=== PATIENT | male | born 1960 | race Caucasian/White ===

== ENCOUNTER 2017-08-29 10:31 | Emergency (ER) | payer SELFPAY ==
[2017-08-29] MEDS ORDERED: HYDROCODONE/APAP 10/325 TAB ONE (11:00)
--- NOTE | 2017-08-29 12:03 | RAD REPORT ---
EXAM DESCRIPTION: RAD - Ankle Right 3 View - 08/29/2017 11:17 am CLINICAL HISTORY: Twisting injury, soft tissue swelling COMPARISON: None. FINDINGS: All several punctate bony densities are present at the tip of the fibula and may represent small avulsion fractures from the current injury or even possibly remote ankle injuries. No other ev idence for fracture. No dislocation or periosteal reaction. Scattered degenerative changes are presen t around the ankle joint. No Achilles or plantar spur. No joint effusion seen. No joint space narrowi ng. Significant lateral soft tissue swelling is present. IMPRESSION: Several punctate bony densities at the tip of the fibula could be avulsion fractures fro m the current injury or from prior ankle injury. No other fracture change seen. There is significant lateral soft tissue swelling.
--- NOTE | 2017-08-29 13:19 | ER ---
Nurse's Notes [facility] Name: Jesus Noriega Age: 56 yrs Sex: Male : 1960 Arrival Date: 08/29/2017 Time: 10:35 Bed 13 Private MD: Kelvin Mayorga Diagnosis: Sprain of unspecified ligament of right ankle;Other physeal fracture of lower end of unspecified fibula Presentation: 08/29 10:40 Presenting complaint: Patient states: Rolled right ankle today just TRUCKER HAND. Transition of care: patient was not received from another setting of care. Onset of symptoms was August 29, 2017. Risk Assessment: Do you want to hurt yourself or someone else? Patient reports no desire to harm self or others. Initial Sepsis Screen: Does the patient meet any 2 criteria? No. Patient's initial sepsis screen is negative. Does the patient have a suspected source of infection? No. Patient's initial sepsis screen is negative. Care prior to arrival: None. 10:40 Method Of Arrival: Wheelchair aj 10:40 Acuity: [place] 4 aj Triage Assessment: 10:41 General: Appears in no apparent distress. comfortable, Behavior is calm, cooperative, aj appropriate for age. Pain: Complains of pain in anterior aspect of right ankle. Neuro: Level of Consciousness is awake, alert, obeys commands, Oriented to person, place, time, situation, Appropriate for age. Respiratory: Airway is patent Respiratory effort is even, unlabored, Respiratory pattern is regular, symmetrical. Derm: Skin is intact, is healthy with good turgor, Skin is pink, warm \T\ dry. normal. Musculoskeletal: Reports pain in right ankle and anterior aspect of right ankle. Historical: - Allergies: 10:41 No Known Allergies; aj - Home Meds: 10:41 None [Active]; aj - PMHx: 10:41 COPD; aj - PSHx: 10:41 None; aj - Immunization history:: Adult Immunizations up to date. - Social history:: Smoking status: Patient/guardian denies using tobacco, Patient uses alcohol, occasionally. - Ebola Screening: : Patient negative for fever greater than or equal to 101.5 degrees Fahrenheit, and additional compatible Ebola Virus Disease symptoms Patient denies exposure to infectious person Patient denies travel to an Ebola-affected area in the 21 days before illness onset No symptoms or risks identified at this time. - Family history:: not pertinent. - Hospitalizations: : No recent hospitalization is reported. - History obtained from: friend. Screenin:48 Abuse screen: Denies threats or abuse. Denies injuries from another. Nutritional hj screening: No deficits noted. Tuberculosis screening: No symptoms or risk factors identified. Fall Risk None identified. Assessment: 10:41 General: Appears in no apparent distress. uncomfortable, Behavior is calm, cooperative, hj appropriate for age. Pain: Complains of pain in right ankle and anterior aspect of right ankle. Neuro: Level of Consciousness is awake, alert, obeys commands, Oriented to person, place, time, situation, Appropriate for age. Cardiovascular: Capillary refill < 3 seconds Patient's skin is warm and dry. Respiratory: Airway is patent Respiratory effort is even, unlabored, Respiratory pattern is regular, symmetrical. GI: No signs and/or symptoms were reported involving the gastrointestinal system. : No signs and/or symptoms were reported regarding the genitourinary system. EENT: No signs and/or symptoms were reported regarding the EENT system. Derm: No signs and/or symptoms reported regarding the dermatologic system. Musculoskeletal: No signs and/or symptoms reported regarding the musculoskeletal system. 11:45 Reassessment: Patient and/or family updated on plan of care and expected duration. Pain iw level reassessed. Patient is alert, oriented x 3, equal unlabored respirations, skin warm/dry/pink. Patient states feeling better. 12:45 Reassessment: Patient and/or family updated on plan of care and expected duration. Pain iw level reassessed. Patient is alert, oriented x 3, equal unlabored respirations, skin warm/dry/pink. Patient states symptoms have improved. 13:27 Reassessment: for D/C;. iw Vital Signs: 10:41 BP 121 / 93; Pulse 65; Resp 20; Temp 98.0(O); Pulse Ox 96% on R/A; Weight 106.59 kg; aj Height 5 ft. 9 in. (175.26 cm); 13:27 BP 120 / 95; Pulse 67; Resp 18; Pulse Ox 100% on R/A; iw 10:41 Body Mass Index 34.70 (106.59 kg, 175.26 cm) ED Course: 10:35 Patient arrived in ED. mr 10:35 Kelvin Mayorga MD is Private Physician. mr 10:35 Indy Carpenter FNP is [facility]. kav 10:35 Osbaldo Cedeño MD is Attending Physician. kav 10:40 Triage completed. aj 10:41 Arm band placed on left wrist. Patient placed in an exam room. aj 10:47 Anjum Lowery, RN is Primary Nurse. hj 10:48 Patient has correct armband on for positive identification. Placed in gown. Bed in low hj position. Call light in reach. Side rails up X 1. 11:17 Ankle Right 3 View XRAY In Process Unspecified. EDMS 11:17 X-ray completed. Portable x-ray completed in exam room. Patient tolerated procedure jb2 well. 13:17 Orthoglass splint:. mh5 13:18 Crutch training done. Orthoglass splint: Posterior short lleg splint applied on right mh5 leg. 13:19 Kelvin Mayorga MD is Referral Physician. kav 13:19 Rakan Mireles MD is Referral Physician. kav 13:28 No provider procedures requiring assistance completed. Patient did not have IV access iw during this emergency room visit. Administered Medications: 10:56 Drug: [place] 10 mg-325 mg 1 tabs Route: PO; hj 12:51 Follow up: Response: Pain is decreased Outcome: 13:19 Discharge ordered by . kav 13:28 Discharged to home ambulatory, with crutches, with family. iw 13:28 Condition: stable 13:28 Discharge instructions given to patient, family, Instructed on discharge instructions, follow up and referral plans. medication usage, crutch walking, Demonstrated understanding of instructions, follow-up care, medications, crutch walking, Prescriptions given X 2. 13:38 Patient left the ED. hj Signatures: Dispatcher [employer] EDMS Yuki Mtz RN RN aj Vern, Katherine, FNP FNP kav Rivera, Maria Vic Andrade jb2 Kenzie Alford RN RN iw Joaquin, Henry, RN RN hj Martinez, Maria [facility]
--- NOTE | 2017-08-29 13:19 | EDPHYS ---
Physician Documentation [facility] Name: Jesus Noriega Age: 56 yrs Sex: Male : 1960 Arrival Date: 08/29/2017 Time: 10:35 Bed 13 Private MD: Kelvin Mayorga ED Physician Osbaldo Cedeño HPI: 08/29 10:56 This 56 yrs old Male presents to ER via Wheelchair with complaints of Feet kav Swelling. 10:56 The patient presents with a deformity, pain, that is acute, swelling. The complaints kav affect the right ankle. Onset: The symptoms/episode began/occurred acutely, just prior to arrival. Context: The problem was sustained at home, resulted from the patient falling, "...fell through the floor", The mechanism of injury involved eversion of the affected ankle. The patient can partially bear weight on the affected extremity. the patient is able to ambulate, with mild difficulty. Associated signs and symptoms: Pertinent positives: swelling, of the right ankle. Modifying factors: The symptoms are alleviated by nothing, the symptoms are aggravated by movement. Severity of symptoms: At their worst the symptoms were moderate, just prior to arrival, a " 9" out of "10". The patient has not experienced similar symptoms in the past. The patient has not recently seen a physician. This is a 56 y/o male patient who presents to the ED with right swollen ankle that is tender to touch and painful 9/10. He reports that his injury occurred just prior to arrival to ED.. Historical: - Allergies: 10:41 No Known Allergies; aj - Home Meds: 10:41 None [Active]; aj - PMHx: 10:41 COPD; aj - PSHx: 10:41 None; aj - Immunization history:: Adult Immunizations up to date. - Social history:: Smoking status: Patient/guardian denies using tobacco, Patient uses alcohol, occasionally. - Ebola Screening: : Patient negative for fever greater than or equal to 101.5 degrees Fahrenheit, and additional compatible Ebola Virus Disease symptoms Patient denies exposure to infectious person Patient denies travel to an Ebola-affected area in the 21 days before illness onset No symptoms or risks identified at this time. - Family history:: not pertinent. - Hospitalizations: : No recent hospitalization is reported. - History obtained from: friend. ROS: 10:59 Constitutional: Negative for fever, chills, and weight loss, Eyes: Negative for injury, kav pain, redness, and discharge, ENT: Negative for injury, pain, and discharge, Neck: Negative for injury, pain, and swelling, Cardiovascular: Negative for chest pain, palpitations, and edema, Respiratory: Negative for shortness of breath, cough, wheezing, and pleuritic chest pain, Abdomen/GI: Negative for abdominal pain, nausea, vomiting, diarrhea, and constipation, Back: Negative for injury and pain, : Negative for injury, bleeding, discharge, and swelling, Skin: Negative for injury, rash, and discoloration, Neuro: Negative for headache, weakness, numbness, tingling, and seizure, Psych: Negative for depression, anxiety, suicide ideation, homicidal ideation, and hallucinations, Allergy/Immunology: Negative for hives, rash, and allergies, Endocrine: Negative for neck swelling, polydipsia, polyuria, polyphagia, and marked weight changes, Hematologic/Lymphatic: Negative for swollen nodes, abnormal bleeding, and unusual bruising. 10:59 MS/extremity: Positive for injury or acute deformity, pain, swelling, Negative for abrasion, contusion, ecchymosis, laceration. Exam: 10:59 Constitutional: This is a well developed, well nourished patient who is awake, alert, kav and in no acute distress. Head/Face: Normocephalic, atraumatic. Eyes: Pupils equal round and reactive to light, extra-ocular motions intact. Lids and lashes normal. Conjunctiva and sclera are non-icteric and not injected. Cornea within normal limits. Periorbital areas with no swelling, redness, or edema. ENT: Nares patent. No nasal discharge, no septal abnormalities noted. Tympanic membranes are normal and external auditory canals are clear. Oropharynx with no redness, swelling, or masses, exudates, or evidence of obstruction, uvula midline. Mucous membranes moist. Neck: Trachea midline, no thyromegaly or masses palpated, and no cervical lymphadenopathy. Supple, full range of motion without nuchal rigidity, or vertebral point tenderness. No Meningismus. Chest/axilla: Normal chest wall appearance and motion. Nontender with no deformity. No lesions are appreciated. Cardiovascular: Regular rate and rhythm with a normal S1 and S2. No gallops, murmurs, or rubs. Normal PMI, no JVD. No pulse deficits. Respiratory: Lungs have equal breath sounds bilaterally, clear to auscultation and percussion. No rales, rhonchi or wheezes noted. No increased work of breathing, no retractions or nasal flaring. Abdomen/GI: Soft, non-tender, with normal bowel sounds. No distension or tympany. No guarding or rebound. No evidence of tenderness throughout. Back: No spinal tenderness. No costovertebral tenderness. Full range of motion. Skin: Warm, dry with normal turgor. Normal color with no rashes, no lesions, and no evidence of cellulitis. Neuro: Awake and alert, GCS 15, oriented to person, place, time, and situation. Cranial nerves II-XII grossly intact. Motor strength 5/5 in all extremities. Sensory grossly intact. Cerebellar exam normal. Normal gait. Psych: Awake, alert, with orientation to person, place and time. Behavior, mood, and affect are within normal limits. 10:59 Musculoskeletal/extremity: Extremities: noted in the right ankle: ROM: limited active range of motion, in the right ankle, Circulation is intact in all extremities. Pulses: noted to be 2+ in the left popliteal artery, Sensation intact. Compartment Syndrome exam of affected extremity: is normal. no numbness, no tingling, no sensation deficit, no palor, no weak pulses, severe pain, with active ROM, Joints: the right ankle displays Weight bearing: can bear weight with assistance only, Tendon exam: Vital Signs: 10:41 BP 121 / 93; Pulse 65; Resp 20; Temp 98.0(O); Pulse Ox 96% on R/A; Weight 106.59 kg; aj Height 5 ft. 9 in. (175.26 cm); 13:27 BP 120 / 95; Pulse 67; Resp 18; Pulse Ox 100% on R/A; iw 10:41 Body Mass Index 34.70 (106.59 kg, 175.26 cm) aj MDM: 10:40 Medical screening is not applicable. [facility] 11:48 Data reviewed: vital signs, nurses notes. ED course: awaiting radiology results. [facility] 08/29 10:56 Order name: Ankle Right 3 View XRAY; Complete Time: 12:12 [facility] 08/29 12:12 Interpretation: No acute disease except: Possible avulsion fracture fibular. [facility] 08/29 10:56 Order name: Ice pack: right ankle; Complete Time: 10:57 [facility] 08/29 12:22 Order name: Posterior Leg Splint; Complete Time: 13:16 ka 08/29 12:22 Order name: Crutches; Complete Time: 13:16 ka Administered Medications: 10:56 Drug: [place] 10 mg-325 mg 1 tabs Route: PO; 12:51 Follow up: Response: Pain is decreased Disposition: 08/30 06:38 Co-signature as Attending Physician, Osbaldo Cedeño MD I agree with the assessment and jaylin plan of care. Disposition: 08/29/17 13:19 Discharged to Home. Impression: Sprain of unspecified ligament of right ankle, Other physeal fracture of lower end of unspecified fibula. - Condition is Stable. - Discharge Instructions: Ankle Sprain, [id number], Ankle Pain, Ankle Fracture, [id number]. - Prescriptions for Ibuprofen 800 mg Oral Tablet - take 1 tablet by ORAL route every 8 hours As needed take with food; 30 tablet. Tylenol- Codeine #3 300-30 mg Oral Tablet - take 2 tablet by ORAL route every 6 hours As needed; 30 tablet. - Medication Reconciliation Form, Thank You Letter, Antibiotic Education, Prescription Opioid Use, Work release form form. - Follow up: Kelvin Mayorga; When: 5 - 6 days; Reason: Recheck today's complaints, Continuance of care, Re-evaluation by your physician. Follow up: Rakan Mireles MD; When: 2 - 3 days; Reason: Recheck today's complaints, Continuance of care, Re-evaluation by your physician. - Problem is new. - Symptoms have improved. - Notes: ice to affected ankle 3 x day x 20 minutes each session x 3 days rest, ice, compression, elevation of affected extremity while seated or prone position non-weight bearing right foot Signatures: Dispatcher [employer] Yuki Salazar RN RN aj Anderson, Corey, MD MD cha Vern, Katherine, FNP FNP kav Joaquin, Henry, RN RN hj Corrections: (The following items were deleted from the chart) 08/29 13:20 13:19 08/29/2017 13:19 Discharged to Home. Impression: Sprain of unspecified ligament kav of right ankle; Other physeal fracture of lower end of unspecified fibula. Condition is Stable. Discharge Instructions: Ankle Sprain, [id number], Ankle Pain, Ankle Fracture, [id number]. Prescriptions for Ibuprofen 800 mg Oral Tablet - take 1 tablet by ORAL route every 8 hours As needed take with food; 30 tablet, Tylenol-Codeine #3 300-30 mg Oral Tablet - take 2 tablet by ORAL route every 6 hours As needed; 30 tablet. and Forms are Medication Reconciliation Form, Thank You Letter, Antibiotic Education, Prescription Opioid Use. Follow up: Kelvin Mayorga; When: 5 - 6 days; Reason: Recheck today's complaints, Continuance of care, Re-evaluation by your physician. Problem is new. Symptoms have improved. kav 13:38 13:20 08/29/2017 13:19 Discharged to Home. Impression: Sprain of unspecified ligament hj of right ankle; Other physeal fracture of lower end of unspecified fibula. Condition is Stable. Discharge Instructions: Ankle Sprain, [id number], Ankle Pain, Ankle Fracture, [id number]. Prescriptions for Ibuprofen 800 mg Oral Tablet - take 1 tablet by ORAL route every 8 hours As needed take with food; 30 tablet, Tylenol-Codeine #3 300-30 mg Oral Tablet - take 2 tablet by ORAL route every 6 hours As needed; 30 tablet. and Forms are Medication Reconciliation Form, Thank You Letter, Antibiotic Education, Prescription Opioid Use. Follow up: Kelvin Mayorga; When: 5 - 6 days; Reason: Recheck today's complaints, Continuance of care, Re-evaluation by your physician. Follow up: Rakan Mireles; When: 2 - 3 days; Reason: Recheck today's complaints, Continuance of care, Re-evaluation by your physician. Problem is new. Symptoms have improved. kav
[2017-08-29 13:42] VITALS: TEMP 98
[2017-08-29 13:44] VITALS: BP 120/95; O2SAT 100
== END 2017-08-29 13:38 | disposition home or self-care (01) ==
LOC: ER 10:31
PROC: 2W3QX1Z Immobilization of Right Lower Leg using Splint (ICD-10-PCS; principal; 2017-08-29)
DX: S93.401A Sprain of unspecified ligament of right ankle, initial encounter (principal); S89.101A Unspecified physeal fracture of lower end of right tibia, initial encounter for closed fracture; M21.072 Valgus deformity, not elsewhere classified, left ankle; J44.9 Chronic obstructive pulmonary disease, unspecified; W17.2XXA Fall into hole, initial encounter; Y93.9 Activity, unspecified; Y92.019 Unspecified place in single-family (private) house as the place of occurrence of the external cause
CPT/HCPCS: 99284

== ENCOUNTER 2018-03-06 17:19 | Emergency (ER) | payer OTHER ==
[2018-03-06 18:50] LABS: Absolute Lymphocytes (CBC) 1.1 K/uL (0.7-4.9); Absolute Monocytes 0.7 K/uL (0.1-1.3); Absolute Neutrophil 6.5 K/uL (1.8-8.0); Basophils % 2.7 % (0-1.3); Eosinophils % 3.3 % (0-4.4); Hematocrit 53.9 % (39.6-49.0); Lymphocytes % 12.6 % (15.3-44.8); MPV 9.7 fL (7.6-11.3); Monocytes % 7.7 % (3.3-12.3); RBC Red Blood Cell Count 5.89 M/uL (4.33-5.43)
[2018-03-06 18:57] LABS: Protime INR 0.97
[2018-03-06 19:03] LABS: ALT/SGPT 92 U/L (12-78); AST/SGOT 45 U/L (15-37); Albumin 3.9 g/dL (3.4-5.0); Alkaline Phosphatase 86 U/L (45-117); BUN Blood Urea Nitrogen 17 mg/dL (7-18); Bicarbonate 29 mmol/L (21-32); Bilirubin Direct 0.1 mg/dL (0-0.2); Bilirubin Total 0.4 mg/dL (0.2-1.0); Glucose Level 107 mg/dL (74-106); Lipase 100 U/L (73-393); Magnesium 2.4 mg/dL (1.8-2.4); NT PRO-BNP 12 pg/mL (<125); Potassium 4.2 mmol/L (3.5-5.1); Protein, Total 7.5 g/dL (6.4-8.2); Sodium Level 136 mmol/L (136-145); Troponin (Emerg Dept Use Only) < 0.02 ng/mL (0.0-0.045)
--- NOTE | 2018-03-06 19:09 | RAD REPORT ---
EXAM DESCRIPTION: CT - Head Brain Wo Cont - 03/06/2018 7:02 pm CLINICAL HISTORY: DIZZINESS Headache, drowsiness COMPARISON: No comparisons TECHNIQUE: All CT scans are performed using dose optimization technique as appropriate and may inclu de automated exposure control or mA/KV adjustment according to patient size. FINDINGS: No intracranial hemorrhage, hydrocephalus or extra-axial fluid collection.No areas of brai n edema or evidence of midline shift. The paranasal sinuses and mastoids are clear. The calvarium is intact. IMPRESSION: No acute intracranial abnormality.
--- NOTE | 2018-03-06 19:12 | RAD REPORT ---
EXAM DESCRIPTION: MRI - Brain Wo Cont - 03/06/2018 6:57 pm CLINICAL HISTORY: DIZZINESS Headache, drowsiness COMPARISON: Head Brain Wo Cont dated 03/06/2018 TECHNIQUE: Multi-sequence, multiplanar MR imaging of the brain was performed without contrast. FINDINGS: No intracranial hemorrhage, hydrocephalus or extra-axial fluid collections.A few nonspecif ic T2/FLAIR hyperintensities in the medial frontal lobes are likely related to minimal chronic microv ascular ischemia. No edema or shift of midline structures. No findings to suspect brain mass. DWI is negative for acute CVA. Midline structures are normally formed. Mastoid air cells and paranasal sinuses are clear. IMPRESSION: No acute or concerning intracranial abnormalities.
--- NOTE | 2018-03-06 19:31 | EDPHYS ---
Physician Documentation [facility] Name: Jesus Noriega Age: 57 yrs Sex: Male : 1960 Arrival Date: 03/06/2018 Time: 17:20 Bed 25 Private MD: Kelvin Mayorga ED Physician Osbaldo Cedeño HPI: 03/06 18:24 This 57 yrs old Male presents to ER via Wheelchair with complaints of jaylin Dizziness. 18:24 The patient presents with dizziness, feeling faint, generalized weakness, sense of jaylin spinning. Onset: The symptoms/episode began/occurred 1 day(s) ago. Context: occurred while the patient was. Modifying factors: The symptoms are alleviated by holding head still, the symptoms are aggravated by movement of head, standing up, changing position. Associated signs and symptoms: The patient has no apparent associated signs or symptoms. Severity of symptoms: At their worst the symptoms were mild in the emergency department the symptoms are unchanged. Patient's baseline: Neuro: alert and fully oriented. The patient has experienced similar episodes in the past, a few times. Historical: - Allergies: 17:29 No Known Allergies; aj - Home Meds: 17:29 Albuterol Inhl [Active]; ProAir HFA inhalation inhalation [Active]; aj - PMHx: 17:29 COPD; aj - PSHx: 17:29 None; aj - Immunization history:: Adult Immunizations up to date. - Social history:: Smoking status: Patient/guardian denies using tobacco. - Ebola Screening: : Patient negative for fever greater than or equal to 101.5 degrees Fahrenheit, and additional compatible Ebola Virus Disease symptoms Patient denies exposure to infectious person Patient denies travel to an Ebola-affected area in the 21 days before illness onset No symptoms or risks identified at this time. - Family history:: not pertinent. ROS: 18:24 Constitutional: Negative for fever, chills, and weight loss, Eyes: Negative for injury, jaylin pain, redness, and discharge, ENT: Negative for injury, pain, and discharge, Neck: Negative for injury, pain, and swelling, Cardiovascular: Negative for chest pain, palpitations, and edema, Respiratory: Negative for shortness of breath, cough, wheezing, and pleuritic chest pain, Abdomen/GI: Negative for abdominal pain, nausea, vomiting, diarrhea, and constipation, Back: Negative for injury and pain, : Negative for injury, bleeding, discharge, and swelling, MS/Extremity: Negative for injury and deformity, Skin: Negative for injury, rash, and discoloration, Psych: Negative for depression, anxiety, suicide ideation, homicidal ideation, and hallucinations, Allergy/Immunology: Negative for hives, rash, and allergies, Endocrine: Negative for neck swelling, polydipsia, polyuria, polyphagia, and marked weight changes, Hematologic/Lymphatic: Negative for swollen nodes, abnormal bleeding, and unusual bruising. 18:24 Neuro: Positive for dizziness, weakness. Exam: 18:24 Constitutional: This is a well developed, well nourished patient who is awake, alert, jaylin and in no acute distress. Head/Face: Normocephalic, atraumatic. Eyes: Pupils equal round and reactive to light, extra-ocular motions intact. Lids and lashes normal. Conjunctiva and sclera are non-icteric and not injected. Cornea within normal limits. Periorbital areas with no swelling, redness, or edema. ENT: Nares patent. No nasal discharge, no septal abnormalities noted. Tympanic membranes are normal and external auditory canals are clear. Oropharynx with no redness, swelling, or masses, exudates, or evidence of obstruction, uvula midline. Mucous membranes moist. Neck: Trachea midline, no thyromegaly or masses palpated, and no cervical lymphadenopathy. Supple, full range of motion without nuchal rigidity, or vertebral point tenderness. No Meningismus. Chest/axilla: Normal chest wall appearance and motion. Nontender with no deformity. No lesions are appreciated. Cardiovascular: Regular rate and rhythm with a normal S1 and S2. No gallops, murmurs, or rubs. Normal PMI, no JVD. No pulse deficits. Respiratory: Lungs have equal breath sounds bilaterally, clear to auscultation and percussion. No rales, rhonchi or wheezes noted. No increased work of breathing, no retractions or nasal flaring. Abdomen/GI: Soft, non-tender, with normal bowel sounds. No distension or tympany. No guarding or rebound. No evidence of tenderness throughout. Back: No spinal tenderness. No costovertebral tenderness. Full range of motion. Male : Normal genitalia with no discharge or lesions. Skin: Warm, dry with normal turgor. Normal color with no rashes, no lesions, and no evidence of cellulitis. MS/ Extremity: Pulses equal, no cyanosis. Neurovascular intact. Full, normal range of motion. Neuro: Awake and alert, GCS 15, oriented to person, place, time, and situation. Cranial nerves II-XII grossly intact. Motor strength 5/5 in all extremities. Sensory grossly intact. Cerebellar exam normal. Normal gait. Psych: Awake, alert, with orientation to person, place and time. Behavior, mood, and affect are within normal limits. Vital Signs: 17:29 BP 142 / 90; Pulse 65; Resp 20; Temp 98.5; Pulse Ox 94% on R/A; Weight 104.33 kg; aj Height 5 ft. 9 in. (175.26 cm); 19:30 BP 134 / 90; Pulse 66; Resp 18; Pulse Ox 99% on R/A; kr2 20:36 BP 136 / 88; Pulse 70; Resp 17; Pulse Ox 99% on R/A; kr2 17:29 Body Mass Index 33.96 (104.33 kg, 175.26 cm) aj MDM: 17:33 Patient medically screened. [facility] 18:26 Data reviewed: vital signs, nurses notes, lab test result(s), EKG, radiologic studies, [facility] CT scan, doppler, plain films. 03/06 18:22 Order name: Basic Metabolic Panel; Complete Time: 19:28 [facility] 03/06 18:22 Order name: CBC with Diff; Complete Time: 19:28 [facility] 03/06 18:22 Order name: LFT's; Complete Time: 19:28 [facility] 03/06 18:22 Order name: Magnesium; Complete Time: 19:28 [facility] 03/06 18:22 Order name: NT PRO-BNP; Complete Time: 19:28 [facility] 03/06 18:22 Order name: PT-INR; Complete Time: 19:28 [facility] 03/06 18:22 Order name: Troponin (emerg Dept Use Only); Complete Time: 19:28 [facility] 03/06 18:22 Order name: XRAY Chest (1 view); Complete Time: 20:14 [facility] 03/06 18:22 Order name: Lipase; Complete Time: 19:28 [facility] 03/06 18:22 Order name: CT Head Brain wo Cont; Complete Time: 19:28 [facility] 03/06 18:22 Order name: Urine Culture [facility] 03/06 18:22 Order name: US Carotid Artery Bilateral; Complete Time: 20:14 [facility] 03/06 20:03 Order name: Urine Dipstick--Ancillary (enter results) ag4 03/06 18:22 Order name: EKG; Complete Time: 18:23 [facility] 03/06 18:22 Order name: Cardiac monitoring; Complete Time: 18:43 [facility] 03/06 18:22 Order name: EKG - Nurse/Tech; Complete Time: 18:43 [facility] 03/06 18:22 Order name: IV Saline Lock; Complete Time: 18:43 [facility] 03/06 18:22 Order name: Labs collected and sent; Complete Time: 18:43 [facility] 03/06 18:22 Order name: O2 Per Protocol; Complete Time: 18:43 [facility] 03/06 18:22 Order name: O2 Sat Monitoring; Complete Time: 18:44 [facility] 03/06 18:22 Order name: Urine Dipstick-Ancillary (obtain specimen); Complete Time: 20:44 [facility] 03/06 18:27 Order name: Brain Wo Cont; Complete Time: 19:28 EDMS Administered Medications: 19:36 Drug: NS 0.9% 1000 ml Route: IV; Rate: 1 bolus; Site: left wrist; kr2 20:43 Follow up: Response: No adverse reaction; IV Status: Completed infusion kr2 19:36 Drug: Meclizine 50 mg Route: PO; kr2 20:43 Follow up: Response: No adverse reaction; Marked relief of symptoms kr2 19:36 Drug: Zofran 4 mg Route: IVP; Site: left wrist; kr2 20:00 Follow up: Response: No adverse reaction; Nausea is decreased kr2 19:37 Drug: NS 0.9% 1000 ml Route: IV; Rate: 1 bolus; Site: left wrist; kr2 20:43 Follow up: Response: No adverse reaction; IV Status: Completed infusion kr2 19:37 Drug: foLIC Acid 1 mg Route: IVPB; Site: left wrist; kr2 20:43 Follow up: Response: No adverse reaction; IV Status: Completed infusion kr2 Disposition: 03/06/18 19:30 Discharged to Home. Impression: Dizziness and giddiness, Vertiginous syndromes in diseases classified elsewhere, unspecified ear, Nausea and vomiting, Chronic obstructive pulmonary disease, unspecified. - Condition is Stable. - Discharge Instructions: Benign Positional Vertigo, Chronic Obstructive Pulmonary Disease, Dizziness, Vertigo, Aspirin and Your Heart, Dizziness, [id number]. - Prescriptions for Meclizine 25 mg Oral Tablet - take 1 tablet by ORAL route every 8 hours As needed; 30 tablet. Zofran 4 mg Oral Tablet - take 1 tablet by ORAL route every 12 hours As needed; 14 tablet. promethazine 25 mg Oral Tablet - take 1 tablet by ORAL route every 6 hours As needed; 12 tablet. - Medication Reconciliation Form, Thank You Letter, Antibiotic Education, Prescription Opioid Use form. - Follow up: Kelvin Mayorga; When: 2 - 3 days; Reason: Recheck today's complaints, Continuance of care, Re-evaluation by your physician. Follow up: Duran Morrow; When: 2 - 3 days; Reason: Recheck today's complaints, Continuance of care, Re-evaluation by your physician. - Problem is new. - Symptoms have improved. Signatures: Dispatcher [employer] Yuki Neely RN RN aj Anderson, Corey, MD MD cha Reaves, Karey, RN RN kr2 Corrections: (The following items were deleted from the chart) 18:27 18:24 MR STROKE PROTOCOL+MRI.RAD.BRZ ordered. [facility] 20:15 19:30 03/06/2018 19:30 Discharged to Home. Impression: Dizziness and giddiness; jaylin Vertiginous syndromes in diseases classified elsewhere, unspecified ear; Nausea and vomiting. Condition is Stable. Discharge Instructions: Benign Positional Vertigo, Dizziness, Vertigo, Aspirin and Your Heart, Dizziness, [id number]. Prescriptions for Meclizine 25 mg Oral Tablet - take 1 tablet by ORAL route every 8 hours As needed; 30 tablet, Zofran 4 mg Oral Tablet - take 1 tablet by ORAL route every 12 hours As needed; 14 tablet. and Forms are Medication Reconciliation Form, Thank You Letter, Antibiotic Education, Prescription Opioid Use. Follow up: Kelvin Mayorga; When: 2 - 3 days; Reason: Recheck today's complaints, Continuance of care, Re-evaluation by your physician. Follow up: Duran Morrow; When: 2 - 3 days; Reason: Recheck today's complaints, Continuance of care, Re-evaluation by your physician. Problem is new. Symptoms have improved. jaylin 20:44 20:15 03/06/2018 19:30 Discharged to Home. Impression: Dizziness and giddiness; kr2 Vertiginous syndromes in diseases classified elsewhere, unspecified ear; Nausea and vomiting; Chronic obstructive pulmonary disease, unspecified. Condition is Stable. Discharge Instructions: Benign Positional Vertigo, Dizziness, Vertigo, Aspirin and Your Heart, Dizziness, [id number]. Prescriptions for Meclizine 25 mg Oral Tablet - take 1 tablet by ORAL route every 8 hours As needed; 30 tablet, Zofran 4 mg Oral Tablet - take 1 tablet by ORAL route every 12 hours As needed; 14 tablet. and Forms are Medication Reconciliation Form, Thank You Letter, Antibiotic Education, Prescription Opioid Use. Follow up: Kelvin Mayorga; When: 2 - 3 days; Reason: Recheck today's complaints, Continuance of care, Re-evaluation by your physician. Follow up: Duran Morrow; When: 2 - 3 days; Reason: Recheck today's complaints, Continuance of care, Re-evaluation by your physician. Problem is new. Symptoms have improved. jaylin
--- NOTE | 2018-03-06 19:31 | ER ---
Nurse's Notes [facility] Name: Jesus Noriega Age: 57 yrs Sex: Male : 1960 Arrival Date: 03/06/2018 Time: 17:20 Bed 25 Private MD: Kelvin Mayorga Diagnosis: Dizziness and giddiness;Vertiginous syndromes in diseases classified elsewhere, unspecified ear;Nausea and vomiting;Chronic obstructive pulmonary disease, unspecified Presentation: 03/06 17:27 Presenting complaint: Patient states: Dizziness with nausea and vomiting that started aj suddenly 1.5 hours [employer]. Patient reports dizziness when moving head. Transition of care: patient was not received from another setting of care. Onset of symptoms was March 06, 2018. Risk Assessment: Do you want to hurt yourself or someone else? Patient reports no desire to harm self or others. Initial Sepsis Screen: Does the patient meet any 2 criteria? No. Patient's initial sepsis screen is negative. Does the patient have a suspected source of infection? No. Patient's initial sepsis screen is negative. Care prior to arrival: None. 17:27 Method Of Arrival: Wheelchair 17:27 Acuity: ISR[place] 3 aj Triage Assessment: 17:29 General: Appears in no apparent distress. comfortable, Behavior is calm, cooperative, aj appropriate for age. Pain: Denies pain. Neuro: Level of Consciousness is awake, alert, obeys commands, Oriented to person, place, time, situation, Appropriate for age Reports dizziness. Respiratory: Airway is patent Respiratory effort is even, unlabored, Respiratory pattern is regular, symmetrical. GI: Reports nausea, vomiting. Derm: Skin is intact, is healthy with good turgor, Skin is pink, warm \T\ dry. normal. Historical: - Allergies: 17:29 No Known Allergies; aj - Home Meds: 17:29 Albuterol Inhl [Active]; ProAir HFA inhalation inhalation [Active]; aj - PMHx: 17:29 COPD; aj - PSHx: 17:29 None; aj - Immunization history:: Adult Immunizations up to date. - Social history:: Smoking status: Patient/guardian denies using tobacco. - Ebola Screening: : Patient negative for fever greater than or equal to 101.5 degrees Fahrenheit, and additional compatible Ebola Virus Disease symptoms Patient denies exposure to infectious person Patient denies travel to an Ebola-affected area in the 21 days before illness onset No symptoms or risks identified at this time. - Family history:: not pertinent. Screenin:00 Abuse screen: Denies threats or abuse. Denies injuries from another. Nutritional kr2 screening: No deficits noted. Tuberculosis screening: No symptoms or risk factors identified. Fall Risk None identified. Assessment: 17:40 General: Appears in no apparent distress. comfortable, well groomed, well developed, kr2 well nourished, Behavior is calm, cooperative, appropriate for age. Pain: Denies pain. Neuro: Level of Consciousness is awake, alert, obeys commands, Oriented to person, place, time, situation, Appropriate for age Consolidation Accountant are equal bilaterally Moves all extremities. Gait is steady, Reports dizziness. Cardiovascular: Capillary refill < 3 seconds in bilateral fingers Patient's skin is warm and dry. Rhythm is regular. Respiratory: Airway is patent Respiratory effort is even, unlabored, Respiratory pattern is regular, symmetrical, Breath sounds are clear bilaterally. GI: Abdomen is round non-distended, Reports nausea, vomiting. EENT: Oral mucosa is moist. Poor dentition noted. Derm: Skin is intact, is healthy with good turgor, Skin is pink, warm \T\ dry. Musculoskeletal: Circulation, motion, and sensation intact. 18:52 Reassessment: Patient appears in no apparent distress at this time. kr2 19:30 Reassessment: Patient appears in no apparent distress at this time. Patient and/or kr2 family updated on plan of care and expected duration. Pain level reassessed. Patient is alert, oriented x 3, equal unlabored respirations, skin warm/dry/pink. Patient denies pain at this time. Patient states feeling better. Patient states symptoms have improved. 20:35 Reassessment: Patient appears in no apparent distress at this time. Patient and/or kr2 family updated on plan of care and expected duration. Pain level reassessed. Patient is alert, oriented x 3, equal unlabored respirations, skin warm/dry/pink. Patient denies pain at this time. Patient states feeling better. Patient states symptoms have improved. Vital Signs: 17:29 BP 142 / 90; Pulse 65; Resp 20; Temp 98.5; Pulse Ox 94% on R/A; Weight 104.33 kg; aj Height 5 ft. 9 in. (175.26 cm); 19:30 BP 134 / 90; Pulse 66; Resp 18; Pulse Ox 99% on R/A; kr2 20:36 BP 136 / 88; Pulse 70; Resp 17; Pulse Ox 99% on R/A; kr2 17:29 Body Mass Index 33.96 (104.33 kg, 175.26 cm) ED Course: 17:20 Patient arrived in ED. as 17:21 Kelvin Mayorga MD is Private Physician. as 17:28 Triage completed. aj 17:29 Arm band placed on right wrist. Patient placed in an exam room. aj 17:33 Osbaldo Cedeño MD is Attending Physician. jaylin 17:40 Patient has correct armband on for positive identification. Bed in low position. Call kr2 light in reach. Side rails up X 1. Adult w/ patient. panel monitor on. Pulse ox on. NIBP on. Door closed. Warm blanket given. Head of bed elevated. 18:00 Inserted saline lock: 20 gauge in left wrist, using aseptic technique. Blood collected. kr2 18:35 Patient moved to MRI via wheelchair. ka 18:[address] via wheelchair. ka 18:57 Brain Wo Cont In Process Unspecified. EDMS 19:02 CT completed. Patient tolerated procedure well. Patient moved back from CT. nj 19:02 Patient taken to ultrasound. nj 19:02 Patient taken to ultrasound. lc3 19:03 CT Head Brain wo Cont In Process Unspecified. EDMS 19:28 US Carotid Artery Bilateral In Process Unspecified. EDMS 19:29 Ultrasound completed. Note: to er. Patient moved back from ultrasound. lc3 19:30 Kelvin Mayorga MD is Referral Physician. jaylin 19:30 Duran Morrow MD is Referral Physician. jaylin 19:41 XRAY Chest (1 view) In Process Unspecified. EDMS 20:37 IV discontinued, intact, bleeding controlled, No redness/swelling at site. Pressure kr2 dressing applied. 20:38 No provider procedures requiring assistance completed. kr2 Administered Medications: 19:36 Drug: NS 0.9% 1000 ml Route: IV; Rate: 1 bolus; Site: left wrist; kr2 20:43 Follow up: Response: No adverse reaction; IV Status: Completed infusion kr2 19:36 Drug: Meclizine 50 mg Route: PO; kr2 20:43 Follow up: Response: No adverse reaction; Marked relief of symptoms kr2 19:36 Drug: Zofran 4 mg Route: IVP; Site: left wrist; kr2 20:00 Follow up: Response: No adverse reaction; Nausea is decreased kr2 19:37 Drug: NS 0.9% 1000 ml Route: IV; Rate: 1 bolus; Site: left wrist; kr2 20:43 Follow up: Response: No adverse reaction; IV Status: Completed infusion kr2 19:37 Drug: foLIC Acid 1 mg Route: IVPB; Site: left wrist; kr2 20:43 Follow up: Response: No adverse reaction; IV Status: Completed infusion kr2 Outcome: 19:30 Discharge ordered by MD. mosqueda 20:38 Discharged to home ambulatory, with family. kr2 20:38 Condition: good 20:38 Discharge instructions given to patient, family, Instructed on discharge instructions, follow up and referral plans. medication usage, Demonstrated understanding of instructions, follow-up care, medications, Prescriptions given X 3. 20:44 Patient left the ED. kr2 Signatures: Dispatcher [employer] EDYuki Neely, RN RN Osbaldo Amaya MD MD cha Martinez, Amelia as Cunningham, Evy Daily Nathan nj Reaves, Karey, RN RN kr2 Corrections: (The following items were deleted from the chart) 20:40 18:55 Inserted saline lock: 20 gauge in left wrist, using aseptic technique. Blood kr2 collected. kr2
[2018-03-06] MEDS ORDERED: ONDANSETRON 4 MG/2 ML VIAL ONE (19:38)
[2018-03-06] MEDS ORDERED: MECLIZINE HCL 12.5 MG TAB ONE (19:38)
[2018-03-06] MEDS ORDERED: NA CHLORIDE 0.9% 1,000 ML ONE (19:40)
[2018-03-06] MEDS ORDERED: FOLIC ACID 5 MG/ML VIAL ONE (19:40)
--- NOTE | 2018-03-06 19:44 | RAD REPORT ---
EXAM DESCRIPTION: - CP - 03/06/2018 7:28 pm CLINICAL HISTORY: DIZZINESS Syncope COMPARISON: No comparisons TECHNIQUE: Real-time sonographic evaluation of both carotid systems was performed. Doppler interroga tion was performed with waveform tracing bilaterally. FINDINGS: Normal high resistance waveforms are noted in both external carotid arteries. The common c arotid arteries and internal carotid arteries show normal low resistance waveforms. No significant plaque formation is seen. Peak systolic and end diastolic velocity values and the ICA/ CCA ratios are in the non-hemodynamically significant range. Antegrade flow seen in both vertebral arteries. IMPRESSION: No significant atherosclerotic changes noted. No evidence of a hemodynamically significant stenosis.
--- NOTE | 2018-03-06 19:47 | RAD REPORT ---
EXAM DESCRIPTION: RAD - Chest Single View - 03/06/2018 7:40 pm CLINICAL HISTORY: COUGH Chest pain. COMPARISON: Chest Single View dated 02/01/2016; CHEST SINGLE VIEW dated 01/15/2013; CHEST SINGLE VIE W dated 06/18/2008 FINDINGS: Portable technique limits examination quality. The lungs are emphysematous but grossly clear. The heart is normal in size. No displaced fractures. IMPRESSION: Mild COPD.
[2018-03-06 20:49] VITALS: TEMP 98.5
[2018-03-06 20:51] VITALS: O2SAT 99
[2018-03-06 20:52] VITALS: BP 136/88
[2018-03-06 21:04] LABS: Urine Blood NEGATIVE (NEG); Urine Glucose NEGATIVE (NEG); Urine Protein NEGATIVE (NEG); Urine pH 6.5 (5.0-7.0)
--- NOTE | 2018-03-07 07:37 | EKG ---
Test Date: 2018-03-06 Test Time: 18:32:17 Volunteer Services Specialist: STERLING MEASUREMENT RESULTS: Intervals: Rate: 73 MT: 150 QRSD: 130 QT: 444 QTc: 489 [place]: P: 71 MT: 150 QRS: 74 T: 48 INTERPRETIVE STATEMENTS: Normal sinus rhythm Right bundle branch block Possible Inferior infarct, age undetermined Abnormal ECG Compared to ECG 02/01/2016 09:53:03 Right bundle-branch block now present Myocardial infarct finding now present Electronically Signed On 03-07-18 07:37:11 SALES DEPARTMENT SUPERVISOR by Robert Flores
== END 2018-03-06 20:44 | disposition home or self-care (01) ==
LOC: ER 17:19
DX: J44.9 Chronic obstructive pulmonary disease, unspecified (principal); H82.9 Vertiginous syndromes in diseases classified elsewhere, unspecified ear; R11.2 Nausea with vomiting, unspecified
CPT/HCPCS: 36415; 70450; 70551; 71045; 80048; 80076; 81003; 83690; 83735; 83880; 84484; 85025; 85610; 87086; 87088; 93005; 93880; J2405; J7030

== ENCOUNTER 2018-12-18 16:03 | Emergency (ER) | payer OTHER ==
[2018-12-18] MEDS ORDERED: dexAMETHasone 10 MG/ML VIAL ONE (16:21)
[2018-12-18] MEDS ORDERED: HYDROCODONE/CHLORPHEN 5 ML/OSYR ONE (16:22)
[2018-12-18 16:39] LABS: Arterial Blood Carboxyhemoglob 0.8 % (0-1.5); Blood Gas Oxyhemoglobin 94.5 % (94-97)
--- NOTE | 2018-12-18 17:19 | RAD REPORT ---
EXAM DESCRIPTION: RAD - Chest Single View - 12/18/2018 5:12 pm CLINICAL HISTORY: COUGH Chest pain. COMPARISON: Chest Single View dated 03/06/2018; Chest Single View dated 02/01/2016; CHEST SINGLE VIEW dated 01/15/2013; CHEST SINGLE VIEW dated 06/18/2008; Lung Cancer Screening CT W/O dated 03/18/2018 FINDINGS: Portable technique limits examination quality. Mild interstitial prominence is seen, nonspecific. No focal infiltrate is detected. The heart is norm al in size. No displaced fractures. IMPRESSION: No acute intrathoracic process suspected.
[2018-12-18 17:41] LABS: Absolute Lymphocytes (CBC) 2.2 K/uL (0.7-4.9); Basophils % 0.7 % (0-1.3); Hematocrit 48.2 % (39.6-49.0); Lymphocytes % 25.2 % (15.3-44.8); MPV 9.3 fL (7.6-11.3); RBC Red Blood Cell Count 5.58 M/uL (4.33-5.43)
[2018-12-18 17:42] LABS: Protime INR 0.96
[2018-12-18 17:55] LABS: ALT/SGPT 75 U/L (12-78); AST/SGOT 57 U/L (15-37); Albumin 3.6 g/dL (3.4-5.0); Alkaline Phosphatase 79 U/L (45-117); BUN Blood Urea Nitrogen 15 mg/dL (7-18); Bicarbonate 27 mmol/L (21-32); Bilirubin Direct 0.1 mg/dL (0-0.2); Bilirubin Total 0.4 mg/dL (0.2-1.0); Glucose Level 117 mg/dL (74-106); NT PRO-BNP 30 pg/mL (<125); Sodium Level 137 mmol/L (136-145); Troponin (Emerg Dept Use Only) < 0.02 ng/mL (0.0-0.045)
--- NOTE | 2018-12-18 18:09 | EDPHYS ---
Physician Documentation [facility] Name: Jesus Noriega Age: 57 yrs Sex: Male : 1960 Arrival Date: 12/18/2018 Time: 16:07 Bed 17 Private MD: ED Physician Antoni Adams HPI: 12/18 16:25 This 57 yrs old Male presents to ER via Ambulatory with complaints of snw Breathing Difficulty. 16:25 The patient has shortness of breath at rest. Onset: The symptoms/episode began/occurred snw gradually. Duration: The symptoms are continuous. The patient's shortness of breath has no apparent modifying factors. Associated signs and symptoms: Pertinent positives: productive cough. Severity of symptoms: At their worst the symptoms were moderate in the emergency department the symptoms are unchanged. The patient has experienced similar episodes in the past. pt sees Dr. Iniguez and is on maintenance medications. Pt is also finishing tx for h. pylori. Continues on Biaxin and Amoxil.. Historical: - Allergies: 16:10 No Known Allergies; la1 - Home Meds: 16:34 Albuterol Inhl [Active]; ProAir HFA inhalation [Active]; Prilosec Oral [Active]; jl7 - PMHx: 16:10 COPD; la1 - Immunization history:: Adult Immunizations up to date. - Social history:: Smoking status: Patient/guardian denies using tobacco, the patient reports quitting approximately 5 years ago. - Ebola Screening: : No symptoms or risks identified at this time. ROS: 16:18 Constitutional: Negative for fever, chills, and weight loss, Eyes: Negative for injury, snw pain, redness, and discharge, ENT: Negative for injury, pain, and discharge, Neck: Negative for injury, pain, and swelling, Cardiovascular: Negative for chest pain, palpitations, and edema, Abdomen/GI: Negative for abdominal pain, nausea, vomiting, diarrhea, and constipation, Back: Negative for injury and pain, : Negative for injury, bleeding, discharge, and swelling, MS/Extremity: Negative for injury and deformity, Skin: Negative for injury, rash, and discoloration, Neuro: Negative for headache, weakness, numbness, tingling, and seizure. 16:18 Respiratory: Positive for cough, with yellow sputum, shortness of breath, at rest. wheezing. Exam: 16:18 Head/Face: Normocephalic, atraumatic. Eyes: Pupils equal round and reactive to light, snw extra-ocular motions intact. Lids and lashes normal. Conjunctiva and sclera are non-icteric and not injected. Cornea within normal limits. Periorbital areas with no swelling, redness, or edema. ENT: Nares patent. No nasal discharge, no septal abnormalities noted. Tympanic membranes are normal and external auditory canals are clear. Oropharynx with no redness, swelling, or masses, exudates, or evidence of obstruction, uvula midline. Mucous membranes moist. Neck: Trachea midline, no thyromegaly or masses palpated, and no cervical lymphadenopathy. Supple, full range of motion without nuchal rigidity, or vertebral point tenderness. No Meningismus. Chest/axilla: Normal chest wall appearance and motion. Nontender with no deformity. No lesions are appreciated. Cardiovascular: Regular rate and rhythm with a normal S1 and S2. No gallops, murmurs, or rubs. Normal PMI, no JVD. No pulse deficits. 16:18 Abdomen/GI: Soft, non-tender, with normal bowel sounds. No distension or tympany. No guarding or rebound. No evidence of tenderness throughout. Back: No spinal tenderness. No costovertebral tenderness. Full range of motion. Skin: Warm, dry with normal turgor. Normal color with no rashes, no lesions, and no evidence of cellulitis. MS/ Extremity: Pulses equal, no cyanosis. Neurovascular intact. Full, normal range of motion. Neuro: Awake and alert, GCS 15, oriented to person, place, time, and situation. Cranial nerves II-XII grossly intact. Motor strength 5/5 in all extremities. Sensory grossly intact. Cerebellar exam normal. Normal gait. Psych: Awake, alert, with orientation to person, place and time. Behavior, mood, and affect are within normal limits. 16:18 Constitutional: The patient appears alert, awake, anxious, uncomfortable. 16:18 Respiratory: mild respiratory distress is noted, Respirations: accessory muscle usage, shallow respirations, tachypnea, Breath sounds: wheezing: expiratory is heard diffusely, harsh cough. Vital Signs: 16:10 BP 138 / 81; Pulse 90; Resp 24; Temp 98.2; Pulse Ox 98% on R/A; Weight 99.79 kg; Height la1 5 ft. 9 in. (175.26 cm); 16:32 BP 111 / 80; Pulse 79; Resp 17 S; Pulse Ox 96% on R/A; jl7 17:45 BP 125 / 85; Pulse 67; Resp 21 S; Pulse Ox 92% on R/A; jl7 18:29 BP 119 / 79; Pulse 69; Resp 19 S; Pulse Ox 91% on R/A; jl7 16:10 Body Mass Index 32.49 (99.79 kg, 175.26 cm) la1 MDM: 16:12 Patient medically screened. snw 17:35 Data reviewed: vital signs, nurses notes. Data interpreted: Pulse oximetry: on room air snw is 94 %. Interpretation: acceptable, Arterial blood gas: is normal except: pH: 7.46. Counseling: I had a detailed discussion with the patient and/or guardian regarding: the historical points, exam findings, and any diagnostic results supporting the discharge/admit diagnosis. Response to treatment: pt feeling better and then stated he is now having left sided chest pain. Noted to be in much less respiratory distress. 12/18 16:18 Order name: ABG; Complete Time: 17:04 snw 12/18 17:21 Order name: Basic Metabolic Panel; Complete Time: 18:07 snw 12/18 17:21 Order name: CBC with Diff; Complete Time: 17:52 snw 12/18 17:21 Order name: LFT's; Complete Time: 18:07 snw 12/18 17:21 Order name: Magnesium; Complete Time: 18:07 snw 12/18 17:21 Order name: NT PRO-BNP; Complete Time: 18:07 snw 12/18 16:18 Order name: Chest Single View XRAY; Complete Time: 17:31 snw 12/18 17:21 Order name: PT-INR; Complete Time: 17:52 snw 12/18 17:21 Order name: Troponin (emerg Dept Use Only); Complete Time: 18:07 snw 12/18 17:21 Order name: EKG; Complete Time: 17:21 snw 12/18 17:21 Order name: Cardiac monitoring; Complete Time: 17:35 snw 12/18 17:21 Order name: EKG - Nurse/Tech; Complete Time: 18:01 snw 12/18 17:21 Order name: IV Saline Lock; Complete Time: 17:35 snw 12/18 17:21 Order name: Labs collected and sent; Complete Time: 17:35 snw 12/18 17:21 Order name: O2 Per Protocol; Complete Time: 17:35 snw 12/18 17:21 Order name: O2 Sat Monitoring; Complete Time: 17:35 snw Administered Medications: 16:26 Drug: Tussionex Pennkinetic ER 5 ml Route: PO; jl7 17:35 Follow up: Response: No adverse reaction [facility] 16:26 Drug: Decadron - Dexamethasone 10 mg {Note: administered PO as ordered .} Route: IVP; jl7 Site: Other; 17:35 Follow up: Response: No adverse reaction 7 Disposition: 12/18/18 18:08 Discharged to Home. Impression: Chronic obstructive pulmonary disease with (acute) exacerbation. - Condition is Stable. - Discharge Instructions: Nonspecific Chest Pain, Chronic Obstructive Pulmonary Disease, Hypertension, Chronic Obstructive Pulmonary Disease Exacerbation. - Prescriptions for Tylenol- Codeine #3 300-30 mg Oral Tablet - take 2 tablets by ORAL route Every night As needed; 6 tablet. - Work release form, Medication Reconciliation Form, Thank You Letter, Antibiotic Education, Prescription Opioid Use form. - Follow up: Private Physician; When: 1 - 2 days; Reason: Recheck today's complaints, Continuance of care, Re-evaluation by your physician. Follow up: Emergency Department; When: As needed; Reason: Worsening of condition. Addendum: 12/20/2018 07:43 Co-signature as Attending Physician, Antoni Adams MD I agree with the assessment and k dr plan of care. Signatures: Dispatcher [employer] EDNC Antoni Adams MD MD kdr Therrien, Shelly, LEARNING COACH-C LEARNING COACH-Csnw Steve Dahl RN RN Israel Chung RN RN jl7 Corrections: (The following items were deleted from the chart) 12/18 18:31 18:08 12/18/2018 18:08 Discharged to Home. Impression: Chronic obstructive pulmonary jl7 disease with (acute) exacerbation. Condition is Stable. Forms are Medication Reconciliation Form, Thank You Letter, Antibiotic Education, Prescription Opioid Use. Follow up: Private Physician; When: 1 - 2 days; Reason: Recheck today's complaints, Continuance of care, Re-evaluation by your physician. Follow up: Emergency Department; When: As needed; Reason: Worsening of condition. yessy
--- NOTE | 2018-12-18 18:09 | ER ---
Nurse's Notes [facility] Name: Jesus Noriega Age: 57 yrs Sex: Male : 1960 Arrival Date: 12/18/2018 Time: 16:07 Bed 17 Private MD: Diagnosis: Chronic obstructive pulmonary disease with (acute) exacerbation Presentation: 12/18 16:09 Presenting complaint: Patient states: Increasing SOB and increased sputum production la1 for the last few days. Transition of care: patient was not received from another setting of care. Onset of symptoms was December 18, 2018. Risk Assessment: Do you want to hurt yourself or someone else? Patient reports no desire to harm self or others. Initial Sepsis Screen: Does the patient meet any 2 criteria? No. Patient's initial sepsis screen is negative. Does the patient have a suspected source of infection? No. Patient's initial sepsis screen is negative. Care prior to arrival: None. 16:09 Method Of Arrival: Ambulatory la1 16:09 Acuity: [place] 3 la1 Historical: - Allergies: 16:10 No Known Allergies; la1 - Home Meds: 16:34 Albuterol Inhl [Active]; ProAir HFA inhalation [Active]; Prilosec Oral [Active]; jl7 - PMHx: 16:10 COPD; la1 - Immunization history:: Adult Immunizations up to date. - Social history:: Smoking status: Patient/guardian denies using tobacco, the patient reports quitting approximately 5 years ago. - Ebola Screening: : No symptoms or risks identified at this time. Screenin:32 Abuse screen: Denies threats or abuse. Denies injuries from another. Nutritional jl7 screening: No deficits noted. Tuberculosis screening: No symptoms or risk factors identified. Fall Risk None identified. Assessment: 16:26 General: Appears in no apparent distress. uncomfortable. Pain: Denies pain. Neuro: jl7 Level of Consciousness is awake, alert, obeys commands, Oriented to person, place, time, situation. Cardiovascular: Heart tones S1 S2 present Patient's skin is warm and dry. Rhythm is regular. Respiratory: Airway is patent Respiratory effort is even, labored, Respiratory pattern is symmetrical, tachypnea Breath sounds with wheezes in right upper lobe the patient has mild shortness of breath. Derm: Skin is pink, warm \\T\\ dry. 17:33 Reassessment: Patient appears in no apparent distress at this time. Patient and/or ch family updated on plan of care and expected duration. Pain level reassessed. pt reports pain to L "lung." ramona notified. Vital Signs: 16:10 BP 138 / 81; Pulse 90; Resp 24; Temp 98.2; Pulse Ox 98% on R/A; Weight 99.79 kg; Height la1 5 ft. 9 in. (175.26 cm); 16:32 BP 111 / 80; Pulse 79; Resp 17 S; Pulse Ox 96% on R/A; jl7 17:45 BP 125 / 85; Pulse 67; Resp 21 S; Pulse Ox 92% on R/A; jl7 18:29 BP 119 / 79; Pulse 69; Resp 19 S; Pulse Ox 91% on R/A; jl7 16:10 Body Mass Index 32.49 (99.79 kg, 175.26 cm) la1 ED Course: 16:07 Patient arrived in ED. mr 16:09 Triage completed. la1 16:10 Arm band placed on left wrist. la1 16:11 Ramona Villarreal FNP-C [facility]. snw 16:11 Antoni Adams MD is Attending Physician. snw 16:16 Israel Mayorga RN is Primary Nurse. jl7 16:32 Patient has correct armband on for positive identification. Placed in gown. Bed in low jl7 position. Call light in reach. Side rails up X 1. cardiac monitor on. Pulse ox on. NIBP on. 17:13 Chest Single View XRAY In Process Unspecified. EDMS 17:36 Initial lab(s) drawn, by az, sent to lab. Inserted saline lock: 20 gauge in right hand, jl7 using aseptic technique. Blood collected. 17:55 EKG done, by associate technician. reviewed by Ramona BAUGH. sm3 18:30 No provider procedures requiring assistance completed. IV discontinued, intact, jl7 bleeding controlled, No redness/swelling at site. Pressure dressing applied. Administered Medications: 16:26 Drug: Tussionex Pennkinetic ER 5 ml Route: PO; jl7 17:35 Follow up: Response: No adverse reaction jl7 16:26 Drug: Decadron - Dexamethasone 10 mg {Note: administered PO as ordered .} Route: IVP; jl7 Site: Other; 17:35 Follow up: Response: No adverse reaction jl7 Outcome: 18:08 Discharge ordered by MD. krishnamurthy 18:30 Discharged to home ambulatory. jl7 18:30 Condition: stable 18:30 Discharge instructions given to patient, family, Instructed on discharge instructions, follow up and referral plans. medication usage, Demonstrated understanding of instructions, follow-up care, medications, Prescriptions given X 1. 18:31 Patient left the ED. jl7 Signatures: Dispatcher [employer] EDMS Akanksha Lemons, RN RN Ramona Washburn, CLERK CARRIER-C CLERK CARRIER-Csnw CoronadoLisa Lee RN RN Israel Chung RN RN jl7 Fidelina Alicea 3
[2018-12-18 18:42] VITALS: TEMP 98.2
[2018-12-18 18:45] VITALS: BP 119/79; O2SAT 91
--- NOTE | 2018-12-19 05:14 | EKG ---
Test Date: 2018-12-18 Test Time: 17:36:04 Laboratory Inspector: JESSI MEASUREMENT RESULTS: Intervals: Rate: 66 MA: 128 QRSD: 104 QT: 440 QTc: 461 [place]: P: 62 MA: 128 QRS: 14 T: 49 INTERPRETIVE STATEMENTS: Normal sinus rhythm Incomplete right bundle branch block Borderline ECG Compared to ECG 03/06/2018 18:32:17 Incomplete right bundle-branch block now present Right bundle-branch block no longer present Myocardial infarct finding no longer present Electronically Signed On 12-19-18 05:13:51 CDT by Robert Flores
== END 2018-12-18 18:31 | disposition home or self-care (01) ==
LOC: ER 16:03
DX: J44.1 Chronic obstructive pulmonary disease with (acute) exacerbation (principal)
CPT/HCPCS: 93005; 85025; 80048; 36415; 83735; 85610; 80076; 84484; 83880; 71045; 82805; 96374; 99285; J1100

== ENCOUNTER 2019-01-12 09:54 | Emergency (ER) | payer OTHER ==
[2019-01-12] MEDS ORDERED: ALBUTEROL 2.5 MG/3 ML NEB SOL ONE (10:43)
[2019-01-12] MEDS ORDERED: IPRATROPIUM BROM 0.5MG/2.5ML ONE (10:43)
[2019-01-12] MEDS ORDERED: HYDROCODONE/CHLORPHEN 5 ML/OSYR ONE (10:44)
[2019-01-12] MEDS ORDERED: predniSONE 20 MG TAB ONE (10:44)
[2019-01-12 11:18] LABS: Absolute Lymphocytes (CBC) 1.1 K/uL (0.7-4.9); Basophils % 0.5 % (0-1.3); Hematocrit 49.7 % (39.6-49.0); MPV 9.2 fL (7.6-11.3); RBC Red Blood Cell Count 5.74 M/uL (4.33-5.43)
--- NOTE | 2019-01-12 11:43 | RAD REPORT ---
EXAM DESCRIPTION: Ghassan Pa And Lat (2 Views)01/12/2019 11:00 am CLINICAL HISTORY: Cough COMPARISON: December 2018 FINDINGS: Small left basilar nodule without obvious change Lungs appear clear of acute infiltrate. Heart is normal size
[2019-01-12 11:48] LABS: ALT/SGPT 58 U/L (12-78); AST/SGOT 32 U/L (15-37); Albumin 3.7 g/dL (3.4-5.0); Alkaline Phosphatase 89 U/L (45-117); BUN Blood Urea Nitrogen 14 mg/dL (7-18); Bicarbonate 27 mmol/L (21-32); Bilirubin Direct < 0.1 mg/dL (0-0.2); Bilirubin Total 0.3 mg/dL (0.2-1.0); Glucose Level 104 mg/dL (74-106); Magnesium 2.1 mg/dL (1.8-2.4); Potassium 4.2 mmol/L (3.5-5.1); Protein, Total 7.2 g/dL (6.4-8.2); Sodium Level 139 mmol/L (136-145)
--- NOTE | 2019-01-12 14:04 | EDPHYS ---
Physician Documentation [facility] Name: Jesus Noriega Age: 58 yrs Sex: Male : 1960 Arrival Date: 01/12/2019 Time: 09:56 Bed 16 Private MD: Kelvin Mayorga ED Physician Emelina Kwok HPI: 01/12 10:45 This 58 yrs old Male presents to ER via Ambulatory with complaints of pm1 Breathing Difficulty, Congestion. 10:45 The patient has shortness of breath at rest. Onset: The symptoms/episode began/occurred pm1 3 day(s) ago. Duration: The symptoms are continuous, and are steadily getting worse. The patient's shortness of breath is aggravated by nothing, is alleviated by nothing. Associated signs and symptoms: Pertinent positives: productive cough, sputum color change from normally clear to greenish, Pertinent negatives: chest pain, fever, vomiting. Severity of symptoms: in the emergency department the symptoms are worse. The patient has experienced similar episodes in the past, a few times. The patient has not recently seen a physician. 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 - Social history:: Smoking status: Patient/guardian denies using tobacco, the patient reports quitting approximately 6 years ago. - Ebola Screening: : Patient denies exposure to infectious person Patient denies travel to an Ebola-affected area in the 21 days before illness onset. ROS: 10:45 Constitutional: Negative for fever, chills, and weight loss, Eyes: Negative for injury, pm1 pain, redness, and discharge, ENT: Negative for injury, pain, and discharge, Neck: Negative for injury, pain, and swelling, Cardiovascular: Negative for chest pain, palpitations, and edema. 10:45 Abdomen/GI: Negative for abdominal pain, nausea, vomiting, diarrhea, and constipation, Back: Negative for injury and pain, : Negative for injury, bleeding, discharge, and swelling, MS/Extremity: Negative for injury and deformity, Skin: Negative for injury, rash, and discoloration, Neuro: Negative for headache, weakness, numbness, tingling, and seizure. 10:45 Respiratory: Positive for cough, shortness of breath, Negative for wheezing. Exam: 10:45 Constitutional: This is a well developed, well nourished patient who is awake, alert, pm1 and in no acute distress. Head/Face: Normocephalic, atraumatic. Eyes: Pupils equal round and reactive to light, extra-ocular motions intact. Lids and lashes normal. Conjunctiva and sclera are non-icteric and not injected. Cornea within normal limits. Periorbital areas with no swelling, redness, or edema. ENT: Nares patent. No nasal discharge, no septal abnormalities noted. Tympanic membranes are normal and external auditory canals are clear. Oropharynx with no redness, swelling, or masses, exudates, or evidence of obstruction, uvula midline. Mucous membranes moist. Neck: Trachea midline, no thyromegaly or masses palpated, and no cervical lymphadenopathy. Supple, full range of motion without nuchal rigidity, or vertebral point tenderness. No Meningismus. Chest/axilla: Normal chest wall appearance and motion. Nontender with no deformity. No lesions are appreciated. Cardiovascular: Regular rate and rhythm with a normal S1 and S2. No gallops, murmurs, or rubs. Normal PMI, no JVD. No pulse deficits. Respiratory: Lungs have equal breath sounds bilaterally, clear to auscultation and percussion. No rales, rhonchi or wheezes noted. No increased work of breathing, no retractions or nasal flaring. Abdomen/GI: Soft, non-tender, with normal bowel sounds. No distension or tympany. No guarding or rebound. No evidence of tenderness throughout. Back: No spinal tenderness. No costovertebral tenderness. Full range of motion. Skin: Warm, dry with normal turgor. Normal color with no rashes, no lesions, and no evidence of cellulitis. MS/ Extremity: Pulses equal, no cyanosis. Neurovascular intact. Full, normal range of motion. 10:45 Neuro: Orientation: is normal, Motor: is normal, moves all fours. Vital Signs: 10:10 BP 132 / 89; Pulse 90; Resp 21; Temp 98.0(TE); Pulse Ox 95% ; Weight 99.79 kg; Height 5 ss ft. 9 in. (175.26 cm); Pain 0/10; 11:49 BP 138 / 85; Pulse 75; Resp 16; Pulse Ox 96% on Nebulizer Mask; ph 12:30 BP 118 / 81; Pulse 87; Resp 16; Pulse Ox 95% on R/A; ph 13:30 BP 121 / 89; Pulse 89; Resp 20; Pulse Ox 94% on R/A; ph 14:40 BP 117 / 84; Pulse 77; Resp 20; Temp 97.8; Pulse Ox 93% on R/A; ph 10:10 Body Mass Index 32.49 (99.79 kg, 175.26 cm) ss MDM: 10:31 Patient medically screened. pm1 14:02 Data reviewed: vital signs. Data interpreted: Pulse oximetry: on room air is 96 %. pm1 Interpretation: normal. Counseling: I had a detailed discussion with the patient and/or guardian regarding: the historical points, exam findings, and any diagnostic results supporting the discharge/admit diagnosis, lab results, radiology results, the need for outpatient follow up, to return to the emergency department if symptoms worsen or persist or if there are any questions or concerns that arise at home. 01/12 10:38 Order name: Flu; Complete Time: 11:34 pm1 01/12 10:40 Order name: CBC with Diff; Complete Time: 11:21 pm1 01/12 10:38 Order name: Chest Pa And Lat (2 Views) XRAY; Complete Time: 12:57 pm1 01/12 10:40 Order name: BMP; Complete Time: 11:48 pm1 01/12 10:40 Order name: LFT's; Complete Time: 11:48 pm1 01/12 10:40 Order name: Magnesium; Complete Time: 11:48 pm1 01/12 10:40 Order name: IV Saline Lock; Complete Time: 11:11 pm1 Administered Medications: 11:36 Drug: predniSONE 60 mg Route: PO; ph 12:35 Follow up: Response: No adverse reaction ph 11:36 Drug: Tussionex Pennkinetic ER 5 ml Route: PO; ph 12:34 Follow up: Response: No adverse reaction ph 11:37 Drug: Albuterol - atroVENT (3:1) (2.5 mg - 0.5 mg) 3 ml Route: Nebulizer; ph 12:36 Follow up: Response: No adverse reaction ph 14:24 Drug: Rocephin 1 grams Route: IV; Rate: calculated rate; Site: left hand; ph 14:26 Follow up: Response: No adverse reaction; IV Status: Completed infusion ph 14:25 Drug: TORadol - Ketorolac 15 mg Route: IVP; Site: left hand; ph 14:26 Follow up: Response: No adverse reaction; Medication administered at discharge. ph 14:26 Drug: Valium 2 mg Route: PO; ph 14:26 Follow up: Response: No adverse reaction; Medication administered at discharge. ph Disposition: 01/12/19 14:03 Discharged to Home. Impression: Chronic obstructive pulmonary disease with (acute) exacerbation. - Condition is Stable. - Discharge Instructions: Chronic Obstructive Pulmonary Disease, Chronic Obstructive Pulmonary Disease Exacerbation. - Prescriptions for Prednisone 20 mg Oral Tablet - take 3 tablet by ORAL route once daily for 5 days; 15 tablet. Zithromax Z- Michael 250 mg Oral Tablet - take 1 tablet by ORAL route as directed for 5 days Day 1 - take two (2) tablets one time. Day 2, 3, 4 , 5 take one (1) tablet once daily.; 6 tablet. Guaifenesin AC 10- 100 mg/5 mL Oral Liquid - take 10 milliliter by ORAL route every 4 hours As needed; 240 milliliter. - Medication Reconciliation Form, Thank You Letter, Antibiotic Education, Prescription Opioid Use form. - Follow up: Emergency Department; When: As needed; Reason: Worsening of condition. Follow up: Private Physician; When: 2 - 3 days; Reason: Recheck today's complaints, Continuance of care, Re-evaluation by your physician. - Problem is new. - Symptoms have improved. Addendum: 01/13/2019 16:43 Co-signature as Attending Physician, Emelina Kwok MD. m a2 Signatures: Dispatcher [employer] EDJada Grimes RN RN ss Shereen Oliveros RN RN ph Devang Tee, [employer] pm1 Emelina Kwok MD MD ma2 Corrections: (The following items were deleted from the chart) 01/12 14:44 14:03 01/12/2019 14:03 Discharged to Home. Impression: Chronic obstructive pulmonary ph disease with (acute) exacerbation. Condition is Stable. Forms are Medication Reconciliation Form, Thank You Letter, Antibiotic Education, Prescription Opioid Use. Follow up: Emergency Department; When: As needed; Reason: Worsening of condition. Follow up: Private Physician; When: 2 - 3 days; Reason: Recheck today's complaints, Continuance of care, Re-evaluation by your physician. Problem is new. Symptoms have improved. pm1
--- NOTE | 2019-01-12 14:04 | ER ---
Nurse's Notes [facility] Name: Jesus Noriega Age: 58 yrs Sex: Male : 1960 Arrival Date: 01/12/2019 Time: 09:56 Bed 16 Private MD: Kelvin Mayorga Diagnosis: Chronic obstructive pulmonary disease with (acute) exacerbation Presentation: 01/12 10:10 Presenting complaint: Patient states: shortness of breath, painful cough and nasal ss congestion/ runny nose that began 2 days ago. Transition of care: patient was not received from another setting of care. Onset of symptoms was December 10, 2018. Risk Assessment: Do you want to hurt yourself or someone else? Patient reports no desire to harm self or others. Initial Sepsis Screen: Does the patient meet any 2 criteria? RR > 20 per min. Does the patient have a suspected source of infection? Yes: Productive cough/pneumonia. Care prior to arrival: None. 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 - Social history:: Smoking status: Patient/guardian denies using tobacco, the patient reports quitting approximately 6 years ago. - Ebola Screening: : Patient denies exposure to infectious person Patient denies travel to an Ebola-affected area in the 21 days before illness onset. Screenin:36 Abuse screen: Denies threats or abuse. Denies injuries from another. Nutritional ph screening: No deficits noted. Tuberculosis screening: No symptoms or risk factors identified. Fall Risk None identified. Assessment: 10:30 General: Appears in no apparent distress. comfortable, well groomed, Behavior is calm, ph cooperative, appropriate for age, Denies fever. Pain: Complains of pain in right lower quadrant Aggravated by coughing. Neuro: Level of Consciousness is awake, alert, obeys commands, Oriented to person, place, time, situation. Cardiovascular: Capillary refill < 3 seconds in bilateral fingers Patient's skin is warm and dry. Respiratory: Reports shortness of breath cough that is productive, Airway is patent Respiratory effort is even, unlabored, Respiratory pattern is regular, symmetrical, Breath sounds are coarse in mediastinum. GI: No signs and/or symptoms were reported involving the gastrointestinal system. Derm: Skin is intact, is healthy with good turgor, Skin is pink, warm \\T\\ dry. Musculoskeletal: Circulation, motion, and sensation intact. Range of motion: intact in all extremities. 11:48 Reassessment: Patient appears in no apparent distress at this time. Patient and/or ph family updated on plan of care and expected duration. Pain level reassessed. Patient is alert, oriented x 3, equal unlabored respirations, skin warm/dry/pink. Pt resting comfortably, awaiting lab and radiology results. 13:00 Reassessment: Patient appears in no apparent distress at this time. Patient and/or ph family updated on plan of care and expected duration. Pain level reassessed. Patient is alert, oriented x 3, equal unlabored respirations, skin warm/dry/pink. 14:20 Reassessment: Patient appears in no apparent distress at this time. Patient and/or ph family updated on plan of care and expected duration. Pain level reassessed. Patient is alert, oriented x 3, equal unlabored respirations, skin warm/dry/pink. Preparing to d/c pt, pt states, " My back and chest and all are still really hurting from my cough. Can I get anything for pain before I go?" ERP notified, verbal order received for medications, see MAR. Vital Signs: 10:10 BP 132 / 89; Pulse 90; Resp 21; Temp 98.0(TE); Pulse Ox 95% ; Weight 99.79 kg; Height 5 ss ft. 9 in. (175.26 cm); Pain 0/10; 11:49 BP 138 / 85; Pulse 75; Resp 16; Pulse Ox 96% on Nebulizer Mask; ph 12:30 BP 118 / 81; Pulse 87; Resp 16; Pulse Ox 95% on R/A; ph 13:30 BP 121 / 89; Pulse 89; Resp 20; Pulse Ox 94% on R/A; ph 14:40 BP 117 / 84; Pulse 77; Resp 20; Temp 97.8; Pulse Ox 93% on R/A; ph 10:10 Body Mass Index 32.49 (99.79 kg, 175.26 cm) ss ED Course: 09:56 Patient arrived in ED. mr 09:56 Kelvin Mayorga MD is Private Physician. mr 10:10 Arm band placed on left wrist. ss 10:11 Triage completed. ss 10:13 Shereen Oliveros, JESS is Primary Nurse. ph 10:17 Devang Tee NP is PHCP. pm1 10:17 Emelina Kwok MD is Attending Physician. pm1 10:56 Chest Pa And Lat (2 Views) XRAY In Process Unspecified. EDMS 11:05 Initial lab(s) drawn, by me, sent to lab. Inserted saline lock: 22 gauge in left kj1 antecubital area, using aseptic technique. Blood collected. 11:11 Flu Sent. kj1 12:36 Patient has correct armband on for positive identification. Bed in low position. Call ph light in reach. Side rails up X 1. Pulse ox on. NIBP on. Door closed. Noise minimized. Warm blanket given. 14:44 No provider procedures requiring assistance completed. IV discontinued, intact, ph bleeding controlled, No redness/swelling at site. Pressure dressing applied. Administered Medications: 11:36 Drug: predniSONE 60 mg Route: PO; ph 12:35 Follow up: Response: No adverse reaction ph 11:36 Drug: Tussionex Pennkinetic ER 5 ml Route: PO; ph 12:34 Follow up: Response: No adverse reaction ph 11:37 Drug: Albuterol - atroVENT (3:1) (2.5 mg - 0.5 mg) 3 ml Route: Nebulizer; ph 12:36 Follow up: Response: No adverse reaction ph 14:24 Drug: Rocephin 1 grams Route: IV; Rate: calculated rate; Site: left hand; ph 14:26 Follow up: Response: No adverse reaction; IV Status: Completed infusion ph 14:25 Drug: TORadol - Ketorolac 15 mg Route: IVP; Site: left hand; ph 14:26 Follow up: Response: No adverse reaction; Medication administered at discharge. ph 14:26 Drug: Valium 2 mg Route: PO; ph 14:26 Follow up: Response: No adverse reaction; Medication administered at discharge. ph Outcome: 14:03 Discharge ordered by . pm1 14:44 Patient left the ED. ph 14:44 Discharged to home ambulatory, with significant other. ph 14:44 Condition: good 14:44 Discharge instructions given to patient, Instructed on discharge instructions, follow up and referral plans. medication usage, Demonstrated understanding of instructions, follow-up care, medications, Prescriptions given X 3. Signatures: Dispatcher [employer] AIRAM CoronadoLisa contreras Shelby, RN RN Shereen Arredondo RN RN ph Marinas, Patrick, [employer] MEDIA SPECIALIST [employer] MEDIA SPECIALIST pm1 Hilary Green kj1
[2019-01-12] MEDS ORDERED: DIAZEPAM 2 MG TABLET ONE (14:12)
[2019-01-12] MEDS ORDERED: KETOROLAC 30 MG/ML INJ ONE (14:13)
[2019-01-12] MEDS ORDERED: CEFTRIAXONE/SWI 1gm 1 GM/10 ML SYR ONE (14:13)
[2019-01-12 15:04] VITALS: BP 117/84; TEMP 97.8; O2SAT 93
--- OUTSIDE RECORDS SUMMARY | 2019-01-13 07:06 | XMS REPORT ---
:1960 [facility] Address [address] [place] [address] Dr. Shook [address] [place] [id number] Care Team Providers Name Role Phone Unavailable Unavailable Unavailable Problems This patient has no known problems. Allergies, Adverse Reactions, Alerts This patient has no known allergies or adverse reactions. Medications This patient has no known medications.
== END 2019-01-12 14:44 | disposition home or self-care (01) ==
LOC: ER 09:54
DX: J44.1 Chronic obstructive pulmonary disease with (acute) exacerbation (principal)
CPT/HCPCS: 85025; 80048; 36415; 83735; 80076; 87804 ×2; 71046; 94640; 96375; 96374; 99284; J7512; J0696

== ENCOUNTER 2019-01-16 10:00 | Emergency (ER) | payer OTHER ==
--- OUTSIDE RECORDS SUMMARY | 2019-01-16 10:03 | XMS REPORT ---
:1960 [facility] Address [address] Shook [address] [place] [address] Care Team Providers Name Role Phone Unavailable Unavailable Unavailable Problems This patient has no known problems. Allergies, Adverse Reactions, Alerts This patient has no known allergies or adverse reactions. Medications This patient has no known medications.
[2019-01-16] MEDS ORDERED: HYDROCODONE/APAP 10/325 TAB ONE (10:21)
--- NOTE | 2019-01-16 10:46 | RAD REPORT ---
EXAM DESCRIPTION: RAD - Hand Left 3 View - 01/16/2019 10:40 am CLINICAL HISTORY: Pain;Swelling COMPARISON: No comparisons FINDINGS: Evidence of prior partial amputation involving the second and third fingers. Soft tissue s welling is seen along the dorsum of the hand. No acute fracture seen.
--- NOTE | 2019-01-16 11:19 | ER ---
Nurse's Notes [facility] Name: Jesus Noriega Age: 58 yrs Sex: Male : 1960 Arrival Date: 01/16/2019 Time: 10:03 Bed 6 Private MD: Diagnosis: Sprain of unspecified part of left wrist and hand Presentation: 01/16 10:14 Presenting complaint: Patient states: L hand pain and swelling after turning a valve ss yesterday and hearing a pop. Transition of care: patient was not received from another setting of care. Onset of symptoms was January 15, 2019. Risk Assessment: Do you want to hurt yourself or someone else? Patient reports no desire to harm self or others. Initial Sepsis Screen: Does the patient meet any 2 criteria? RR > 20 per min. HR > 90 bpm. Does the patient have a suspected source of infection? No. Patient's initial sepsis screen is negative. Care prior to arrival: None. 10:14 Method Of Arrival: Ambulatory ss 10:14 Acuity: ISRRAEL 4 ss Historical: - Allergies: 10:17 No Known Allergies; ss - PMHx: 10:17 COPD; ss - PSHx: 10:17 splenectomy; finger amputation; Leg; ss - Immunization history:: Adult Immunizations up to date. - Social history:: Smoking status: Patient/guardian denies using tobacco, but has a distant history of tobacco abuse. - Ebola Screening: : Patient denies exposure to infectious person Patient denies travel to an Ebola-affected area in the 21 days before illness onset. Screenin:15 Abuse screen: Denies threats or abuse. Denies injuries from another. Nutritional sv screening: No deficits noted. Tuberculosis screening: No symptoms or risk factors identified. Fall Risk None identified. Assessment: 10:15 General: Appears in no apparent distress. uncomfortable, well developed, Behavior is sv calm, cooperative, appropriate for age. Pain: Complains of pain in dorsal aspect of proximal phalanx of left index finger and dorsum of left hand Pain currently is 7 out of 10 on a pain scale. Quality of pain is described as tender, Is continuous. Neuro: Level of Consciousness is awake, alert, obeys commands, Oriented to person, place, time, situation, Gait is steady. Respiratory: Respiratory effort is even, unlabored, Respiratory pattern is regular, symmetrical. Derm: Skin is pink, warm \T\ dry. 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 Range of motion: intact in all extremities, amputation are history of. 12:00 Reassessment: Patient appears in no apparent distress at this time. No changes from sv previously documented assessment. Patient and/or family updated on plan of care and expected duration. Pain level reassessed. Patient is alert, oriented x 3, equal unlabored respirations, skin warm/dry/pink. Devang JULES checked the splint before discharge. Ok to discharge. Vital Signs: 10:11 BP 141 / 97; Pulse 93; Resp 22; Temp 98.7(TE); Pulse Ox 90% ; Weight 103.87 kg; Height ss 5 ft. 9 in. (175.26 cm); Pain 7/10; 11:45 BP 140 / 95; Pulse 92; Resp 22; Pulse Ox 90% on R/A; sv 10:11 Body Mass Index 33.82 (103.87 kg, 175.26 cm) ss 10:11 Pt reports a history of COPD and has a baseline O2 of approximately 93% ss ED Course: 10:03 Patient arrived in ED. mr 10:10 Devang Tee NP is PHCP. pm1 10:10 Antoni Adams MD is Attending Physician. pm1 10:11 Arm band placed on right wrist. ss 10:15 Patient has correct armband on for positive identification. Bed in low position. Call sv light in reach. Adult w/ patient. Pulse ox on. NIBP on. Door closed. Head of bed elevated. 10:16 Terese Guevara, JESS is Primary Nurse. sv 10:16 Triage completed. ss 10:25 Awaiting for x-ray. sv 10:43 Hand Left 3 View XRAY In Process Unspecified. EDMS 11:18 Michele Barber MD is Referral Physician. pm1 11:45 No provider procedures requiring assistance completed. Patient did not have IV access sv during this emergency room visit. 11:55 Orthoglass splint: Ulnar gutter/Boxer splint applied on left forearm. mh5 Administered Medications: 10:22 Drug: [place] 10 mg-325 mg 1 tabs {Note: RASS1.} Route: PO; sv 11:00 Follow up: Response: No adverse reaction; RASS: Alert and Calm (0) sv Outcome: 11:18 Discharge ordered by . pm1 11:45 Discharged to home ambulatory, with family. sv 11:45 Condition: stable 11:45 Discharge instructions given to patient, Instructed on discharge instructions, follow up and referral plans. no drinking with medication, no driving heavy equipment, medication usage, Demonstrated understanding of instructions, follow-up care, medications, Prescriptions given X 2. 12:04 Patient left the ED. Signatures: Dispatcher [employer] Terese Sim RN RN Lisa Coronado Shelby, RN RN Devang Tee NP TRAUMA COUNSELLOR pm1 Marivel Herrera [facility] Corrections: (The following items were deleted from the chart) 10:23 10:22 [place] 10 mg-325 mg 1 tabs PO sv sv
--- NOTE | 2019-01-16 11:19 | EDPHYS ---
Physician Documentation [facility] Name: Jesus Noriega Age: 58 yrs Sex: Male : 1960 Arrival Date: 01/16/2019 Time: 10:03 Bed 6 Private MD: ED Physician Antoni Adams HPI: 01/16 10:41 This 58 yrs old Male presents to ER via Ambulatory with complaints of Hand pm1 Injury. 10:41 The patient or guardian reports pain, swelling. The complaints affect the Dorsum of pm1 left hand over second metacarpal. Context: The problem was sustained at home, resulted from turning shut-off valve for water with left hand then he felt a pop. Onset: The symptoms/episode began/occurred last night. Modifying factors: the symptoms are aggravated by movement, palpation. Associated signs and symptoms: Pertinent negatives: cyanosis distally, decreased sensation distally, fever, numbness distally, tingling distally. Severity of symptoms: in the emergency department the symptoms are unchanged. The patient has not experienced similar symptoms in the past. The patient has been recently seen at the [facility] Emergency Department, for unrelated complaints, COPD exacerbation. Historical: - Allergies: 10:17 No Known Allergies; ss - PMHx: 10:17 COPD; ss - PSHx: 10:17 splenectomy; finger amputation; Leg; ss - Immunization history:: Adult Immunizations up to date. - Social history:: Smoking status: Patient/guardian denies using tobacco, but has a distant history of tobacco abuse. - Ebola Screening: : Patient denies exposure to infectious person Patient denies travel to an Ebola-affected area in the 21 days before illness onset. ROS: 10:43 Constitutional: Negative for fever, chills, and weight loss, Cardiovascular: Negative pm1 for chest pain, palpitations, and edema, Respiratory: Negative for shortness of breath, cough, wheezing, and pleuritic chest pain, Abdomen/GI: Negative for abdominal pain, nausea, vomiting, diarrhea, and constipation, Back: Negative for injury and pain. 10:43 Skin: Negative for injury, rash, and discoloration, Neuro: Negative for headache, weakness, numbness, tingling, and seizure. 10:43 MS/extremity: Positive for pain, of the dorsum of left hand over 2nd metacarpal, Negative for decreased range of motion, deformity. Exam: 10:43 Constitutional: This is a well developed, well nourished patient who is awake, alert, pm1 and in no acute distress. Head/Face: Normocephalic, atraumatic. Chest/axilla: Normal chest wall appearance and motion. Nontender with no deformity. No lesions are appreciated. Cardiovascular: Regular rate and rhythm with a normal S1 and S2. No gallops, murmurs, or rubs. Normal PMI, no JVD. No pulse deficits. Respiratory: Lungs have equal breath sounds bilaterally, clear to auscultation and percussion. No rales, rhonchi or wheezes noted. No increased work of breathing, no retractions or nasal flaring. Back: No spinal tenderness. No costovertebral tenderness. Full range of motion. Skin: Warm, dry with normal turgor. Normal color with no rashes, no lesions, and no evidence of cellulitis. 10:43 Musculoskeletal/extremity: Extremities: grossly normal except: noted in the dorsum of left hand over left metcarpal swelling and tenderness: Circulation is intact in all extremities. 10:43 Neuro: Orientation: is normal, Motor: is normal, moves all fours, Gait: is steady, at a normal pace, without difficulty. Vital Signs: 10:11 BP 141 / 97; Pulse 93; Resp 22; Temp 98.7(TE); Pulse Ox 90% ; Weight 103.87 kg; Height ss 5 ft. 9 in. (175.26 cm); Pain 7/10; 11:45 BP 140 / 95; Pulse 92; Resp 22; Pulse Ox 90% on R/A; sv 10:11 Body Mass Index 33.82 (103.87 kg, 175.26 cm) ss 10:11 Pt reports a history of COPD and has a baseline O2 of approximately 93% ss Procedures: 12:04 Splinting: Splint applied to left hand using Orthoglass splint, applied by tech. pm1 Examined by me, post splint application: neurovascular intact, 2+ distal pulses palpable, brisk capillary refill noted, Patient tolerated well. MDM: 10:15 Patient medically screened. pm1 10:45 Data reviewed: vital signs. pm1 11:17 Counseling: I had a detailed discussion with the patient and/or guardian regarding: the pm1 historical points, exam findings, and any diagnostic results supporting the discharge/admit diagnosis, radiology results, the need for outpatient follow up, to return to the emergency department if symptoms worsen or persist or if there are any questions or concerns that arise at home. 01/16 10:21 Order name: Hand Left 3 View XRAY; Complete Time: 10:53 pm1 01/16 11:07 Order name: Wrist Splint; Complete Time: 11:55 pm1 Administered Medications: 10:22 Drug: [place] 10 mg-325 mg 1 tabs {Note: RASS1.} Route: PO; sv 11:00 Follow up: Response: No adverse reaction; RASS: Alert and Calm (0) sv Disposition: 01/17 07:04 Co-signature as Attending Physician, Antoni Adams MD I agree with the assessment and kdr plan of care. Disposition: 01/16/19 11:18 Discharged to Home. Impression: Sprain of unspecified part of left wrist and hand. - Condition is Stable. - Discharge Instructions: Cast or Splint Care, Adult, Wrist Splint, Hand Pain. - Prescriptions for Tylenol- Codeine #3 300-30 mg Oral Tablet - take 2 tablets by ORAL route every 6 hours As needed; 20 tablet. Diclofenac Sodium 75 mg Oral Tablet Sustained Release - take 1 tablet by ORAL route 2 times per day; 30 tablet. - Medication Reconciliation Form, Thank You Letter, Antibiotic Education, Prescription Opioid Use form. - Follow up: Emergency Department; When: As needed; Reason: Worsening of condition. Follow up: Private Physician; When: 2 - 3 days; Reason: Recheck today's complaints, Continuance of care, Re-evaluation by your physician. Follow up: Michele Barber MD; When: 2 - 3 days; Reason: Recheck today's complaints, Continuance of care, Re-evaluation by your physician. - Problem is new. - Symptoms have improved. Signatures: Dispatcher [employer] Terese Sim, Antoni Reilly RN, MD MD kdr Smirch, Shelby, RN RN ss Devang Tee, FLOORING SALESPERSON FLOORING SALESPERSON pm1 Corrections: (The following items were deleted from the chart) 01/16 11:19 11:18 01/16/2019 11:18 Discharged to Home. Impression: Sprain of unspecified part of pm1 left wrist and hand. Condition is Stable. Forms are Medication Reconciliation Form, Thank You Letter, Antibiotic Education, Prescription Opioid Use. Follow up: Emergency Department; When: As needed; Reason: Worsening of condition. Follow up: Private Physician; When: 2 - 3 days; Reason: Recheck today's complaints, Continuance of care, Re-evaluation by your physician. Problem is new. Symptoms have improved. pm1 12:04 11:19 01/16/2019 11:18 Discharged to Home. Impression: Sprain of unspecified part of ss left wrist and hand. Condition is Stable. Discharge Instructions: Hand Pain. Forms are Medication Reconciliation Form, Thank You Letter, Antibiotic Education, Prescription Opioid Use. Follow up: Emergency Department; When: As needed; Reason: Worsening of condition. Follow up: Private Physician; When: 2 - 3 days; Reason: Recheck today's complaints, Continuance of care, Re-evaluation by your physician. Follow up: Michele Barber; When: 2 - 3 days; Reason: Recheck today's complaints, Continuance of care, Re-evaluation by your physician. Problem is new. Symptoms have improved. pm1
[2019-01-16 14:40] VITALS: BP 141/97; TEMP 98.7; O2SAT 90
== END 2019-01-16 12:04 | disposition home or self-care (01) ==
LOC: ER 10:00
DX: S63.92XA Sprain of unspecified part of left wrist and hand, initial encounter (principal); X58.XXXA Exposure to other specified factors, initial encounter; Y93.89 Activity, other specified; Y92.009 Unspecified place in unspecified non-institutional (private) residence as the place of occurrence of the external cause; J44.9 Chronic obstructive pulmonary disease, unspecified
CPT/HCPCS: 87070; 87077; 87186; 87205; 99284

== ENCOUNTER 2019-09-27 19:49 | Emergency (ER) | payer OTHER ==
--- OUTSIDE RECORDS SUMMARY | 2019-09-27 19:52 | XMS REPORT | Continuity of Care Document ---
:1960 Author Organization [facility] t Address [address] [place] [address] Dr. Sh[address] [place] [id number] Care Team Providers Name Role Phone Unavailable Unavailable Unavailable Problems This patient has no known problems. Allergies, Adverse Reactions, Alerts This patient has no known allergies or adverse reactions. Medications This patient has no known medications. Procedures This patient has no known procedures. Results This patient has no known results.
[2019-09-27 20:13] LABS: Protime INR 0.95
[2019-09-27 20:14] LABS: Hematocrit 40.2 % (39.6-49.0); MPV 7.8 fL (7.6-11.3); RBC Red Blood Cell Count 5.32 M/uL (4.33-5.43)
[2019-09-27 20:32] LABS: ALT/SGPT 77 U/L (12-78); AST/SGOT 47 U/L (15-37); Albumin 3.5 g/dL (3.4-5.0); Alkaline Phosphatase 96 U/L (45-117); BUN Blood Urea Nitrogen 12 mg/dL (7-18); Bicarbonate 24 mmol/L (21-32); Bilirubin Direct 0.1 mg/dL (0-0.2); Bilirubin Total 0.2 mg/dL (0.2-1.0); Glucose Level 112 mg/dL (74-106); Magnesium 2.1 mg/dL (1.8-2.4); NT PRO-BNP 25 pg/mL (<125); Potassium 3.9 mmol/L (3.5-5.1); Protein, Total 7.2 g/dL (6.4-8.2); Sodium Level 138 mmol/L (136-145); Troponin (Emerg Dept Use Only) < 0.02 ng/mL (0.0-0.045)
[2019-09-27 20:49] LABS: Anisocytosis 1+; Blood Morphology Comment NOTED (NOT SEEN); Platelet Estimate INCR; Polychromasia SLIGHT
[2019-09-27] MEDS ORDERED: ALBUTEROL INHALER 60 PUFF/8 GM IH ONE (21:19)
[2019-09-27] MEDS ORDERED: METHYLPREDNISOLONE 125 MG INJ ONE (21:19)
--- NOTE | 2019-09-27 21:30 | RAD REPORT ---
EXAM DESCRIPTION: RAD - Chest Single View - 09/27/2019 8:46 pm CLINICAL HISTORY: CHEST PAIN, shortness of breath, patient provided history of COPD COMPARISON: Two view chest January 2019 TECHNIQUE: AP portable chest image was obtained 09/27/2019 8:46 pm . FINDINGS: No peripheral mass or consolidation. Interstitial markings are prominent but not substanti ally different from comparison. Lung markings are accentuated by a lower lung volume. This also accen tuates heart size and vasculature. Trachea is midline. No measurable pleural effusion and no pneumoth orax. No acute bony abnormality seen. No acute aortic findings suspected. IMPRESSION: No focal mass or consolidation. Portable technique and low lung volumes accentuate heart, vasculature and lung markings. This potenti ally masks minimal failure or volume overload.
--- NOTE | 2019-09-27 23:44 | ER ---
Nurse's Notes [facility] Name: Jesus Noriega Age: 58 yrs Sex: Male : 1960 Arrival Date: 09/27/2019 Time: 19:50 Bed 8 Private MD: Diagnosis: Chronic obstructive pulmonary disease with (acute) exacerbation;Other chest pain Presentation: 09/26 19:56 Chief complaint: Patient states: i have chest pain since afternoon, with shortness of mg2 breath. i have COPD. pain was radiating to my right arm before but not now. Coronavirus screen: Patient denies a cough. Patient reports shortness of breath or difficulty breathing. Patient denies measured and/or subjective temperature greater than 100.4F prior to today's visit. Patient denies travel on a cruise ship or to a country the [facility] currently lists as an affected area. Patient denies contact with known and/or suspected case of COVID-19. Patient instructed to continue to wear a mask when interacting with others. Patient moved to private room, placed in contact and droplet isolation with eye protection until further assessment. Ebola Screen: No symptoms or risks identified at this time. Initial Sepsis Screen: Does the patient meet any 2 criteria? No. Patient's initial sepsis screen is negative. Does the patient have a suspected source of infection? No. Patient's initial sepsis screen is negative. Risk Assessment: Do you want to hurt yourself or someone else? Patient reports no desire to harm self or others. Onset of symptoms was September 27, 2019. 19:56 Method Of Arrival: [facility] 19:56 Acuity: [place] 3 mg2 Triage Assessment: 20:01 General: Appears comfortable, Behavior is calm, cooperative. Pain: Complains of pain in mg2 chest Pain currently is 6 out of 10 on a pain scale. Quality of pain is described as aching, Pain began gradually, this afternoon. EENT: No signs and/or symptoms were reported regarding the EENT system. Neuro: Level of Consciousness is awake, alert, obeys commands, Oriented to person, place, time, situation. Cardiovascular: Capillary refill < 3 seconds Patient's skin is warm and dry. Respiratory: Airway is patent Respiratory effort is even, Respiratory pattern is regular, symmetrical. GI: No signs and/or symptoms were reported involving the gastrointestinal system. : No signs and/or symptoms were reported regarding the genitourinary system. Derm: Skin is intact, is healthy with good turgor. Musculoskeletal: Circulation, motion, and sensation intact. Capillary refill < 3 seconds. 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 - Social history:: Smoking status: Patient/guardian denies using tobacco, the patient reports quitting approximately 6 years ago, Patient uses alcohol, on a daily basis. Patient/guardian denies using street drugs, IV drugs. Screenin:03 Abuse screen: Denies threats or abuse. Denies injuries from another. Nutritional mg2 screening: No deficits noted. Tuberculosis screening: No symptoms or risk factors identified. Fall Risk IV access (20 points). Assessment: 20:02 General: see triage assessment. mg2 20:42 Reassessment: Patient appears in no apparent distress at this time. Patient and/or mg2 family updated on plan of care and expected duration. Pain level reassessed. Patient is alert, oriented x 3, equal unlabored respirations, skin warm/dry/pink. 21:12 Respiratory: Breath sounds with wheezes in right upper lobe and left upper lobe. mg2 22:58 Reassessment: Patient and/or family updated on plan of care and expected duration. Pain ea level reassessed. Patient is alert, oriented x 3, equal unlabored respirations, skin warm/dry/pink. pt taken to CT. 23:11 Reassessment: Patient and/or family updated on plan of care and expected duration. Pain ea level reassessed. Patient is alert, oriented x 3, equal unlabored respirations, skin warm/dry/pink. Pt returned from CT. 09/27 00:02 Reassessment: Patient states feeling better. mg2 Vital Signs: 09/26 19:56 BP 159 / 102; Pulse 91; Resp 24; Temp 97.3(A); Pulse Ox 95% on R/A; Weight 104.33 kg; mg2 Height 5 ft. 9 in. (175.26 cm); Pain 6/10; 20:42 BP 144 / 91; Pulse 90; Resp 20; Pulse Ox 92% on R/A; mg2 21:17 BP 138 / 93; Pulse 101; Resp 20; Pulse Ox 92% ; ea 23:22 BP 126 / 86; Pulse 93; Resp 19; Pulse Ox 91% ; ea 19:56 Body Mass Index 33.96 (104.33 kg, 175.26 cm) mg2 ED Course: 19:50 Patient arrived in ED. bp1 19:56 Jun Flower RN is Primary Nurse. mg2 19:58 Triage completed. mg2 20:00 Arm band placed on. mg2 20:02 Siddharth Parish MD is Attending Physician. tw4 20:03 Patient has correct armband on for positive identification. panel monitor on. Pulse mg2 ox on. NIBP on. Door closed. Warm blanket given. 20:04 No provider procedures requiring assistance completed. Inserted saline lock: 20 gauge mg2 in right wrist, using aseptic technique. Blood collected. by JESS Jenkins. 20:47 XRAY Chest (1 view) In Process Unspecified. EDMS 22:25 Troponin (emerg Dept Use Only) Sent. ds4 23:15 CT Chest For PE Angio In Process Unspecified. EDMS 09/27 00:02 IV discontinued, intact, bleeding controlled, No redness/swelling at site. Pressure mg2 dressing applied. Patient maintains SpO2 saturation greater than 95% on room air. Administered Medications: 09/26 21:07 CANCELLED (Physician Discretion): Albuterol - atroVENT (3:1) (2.5 mg - 0.5 mg) 3 ml tw4 Nebulizer once 21:10 Drug: SOLU-Medrol 125 mg Route: IVP; Site: right wrist; mg2 23:20 Follow up: Response: No adverse reaction mg2 21:10 Drug: Albuterol HFA Inhaler 2 puffs Route: Inhalation; mg2 23:20 Follow up: Response: No adverse reaction; Marked relief of symptoms mg2 09/27 00:02 Drug: TORadol 30 mg Route: IVP; Site: right forearm; mg2 00:02 Follow up: Response: No adverse reaction; Medication administered at discharge. mg2 Outcome: 09/26 23:43 Discharge ordered by . tw4 09/27 00:03 Discharged to home ambulatory. mg2 Condition: stable Discharge instructions given to patient, Instructed on discharge instructions, follow up and referral plans. medication usage, Demonstrated understanding of instructions, follow-up care, medications, Prescriptions given X 2. 00:03 Patient left the ED. mg2 Addendum: 10/01/2019 15:11 Addendum: COVID-19 Result: Negative result given to RN to notify pt. Attempted to d m5 contact pt regarding negative COVID-19 swab results. Left voice mail. Signatures: Dispatcher [employer] Ammy Washburn, RN RN dm5 Adam Eckert ds4 Alice Porter RN Siddharth Mccullough ea, MD MD tw4 Jun Flower RN JESS mg2 Svetlana Horne [facility] Corrections: (The following items were deleted from the chart) 09/27 00:03 00:03 Discharge instructions given to patient, Instructed on discharge instructions, mg2 follow up and referral plans. medication usage, Demonstrated understanding of instructions, follow-up care, medications, Prescriptions given X 1, mg2 09/30 15:13 15:11 Addendum: COVID-19 Result: Negative result given to RN to notify pt. Attempted to dm5 contact pt regarding negative COVID-19 swab results. dm5
--- NOTE | 2019-09-27 23:44 | EDPHYS ---
Physician Documentation [facility] Name: Jesus Noriega Age: 58 yrs Sex: Male : 1960 Arrival Date: 09/27/2019 Time: 19:50 Bed 8 Private MD: ED Physician Siddharth Parish HPI: 09/27 01:15 This 58 yrs old Male presents to ER via Ambulatory with complaints of Chest tw4 Pain. 01:15 The patient or guardian reports chest pain that is located primarily in the anterior tw4 chest wall. Onset: today. The pain does not radiate. Associated signs and symptoms: The patient has no apparent associated signs or symptoms. The chest pain is described as dull. Duration: The patient or guardian reports a single episode, that is now resolved. Modifying factors: The symptoms are alleviated by nothing. the symptoms are aggravated by nothing. Severity of pain: At its worst the pain was moderate in the emergency department the pain is unchanged. Historical: - Allergies: 09/26 20:00 No Known Allergies; mg2 - Home Meds: 20:00 Albuterol Inhl [Active]; Prilosec Oral [Active]; ProAir HFA inhalation [Active]; mg2 - PMHx: 20:00 COPD; mg2 - PSHx: 20:00 amputation of the left finger; left leg sx; spleenectomy; mg2 - Immunization history:: Flu vaccine is up to date. - Social history:: Smoking status: Patient/guardian denies using tobacco, the patient reports quitting approximately 6 years ago, Patient uses alcohol, on a daily basis. Patient/guardian denies using street drugs, IV drugs. ROS: 09/27 01:15 Constitutional: Negative for fever, chills, and weight loss, Eyes: Negative for injury, tw4 pain, redness, and discharge, Neck: Negative for injury, pain, and swelling, Respiratory: Negative for shortness of breath, cough, wheezing, and pleuritic chest pain, Abdomen/GI: Negative for abdominal pain, nausea, vomiting, diarrhea, and constipation, Back: Negative for injury and pain, MS/Extremity: Negative for injury and deformity, Skin: Negative for injury, rash, and discoloration, Neuro: Negative for headache, weakness, numbness, tingling, and seizure. Cardiovascular: Positive for chest pain, Negative for edema, orthopnea, palpitations, paroxysmal nocturnal dyspnea. Exam: 01:15 Constitutional: This is a well developed, well nourished patient who is awake, alert, tw4 and in no acute distress. Head/Face: Normocephalic, atraumatic. Chest/axilla: Normal chest wall appearance and motion. Nontender with no deformity. No lesions are appreciated. Cardiovascular: Regular rate and rhythm with a normal S1 and S2. No gallops, murmurs, or rubs. Normal PMI, no JVD. No pulse deficits. 01:15 Abdomen/GI: Soft, non-tender, with normal bowel sounds. No distension or tympany. No guarding or rebound. No evidence of tenderness throughout. Back: No spinal tenderness. No costovertebral tenderness. Full range of motion. MS/ Extremity: Pulses equal, no cyanosis. Neurovascular intact. Full, normal range of motion. Neuro: Awake and alert, GCS 15, oriented to person, place, time, and situation. Cranial nerves II-XII grossly intact. Motor strength 5/5 in all extremities. Sensory grossly intact. Cerebellar exam normal. Normal gait. 01:15 Respiratory: the patient does not display signs of respiratory distress, Respirations: normal, Breath sounds: wheezing: Vital Signs: 09/26 19:56 BP 159 / 102; Pulse 91; Resp 24; Temp 97.3(A); Pulse Ox 95% on R/A; Weight 104.33 kg; mg2 Height 5 ft. 9 in. (175.26 cm); Pain 6/10; 20:42 BP 144 / 91; Pulse 90; Resp 20; Pulse Ox 92% on R/A; mg2 21:17 BP 138 / 93; Pulse 101; Resp 20; Pulse Ox 92% ; ea 23:22 BP 126 / 86; Pulse 93; Resp 19; Pulse Ox 91% ; ea 19:56 Body Mass Index 33.96 (104.33 kg, 175.26 cm) mg2 MDM: 20:02 Patient medically screened. tw4 09/27 01:15 Differential diagnosis: acute myocardial infarction, acute pericarditis, coronary tw4 artery disease costochondritis, esophagitis, gastritis, gastroesophageal reflux disease (GERD), pneumonia, pneumothorax, pulmonary embolus, stable angina, unstable angina. HEART Score: History: Moderately Suspicious (1), ECG: Non specific repolarization disturbance / LBTB / PM (1), Age: > 45 and < 65 years (1), Risk Factors: No Risk Factors Known (0), Troponin: < or = 1 x Normal Limit (0), Total Score = 3. The patient was given aspirin in the Emergency Department. Data reviewed: vital signs, nurses notes. Data interpreted: Pulse oximetry: Interpretation: normal. Counseling: I had a detailed discussion with the patient and/or guardian regarding: the historical points, exam findings, and any diagnostic results supporting the discharge/admit diagnosis, lab results, radiology results. Special discussion: Based on the patient's history, exam, and Dx evaluation, there is no indication for emergent intervention or inpatient Tx. It is understood by the patient/guardian that if the Sx's persist or worsen they need to return immediately for re-evaluation. I discussed with the patient/guardian in detail that at this point there is no indication for admission to the hospital. It is understood, however, that if the symptoms persist or worsen the patient needs to return immediately for re-evaluation. 09/26 20:00 Order name: Basic Metabolic Panel; Complete Time: 21: mg2 09/26 21:25 Interpretation: Normal except: GLUC 112; GFR 77; CA 8.2. tw4 09/26 20:00 Order name: CBC with Diff; Complete Time: : mg2 09/26 21:25 Interpretation: Normal except: HGB 12.8; MCV 75.5; MCH 24.1; RDW 19.7; PLT 412; MCHC tw4 31.9. 09/26 20:00 Order name: LFT's; Complete Time: 21: mg2 09/26 21:33 Interpretation: A/G 0.9; GLOB 3.7; AST 47. tw4 09/26 20:00 Order name: Magnesium; Complete Time: 21: mg2 09/26 21:37 Interpretation: Within normal limits: MG 2.1. tw4 09/26 20: Order name: NT PRO-BNP; Complete Time: 21:25 mg2 09/26 21:37 Interpretation: Within normal limits: NT PRO-BNP 25. tw4 09/26 20:00 Order name: PT-INR; Complete Time: 21:25 mg2 09/26 21:37 Interpretation: Within normal limits: PT 11.2. tw4 09/26 20:00 Order name: Troponin (emerg Dept Use Only); Complete Time: 21:25 [facility] 09/26 21:37 Interpretation: Within normal limits: TROPED < 0.02. [facility] 09/26 20:00 Order name: XRAY Chest (1 view); Complete Time: 22:07 [facility] 09/26 20:16 Order name: Manual Differential; Complete Time: 21:25 EDMS 09/26 21:37 Interpretation: Normal except: MONO 13. [facility] 09/26 21:07 Order name: COVID-19 4 09/26 22:08 Order name: Troponin (emerg Dept Use Only); Complete Time: 23:38 tw 09/26 23:38 Interpretation: Within normal limits: TROPED < 0.02. [facility] 09/26 22:21 Order name: CT Chest For PE Angio [facility] 09/26 20:00 Order name: EKG; Complete Time: 20:01 [facility] 09/26 20:00 Order name: Cardiac monitoring; Complete Time: 20: [facility] 09/26 20:00 Order name: EKG - Nurse/Tech; Complete Time: 20: [facility] 09/26 20:00 Order name: IV Saline Lock; Complete Time: 20: [facility] 09/26 20:00 Order name: Labs collected and sent; Complete Time: 20: [facility] 09/26 20:00 Order name: O2 Per Protocol; Complete Time: 20: [facility] 09/26 20:00 Order name: O2 Sat Monitoring; Complete Time: 20:01 mg2 EC/25 20:49 Rate is 92 beats/min. Rhythm is regular with Right bundle branch block. QRS [place] is tw4 Normal. [place] interval is normal. QRS interval is normal. QT interval is normal. No Q waves. T waves are Inverted in leads V1, V3. T waves are Flattened in lead III. No ST changes noted. Clinical impression: NSR w/ Non-specific ST/T Changes. Administered Medications: 21:07 CANCELLED (Physician Discretion): Albuterol - atroVENT (3:1) (2.5 mg - 0.5 mg) 3 ml tw4 Nebulizer once 21:10 Drug: SOLU-Medrol 125 mg Route: IVP; Site: right wrist; mg2 23:20 Follow up: Response: No adverse reaction mg2 21:10 Drug: Albuterol HFA Inhaler 2 puffs Route: Inhalation; mg2 23:20 Follow up: Response: No adverse reaction; Marked relief of symptoms mg2 09/27 00:02 Drug: TORadol 30 mg Route: IVP; Site: right forearm; mg2 00:02 Follow up: Response: No adverse reaction; Medication administered at discharge. mg2 Disposition: 09/27/19 23:43 Discharged to Home. Impression: Chronic obstructive pulmonary disease with (acute) exacerbation, Other chest pain. - Condition is Stable. - Discharge Instructions: Nonspecific Chest Pain, Chronic Obstructive Pulmonary Disease, Pain Without a Known Cause. - Prescriptions for Albuterol Sulfate 2.5 mg /3 mL (0.083 %) Inhalation Solution for Nebulization - inhale 1 unit by NEBULIZATION route every 8 hours As needed; 1 box. Medrol (Michael) 4 mg Oral Tablets, Dose Pack - take 1 tablet by ORAL route as directed - follow package instructions; 1 packet. - Medication Reconciliation Form, Thank You Letter, Antibiotic Education, Prescription Opioid Use form. - Follow up: Private Physician; When: Upon discharge from the Emergency Department; Reason: Recheck today's complaints, Continuance of care, Re-evaluation by your physician. - Problem is new. - Symptoms have improved. Signatures: Dispatcher [employer] EDMS Alice Porter RN RN ea Siddharth Parish MD MD tw4 Jun Flower RN RN mg2 Corrections: (The following items were deleted from the chart) 09/26 21:07 21:07 Albuterol - atroVENT (3:1) (2.5 mg - 0.5 mg) 3 ml Nebulizer once ordered. tw4 tw4 09/27 00:03 09/26 23:43 09/27/2019 23:43 Discharged to Home. Impression: Chronic obstructive mg2 pulmonary disease with (acute) exacerbation; Other chest pain. Condition is Stable. Forms are Medication Reconciliation Form, Thank You Letter, Antibiotic Education, Prescription Opioid Use. Follow up: Private Physician; When: Upon discharge from the Emergency Department; Reason: Recheck today's complaints, Continuance of care, Re-evaluation by your physician. Problem is new. Symptoms have improved. tw4
[2019-09-28] MEDS ORDERED: KETOROLAC 30 MG/ML INJ ONE (00:05)
[2019-09-28 00:59] VITALS: TEMP 97.3
[2019-09-28 01:05] VITALS: BP 126/86; O2SAT 91
--- NOTE | 2019-09-28 07:25 | EKG ---
Test Date: 2019-09-27 Test Time: 20:02:35 [employer] Maintainer: MAGNO MEASUREMENT RESULTS: Intervals: Rate: 92 [place]: 140 QRSD: 122 QT: 398 QTc: 492 [place]: P: 58 [place]: 140 QRS: -20 T: 44 INTERPRETIVE STATEMENTS: Normal sinus rhythm Right bundle branch block Abnormal ECG Compared to ECG 12/18/2018 17:36:04 Right bundle-branch block now present Incomplete right bundle-branch block no longer present Electronically Signed On 09-28-19 07:24:52 CDT by Keshawn Nguyen
--- NOTE | 2019-09-29 09:22 | RAD REPORT ---
EXAM DESCRIPTION: CT - Chest For Pe Angio - 09/28/2019 2:58 am CLINICAL HISTORY: CHEST PAIN COMPARISON: None Available. TECHNIQUE: CTA of the chest obtained following the uncomplicated intravenous administration of iodin ated contrast.. 3-D/MIP reformatted images of the chest available for evaluation. FINDINGS: Chest: Pulmonary arteries: Contrast bolus is adequate.No filling defects identified in the pulmonary arterie s to suggest pulmonary embolus. Suboptimal evaluation of the segmental and subsegmental pulmonary art eries due to respiratory motion artifact. Thyroid: No abnormalities of the visualized thyroid. Great Vessels: Great vessels have normal anatomic configuration. Thoracic Aorta: No abnormalities of the thoracic aorta identified. Heart: No cardiomegaly, significant pericardial effusion, or coronary artery atherosclerosis Lymph Nodes: No enlarged mediastinal lymph nodes identified. Esophagus: No abnormalities of the esophagus identified. Other: No additional findings. Lungs: No airspace opacities identified. Mild centrilobular emphysematous change. Pleura: No pleural effusion or pneumothorax. Trachea/Airways: No abnormalities of the visualized trachea or airways. Bones: Degenerative endplate spondylosis. Upper Abdomen: Limited images of the upper abdomen demonstrate no definite abnormalities of visualize d portions of the gallbladder, pancreas, spleen, adrenal glands, or kidneys. Decreased hepatic densit y. IMPRESSION: 1. No central pulmonary embolus identified. Suboptimal evaluation of the segmental and s ubsegmental pulmonary arterial branches due to respiratory motion artifact. 2. Centrilobular emphysematous change. 3. Hepatic steatosis. This exam was performed according to our departmental dose-optimization program, which includes autom ated exposure control, adjustment of the mA and/or kV according to patient size and/or use of iterati ve reconstruction technique. Electronically signed by: Yanick Shankar 09/27/2019 11:29 PM CDT Due to temporary technical issues with the PACS/Fluency reporting system, reports are being signed by the in house radiologist without review as a courtesy to ensure prompt reporting. The interpreting r adiologist is fully responsible for the content of the report.
== END 2019-09-28 00:03 | disposition home or self-care (01) ==
LOC: ER 19:49
DX: J44.1 Chronic obstructive pulmonary disease with (acute) exacerbation (principal); Z20.828 Contact with and (suspected) exposure to other viral communicable diseases
CPT/HCPCS: 93005; 85025; 80048; 36415; 83735; 85610; 80076; 84484 ×2; 83880; 71275; 71045; 96375; 96374; 99285; U0001; Q9967; J2930

== ENCOUNTER 2020-04-09 16:56 | Emergency (ER) | payer OTHER ==
--- OUTSIDE RECORDS SUMMARY | 2020-04-09 16:57 | XMS REPORT | Continuity of Care Document ---
:1960 Author Organization [facility] Care Team Providers Name Role Phone [facility] Unavailable Un available Problems Problem Status Onset Classification Date Comments Sourc e Date Reported Chronic Active Problem 04/02/2020 [facility] obstructive Neuro lung disease (disorder) Morbid obesity Active Problem 04/02/2020 Misc her (disorder) Neuro Paresthesia Active Problem 04/02/2020 [facility] (finding) Neuro Ataxia Active Problem 04/02/2020 [facility] (finding) Neuro Carpal tunnel Active Problem 04/02/2020 Misch er syndrome Neuro (disorder) Medications Medication Details Route Status Patient Ordering Order Source Instructions Provider Date Futuro 1 ea, Active 02/20/20 [facility] Adjustable MISC, 20 Neuro Reversible ONCE, Splint Wrist carpal Brace tunnel splint, # 1 ea, 0 Refill(s), other lisinopril 10 10 mg = 1 Active 02/18/20 [facility] mg oral tablet tab, PO, 20 Neuro Daily, 0 Refill(s) predniSONE 10 10 mg = 1 Active 01/15/20 [facility] mg oral tablet tab, PO, 20 Neuro Daily, 0 Refill(s) pantoprazole 40 40 mg = 1 Active 01/15/20 Misch er MG Enteric tab, PO, 20 Neuro Coated Tablet Daily, 0 [Protonix] Refill(s) ropinirole PO, Daily, Active 01/15/20 [facility] 0 20 Neuro Refill(s) Allergies, Adverse Reactions, Alerts Substance Category Reaction Severity Reaction Status Date Comments S ource type Reported No Known Assertion Drug Misch er Medication allergy Neuro Allergies Immunizations No Data Provided for This Section Results No Data Provided for This Section Pathology Reports No Data Provided for This Section Diagnostic Reports No Data Provided for This Section Consultation Notes No Data Provided for This Section Discharge Summaries No Data Provided for This Section History and Physicals No Data Provided for This Section Vital Signs Vital Sign Value Date Comments Source Systolic (mm Hg) 132 02/18/2020 [facility] Kenny ro Diastolic (mm Hg) 90 02/18/2020 [facility] [place] [facility] Heart Rate 88 02/18/2020 [facility] Respitory Rate 16 02/18/2020 [facility] Height 170.18 cm 02/18/2020 [facility] Neuro Weight 105.909 02/18/2020 [facility] BMI Calculated 36.57 02/18/2020 [facility] Neuro Systolic (mm Hg) 134 01/15/2020 [facility] Kenny ro Diastolic (mm Hg) 78 01/15/2020 [facility] Ne uro Heart Rate 92 01/15/2020 [facility] Neuro Respitory Rate 16 01/15/2020 [facility] Neuro Height 170.18 cm 01/15/2020 [facility] Neuro Weight 107.273 01/15/2020 [facility] Neuro BMI Calculated 37.04 01/15/2020 [facility] Neuro Encounters Location Location Encounter Encounter Reason Attending ADM OR Stat Source Details Type Number For Provider Date Date Visit Outpatient [id number] Jaycob 01/[address] [facility] Rodriguez MNA Outpatient [id number] Kelvin 01/14 01/15 [facility] Mayorga III /2019 [facility] [place] [facility] [id number] Jaycob 02/17 [facility] Rodriguez MNA Outpatient [id number] Kelvin 02/17 02/18 [facility] Mayorga III /2019 [facility] [place] Outpatient [id number] Jaycob 03/31 [facility] Rodriguez MNA Ambulatory [id number] Jaycob 03/31 03/31 [facility] Pre[facility]Reg [facility] /2020 [facility] [place] Procedures No Data Provided for This Section Assessment and Plan No Data Provided for This Section Plan of Care No Data Provided for This Section Social History Social History Date Source Social History TypeResponse 01/15/2020 [facility] Neur o Employment/School Status: disabled. Smoking Status Former smoker; Type: Cigarettes; Exposur e to Tobacco Smoke Unable to obtain; Cigarette Smoking Last 365 Days No; Reg Smoking Cessation Counseling No entered on: 02/18/20 Family History No Data Provided for This Section Advance Directives No Data Provided for This Section Functional Status No Data Provided for This Section
--- OUTSIDE RECORDS SUMMARY | 2020-04-09 16:58 | XMS REPORT | Continuity of Care Document ---
:1960 Author Organization [facility] t Address [address] [place] [address] Care Team Providers Name Role Phone Andre Lawrence Attending Clinician Barbra Mclain DDS Attending Clinician Problems Condition Condition Condition Status Onset Resolution Last Treating Co mments Source Name Details Category Date Date Treatment Clinician Date Chronic Problem Active 2020-04-02 Elliott bernardo obstructiv 22:53:10 l e lung Chronic Rodriguez disease obstructiv (disorder) e lung disease (disorder) Active Problem 04/02/2020 [facility] Neuro Morbid Problem Active 2020-04-02 Memor ia obesity 22:53:10 l (disorder) Morbid Herm lee ann obesity (disorder) Active Problem 04/02/2020 [facility] Neuro Paresthesi Problem Active 2020-04-02 M emoria a 22:53:10 l (finding) Artesian Paresthesi a (finding) Active Problem 04/02/2020 [facility] Neuro Ataxia Problem Active 2020-04-02 Memor ia (finding) 22:53:10 l Ataxia Artesian (finding) Active Problem 04/02/2020 [facility] Neuro Carpal Problem Active 2020-04-02 Memor ia tunnel 22:53:10 l syndrome Carpal Abraham n (disorder) tunnel syndrome (disorder) Active Problem 04/02/2020 [facility] Neuro Allergies, Adverse Reactions, Alerts Allergy Allergy Status Severity Reaction(s) Onset Inactive Treating Comm ents Source Name Type Date Date Clinician No Known No Known Active Memori a Medicati Medicati l on on Rodriguez Allergrobinson Allergie s s Social History Social Habit Start Date Stop Date Quantity Comments Source Social History 2020-01-15 2020-01-15 [facility] 17:26:11 17:26:11 Medications Ordered Filled Start Stop Current Ordering Indication Dosage Frequency Signature Comments Components Source Medication Medication Date Date Medication? Clinician (SIG) Name Name Vin 2019-03 Yes 1 ea, Memoria Adjustable 2-18 MISC, l Reversible 21:48: ONCE, Abraham n Splint 00 carpal Wrist Brace tunnel splint, # 1 ea, 0 Refill(s), other lisinopril 2019-03 Yes 10 mg = 1 Me moria 10 mg oral 2-16 tab, PO, l tablet 19:29: Daily, 0 Artesian 00 Refill(s) predniSONE 2019-03 Yes 10 mg = 1 Me moria 10 mg oral 1-12 tab, PO, l tablet 17:01: Daily, 0 Rodriguez 00 Refill(s) pantoprazol 2019-03 Yes 40 mg = 1 M emoria e 40 MG 1-12 tab, PO, l Enteric 17:01: Daily, 0 Abraham n Coated 00 Refill(s) Tablet [Protonix] ropinirole 2019-03 Yes PO, Daily, M emoria 1-12 0 l 17:01: Refill(s) Artesian 00 Vital Signs Vital Name Observation Time Observation Value Comments Source Systolic (mm Hg) 2020-02-18 19:20:00 Elliott rial Artesian Diastolic (mm Hg) 2020-02-18 19:20:00 [facility] orial Artesian Heart Rate 2020-02-18 19:20:00 [facility] Artesian Respitory Rate 2020-02-18 19:20:00 Memori al Rodriguez Height 2020-02-18 19:20:00 170.18 cm [facility] Artesian Weight 2020-02-18 19:20:00 [facility] Artesian BMI Calculated 2020-02-18 19:20:00 Memori al [place] Systolic (mm Hg) 2020-01-15 16:50:00 Elliott rial Artesian Diastolic (mm Hg) 2020-01-15 16:50:00 [facility] orial Rodriguez Heart Rate 2020-01-15 16:50:00 [facility] Artesian Respitory Rate 2020-01-15 16:50:00 Memori al [place] Height 2020-01-15 16:50:00 [facility]18 [facility] 2020-01-15 16:50:00 [facility] BMI Calculated 2020-01-15 16:50:00 Bob Stewart Procedures This patient has no known procedures. Encounters Start End Encounter Admission Attending Care Care Encounter Source Date/Time Date/Time Type Type Clinicians Facility Department ID 2020-03-31 2020-03-31 Outpatient GLENDA Lawrence [id number] 13:15:00 13:15:00 Jaycob 02 Andre 2020-02-18 2020-02-18 Outpatient GLENDA Lawrence [id number] 13:00:00 23:59:59 Jaycob 01 Andre 2020-02-16 2020-02-16 Office Chemo IAMALA [id number] 13:13:52 16:56:34 Visit Vikas DE LA CRUZ [id number] [facility] [id number] 2020-01-15 2020-01-15 Outpatient GLENDA Lawrence ANNA [id number] 11:30:00 23:59:59 Jaycob 00 Andre Results This patient has no known results.
--- OUTSIDE RECORDS SUMMARY | 2020-04-09 16:58 | XMS REPORT | Summary of Care ---
:1960 Author Organization [facility] Neurology [place] Address [address] [place] [address]- Encounter HQ Encntr_alias(FIN) [id number] Date(s): 03/31/20 - 03/31/20 [facility] [address] [place] [address]- [phone] Attending Physician: Jaycob Lawrence MD Referring Physician: Kelvin Fountain MD Vital Signs No data available for this section Problem List Condition Effective Dates Status Health Status Informant Ataxia(Confirmed) Active CTS (carpal tunnel Active syndrome)(Confirmed) COPD mixed type(Confirmed) Active Morbid obesity(Confirmed) Active Paresthesia(Confirmed) Active Allergies, Adverse Reactions, Alerts No Known Medication Allergies Medications No data available for this section Results No data available for this section Immunizations No data available for this section Procedures No data available for this section Social History Social History Type Response Employment/School Status: disabled. Smoking Status Former smoker; Type: Cigaret pedro; Exposure to Tobacco Smoke Unable to obtain; Cigarette Smoking Last 365 Days No; Reg Smoking Cessation Counseling No entered on: 02/18/20 Assessment and Plan No data available for this section
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
--- OUTSIDE RECORDS SUMMARY | 2020-04-09 16:59 | XMS REPORT | Summary of Care ---
:1960 Author Organization [facility] Address [address] [place] [address] Care Team Providers Name Role Phone Isaac Mayorga Primary Care Provider Reason for Visit Reason Comments Pre-op Clearance Encounter Details Date Type Department Care Team Description 04/07/2020 Case Management [facility] Oral and Vikas Mclain re-op Clearance Maxillofacial J, DDS Surgery-[place] [address] [place] [address] [place] [address] [place] [phone] Allergies No Known Allergiesdocumented as of this encounter (statuses as of 04/07/2020) Medications Medication Sig Dispensed Refills Start Date [...] as of this encounter (statuses as of 04/07/2020) Active Problems Problem Noted Date Caries 02/16/2020 Foreign body in mouth, initial encounter 02/16/2020 documented as of this encounter (statuses as of 04/07/2020) Social History Tobacco Use Types Packs/Day Years Used Date Former Smoker Smokeless Tobacco: Never Used Sex Assigned at Date Recorded Not on file documented as of this encounter Last Filed Vital Signs Not on filedocumented in this encounter Progress Notes Brandy Ang RN - 04/07/2020 11:49 AM CSTContacted patient re: clearances sent in February. Patient states he has received clearance from new pull over machine operator, Dr. Natalee Arzola (phone # [phone]) and will contact their office to have clearance faxed over. Received on 04/07/20 (scanned in [employer]). Awaiting clearance from certified bench jeweler technician, Dr. Iniguez at this time. Patient states he will contact them again for clearance. CONVEYOR TENDER CELLAR documented in this encounter Plan of Treatment Health Maintenance Due Date Last Done Comments [...] Results Not on filedocumented in this encounter Insurance Payer Benefit Plan / Subscriber ID Effective Phone Address T ype Group Dates [facility] [id number] 2018-Prese Medicaid HEALTHCARE COMM PLUS nt PLAN - MANAGED MEDICAID DARS DARS DISABILITY [id number] 2017-Pres Agency DETERMINATION [employer] ent DENTAL GENERIC DENTAL GENERIC [id number] 2018-Pres Dental ent documented as of this encounter
--- OUTSIDE RECORDS SUMMARY | 2020-04-09 16:59 | XMS REPORT | Summary of Care ---
:1960 Author Organization [facility] Address [address] [place] [address] Care Team Providers Name Role Phone Isaac Mayorga Primary Care Provider Reason for Visit Reason Comments New Evaluation teeth extractions and plate removal (Routine) Status Reason Specialty Diagnoses / Referred By Referred To Procedures Contact Contact Authorized DEN-ORAL AND Diagnoses INTAKE CLERK/Eval FME/Ext ref scanned Chemo Mclain, MAXILLOFACIAL Procedures CONSULT/REFERRAL ORAL MAXILLOFACIAL SURGERY NEW VISIT (FIRST TIME) MAGNO Beverly DDS SURGERY (DENTIST 1005 1005 ONLY) / Oral [facility] [place] 5TH Floor 5TH [place] [id number] Phone: Fax: Encounter Details Date Type Department Care Team Description 02/16/2020 Office Visit [facility] Oral and Vikas Mclain (Primary Dx); Maxillofacial MAGNO Belle Foreign body in mouth, initial encounter [facility] [address] [place] [address] [place] [address] [phone] Allergies No Known Allergiesdocumented as of this [...] with No / Unsure 02/16/2020 1:10 PM TRUCK TRAILER FINAL INSPECTOR someone who was confirmed or suspected to have Coronavirus / COVID-19? documented as of this encounter Last Filed Vital Signs Vital Sign Reading Time Taken Comments Blood Pressure 143/91 02/16/2020 1:36 PM TRUCK TRAILER FINAL INSPECTOR Pulse 91 02/16/2020 1:36 PM TRUCK TRAILER FINAL INSPECTOR Temperature 36.3 C (97.4 F) 02/16/2020 1:36 PM TRUCK TRAILER FINAL INSPECTOR Respiratory Rate - - Oxygen Saturation - - Inhaled Oxygen Concentration - - Weight 108 kg (238 lb) 02/16/2020 1:36 PM TRUCK TRAILER FINAL INSPECTOR Height 175.3 cm (5' 9") 02/16/2020 1:36 PM TRUCK TRAILER FINAL INSPECTOR Body Mass Index 35.15 02/16/2020 1:36 PM TRUCK TRAILER FINAL INSPECTOR documented in this encounter Patient Instructions Patient InstructionsCandida Malhotra - 02/16/2020 1:30 PM CSTPre-op instructions given to pt verbally and written with emphasis placed on the need for an escort. The escort must stay on the premises until the procedure is over. Pt verbalized understanding. K TRAILER FINAL INSPECTOR documented in this encounter Progress Notes Vikas Mclain DDS - 02/16/2020 1:30 PM CSTI personally examined the patient on 02/16/[address] Gannon's resident note as written . I actively participated in the decision-making process. Please see the resident's note for additional details. 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 Review of Systems Constitutional: [...] clearance and risk stratification from his PCP, correctional supply supervisor, and access developer. PCP: Dr. Mayorga [phone] Cards: Dr. Flores [phone] Fiberglass Fabricator: Dr. Iniguez [phone] Plan - KONRAD #5, 6, 8, 9, [...] tested within 5 days of the procedure. K TRAILER FINAL INSPECTOR documented in this encounter Miscellaneous Notes Addendum Note - Yanick Gannon DMD - 02/16/2020 1:30 PM TRUCK TRAILER FINAL INSPECTOR Addended by: YANICK GANNON DMD on: 04/07/2020 03:46 PM Modules accepted: Orders K TRAILER FINAL INSPECTOR documented in this encounter Plan of Treatment [...] ss Type Group DENTAL GENERIC DENTAL GENERIC [id number] 2018-Present Dental documented as of this encounter
--- OUTSIDE RECORDS SUMMARY | 2020-04-09 16:59 | XMS REPORT | Summary of Care ---
:1960 Author Organization [facility] - Health Address [address] [place] [id number] Care Team Providers Name Role Phone Isaac Mayorga Primary Care Provider Encounter Details Date Type Department Care Team Description 04/07/2020 Orders Only [facility] Doctor Unassigned, No [address] [facility] [place] [address] [address] [place] [id number] Allergies No Known Allergiesdocumented as of this [...] Signs Not on filedocumented in this encounter Plan of Treatment Health [...] this topic documented as of this encounter Procedures Procedure Name Priority Date/Time Associated Diagnosis Comme nts EXTERNAL PROVIDER Routine 04/07/2020 12:01 AM FEEDER CATCHER RECORDS documented in this encounter Results Not on filedocumented in this encounter Insurance Payer Benefit Plan / Subscriber ID Effective Phone Address T ype Group Dates [facility] [id number] 2018-Prese Medicaid HEALTHCARE COMM PLUS nt PLAN - MANAGED MEDICAID DARS DARS DISABILITY [id number] 2017-Pres Agency DETERMINATION [facility] ent DENTAL GENERIC DENTAL GENERIC [id number] 2018-Pres Dental ent documented as of this encounter
--- OUTSIDE RECORDS SUMMARY | 2020-04-09 16:59 | XMS REPORT | Summary of Care ---
:1960 Author Organization [facility] Address [address] [place] [address] Care Team Providers Name Role Phone Isaac Mayorga Primary Care Provider Reason for Visit Reason Comments Pre-op Clearance Encounter Details Date Type Department Care Team Description 03/18/2020 Case Management [facility] Oral and Vikas Mclain re-op Clearance Maxillofacial J, DDS [facility] [address] [place] [address] [address] [place] [address] [place] [phone] Allergies No Known Allergiesdocumented as of this encounter (statuses as of 03/18/2020) Medications Medication Sig Dispensed Refills Start Date [...] as of this encounter (statuses as of 03/18/2020) Active Problems Problem Noted Date Caries 02/16/2020 Foreign body in mouth, initial encounter 02/16/2020 documented as of this encounter (statuses as of 03/18/2020) Social History Tobacco Use Types Packs/Day Years Used Date Former Smoker Smokeless Tobacco: Never Used Sex Assigned at Date Recorded Not on file documented as of this encounter Last Filed Vital Signs Not on filedocumented in this encounter Progress Notes Brandy Ang RN - 03/18/2020 2:49 PM CSTIn mid-February, three consults faxed and confirmed to patient's various physicians (see previous note) for clearance prior to dental extractions. Phoned patient today to check on statuses of clearances as our clinic has not received any paperwork.. Patient states today that he has changed cardiologists due to insurance reasons and is still under care of new crystalizer operator and will follow-up with himon 03/19 to get results from recent stress test. Emphasized with patient that new crystalizer operator will need to provide him with a clearance giving him permission for dental procedures using [place] vs. Local.Also emphasized need to get copies of all tests performed by crystalizer operator. He verbalizes understanding and states he will contact clinic week of 03/23 with further details. IAL LIBRARIAN documented in this encounter Plan of Treatment [...] Effective Phone Address T ype Group Dates [facility] [id number] 2018-Prese Medicaid HEALTHCARE COMM PLUS nt PLAN - MANAGED MEDICAID DARS DARS DISABILITY [id number] 2017-Pres Agency DETERMINATION SVCS ent DENTAL GENERIC DENTAL GENERIC [id number] 2018-Pres Dental ent documented as of this encounter
[2020-04-09 17:39] LABS: Protime INR 0.96
[2020-04-09 17:47] LABS: Hematocrit 39.9 % (39.6-49.0); MPV 7.9 fL (7.6-11.3); RBC Red Blood Cell Count 5.94 M/uL (4.33-5.43)
[2020-04-09 17:49] LABS: ALT/SGPT 33 U/L (12-78); AST/SGOT 23 U/L (15-37); Albumin 3.8 g/dL (3.4-5.0); Alkaline Phosphatase 80 U/L (45-117); BUN Blood Urea Nitrogen 10 mg/dL (7-18); Bicarbonate 27 mmol/L (21-32); Bilirubin Direct 0.1 mg/dL (0-0.2); Bilirubin Total 0.4 mg/dL (0.2-1.0); Glucose Level 103 mg/dL (74-106); Magnesium 2.2 mg/dL (1.8-2.4); NT PRO-BNP 32 pg/mL (<125); Potassium 4.3 mmol/L (3.5-5.1); Protein, Total 7.5 g/dL (6.4-8.2); Sodium Level 137 mmol/L (136-145); Troponin (Emerg Dept Use Only) < 0.02 ng/mL (0.0-0.045)
--- NOTE | 2020-04-09 17:50 | RAD REPORT ---
EXAM DESCRIPTION: RAD - Chest Single View - 04/09/2020 5:39 pm CLINICAL HISTORY: CHEST PAIN Chest pain. COMPARISON: Chest Single View dated 09/27/2019; Chest Pa And Lat (2 Views) dated 01/12/2019; Chest Si ngle View dated 12/18/2018; Chest Single View dated 03/06/2018 FINDINGS: Portable technique limits examination quality. Mild interstitial pulmonary edema seen. Heart is moderately enlarged in size. No displaced fractures. IMPRESSION: Mild CHF.
[2020-04-09 18:17] LABS: Blood Morphology Comment NOTED (NOT SEEN); Hypochromasia 1+; Platelet Estimate INCR
[2020-04-09] MEDS ORDERED: HEPARIN/D5W 25,000 UNIT/500 ML BAG IV ONE (18:39)
--- NOTE | 2020-04-09 18:41 | RAD REPORT ---
EXAM DESCRIPTION: CT - Angio Aorta For Dissection - 04/09/2020 6:10 pm CLINICAL HISTORY: Chest pain radiating to the back. CHEST PAIN COMPARISON: Chest For Pe Angio dated 09/27/2019; Thorax Wo Con dated 02/17/2020 TECHNIQUE: CT angiography of the aorta was performed with MIPs. All CT scans are performed using dose optimization technique as appropriate and may include automated exposure control or mA/KV adjustment according to patient size. FINDINGS: A left aortic arch is present with normal branching pattern of the great vessels.No acute aortic finding is seen such as aneurysm, penetrating ulcer or dissection. The celiac axis, SMA, ZENOBIA and renal arteries are patent. No evidence of pulmonary embolism. Mild COPD is present. Small nodule measuring 9 mm in the left lower lobe demonstrates long-term stabi lity. No acute infiltrate evident. The liver demonstrates no focal mass or biliary dilatation.Several left upper quadrant splenules seen .The pancreas, adrenal glands and kidneys are within normal limits for arterial phase imaging. No bowel obstruction, free fluid or abscess.Prominent diverticulosis of the descending colon and sigm oid colon. Normal appendix.No pathologic enlarged lymphadenopathy identified. Moderate lumbosacral degenerative changes. IMPRESSION: No acute aortic finding is demonstrated.
[2020-04-09] MEDS ORDERED: ONDANSETRON 4 MG/2 ML VIAL ONE (19:10)
[2020-04-09] MEDS ORDERED: FENTANYL CITR 100 MCG/2 ML ONE (19:10)
--- NOTE | 2020-04-09 20:12 | ER ---
Nurse's Notes [facility] Name: Jesus Noriega Age: 59 yrs Sex: Male : 1960 Arrival Date: 04/09/2020 Time: 16:56 Bed 18 Private MD: Diagnosis: Arterial Occlusion left upper extremity Presentation: 04/09 16:59 Chief complaint: Patient states: Chest pain radiating to the Left arm, reports started sg 30 mins to 1 hour ago, worsening now. States left arm is a different color than normal for him and it feels cold to him, also reports nausea that is coming and going. Coronavirus screen: Client denies travel out of the [place] in the last 14 days. Ebola Screen: Patient negative for fever greater than or equal to 101.5 degrees Fahrenheit, and additional compatible Ebola Virus Disease symptoms Patient denies exposure to infectious person. Patient denies travel to an Ebola-affected area in the 21 days before illness onset. No symptoms or risks identified at this time. Risk Assessment: Do you want to hurt yourself or someone else? Patient reports no desire to harm self or others. Onset of symptoms was April 09, 2020. Care prior to arrival: None. Transition of care: patient was not received from another setting of care. 16:59 Method Of Arrival: Ambulatory sg 16:59 Chief complaint:. Initial Sepsis Screen: Does the patient meet any 2 criteria? No. sg Patient's initial sepsis screen is negative. Does the patient have a suspected source of infection? No. Patient's initial sepsis screen is negative. 17:09 Acuity: ISRRAEL 2 iw Triage Assessment: 17:11 General: Appears distressed, uncomfortable, obese, Behavior is cooperative, appropriate bp for age, anxious. Pain: Complains of pain in chest. EENT: No deficits noted. Neuro: No deficits noted. Cardiovascular: Rhythm is sinus rhythm. Respiratory: No deficits noted. GI: No signs and/or symptoms were reported involving the gastrointestinal system. : No deficits noted. Derm: No deficits noted. Musculoskeletal: No deficits noted. Historical: - Allergies: 16:59 No Known Allergies; sg - PMHx: 16:59 COPD; sg - PSHx: 16:59 left leg sx; amputation of the left finger; spleenectomy; sg - Immunization history:: Adult Immunizations up to date. - Social history:: Smoking status: Patient reports the use of cigarette tobacco products. Screenin:01 Abuse screen: Denies threats or abuse. Denies injuries from another. Nutritional bp screening: No deficits noted. Tuberculosis screening: No symptoms or risk factors identified. Fall Risk None identified. Assessment: 17:00 General: SEE TRIAGE NOTE. bp 17:55 Reassessment: PER MD, HEPARIN GTT ON HOLD PENDING DISSECTION STUDY. bp 18:27 Reassessment: No changes from previously documented assessment. Patient and/or family bp updated on plan of care and expected duration. Pain level reassessed. Patient is alert, oriented x 3, equal unlabored respirations, skin warm/dry/pink. PT RETURNED FROM CT. HEPARIN STARTED. 19:50 General: Appears in no apparent distress. Behavior is calm, cooperative, appropriate sf for age. Pain: Complains of pain in left arm Pain currently is 10 out of 10 on a pain scale. at worst was 10 out of 10 on a pain scale. Pain began suddenly, Alleviated by nothing. Neuro: No deficits noted. Level of Consciousness is awake, alert, obeys commands, Oriented to person, place, time, situation, Appropriate for age Reports numbness in left arm. Cardiovascular: No deficits noted. pink warm and dry with exception of left arm, left arm cool to touch.. Respiratory: No deficits noted. Airway is patent Respiratory effort is even, unlabored, Respiratory pattern is regular, symmetrical. 21:14 Reassessment: Nurse to nurse report called to for patient transfer to [address] 2013. 21:28 Reassessment: [facility] at bedside for patient transfer. [facility] 21:36 Pain: Pain does not radiate. Pain currently is 8 out of 10 on a pain scale. sf Vital Signs: 17:02 BP 158 / 77; Pulse 90; Resp 17; Temp 97.7; Pulse Ox 96% on R/A; Weight 105.69 kg; Pain bp 6/10; 18:00 BP 137 / 74; Pulse 88; Resp 12; Pulse Ox 98% ; bp 19:00 BP 132 / 86; Pulse 87; Resp 16; Pulse Ox 93% ; sf 20:01 BP 143 / 72; Pulse 86; Resp 16; Pulse Ox 93% ; sf 21:00 BP 129 / 66; Pulse 82; Resp 16; Pulse Ox 93% ; sf ED Course: 16:56 Patient arrived in ED. as 16:59 Arm band placed on. sg 17:00 Triage completed. sg 17:09 Neo Daugherty PA is PHCP. jr8 17:09 Carlitos Hannon MD is Attending Physician. jr8 17:10 Jesus Rivas, RN is Primary Nurse. bp 17:21 Inserted saline lock: 20 gauge in right forearm, using aseptic technique. Blood dh4 collected. 17:39 XRAY Chest (1 view) In Process Unspecified. EDMS 18:01 Patient has correct armband on for positive identification. Bed in low position. Call bp light in reach. Side rails up X2. Adult w/ patient. field education coordinator on. Pulse ox on. NIBP on. 18:11 CT Aorta for Dissection In Process Unspecified. EDMS 20:20 Upper Ext Artery Uni Clemente In Process Unspecified. EDMS Administered Medications: 18:30 Drug: Heparin (DVT/PE Drip) 18 units/kg/hr - (HEParin 69246 units, D5W 500 ml) bp {Co-Signature: andrew (Gwyn Wiley RN).} Route: IV; Rate: calculated rate; Site: right antecubital; 21:41 Follow up: Response: No adverse reaction sf 18:52 Not Given (Physician Discretion): fentaNYL (PF) 75 mcg IVP once; RASS on ADMIN: jr8 Combtv4, Very Agttd3, Agttd2, Rstlss1, AlertClm0, Drwsy-1, Lt Sdtn-2, Mod Sdtn-3, Dp Sdtn-4, UnArsble-5 18:56 Drug: fentaNYL (PF) 100 mcg Route: IVP; Site: right forearm; bp 18:57 Drug: Zofran (Ondansetron) 4 mg Route: IVP; Site: right antecubital; bp 20:51 Drug: Dilaudid 1 mg Route: IVP; Site: right forearm; jb4 Outcome: 20:11 ER care complete, transfer ordered by . jr8 21:35 Transferred by ground EMS to [facility], Transfer form completed. X-rays sf sent w/ patient. 21:35 Condition: stable 21:35 Condition: Patient left with heparin infusion at same rate on EMS pump. sf 21:40 Patient left the ED. sf Signatures: Dispatcher [employer] EDMS Blaine Haley, RN JESS sg Annika Herrera Irene, RN JESS Parisa Suresh RN RN lp1 Neo aDugherty PA PA jr8 Gwyn Wiley, JESS MERCADO jb4 Jesus Rivas RN RN Jamil [facility] Blaine Payan RN RN sf Gwyn Wiley RN jb4 Corrections: (The following items were deleted from the chart) 17:11 16:59 Chief complaint: Patient states: Chest pain radiating to the arm, reports started sg 1-2 hours ago, worsening now. reports nausea that is coming and going sg 17:11 16:59 Acuity: ISRRAEL 3 sg sg 18:27 17:02 BP 158 / 77; Pulse 90bpm; Resp 17bpm; Pulse Ox 96% RA; Temp 97.7F; Pain 6/10; sg bp 21:44 21:35 Transferred by ground EMS to [facility], Transfer form completed. sf X-rays sent w/ patient. sf 21:44 21:40 Patient left the ED. sf sf
--- NOTE | 2020-04-09 20:12 | EDPHYS ---
Physician Documentation [facility] Name: Jesus Noriega Age: 59 yrs Sex: Male : 1960 Arrival Date: 04/09/2020 Time: 16:56 Bed 18 Private MD: ED Physician Carlitos Hannon HPI: 04/09 19:30 This 59 yrs old Male presents to ER via Ambulatory with complaints of Chest jr8 Pain, Arm Pain. 19:30 Patient stated that he has some mild chest tightness that then turned into arm pain on jr8 left side. Stated that his arm turned cold and felt numb. Started about 30 min prior to arrival. Denies having problems like this in the past. History of smoking and COPD. Severity of symptoms: At their worst the symptoms were moderate in the emergency department the symptoms are unchanged. The patient has not experienced similar symptoms in the past. The patient has not recently seen a physician. Historical: - Allergies: 16:59 No Known Allergies; sg - PMHx: 16:59 COPD; sg - PSHx: 16:59 left leg sx; amputation of the left finger; spleenectomy; sg - Immunization history:: Adult Immunizations up to date. - Social history:: Smoking status: Patient reports the use of cigarette tobacco products. ROS: 19:30 Cardiovascular: Positive for chest pain. jr8 19:30 MS/extremity: Positive for pain, paresthesias, of the left arm, coolness . 19:30 All other systems are negative. 20:12 Constitutional: Negative for fever, chills, and weight loss. jr8 Exam: 19:30 Neck: Trachea midline, no thyromegaly or masses palpated, and no cervical jr8 lymphadenopathy. Supple, full range of motion without nuchal rigidity, or vertebral point tenderness. No Meningismus. Cardiovascular: Regular rate and rhythm with a normal S1 and S2. No gallops, murmurs, or rubs. Normal PMI, no JVD. No pulse deficits. Respiratory: Lungs have equal breath sounds bilaterally, clear to auscultation and percussion. No rales, rhonchi or wheezes noted. No increased work of breathing, no retractions or nasal flaring. Abdomen/GI: Soft, non-tender, with normal bowel sounds. No distension or tympany. No guarding or rebound. No evidence of tenderness throughout. Back: No spinal tenderness. No costovertebral tenderness. Full range of motion. Skin: Warm, dry with normal turgor. Normal color with no rashes, no lesions, and no evidence of cellulitis. Neuro: Awake and alert, GCS 15, oriented to person, place, time, and situation. Cranial nerves II-XII grossly intact. Motor strength 5/5 in all extremities. Sensory grossly intact. Cerebellar exam normal. Normal gait. 19:30 Musculoskeletal/extremity: Extremities: grossly normal except: noted in the left arm: left lower arm below elbow cool to touch when compared to right side. No palpable pulse on left radial side. 2+ pulse right side radial. Mild sensory deficit with touch noted left side, ROM: intact in all extremities, Perfusion: the extremity is cool, noted to have sluggish capillary refill, left arm . Vital Signs: 17:02 BP 158 / 77; Pulse 90; Resp 17; Temp 97.7; Pulse Ox 96% on R/A; Weight 105.69 kg; Pain bp 6/10; 18:00 BP 137 / 74; Pulse 88; Resp 12; Pulse Ox 98% ; bp 19:00 BP 132 / 86; Pulse 87; Resp 16; Pulse Ox 93% ; sf 20:01 BP 143 / 72; Pulse 86; Resp 16; Pulse Ox 93% ; sf 21:00 BP 129 / 66; Pulse 82; Resp 16; Pulse Ox 93% ; sf MDM: 17:09 Patient medically screened. [facility] 19:30 Data reviewed: vital signs, nurses notes, lab test result(s), EKG, radiologic studies, [facility] CT scan, plain films, ultrasound. Data interpreted: Pulse oximetry: on room air is 98 %. Interpretation: normal. Counseling: I had a detailed discussion with the patient and/or guardian regarding: the historical points, exam findings, and any diagnostic results supporting the discharge/admit diagnosis, lab results, radiology results, the need to transfer to another facility, [facility] does not immediately have the required specialist. 20:10 ED course: Spoke with Dr[facility] Arzola at [facility] who secured a bed for patient for further [facility] evaluation of left arm occlusion . 04/09 17:09 Order name: Basic Metabolic Panel; Complete Time: 17:53 [facility] 04/09 17:09 Order name: CBC with Diff; Complete Time: 18:17 jr8 02/05 17:09 Order name: LFT's; Complete Time: 17:53 04/09 17:09 Order name: Magnesium; Complete Time: 17:53 04/09 17:09 Order name: NT PRO-BNP; Complete Time: 17:53 04/09 17:09 Order name: PT-INR; Complete Time: 17:46 04/09 17:09 Order name: Troponin (emerg Dept Use Only); Complete Time: 17:53 04/09 17:09 Order name: XRAY Chest (1 view); Complete Time: 17:53 04/09 17:49 Order name: CT Aorta for Dissection; Complete Time: 18:46 04/09 18:17 Order name: Manual Differential; Complete Time: 18:17 EDMS 04/09 20:19 Order name: Upper Ext Artery Uni Clemente; Complete Time: 08:28 EDMS 04/09 20:42 Order name: SARS-COV-2 RT PCR; Complete Time: 08:28 EDMS 04/09 17:09 Order name: EKG; Complete Time: 17:10 04/09 17:09 Order name: Cardiac monitoring; Complete Time: 17:21 04/09 17:09 Order name: EKG - Nurse/Tech; Complete Time: 17:21 04/09 17:09 Order name: IV Saline Lock; Complete Time: 17:21 04/09 17:09 Order name: Labs collected and sent; Complete Time: 17:21 04/09 17:09 Order name: O2 Per Protocol; Complete Time: 17:21 04/09 17:09 Order name: O2 Sat Monitoring; Complete Time: 17:21 Administered Medications: 18:30 Drug: Heparin (DVT/PE Drip) 18 units/kg/hr - (HEParin 88719 units, D5W 500 ml) bp {Co-Signature: jb4 (Gwyn Wiley RN).} Route: IV; Rate: calculated rate; Site: right antecubital; 21:41 Follow up: Response: No adverse reaction sf 18:52 Not Given (Physician Discretion): fentaNYL (PF) 75 mcg IVP once; RASS on ADMIN: jr8 Combtv4, Very Agttd3, Agttd2, Rstlss1, AlertClm0, Drwsy-1, Lt Sdtn-2, Mod Sdtn-3, Dp Sdtn-4, UnArsble-5 18:56 Drug: fentaNYL (PF) 100 mcg Route: IVP; Site: right forearm; bp 18:57 Drug: Zofran (Ondansetron) 4 mg Route: IVP; Site: right antecubital; bp 20:51 Drug: Dilaudid 1 mg Route: IVP; Site: right forearm; jb4 Disposition: 04/10 08:27 Co-signature as Attending Physician, Carlitos Hanonn MD I agree with the assessment and rn plan of care. PA/PERSONNEL DIRECTOR's history reviewed, patient interviewed, and examined. HPI: 59 year old with acute onset left arm pain, non-traumatic. My personal exam of patient reveals: No radial pulse palpated I agree with assessment and care plan and confirm the diagnosis (es) above. Disposition: 04/09/20 20:11 Transfer ordered to [facility]. Diagnosis is Arterial Occlusion left upper extremity. - Reason for transfer: Higher level of care. - Accepting physician is Dr. Dariusz Yu. - Condition is Stable. - Problem is new. - Symptoms have improved. Signatures: Dispatcher [employer] EDMS Blaine Haley, RN Carlitos Ramsay MD MD rn Roszak, Josh, PA PA jr8 Gwyn Wiley RN RN jb4 Jesus Rivas RN RN Blaine Payan RN RN sf Gwyn Wiley RN jb4 Corrections: (The following items were deleted from the chart) 04/09 19:50 19:00 CORONAVIRUS+MR.LAB.BRZ ordered. EDMS EDMS 20:19 17:46 Upper Ext Artery Uni Clemente ordered. EDMS EDMS 21:40 20:11 04/09/2020 20:11 Transfer ordered to [facility]. Diagnosis is Arterial sf Occlusion left upper extremity. Reason for transfer: Higher level of care. Accepting physician is Dr. Dariusz Yu. Condition is Stable. Problem is new. Symptoms have improved. jr8
--- NOTE | 2020-04-09 20:58 | RAD REPORT ---
EXAM DESCRIPTION: US - Upper Ext Artery Uni Clemente - 04/09/2020 8:19 pm CLINICAL HISTORY: Pulseless left arm Pain and swelling COMPARISON: Angio Aorta For Dissection dated 04/09/2020 FINDINGS: Left common carotid, subclavian and axillary artery is demonstrate triphasic and biphasic waveforms. Left radial artery and radial and ulnar artery show significantly blunted monophasic disease waveform s. The significant waveform in amplitude changes suggest a flow abnormality at the level of the distal l eft axillary artery or proximal left brachial artery. IMPRESSION: A significant change in flow dynamics is noted at the level of the distal left axillary artery or proximal left brachial artery. There is likely a significant flow-limiting stenosis present . A traditional angiogram or follow-up CT angiogram of the left upper extremity may be helpful.
[2020-04-09] MEDS ORDERED: HYDROMORPHONE HCL 1 MG/ML INJ ONE (21:02)
== END 2020-04-09 21:40 | disposition short-term general hospital (02) ==
LOC: ER 16:56
DX: I70.298 Other atherosclerosis of native arteries of extremities, other extremity (principal); J44.9 Chronic obstructive pulmonary disease, unspecified; Z20.822 Contact with and (suspected) exposure to COVID-19; Z72.0 Tobacco use
CPT/HCPCS: 93005; 85025; 80048; 36415; 83735; 85610; 80076; 84484; 83880; 71275; 74175; 71045; 93931; 99285; U0003; Q9967; J3010; J1170; J1644; J2405

== ENCOUNTER 2020-04-18 15:19 | Emergency (ER) | payer OTHER ==
[2020-04-18 16:47] LABS: Absolute Lymphocytes (CBC) 2.3 K/uL (0.7-4.9); Basophils % 2.5 % (0-1.3); Hematocrit 26.5 % (39.6-49.0); Lymphocytes % 25.3 % (15.3-44.8); MPV 7.5 fL (7.6-11.3)
[2020-04-18] MEDS ORDERED: MORPHINE 4 MG/ML SYR ONE (17:35)
[2020-04-18] MEDS ORDERED: ONDANSETRON 4 MG/2 ML VIAL ONE (17:35)
--- NOTE | 2020-04-18 18:17 | ER ---
Nurse's Notes [facility] Name: Jesus Noriega Age: 59 yrs Sex: Male : 1960 Arrival Date: 04/18/2020 Time: 15:26 Bed 14 Private MD: Diagnosis: Encounter for other postprocedural aftercare Presentation: 04/18 15:26 Chief complaint: EMS states: Blood clot removed from left forearm 04/10 at [facility], today home health nurse came to change his dressing and replace wound vac container, reports abnormally high amount of blood during dressing change and in canister. Coronavirus screen: At this time, the client does not indicate any symptoms associated with coronavirus-19. Ebola Screen: No symptoms or risks identified at this time. Initial Sepsis Screen: Does the patient meet any 2 criteria? No. Patient's initial sepsis screen is negative. Does the patient have a suspected source of infection? No. Patient's initial sepsis screen is negative. Risk Assessment: Do you want to hurt yourself or someone else? Patient reports no desire to harm self or others. Onset of symptoms was April 18, 2020. 15:26 Method Of Arrival: Ambulatory 15:26 Acuity: ISRRAEL 3 hb Historical: - Allergies: 15:40 No Known Allergies; hb - Home Meds: 15:36 celecoxib 200 mg Oral cap 1 cap 2 times per day [Active]; oxycodone-acetaminophen hb 10-325 mg Oral tab [Active]; trazodone 50 mg Oral tab nightly [Active]; Eliquis 5 mg oral tab 2 tabs 2 times per day [Active]; gabapentin 400 mg oral cap 1 cap 3 times per day [Active]; ropinirole 5 mg oral tab nightly [Active]; Daliresp 500 mcg oral tab 1 tab once daily [Active]; prednisone 10 mg Oral tab once daily [Active]; - PMHx: 15:30 COPD; hb - PSHx: 15:30 left leg sx; amputation of the left finger; spleenectomy; Thrombectomy - Left FA; hb - Immunization history:: Adult Immunizations up to date. - Social history:: Smoking status: Patient denies any tobacco usage or history of. Screenin:43 Abuse screen: Denies threats or abuse. Nutritional screening: No deficits noted. vg1 Tuberculosis screening: No symptoms or risk factors identified. Fall Risk No fall in past 12 months (0 pts). No secondary diagnosis (0 pts). IV access (20 points). Ambulatory Aid- None/Bed Rest/Nurse Assist (0 pts). Gait- Normal/Bed Rest/Wheelchair (0 pts) Mental Status- Oriented to own ability (0 pts). Total Tafoya Fall Scale indicates No Risk (0-24 pts). Assessment: 15:40 General: Appears in no apparent distress. comfortable, Behavior is calm, cooperative. vg1 Pain: Complains of pain in left forarm Pain currently is 10 out of 10 on a pain scale. Pain began 1 hour ago. Neuro: Level of Consciousness is awake, alert, obeys commands, Oriented to person, place, time, situation. Cardiovascular: Capillary refill < 3 seconds Patient's skin is warm and dry. Pulses are palpable in left radial artery. Respiratory: Airway is patent Respiratory effort is even, unlabored, Respiratory pattern is regular, symmetrical. GI: No signs and/or symptoms were reported involving the gastrointestinal system. : No signs and/or symptoms were reported regarding the genitourinary system. EENT: No signs and/or symptoms were reported regarding the EENT system. Derm: Wound noted left forearm. Musculoskeletal: Circulation, motion, and sensation intact. 17:19 Reassessment: Received VO from Devang JULES to administer Zofran 4 mg IVP x1 and Morphine vg1 4mg IVP x1. 18:01 Reassessment: Patient appears in no apparent distress at this time. No changes from vg1 previously documented assessment. Patient and/or family updated on plan of care and expected duration. Pain level reassessed. Patient is alert, oriented x 3, equal unlabored respirations, skin warm/dry/pink. Vital Signs: 15:26 BP 94 / 72; Pulse 75; Resp 20; Temp 98.2; Pulse Ox 97% on 3 lpm NC; Pain 8/10; hb 15:40 BP 110 / 76; Pulse 60; Resp 20; Pulse Ox 98% on 3 lpm NC; vg1 16:00 BP 115 / 63; Pulse 86; Resp 20; Pulse Ox 97% on 3 lpm NC; vg1 16:30 BP 114 / 62; Pulse 75; Resp 18; Pulse Ox 97% on 3 lpm NC; vg1 17:30 BP 108 / 93; Pulse 73; Resp 20; Pulse Ox 99% on 3 lpm NC; vg1 ED Course: 15:26 Patient arrived in ED. hb 15:29 Triage completed. hb 15:30 Arm band placed on. hb 15:34 Devang Tee NP is PHCP. pm1 15:34 Siddharth Parish MD is Attending Physician. pm1 15:35 Wendy Mclain, RN is Primary Nurse. vg1 16:39 Initial lab(s) drawn, by me, sent to lab. Inserted saline lock: 20 gauge in right vg1 forearm, using aseptic technique. Blood collected. 16:43 Patient has correct armband on for positive identification. Bed in low position. Call vg1 light in reach. Side rails up X2. 19:16 No provider procedures requiring assistance completed. IV discontinued, intact, vg1 bleeding controlled, No redness/swelling at site. Pressure dressing applied. Administered Medications: 17:26 Drug: Zofran (Ondansetron) 4 mg Route: IVP; Site: right forearm; vg1 18:00 Follow up: Response: No adverse reaction vg1 17:26 Drug: morphine 4 mg {Note: rass0.} Route: IVP; Site: right forearm; vg1 18:00 Follow up: Response: No adverse reaction; Pain is decreased vg1 19:15 Drug: Hartsel 10 mg-325 mg 1 tabs Route: PO; vg1 19:15 Follow up: Response: Medication administered at discharge. vg1 Outcome: 18:16 Discharge ordered by . pm1 19:16 Discharged to home ambulatory. vg1 19:16 Condition: good 19:16 Discharge instructions given to patient, Instructed on discharge instructions, follow up and referral plans. Demonstrated understanding of instructions, follow-up care. 19:16 Patient left the ED. vg1 Signatures: Devang Tee NP SPECIALTY DEVELOPMENT CONSULTANT pm1 Patience Alcocer RN RN Wendy Mclain RN RN vg1
--- NOTE | 2020-04-18 18:17 | EDPHYS ---
Physician Documentation [facility] Name: Jesus Noriega Age: 59 yrs Sex: Male : 1960 Arrival Date: 04/18/2020 Time: 15:26 Bed 14 Private MD: ED Physician Siddharth Parish HPI: 04/18 17:20 This 59 yrs old Male presents to ER via Ambulatory with complaints of pm1 Incisional Drainage. 17:20 Onset: The symptoms/episode began/occurred today. Associated signs and symptoms: The pm1 patient has no apparent associated signs or symptoms. Patient with arterial blood clot removal from left forearm and currently has wound vacuum to the area. His home health care nurse changed the dressing and apparently caused bleeding to the distal portion of the wound. He was sent by his home health nurse for evaluation in the ER. Historical: - Allergies: 15:40 No Known Allergies; hb - Home Meds: 15:36 celecoxib 200 mg Oral cap 1 cap 2 times per day [Active]; oxycodone-acetaminophen hb 10-325 mg Oral tab [Active]; trazodone 50 mg Oral tab nightly [Active]; Eliquis 5 mg oral tab 2 tabs 2 times per day [Active]; gabapentin 400 mg oral cap 1 cap 3 times per day [Active]; ropinirole 5 mg oral tab nightly [Active]; Daliresp 500 mcg oral tab 1 tab once daily [Active]; prednisone 10 mg Oral tab once daily [Active]; - PMHx: 15:30 COPD; hb - PSHx: 15:30 left leg sx; amputation of the left finger; spleenectomy; Thrombectomy - Left FA; hb - Immunization history:: Adult Immunizations up to date. - Social history:: Smoking status: Patient denies any tobacco usage or history of. ROS: 17:20 Constitutional: Negative for fever, chills, and weight loss, Cardiovascular: Negative pm1 for chest pain, palpitations, and edema, Respiratory: Negative for shortness of breath, cough, wheezing, and pleuritic chest pain, Back: Negative for injury and pain, MS/Extremity: Negative for injury and deformity. 17:20 Neuro: Negative for headache, weakness, numbness, tingling, and seizure. 17:20 Skin: Positive for bleeding from left forearm wound. Exam: 17:20 Constitutional: This is a well developed, well nourished patient who is awake, alert, pm1 and in no acute distress. Head/Face: Normocephalic, atraumatic. 17:20 Cardiovascular: Exam negative for acute changes, Rate: normal, Rhythm: regular, Pulses: no pulse deficits are appreciated. 17:20 Respiratory: Exam negative for acute changes, respiratory distress, shortness of breath. 17:20 Skin: Appearance: normal except for affected area, small amount of blood present in wound vacuum dressing. Vital Signs: 15:26 BP 94 / 72; Pulse 75; Resp 20; Temp 98.2; Pulse Ox 97% on 3 lpm NC; Pain 8/10; hb 15:40 BP 110 / 76; Pulse 60; Resp 20; Pulse Ox 98% on 3 lpm NC; vg1 16:00 BP 115 / 63; Pulse 86; Resp 20; Pulse Ox 97% on 3 lpm NC; vg1 16:30 BP 114 / 62; Pulse 75; Resp 18; Pulse Ox 97% on 3 lpm NC; vg1 17:30 BP 108 / 93; Pulse 73; Resp 20; Pulse Ox 99% on 3 lpm NC; vg1 MDM: 15:40 Patient medically screened. pm1 18:13 Data reviewed: vital signs. Data interpreted: Pulse oximetry: on room air is 99 %. pm1 Interpretation: normal. Counseling: I had a detailed discussion with the patient and/or guardian regarding: the historical points, exam findings, and any diagnostic results supporting the discharge/admit diagnosis, lab results, the need for outpatient follow up, a general surgeon, to return to the emergency department if symptoms worsen or persist or if there are any questions or concerns that arise at home. 18:13 ED course: Minimal bleeding present at wound vacuum and collection chamber. Discussed pm1 labs and patient history with Dr. Parish. Recommends follow up with his surgeon or wound care MD and there is no need to change the wound vacuum dressing . 18:13 ED course: No change in the amount of blood in the wound vacuum dressing and drain pm1 during ER visit. 04/18 16:04 Order name: CBC with Diff pm1 04/18 17:27 Order name: CBC with Automated Diff EDMS 04/18 16:26 Order name: IV; Complete Time: 16:39 vg1 Administered Medications: 17:26 Drug: Zofran (Ondansetron) 4 mg Route: IVP; Site: right forearm; vg1 18:00 Follow up: Response: No adverse reaction vg1 17:26 Drug: morphine 4 mg {Note: rass0.} Route: IVP; Site: right forearm; vg1 18:00 Follow up: Response: No adverse reaction; Pain is decreased vg1 19:15 Drug: Coats 10 mg-325 mg 1 tabs Route: PO; vg1 19:15 Follow up: Response: Medication administered at discharge. vg1 Disposition: 04/18/20 18:16 Discharged to Home. Impression: Encounter for other postprocedural aftercare. - Condition is Stable. - Medication Reconciliation Form, Thank You Letter, Antibiotic Education, Prescription Opioid Use form. - Follow up: Emergency Department; When: As needed; Reason: Worsening of condition. Follow up: Private Physician; When: 2 - 3 days; Reason: Recheck today's complaints, Continuance of care, Re-evaluation by your physician. - Problem is new. - Symptoms have improved. Addendum: 04/23/2020 19:23 Co-signature as Attending Physician, Siddharth Parish MD I agree with the assessment and t w4 plan of care. Signatures: Dispatcher [employer] EDDevang Baker, DHARA [employer]OL[employer] FEED MIXER pm1 Patience Alcocer, RN RN Siddharth Parish MD MD tw4 Wendy Mclain RN RN vg1 Corrections: (The following items were deleted from the chart) 04/18 18:16 18:16 04/18/2020 18:16 Discharged to Home. Impression: Encounter for other pm1 postprocedural aftercare. Condition is Stable. Forms are Medication Reconciliation Form, Thank You Letter, Antibiotic Education, Prescription Opioid Use. Follow up: Emergency Department; When: As needed; Reason: Worsening of condition. Follow up: Private Physician; When: 2 - 3 days; Reason: Recheck today's complaints, Continuance of care, Re-evaluation by your physician. pm1 19:16 18:16 04/18/2020 18:16 Discharged to Home. Impression: Encounter for other vg1 postprocedural aftercare. Condition is Stable. Forms are Medication Reconciliation Form, Thank You Letter, Antibiotic Education, Prescription Opioid Use. Follow up: Emergency Department; When: As needed; Reason: Worsening of condition. Follow up: Private Physician; When: 2 - 3 days; Reason: Recheck today's complaints, Continuance of care, Re-evaluation by your physician. Problem is new. Symptoms have improved. pm1
[2020-04-18] MEDS ORDERED: HYDROCODONE/APAP 10/325 TAB ONE (19:24)
[2020-04-18 19:34] VITALS: TEMP 98.2
[2020-04-18 19:39] VITALS: BP 108/93; O2SAT 99
[2020-04-18 19:48] LABS: Anisocytosis 1+; Blood Morphology Comment NOTED (NOT SEEN); Hypochromasia 1+; Poikilocytosis SLIGHT
[2020-04-18 19:49] LABS: Ovalocytes SLIGHT; Platelet Estimate INCR; Target Cells FEW; White Blood Cell Scan OK (OK)
== END 2020-04-18 19:16 | disposition home or self-care (01) ==
LOC: ER 15:19
DX: Z48.89 Encounter for other specified surgical aftercare (principal); Z98.890 Other specified postprocedural states; J44.9 Chronic obstructive pulmonary disease, unspecified; Z79.01 Long term (current) use of anticoagulants
CPT/HCPCS: 85025; 36415; 96375; 96374; 99284; J2405

== ENCOUNTER 2020-07-20 10:48 | Emergency (ER) | payer OTHER ==
--- OUTSIDE RECORDS SUMMARY | 2020-07-20 10:52 | XMS REPORT | Continuity of Care Document ---
:1960 Author Organization [facility] t Address [address] [place] [address] Care Team Providers Name Role Phone Mukesh CHILEL MD, A Primary Care Physician Doctor Unassigned, Name Attending Clinician Unavailable Jan VILLALOBOS Attending Clinician Manjinder MERCADO Attending Clinician Unavailable Estevan PERSON Attending Clinician Unavailable Yasir PERSON Attending Clinician Unavailable Medina Clemens MD Attending Clinician Janice Barahona MD Attending Clinician Lynette RN Attending Clinician Unavailable Belkis Carter MD Attending Clinician Jose CHRISTIE Attending Clinician Barbra Mclain DDS Attending Clinician Mir Pickard MD Attending Clinician Haris MERCADO Attending Clinician Unavailable Katrina CHRISTIE Attending Clinician Andre Lawrence Attending Clinician JUN Admitting Clinician Unavailable Payers Payer Name Policy Type Policy Effective Date Expiration Date Sour ce Number [facility] [id number] 2020 [place] STAR+ 00:00:00 Zoroastrianism [id number] 2020- PresentHMO Problems Condition Condition Condition Status Onset Resolution Last Treating Co mments Source Name Details Category Date Date Treatment Clinician Date Wound Wound Disease Active [place] dehiscence dehiscence 2-22 Me thodi 00:00: st 00 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 00:00: st 00 Essential Essential Disease Active Moiz berry hypertensi hypertensi 2-06 Me thodi on on 00:00: st 00 Gastroesop Gastroesop Disease Active [place] hageal hageal 2-06 Methodi reflux reflux 00:00: st disease disease 00 without without esophagiti esophagiti s s Ischemia Ischemia Disease Active [place] of left of left 2-06 Methodi upper upper 00:00: st extremity extremity 00 s/p s/p Disease Active [place] Thomboembo Thomboembo 2-06 Me thodi lectomy of lectomy of 00:00: st L L 00 subclavian subclavian , , axillary, axillary, brachial, brachial, radial and radial and ulnar ulnar arteries arteries Postoperat Postoperat Disease Active H jayna ab anemia ab anemia 2-06 Me thodi 00:00: st 00 Substance Substance Disease Active Moiz berry abuse abuse 2-06 Methodi (amphetami (amphetami 00:00: st ne and ne and 00 cannabinoi cannabinoi d) d) Chronic Problem Active 2020-04-02 Elliott bernardo obstructiv 22:53:10 l e lung Chronic [place] disease obstructiv (disorder) e lung disease (disorder) [facility] Morbid Problem Active 2020-04-02 Memor ia obesity 22:53:10 l (disorder) Morbid Herm lee ann obesity (disorder) Active Problem 04[facility]02/2020 [facility] Paresthesi Problem Active 2020-04-02 M emoria a 22:53:10 l (finding) Rodriguez Paresthesi a (finding) Active Problem 04/02/2020 [facility] Ataxia Problem Active 2020-04-02 Memor ia (finding) 22:53:10 l Ataxia [place] (finding) Active Problem 04/02/2020 [facility] Carpal Problem Active 2020-04-02 Memor ia tunnel 22:53:10 l syndrome Carpal Abraham n (disorder) tunnel syndrome (disorder) Active Problem 04/02/2020 [facility] Allergies, Adverse Reactions, Alerts Allergy Allergy Status Severity Reaction(s) Onset Inactive Treating Comm ents Source Name Type Date Date Clinician No Known No Known Active Memori a Medicati Medicati l on on Rodriguez Allergie Allergie s s Social History Social Habit Start Date Stop Date Quantity Comments Source History of tobacco Current smoker [place] [facility] Alcohol Binge Tobacco use and 2020-06-09 2020-06-09 Never used Fadi Case ethodist exposure 00:00:00 00:00:00 Alcohol intake 2020-06-09 2020-06-09 Lifetime Fadi Me thodist 00:00:00 00:00:00 non-drinker (finding) History SDOH 2020-06-09 2020-06-09 1 [place] Meth odist Alcohol Frequency 00:00:00 00:00:00 Social History 2020-01-15 2020-01-15 Ambrose Jordan ermann 17:26:11 17:26:11 Sex Ass[birth year] At [birth year] [place] Evie ethodist 00:00:00 00:00:00 Smoking Status Start Date Stop Date Source Former smoker 2020-06-09 00:00:00 2020-06-09 00:00:00 Fadi Gonzalez Medications Ordered Filled Start Stop Current Ordering Indication Dosage Frequency Signature Comments Components Source Medication Medication Date Date Medication? Clinician (SIG) Name Name gabapentin Yes 400mg [id number] Take 400 [place] (NEURONTIN) 12 [id number] mg by M ethodi 400 mg 07:08: 3D mouth 3 st capsule 20 (three) times a day. fluticasone Yes 1{puff} QD Inhale 1 [place] /umeclidin/ 06-09 puff Methodi vilanter 11:36: daily. st (TRELEGY 11 ELLIPTA INHL) predniSONE Yes 10mg QD Take 10 mg [place] (DELTASONE) 06-09 by mouth Meth edna 10 mg 11:36: daily. st tablet 11 pantoprazol Yes 40mg QD Take 40 mg [place] e 06-09 by mouth Methodi (PROTONIX) 11:36: daily. st 40 MG EC 11 tablet roflumilast Yes 500ug QD Take 500 [place] (DALIRESP) 4-07 mcg by Methodi 500 mcg 11:36: mouth st tablet 11 daily. rOPINIRole Yes 5mg QD Take 5 mg [place] (REQUIP) 5 4-07 by mouth Metho di MG tablet 11:36: nightly. st 11 traZODone Yes 50mg QD Take 50 mg [place] (DESYREL) 4-07 by mouth Method i 50 MG 11:36: nightly. st tablet 11 lisinopriL Yes 10mg QD Take 10 mg [place] (PRINIVIL) 4-07 by mouth Metho di 10 mg 11:36: daily. st tablet 11 ipratropium Yes 3mL Q.[id number] Take 3 mL [place] -albuteroL 06-09 [id number] by Met mj (DUO-NEB) 11:36: 3D nebulizati st 0.5-2.5 11 on 3 mg/3 mL (three) nebulizer times a day. celecoxib Yes 200mg QD Take 200 Moiz ston (CeleBREX) 4-07 mg by Methodi 200 MG 11:36: mouth st capsule 11 daily. albuterol Yes 1{puff} Q6H Inhale 1 [place] (PROAIR 4-07 puff every Method i HFA) 90 11:36: 6 (six) st mcg/actuati 11 hours as on inhaler needed for wheezing or shortness of breath. predniSONE 2020- No 10mg Q24H Take 10 mg Fadi (DELTASONE) 06-09 04-07 by mouth Met hodi 10 mg 11:34: 00:[address] tablet 56 :00 needed ((extra dose if needed)). collagenase 2020-2020- No Abnormal QD Apply Fadi (SANTYL) 05-01 03-29 clinical topically M ethodi ointment 00:00: 23:[address] 00 :00 30 days. docusate 2020- No 100mg Q.5D Take 1 [place] on sodium 04-30-15 capsule Methodi (COLACE) 00:00: 00:00 ([address] 100 MG 00 :00 total) by capsule mouth 2 (two) times a day for 30 days. polyethylen No 17g QD Take 17 g [place] e glycol 04-30 by mouth Method i (MIRALAX) 00:00: 00:[address] 17 gram 00 :00 30 days. packet thiamine 2020- No 100mg QD Take 1 [place] mononitrate 04-30 tablet Metho di , vit B1, 00:00: 00:00 ([address] (B-1) 100 00 :00 total) by mg tablet mouth daily for 30 days. lidocaine 2020- No 1{patch Q24H Place 1 [place] (LIDODERM) 04-30 } patch on Meth edna 5 % 00:00: 00:[address] 00 :00 daily for 30 days. Remove & Discard patch within 12 hours or as directed by doxycycline 2020- No 100mg Q.5D Take 1 Souleymane hannah (ADOXA) 100 04-30- tablet Metho di MG tablet 00:00: 23:59 ([address] 00 :00 total) by mouth 2 (two) times a day for 7 days. oxyCODone-a 2020- No acute pain 1{tbl} Q6H Take 1 [place] cetaminophe 04-30- tablet by Me thodi n 00:00: 23:[address] (Percocet) 00 :00 every 6 10-325 mg (six) per tablet hours as needed for moderate pain for up to 7 days .acute pain. Max Daily Amount: 4 tablets albuterol 2020- No 2.5mg Q6H Take 2.5 [place] (ACCUNEB) 04-27-23 mg by Methodi 2.5 mg /3 07:39: 00:00 nebulizati s t mL (0.083 36 :00 on every 6 %) (six) nebulizer hours as solution needed for wheezing. apixaban 2020- No 5mg Q.5D Take 1 [place] (ELIQUIS) 5 04-24-22 tablet (5 Me thodi mg tablet 00:00: 23:59 mg total) st 00 :00 by mouth 2 (two) times a day for 30 days. aspirin 2020- No 81mg QD Take 1 Fadi (ECOTRIN) 04-17 tablet (81 Met hodi 81 MG 00:00: 23:59 mg total) st enteric 00 :00 by mouth coated daily for tablet 90 days. folic acid 2020- No 1mg QD Take 1 [place] (FOLVITE) 1 04-17 tablet (1 Me thodi MG tablet 00:00: 23:59 mg total) st 00 :00 by mouth daily for 90 days. multivit,ca 2020- No 1{tbl} QD Take 1 H jayna lc,mins/iro 04-17 tablet by Me thodi n/folic 00:00: 23:[address] (multivitam 00 :00 daily for in,tx-iron- 90 days. minerals) 27-0.4 mg tablet tablet lidocaine 2020- No 1{patch Q24H Place 1 H jayna (LIDODERM) 04-17 } patch on Meth edna 5 % 00:00: 00:[address] 00 :00 daily for 30 days. Remove & Discard patch within 12 hours or as directed by polyethylaliyah No 17g QD Take 17 g Aponte e glycol 04-17 by mouth Method i (MIRALAX) 00:00: 00:[address] 17 gram 00 :00 30 days. packet thiamine 2020- No 100mg QD Take 1 [place] mononitrate 04-17 tablet Metho di , vit B1, 00:00: 00:00 ([address] (B-1) 100 00 :00 total) by mg tablet mouth daily for 30 days. gabapentin 2020- No 400mg Q.[id number] Take 1 Fadi (NEURONTIN) 04-16 [id number] capsule Methodi 400 mg 00:00: 23:59 3D ([address] capsule 00 :00 total) by mouth 3 (three) times a day for 30 days. sennosides- 2020-2020- No 1{tbl} Q.5D Take 1 H jayna docusate 2-12 03-14 tablet by Metho di sodium 00:00: 23:[address] (SENOKOT-S) 00 :00 (two) 8.6-50 mg times a per tablet day as needed for constipati on for up to 30 days. docusate 2020- No 100mg Q.5D Take 1 [place] sodium 04-16 capsule Methodi (COLACE) 00:00: 00:00 ([address] 100 MG 00 :00 total) by capsule mouth 2 (two) times a day for 30 days. apixaban No 10mg Q.5D Take 2 [place] (ELIQUIS) 5 04-16 tablets Meth edna mg tablet 00:00: 23:59 ([address] 00 :00 total) by mouth 2 (two) times a day for 7 days. oxyCODone-a 2020- No acute pain 1{tbl} Q4H Take 1 [place] cetaminophe 04-15 tablet by Me dickey n 00:00: 23:[address] (Percocet) 00 :00 every 4 10-325 mg (four) per tablet hours as needed for moderate pain for up to 15 days .acute pain. Max Daily Amount: 6 tablets Futuro 2019-03 Yes 1 ea, Memoria Adjustable 2-18 MISC, l Reversible 21:48: ONCE, Abraham n Splint 00 carpal Wrist Brace tunnel splint, # 1 ea, 0 Refill(s), other lisinopril 2019-03 Yes 10 mg = 1 Me moria 10 mg oral 2-16 tab, PO, l tablet 19:29: Daily, 0 Rodriguez 00 Refill(s) predniSONE 2019-03 Yes 10 mg [...] M emoria 1-12 0 l 17:01: Refill(s) [place] 00 Vital Signs Vital Name Observation Time Observation Value Comments Source Systolic blood 2020-05-17 09:53:00 110 mm[Hg] Howardto n Zoroastrianism pressure Diastolic blood 2020-05-17 09:53:00 67 mm[Hg] Eduardo on Zoroastrianism pressure Heart rate 2020-05-17 09:53:00 78 /min [place] Zoroastrianism Body temperature 2020-05-17 09:53:00 36.67 Vandana [place] [facility]rian[facility] Body height 2020-05-17 09:53:00 175.3 cm [place] Zoroastrianism Body weight 2020-05-17 09:53:00 106.595 kg [place] [facility]oroastrianism BMI 2020-05-17 09:53:00 34.70 kg/m2 [place] [facility]oroastrianism Oxygen saturation in 2020-05-17 09:53:00 98 /min [place] Zoroastrianism Arterial blood by Pulse oximetry Respiratory rate 2020-04-30 12:01:26 18 /min [place] [facility]oroastrianism Systolic (mm Hg) 2020-02-18 19:20:00 Elliott rial Rodriguez Diastolic (mm Hg) 2020-02-18 19:20:00 Mem orial Rodriguez Heart Rate 2020-02-18 19:20:00 [facility] Rodriguez Respitory Rate 2020-02-18 19:20:00 Memori al Rodriguez Height 2020-02-18 19:20:00 170.18 cm [facility] Rodriguez Weight 2020-02-18 19:20:00 [facility] [place] BMI Calculated 2020-02-18 19:20:00 Memori al Rodriguez Systolic (mm Hg) 2020-01-15 16:50:00 Elliott rial [place] Diastolic (mm Hg) 2020-01-15 16:50:00 Mem orial [place] Heart Rate 2020-01-15 16:50:00 Memorial [place] Respitory Rate 2020-01-15 16:50:00 Memori al Rodriguez Height 2020-01-15 16:50:00 170.18 cm [facility] Rodriguez Weight 2020-01-15 16:50:00 [facility] Rodriguez BMI Calculated 2020-01-15 16:50:00 Memori al Rodriguez Procedures Procedure Date / Time Performing Source Performed Clinician PARTIAL THROMBOPLASTIN TIME 2020-04-30 Starr Barahona (PTT) 10:55:00 CBC WITH PLATELET AND 2020-04-30 Jun, Starr O. [place]rian[facility] DIFFERENTIAL 05:00:00 PARTIAL THROMBOPLASTIN TIME 2020-04-30 Starr Barahona (PTT) 05:00:00 MANUAL DIFFERENTIAL 2020-04-30 Starr Barahona Zoroastrianism 05:00:00 BASIC METABOLIC PANEL 2020-04-30 Starr Barahona Zoroastrianism 04:00:00 ESTIMATED GFR 2020-04-30 Starr Barahona Meth odist 04:00:00 PARTIAL THROMBOPLASTIN TIME 2020-04-29 Starr Barahonaist (PTT) 19:30:00 PARTIAL THROMBOPLASTIN TIME 2020-04-29 Starr Barahonaist (PTT) 11:30:00 CBC WITH PLATELET AND 2020-04-29 Starr Barahona Zoroastrianism DIFFERENTIAL 04:10:00 MANUAL DIFFERENTIAL 2020-04-29 Starr Barahona Zoroastrianism 04:10:00 BASIC METABOLIC PANEL 2020-04-29 Starr Barahona Zoroastrianism 04:00:00 ESTIMATED GFR 2020-04-29 Starr Barahona Meth odist 04:00:00 PARTIAL THROMBOPLASTIN TIME 2020-04-29 Starr Barahonaist (PTT) 00:30:00 PARTIAL THROMBOPLASTIN TIME 2020-04-28 Starr Barahona (PTT) 05:30:00 BASIC METABOLIC PANEL 2020-04-28 Starr Barahona Zoroastrianism 01:13:00 ESTIMATED GFR 2020-04-28 Starr Barahona Meth odist 01:13:00 HC COMPLETE BLD COUNT W/AUTO 2020-04-28 Starr Barahona Zoroastrianism DIFF 01:00:00 PARTIAL THROMBOPLASTIN TIME 2020-04-28 Starr Barahonaist (PTT) 01:00:00 SMEAR REVIEW 2020-04-28 Starr Barahona Meth odist 01:00:00 PARTIAL THROMBOPLASTIN TIME 2020-04-27 Starr Barahona (PTT) 17:50:00 PARTIAL THROMBOPLASTIN TIME 2020-04-27 Starr Barahona (PTT) 16:10:00 CBC WITH PLATELET AND 2020-04-27 April Cook Me thodist DIFFERENTIAL 12:21:00 BASIC METABOLIC PANEL 2020-04-27 April Cook Me thodist 12:21:00 LACTIC ACID LEVEL 2020-04-27 April Cook Method ist 12:21:00 ESTIMATED GFR 2020-04-27 Jay Clemens Medina Aponte Method ist 12:21:00 MANUAL DIFFERENTIAL 2020-04-27 LeidyreggieBenjy etiennenirmal [place] Me thodist 12:21:00 PARTIAL THROMBOPLASTIN TIME 2020-04-27 Tarun Lorenzana Zoroastrianism (PTT) 05:15:00 LACTIC ACID LEVEL, SEPSIS - 2020-04-26 Jay Clemens [place] Zoroastrianism NOW AND REPEAT 2X EVERY 3 22:23:00 HOURS RESPIRATORY PATHOGEN PANEL 2020-04-26 Jay Clemensu ston Zoroastrianism WITH COVID-19 20:58:00 BLOOD CULTURE, AEROBIC & 2020-04-26 Jay Clemens on Zoroastrianism ANAEROBIC 20:00:00 HC COMPLETE BLD COUNT W/AUTO 2020-04-26 Jay Clemensston Zoroastrianism DIFF 20:00:00 COMPREHENSIVE METABOLIC PANEL 2020-04-26 Jay Clemens Zoroastrianism 20:00:00 LACTIC ACID LEVEL, SEPSIS - 2020-04-26 Jay Clemens [place] Zoroastrianism NOW AND REPEAT 2X EVERY 3 20:00:00 HOURS ESTIMATED GFR 2020-04-26 Jay Clemens Method ist 20:00:00 PARTIAL THROMBOPLASTIN TIME 2020-04-26 Tarun Lorenzana Zoroastrianism (PTT) 20:00:00 PROTHROMBIN TIME WITH INR 2020-04-26 Tarun Lorenzana Zoroastrianism 20:00:00 SMEAR REVIEW 2020-04-26 Jay Clemens Method ist 20:00:00 XR CHEST 2 VW 2020-04-26 Jay Clemens Method ist 18:23:00 POC GLUCOSE 2020-04-16 Starr Barahona Meth odist 07:45:00 ANTI XA, UNFRACTIONATED 2020-04-15 Starr Barahona Zoroastrianism 23:15:00 ANTI XA, UNFRACTIONATED 2020-04-15 Eric Morales 15:10:00 ECHOCARDIOGRAM TRANSESOPHAGEAL 2020-04-15 Eric Morales W DOPPLER COLORFLOW 14:45:13 ANTI XA, UNFRACTIONATED 2020-04-15 Starr Barahona Zoroastrianism 08:22:00 ANTI XA, UNFRACTIONATED 2020-04-14 Starr Barahona Zoroastrianism 23:35:00 ANTI XA, UNFRACTIONATED 2020-04-14 Dominik Schultz Zoroastrianism 16:02:00 CBC HEMOGRAM 2020-04-14 Julio Gilbert Meth odist 16:02:00 Maddi WOUND VAC PLACEMENT 2020-04-14 Julio Gilbertist 14:10:05 Maddi POC GLUCOSE 2020-04-14 Starr Barahona Meth odist 11:41:00 CT ANGIOGRAM PE CHEST 2020-04-13 Starr Barahona Zoroastrianism 14:57:48 CT HEAD WO CONTRAST 2020-04-13 Genna Woodard Meth odist 14:55:38 Nanci PARTIAL THROMBOPLASTIN TIME 2020-04-13 Dominik Schultz (PTT) 10:04:00 ECG 12-LEAD 2020-04-13 Genna Woodard t 04:53:26 Nanci PARTIAL THROMBOPLASTIN TIME 2020-04-13 Eric Morales (PTT) 03:30:00 PARTIAL THROMBOPLASTIN TIME 2020-04-12 Dominik Schultz (PTT) 20:15:00 CONSULT TO OSTOMY CARE NURSE 2020-04-12 Dominik Schultz 12:11:11 POC GLUCOSE 2020-04-12 Starr Barahona Meth odist 09:05:00 CA AN ELECTIVE SUPRAGLOTTIC 2020-04-12 Esteban Pickard [facility]oroastrianism AIRWAY 08:01:12 Laurian FASCIOTOMY, DECOMPRESSIVE 2020-04-12 Tarun Lorenzana Zoroastrianism 07:27:00 ECG 12-LEAD 2020-04-12 Woodard, Genna Aponte Methodis t 05:56:49 Nanci ECG 12-LEAD 2020-04-12 Crews Eusebiost Aponte Methodis t 05:56:07 BASIC METABOLIC PANEL 2020-04-12 Dominik Schultz Fadi Case ethodist 02:00:00 HC COMPLETE BLD COUNT W/AUTO 2020-04-12 Genna Woodard Zoroastrianism DIFF 02:00:00 Nanci PARTIAL THROMBOPLASTIN TIME 2020-04-12 Genna Woodard Zoroastrianism (PTT) 02:00:00 Nanci PROTHROMBIN TIME WITH INR 2020-04-12 Genna Woodard n Zoroastrianism 02:00:00 Nanci ESTIMATED GFR 2020-04-12 Genna Woodard Methodis t 02:00:00 Nanci SMEAR REVIEW 2020-04-12 Genna Woodard Methodis t 02:00:00 Nanci PARTIAL THROMBOPLASTIN TIME 2020-04-11 Tri Jacobson Zoroastrianism (PTT) 22:15:00 POC GLUCOSE 2020-04-11 Starr Barahona Meth odist 16:43:00 LACTIC ACID LEVEL 2020-04-11 Genna Woodard Method ist 12:06:00 Nanci POC GLUCOSE 2020-04-11 Starr Barahona Meth odist 11:46:00 XR CHEST 1 VW PORTABLE 2020-04-11 VanceIqradiane Case ethodist 09:25:02 Nanci POC GLUCOSE 2020-04-11 Starr Barahona Meth odist 07:56:00 LACTIC ACID LEVEL 2020-04-11 Eusebio Crews Method ist 06:15:00 CREATINE KINASE, TOTAL (CPK) 2020-04-11 Eusebio Crews Zoroastrianism 06:15:00 HEMOGLOBIN & HEMATOCRIT 2020-04-11 Eusebio Crews Zoroastrianism 06:15:00 POC GLUCOSE 2020-04-11 Starr Barahona Meth odist 04:14:00 ECG 12-LEAD 2020-04-11 Genna Woodard Methodis t 03:45:33 Nanci HC COMPLETE BLD COUNT W/AUTO 2020-04-11 Eusebio Crews Zoroastrianism DIFF 00:32:00 BASIC METABOLIC PANEL 2020-04-11 Eusebio Crews Mi thodist 00:32:00 MAGNESIUM LEVEL 2020-04-11 Eusebio Crews Methodis t 00:32:00 PHOSPHORUS LEVEL 2020-04-[address] 00:32:00 IONIZED CALCIUM 2020-04-11 Crews, Eusebiost Aponte Methodis t 00:32:00 PROTHROMBIN TIME WITH INR 2020-04-11 Eusebio Crews n Zoroastrianism 00:32:00 PARTIAL THROMBOPLASTIN TIME 2020-04-11 Eusebio Crews Zoroastrianism (PTT) 00:32:00 ESTIMATED GFR 2020-04-11 Eusebio Crews Methodis t 00:32:00 SMEAR REVIEW 2020-04-11 Eusebio Crewsis t 00:32:00 POC GLUCOSE 2020-04-10 Starr Barahona Meth odist 23:57:00 HC COMPLETE BLD COUNT W/AUTO 2020-04-10 Eusebio Crews Zoroastrianism DIFF 20:50:00 POC GLUCOSE 2020-04-10 Starr Barahona Meth odist 20:08:00 XR ABDOMEN 1 VW PORTABLE 2020-04-10 Genna Woodard Zoroastrianism 16:34:57 Nanci POC GLUCOSE 2020-04-10 Starr Barahona Meth odist 15:23:00 ALCOHOL LEVEL, BLOOD 2020-04-10 Genna Woodard Met hodist 14:00:00 Nanci ARTERIAL BLOOD GAS 2020-04-10 Genna Woodard Metho dist 11:45:00 Nanci PARTIAL THROMBOPLASTIN TIME 2020-04-10 Genna Woodard Zoroastrianism (PTT) 11:45:00 Nanci POC GLUCOSE 2020-04-10 Starr Barahona Meth odist 11:21:00 ECG 12-LEAD 2020-04-10 Starr Barahona Meth odist 10:13:35 HEMOGLOBIN A1C 2020-04-10 Genna Woodard t 08:55:00 Nanci PROTHROMBIN TIME WITH INR 2020-04-10 Genna Woodard n Zoroastrianism 08:40:00 Nanci FIBRINOGEN 2020-04-10 Genna Woodard Methodis t 08:40:00 Nanci PARTIAL THROMBOPLASTIN TIME 2020-04-10 Genna Woodard Zoroastrianism (PTT) 08:40:00 Nanci XR CHEST 1 VW PORTABLE 2020-04-10 Eusebio Crews ethodist 08:23:26 TTE COMPLETE, W CONTRAST, W 2020-04-10 Eusebio Crews Zoroastrianism DOPPLER ([id number]) 08:20:00 ECG 12-LEAD 2020-04-10 Eusebio Crewsis t 07:38:32 CALCIUM LEVEL 2020-04-10 Starr Barahona Meth odist 06:40:00 LACTIC ACID LEVEL 2020-04-10 Starr Barahona thodist 06:40:00 CREATINE KINASE, TOTAL (CPK) 2020-04-10 Starr Barahonaist 06:40:00 PHOSPHORUS LEVEL 2020-04-10 Starr Barahona hodist 06:40:00 MAGNESIUM LEVEL 2020-04-10 Starr Barahona odist 06:40:00 PARTIAL THROMBOPLASTIN TIME 2020-04-10 Starr Barahona (PTT) 06:40:00 PROTHROMBIN TIME WITH INR 2020-04-10 Starr Barahona Zoroastrianism 06:40:00 FIBRINOGEN 2020-04-10 Starr Barahona odist 06:40:00 ARTERIAL BLOOD GAS 2020-04-10 Starr Barahona ethodist 06:40:00 IONIZED CALCIUM, ARTERIAL 2020-04-10 Starr Barahona Zoroastrianism 06:40:00 HC COMPLETE BLD COUNT W/AUTO 2020-04-10 Starr Barahona DIFF 06:40:00 URINE DRUGS OF ABUSE SCREEN 2020-04-10 Starr Barahona Zoroastrianism 06:40:00 ESTIMATED GFR 2020-04-10 Starr Barahona odist 06:40:00 BASIC METABOLIC PANEL 2020-04-10 Starr Barahona n Zoroastrianism 06:40:00 POC GLUCOSE 2020-04-10 Starr Barahona odist 06:22:00 ACTIVATED CLOTTING TIME 2020-04-10 Starr Barahona Zoroastrianism 05:07:00 ARTERIAL BLOOD GAS, CORRECTED 2020-04-10 Starr Barahona Zoroastrianism 04:54:00 SODIUM LEVEL, SYRINGE 2020-04-10 Starr Barahona Zoroastrianism 04:54:00 IONIZED CALCIUM, ARTERIAL 2020-04-10 Starr Barahona Zoroastrianism 04:54:00 POTASSIUM, SYRINGE 2020-04-10 Starr Barahona M ethodist 04:54:00 HEMOGLOBIN, SYRINGE 2020-04-10 Starr Barahona Zoroastrianism 04:54:00 GLUCOSE LEVEL, SYRINGE 2020-04-10 Starr Barahona on Zoroastrianism 04:54:00 TISSUE CULTURE 2020-04-10 Starr Barahona Meth odist 04:43:00 ANAEROBIC CULTURE 2020-04-10 Starr Barahona Me thodist 04:43:00 FUNGUS CULTURE 2020-04-10 Starr Barahona Meth odist 04:43:00 GRAM STAIN 2020-04-10 Starr Barahona Meth odist 04:43:00 AFB STAIN 2020-04-10 Starr Barahona Meth odist 04:43:00 SURGICAL PATHOLOGY REQUEST 2020-04-10 Starr Barahona Zoroastrianism 04:36:00 ACTIVATED CLOTTING TIME 2020-04-10 Starr Barahona Zoroastrianism 04:27:00 ACTIVATED CLOTTING TIME 2020-04-10 Starr Barahona Zoroastrianism 04:21:00 ACTIVATED CLOTTING TIME 2020-04-10 Starr Barahona Zoroastrianism 04:08:00 CENTRAL LINE 2020-04-10 Esteban Pickard t 03:44:56 Laurian ARTERIAL LINE 2020-04-[address] 03:44:29 CA AN ELECTIVE ENDOTRACHEAL 2020-04-10 Esteban Pickard [facility]oroastrianism AIRWAY 03:43:36 Laurian AFB CULTURE 2020-04-10 Starr Barahona Meth odist 03:43:00 ARTERIAL BLOOD GAS, CORRECTED 2020-04-10 Starr Barahona Zoroastrianism 03:43:00 SODIUM LEVEL, SYRINGE 2020-04-10 Starr Barahona [facility]oroastrianism 03:43:00 HEMOGLOBIN, SYRINGE 2020-04-10 Starr Barahona Zoroastrianism 03:43:00 POTASSIUM, SYRINGE 2020-04-10 Starr Barahona M ethodist 03:43:00 IONIZED CALCIUM, ARTERIAL 2020-04-10 Starr Barahona Zoroastrianism 03:43:00 GLUCOSE LEVEL, SYRINGE 2020-04-10 Starr Barahona on Zoroastrianism 03:43:00 THROMBOENDARTERECTOMY 2020-04-10 Tarun Lorenzana Me thodist 03:12:00 ABO AND RH CONFIRMATION 2020-04-10 Starr Barahona Zoroastrianism 03:00:00 TYPE AND SCREEN 2020-04-10 Angela Castro Method ist 01:30:00 ANTI XA, UNFRACTIONATED 2020-04-10 Angela Castroto n Zoroastrianism 01:30:00 CBC HEMOGRAM 2020-04-10 Starr Barahona Meth odist 01:30:00 COVID-19 QUALITATIVE PCR 2020-04-10 Angela Castro on Zoroastrianism 01:25:00 PROTHROMBIN TIME WITH INR 2020-04-10 Starr Barahona Zoroastrianism 01:10:00 PARTIAL THROMBOPLASTIN TIME 2020-04-10 Starr Barahona Zoroastrianism (PTT) 01:10:00 COMPREHENSIVE METABOLIC PANEL 2020-04-10 Starr Barahona Zoroastrianism 01:10:00 LIPID PANEL 2020-04-10 Starr Barahona Meth odist 01:10:00 THYROID STIMULATING HORMONE 2020-04-10 [facility] 01:10:00 T4, FREE 2020-04-10 [facility] 01:10:00 TROPONIN 2020-04-10 [facility] 01:10:00 FACTOR VIII ASSAY 2020-04-10 [facility] 01:10:00 ANTITHROMBIN III LEVEL 2020-04-10 [facility] 01:10:00 FUNCTIONAL PROTEIN C 2020-04-10 [facility] 01:10:00 FUNCTIONAL PROTEIN S 2020-04-10 [facility] 01:10:00 CARDIOLIPIN ANTIBODIES 2020-04-10 [facility] 01:10:00 BETA-2 GLYCOPROTEIN 1 2020-04-10 [facility] ANTIBODY, IGG AND IGM 01:10:00 ESTIMATED GFR 2020-04-10 [facility] 01:10:00 C-REACTIVE PROTEIN 2020-04-10 [facility] 01:10:00 MISCELLANEOUS REFERRAL TEST 2020-04-10 [facility] 01:10:00 CREATINE KINASE, TOTAL (CPK) 2020-04-10 [facility] 01:10:00 HEXAGONAL PHOSPHOLIPID 2020-04-10 [facility] 01:10:00 ECG 12-LEAD 2020-04-10 [facility] 01:05:05 US VASCULAR EXTERNAL STUDY 2020-04-09 [facility] 19:50:00 XR CHEST EXTERNAL STUDY 2020-04-09 [facility] 17:29:00 Plan of Care Planned Activity Planned Date Details Comments Source Future Scheduled 2020-10-03 INFLUENZA VACCINE [place] [facility] 00:00:00 [code = INFLUENZA VACCINE] Future Scheduled 2011-12-20 COLONOSCOPY SCREENING [place] [facility] 00:00:00 [code = COLONOSCOPY SCREENING] Future Scheduled 2011-12-20 SHINGLES VACCINES [place] [facility] 00:00:00 (#1) [code = SHINGLES VACCINES (#1)] Future Scheduled 1979-12-20 Hepatitis C screening [place] [facility] 00:00:00 (procedure) [code = 067138207] Future Scheduled 1977 COVID-19 VACCINE (1) [facility] 00:00:00 [code = COVID-19 VACCINE (1)] Encounters Start End Encounter Admission Attending Care Care Encounter Source Date/Time Date/Time Type Type Clinicians Facility Department ID 2020-07-02 2020-07-02 Orders Doctor WALKER [id number] 00:00:00 00:00:00 Only Unassigned, MARCIE 350.1.13.10 [facility] 4.2.7.2.686 [id number] 2020-06-14 2020-06-14 Outpatient JAN, [facility] [id number] [place] 00:00:00 00:00:00 TARUN [address] 2020-05-17 2020-05-17 Outpatient JAN, [facility] [id number] [place] 00:00:00 00:00:00 TARUN [address] 2020-04-26 2020-04-30 Inpatient JUN, [facility] [id number] [place] 00:00:00 00:00:00 STARR [address] 2020-04-09 2020-04-16 Inpatient JUN, [facility] [id number] [place] 00:00:00 00:00:00 STARR [address] 2020-04-14 2020-04-14 Telephone Chemo WVMALA [id number] 00:00:00 00:00:00 Vikas DE LA CRUZ 350.1.13.10 [facility] 4.2.7.2.686 [id number] 2020-04-10 2020-04-10 Orders Doctor WALKER [id number] 00:00:00 00:00:00 Only UnassignedMARCIE 350.1.13.10 [facility] 4.2.7.2.686 [id number] 2020-03-31 2020-03-31 Outpatient FRANCOISE LawrenceSCHKEMAL MHPRANAVSCHER [id number] 13:15:00 13:15:00 Jaycob 02 Andre 2020-02-18 2020-02-18 Outpatient FRANCOISE LawrenceSCHER FRANCOISESCHER 071 [id number] 13:00:00 23:59:59 Jaycob 01 Andre 2020-02-16 2020-02-16 Office Chemo WVMALA [id number] 13:13:52 16:56:34 Visit Vikas DE LA CRUZ 350.1.13.10 [facility] 4.2.7.2.686 [id number] 2020-01-15 2020-01-15 Outpatient Krell, [facility] [id number] 11:30:00 23:59:59 Jaycob 00 Andre Results Test Description Test Time Test Comments Results Result Comments Source AFB culture 2020-05-22 12:13:13 Test Item Value Reference Range Interpretation Comme nts AFB culture isolate No growth after 6 weeks of Specimen InformationSpecimen (test code = 543-9) incubation. Source: TissueSpecimen Site: thrombus from l eft upper extremity Fadi GonzalezFungus [id number] 12:15:07 Test Item Value Reference Range Interpretation Comments Fungus culture No growth Specimen isolate (test after 4 weeks InformationSp ecimen code = 1441) of Source: TissueS pecimen incubation. Site: thrombus from left upper extremity [place] MethodistXR Chest 2 [id number] 18:55:35Hm Interface, Radiology Results Incoming - 04/26/2020 6:58 PM CST TWO VIEW CHEST, 04/26/2020linical history: Rule out pneumoniaTechnique: PA and lateral views chest.Comparison: CT chest 04/13/2020ISCUSSION:Lungs are symmetrically hyperinflated. There is minimal basilar and peripheral interstitial opacity is seen on the CT from 04/13/2020 No pleural effusions. Artery megaly. Pulmonary vasculature is normal. The skeleton is grossly intact.IMPRESSION:Air trapping consistent with COPD.Mild bilateral interstitial opacity suspicious for bronchitis.[place] ZoroastrianismMiscellaneous referral [id number] 12:13:52 Test Item Value Reference Range Interpretation Comments Misc test Factor V PTPCR name (test code = 2566) Misc test see note Factor V Leiden (F5) result (test R506Q Mutation ARUP code = 1730) test code 33002 20 FACV Specimen W hole Blood - - - - - - - - - - - - - - - - - - - - - - - - - - - - - - Factor V Leiden (F5) R506Q Mutation Negative Indic ation for testing: As sess genetic risk fo r thrombosis. NEG ATIVE: The factor V Le iden variant, c.1601 G>A; p.Mee404Xno, wa s not detected. This does not exclude a g enetic cause for thrombophilia. If this individual has had a previous venous thromboembolism , this negative result is unlikely to significantly r educe the risk for recurrence; nnamdi s, future clinical management to r educe recurrence shou ld not be altered. Thi s result has been reviewed and ap proved by Melody Sher. BACKGROUND INFORMATION: Fa ctor V Leiden (F5) R50 6Q Mutation CHARACTERISTICS : Venous thromboe mbolism (VTE) is multifactorial caused by a combinatio n of genetic and environmental f actors. The Factor V Le iden (FVL) variant i s the most common cau se of inherited VTEs, accounting for over 90 percent of acti vated protein C (APC) resistance. Bec ause the FVL variant eliminates the APC cleavage site, factor V is inactivate d slower, thus persisting long er in blood circulati on, leading to more thrombin produc tion. Other genetic r isk factors for VTE include, male s ex and variants in antithrombin, p rotein C, protein S, o r factor XIII. Non-genetic ris k factors include , age, smoking, prolon ged immobilization, malignant neopl asms, surgery, pregna ncy, oral contracept nancy, estrogen replac ement therapy, tamoxi fen and raloxifene therapy.INCIDEN CE OF FACTOR V LEIDEN VARIANT: Approx imately 5 percent of Caucasians, 2 p ercent of Hispanics, 1 percent of Afri can Americans and 0 .5 percent of Radha ns are heterozygous; homozygosity oc curs in 1 in 1500 Caucasians.INHE RITANCE : Semi-dominant ; both heterozygotes a nd homozygotes are at increased risk for VTE.PENETRANCE: Lifetime risk o f VTE is 10 percent f or heterozygotes a nd 80 percent of homozygotes.CAU SE: The pathogenic gain of function in the F5 gene variant c. 1601G>A (p.Kqh723Tpb). Legacy nomenclature: R 506Q (1691G>A) CLINI ERIC SENSITIVITY: 20 -50 percent of toan viduals with an isolate d VTE have the FVL va riant. METHODOLOGY: Polymerase monse n reaction and fluorescence monitoring.ANAL YTICAL SENSITIVITY AND SPECIFICITY: 99 percent.LIMITAT IONS: Diagnostic erro rs can occur due to ra re sequence variat ions. F5 gene mutatio ns, other than p.Oag699Isb, wi ll not be detected. is test was developed a nd its performance characteristics determined by [facility]. I t has not been cleare d or approved by the [place] Food and Drug Administration. This test was perfor med in a CLIA certifie d laboratory and is intended for cl inical purposes. Couns eling and informed co nsent are recommended for genetic testing . Consent forms a re available onlin e. ======= ======= Prothrombin (F2 ) c.*97G>A (G2021 0A) Pathogenic Vari ant ARUP test code 0874733 PT PCR Specime n Whole Blood - - - - - - - - - - - - - - - - - - - - - - - - - - - - - - Prothrombin (F2 ) [id number] Variant Negative Indic ation for testing: As sess genetic risk fo r thrombosis. NEG ATIVE: The Factor II, prothrombin G20 210A mutation, was n ot detected. Othe r causes of eleva carloz prothrombin lev els and hereditary form s of venous thrombos is have not been exclud ed. Recommendations : If clinically toan cated, testing for oth er inherited or ac quired thrombophilic disorders is recommended inc luding DNA testing for the factor V Leiden mutation, measu rement of total plasma homocysteine concentration, serological ass ays for anticardiolipin antibodies, mul tiple phospholipid-de pendent coagulation ass ays for lupus inhibitor , protein C activ ity, protein S activ ity or free protein S antigen, and antithrombin ac tivity. This result has been reviewed and ap proved by Melody Sher. BACKGROUND INFORMATION: Prothrombin (F2 ) c.*97G>A (G2 0210A) Pathogenic VariantCHARACTE RISTICS : The Factor II , c.*97G>A (G2021 0A) pathogenic vari ant is a common geneti c risk factor for veno us thrombosis asso ciated with elevated prothrombin lev els leading to incr eased rates of thromb in generation and excessive growt h of fibrin clots. T he expression of F actor II thrombophili a is impacted by rigoberto xisting genetic thrombo philic disorders, acqu ired thrombophilic disorders (eg, malignancy, hyperhomocystei nemia, high factor VII I levels), and circumstances including: preg tamiko, oral contracept ab use, hormone replacement the rapy, selective estro gen receptor modula tors, travel, central venous catheters, surg july, and organ transplantation .INCIDE NCE: Approximat ajit 2 percent of Cauc asians and 0.3 percent of Lalita ns are heterozygous; homozygosity oc curs in 1 in 10,000 individuals. INHERITANCE: Incomplete auto somal dominant.PENETR ANCE: The risk of thr ombosis is increased 2- 4 fold for heterozygot es and further increas ed for homozygotes.CAU SE: Homozygosity or heterozygosity for F2 c.*97G>A (G2021 0A). PATHOGENIC VARI ANT TESTED: F2 c.*9 7G>A (R27532W).CLINI ERIC SENSITIVITY FOR VENOUS THROMBOSIS: Approximately 1 0 percent.METHODO LOGY: Polymerase monse n reaction and fluorescence monitoring.ANAL YTICAL SENSITIVITY AND SPECIFICITY: 99 percent.LIMITAT IONS: Diagnostic erro rs can occur due to ra re sequence variat ions. F2 gene variant s, other than c.*9 7G>A (M02921R), will not be detected. This test was developed a nd its performance characteristics determined by [facility]. I t has not been cleare d or approved by the [place] Food and Drug Administration. This test was perfor med in a CLIA certifie d laboratory and is intended for cl inical purposes. Couns eling and informed co nsent are recommended for genetic testing . Consent forms a re available onlin e. ======= ======= Test performed by:[facility] [address] [place] [address] 84 08 HEIDY (test Prothrombin (F2) code = HEIDY) c.*97G>A (A03738E) Pathogenic VariantARUP Test code: 7723904Haeadl: Whole Blood EDTAZMISC Test Name: PT PCR Factor V Leiden (F5) R506Q MutationARUP Test code: 4769220Cfutju: Whole Blood EDTAZMISC Test Name: BOBY Aponte MethodistEchocardiogram xwhvublknrpecij2493-76-16 16:29:00Interface, Radiology Results In - 04/15/2020 4:29 PM CST Transesophageal Echo Report [address], [place], [place] [address] Pat.Name: JOSE LUIS FARLEY Pat.ID: [id number] .Date: 04/15/2020 Refer.MD: ERIC MORALES MD Exam Time: 12:27:00 PM Study Type:SAMARA Height: 69in Weight: 245lb BSA: 2.25 m2 Age: 10 1960,59Y Sex: MALE BP: 108/65 HR: 75 bpm Sonogrphr: Sourav Aguero MD Pat. Stat.:Inpatient CPT - 4: 89704- 26 Study Status:Final Echo Event ID:[id number] Order ID: [id number] Reason for Study:Atrial fibrillationHistory / Clinical:Hypertension Procedures: Transesophageal Echo with Colorflow DopplerRace: C SUMMARY: No thrombus or mass is visualized in the LA or LA appendage.No thrombus or mass in the aortic root or in the visualized portionsof the thoracic aorta.No evidence of intracardiac shunt. --FINDINGS: SAMARA: The attending dinker performed the SAMARA procedure and was present for the entire duration. The patient was counseled and an informed consent was obtained. Topical and intravenous anesthesia was administered. The es ophagus was intubated without difficulty. The probe was passed to the gastric fundus and all standard echocardiographic views were obtained. The patient tolerated the procedure well.LV: LV size is normal. LV EF is normal. Overall wall motion is normal. Estimated EF is 55- 59%.RV: RV size is normal. RV systolic function is normal.LA: No thrombus or mass is visualized in the LA or LA appendage.RA: RA size is normal.AO: No thrombus or mass in the aortic root or in the visualized portions of the thoracic aorta.MUSA: No pericardial effusion.AV: No structural AV abnormalities noted.MV: No structural MV abnormalities noted.PV: No structural PV abnormalities noted.TV: No structural TV abnormalities noted. A trace of tricuspid regurgitation IAS: No evidence of interatrial septal defect.----- SAMARA: Anesthesi a: Per Anesthesia ASA Class: 4Physician: Marvel Griggs M.D. Contact Center Agent: Ascencion Abernathy SAMARA BP HR Post SAMARA BP HR 108/65 75 142/65 97Meds: Viscous xylocaine, Cetacaine spray to oropharynx, PerAnesthesiaComplications: None Condition: Stable MEASUREMENTS: 2DParasternal Long [place] Ao An 2.4 cm LVOT 2.1 cm Ao Rtd 3.5 cm Index 1.6 cm/m2 LVOT Stroke Vol & Cardiac Out LVOT 2.1 cm LVOT LVOT Area 3.5 cm2 DOPPLERLVOT Stroke Vol & Cardiac Out LVOT TVI 28.6 cm LVOT SV 98.9 ml LVOT SVi 44 ml/m2 Signed 04/15/2020 04:29 Bee Griggs M.D.[facility] placement 2020-04-14 14:10:05LiJulio Greenberg NP 04/14/2020 2:12 PMWound vac placement Date/Time: 04/14/2020 2:10 PMPerformed by: Julio Gilbert NPAuthorized by: Julio Gilbert NP Pre-procedure details: Indication: Wound careWound Description: Wound type: Surgical Eschar tissue present in wound: No Debridement attempted in last 10 days: No Serial debridements required: No Wound Measurements: Wound measurement date: 04/14/2020ppearance of Wound/Wound Description: Wound full thickness: Yes Wound exposed tissue: Muscle and tendon Undermining: No Tunneling/Sinus: No Granulation: 50-75% Granulation color: Red Drainage: Serosanguinous Type of foam: BlackMalodorous?: Yes Wound Vac Settings: Pressure: 125 Status: ContinuousPost-procedure: Patienttolerance: Patient tolerated the procedure well with no immediate complications Comments: 3 wounds measure as follows 7 x 3 x 13 x 1.5 x 112.5 x 6 x 0.5[place] MethodistAnaerobic culture 2020-04-14 08:00:16 Test Item Value Reference Range Interpretation Comments Anaerobic No anaerobic Specimen culture isolate organisms InformationS pecimen (test code = isolated. Source: TissueS pecimen 552) Site: thrombus from left upper extremity [place] MethodistFungus [id number] 16:56:25 Test Item Value Reference Range Interpretation Comments Fungus smear No fungi Specimen (test code = observed. InformationSpec imen Source: 1443) TissueSpecimen Site: thrombus from l eft upper extremity [place] MethodistAFB [id number] 16:56:25 Test Item Value Reference Range Interpretation Comments AFB stain No acid fast Specimen (test code = bacilli (AFB) InformationSpe cimen 676-7) seen. Source: TissueS pecimen Site: thrombus from left upper extremity [place] MethodistGram [id number] 16:56:25 Test Item Value Reference Range Interpretation Comments Gram stain No WBC's or Specimen isolate (test organisms seen. Information Specimen code = 1469) Source: TissueS pecimen Site: thrombus from left upper extremity [place] MethodistTissue [id number] 16:56:25 Test Item Value Reference Range Interpretation Comments Tissue culture No growth Specimen isolate (test after 3 days. [facility] ecimen code = 55467-2) Source: Tiss ueSpecimen Site: thrombus from left upper extremity [place] MethodistCT Angiogram Pe [id number] 15:28:02Hm Interface, Radiology Results - 04/13/2020 3:31 PM CSTFormatting of this note might be di fferent from the original.Examination: CT ANGIOGRAM PE CHESTClinical history: PE suspected low intermediate prob neg D-dimerComparison: NoneTechnique: Multiple computerized axial tomographic images were obtained of the chest during administration of IV contrast according to CTA PE chest protocol. Sagittal and coronal MIP CT angiographic series were constructed. CT imaging was performed with iterative reconstruction technique and/or automated exposure control to reduce radiation dose.IMPRESSION:1.Pulmonary arterial opacification is satisfactory. There is no evidence of pulmonary embolism.2. There is no significant pleural or pericardial effusion, mediastinal or hilar lymphadenopathy.3. The heart is not enlarged. The thoracic aorta is normal caliber. Central line tip is in the SVC.4. A 0.8 cm nodule is present within the left lower lobe. A calcified granulomas present within the left apex.There is no confluent infiltrate. Minimal subpleural atelectasis is present.5. There is no acute osseous pathology. 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 Per Oral Society guidelines, follow-up examination in 6-12 months is recommended.1D2RAD_PS01[facility] MethodistCT Head Wo [id number] 14:59:38Hm Interface, Radiology Results Incoming - 04/13/2020 3:02 PM CST EXAMINATION: CT HEAD WO CONTRASTCLINICAL HISTORY: acute limb ischemiaCOMPARISON: NoneTECHNIQUE: Noncontrast enhanced images of the brain were obtained from the skull base to the vertex. Both soft tissue and bone reconstruction algorithms were performed. CT scans are performed using radiation dose reduction techniques. Technical factors are evaluated and adjusted to ensure appropriate moderation of exposure. Automated dose management technology is applied to adjust radiation exposure while achieving a diagnostic quality image.FINDINGS:Artifact obscures details.There is nodefinite evidence of acute hyperdense intracranial hemorrhage or a mass, hydrocephalus or midline jayda ft, stroke or hyperdense thrombus in the vessels. 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 There is nonspecific enlargement of the ventricles, sulci and cisternsare mild white matter changes.No acute findings are seen in the orbits, sinuses or mastoid air cell r egions. The nasal septum deviates towards the right. There is minimal less than 1 mm mucosal thickening in multiple sinuses.IMPRESSION:No acute intracranial abnormality identified.[facility]-[id number] MethodistEC 12 skwj0831-02-05 13:02:54 Test Item Value Reference Range Interpretation Comments Ventricular rate (test 76 code = 253) Atrial rate (test code 76 = 255) CA interval (test code 146 = 266) QRSD interval (test 130 code = 260) QT interval (test code 400 = 264) QTC interval (test code 450 = 265) P axis 1 (test code = 65 267) QRS axis 1 (test code = 13 268) T wave axis (test code 35 = 270) EKG impression (test Normal sinus code = 273) rhythm-Right bundle branch block-Abnormal ECG-In automated comparison with ECG of 12-APR-2020 05:56,-premature ventricular complexes are no longer present- [place] MethodistSurgical pathology uukqwcj0949-04-31 09:52:46 Test Item Value Reference Range Interpretation Comments Case number (test code = [id number]) Surgical pathology See link below for report (test code = PDF Lab Report [id number]) Result status (test code This is Final Report = [id number]) for [id number] [place] WhoxfbeahOgqfvf2340-92-26 08:01:12ThLulú horvath RN 04/12/2020 8:01 AMAirway Date/Time: 04/12/2020 7:41 AM Location: OR Performed by: anesthesiologistAnesthesiologist: Esteban Pickard MDOther Staff: Lulú Carballo, RNAuthorized by: Esteban Pickard MD Urgency: ElectiveDifficult Airway: No Preoxygenated vmum728% O2: Yes C-spine Precautions Maintained Throughout: No Mask Ventilation: Not attemptedFinal rway Type: Supraglottic airwayFinal LMA: I-GelLMA Size: 5Number of Attempts at Approach: 1 Suction available, easy insertion, atraumatic, oral mucosa and dentition unchangedLander MethodistXR Chest 1 [id number] 09:37:39Hm Interface, Radiology Results Incoming - 04/11/2020 9:40 AM CST EXAMINATION: XR CHEST 1 PORTABLECLINICAL HISTORY: 59 years Male post op TMHCOMPARISON: [facility]1.Interval extubation. IJ line remains in satisfactory position. Cardiomediastinal silhouette is stable. Previous central vascular congestion has improved. 2.There are bibasilar opacities most suggestive of atelectasis, similar to prior. There is no new consolidation or effusion. No pneumothorax.1D2RAD_PS04[place] MethodistXR Abdomen 1 [facility] CenterVgylatvw7081-28-24 17:18:39Hm Interface, Radiology Results Incoming - 04/10/2020 5:21 PM CST EXAMINATION: XR ABDOMEN 1 PORTABLECLINICAL HISTORY: feeding tubeCOMPARISON: None.IMPRESSION:Nonspecific bowel gas pattern. No dilated gas filled loops of bowel. Nasogastric tube is seen to course below the diaphragm. The distal tip and side-port overlies the mid epigastric region.The visualized bony structures are unremarkable.Bilateral lower lobe airspace disease. Correlate with chest x-ray.[id number] MethodrustTransthoracic Echocardiogram Complete, (w Contrast, Strain and 3D if needed)2020-04-10 13:58:00Interface, Radiology Results In - 04/10/2020 1:58 PM CSTFormatting of this note might be different f rom the original. Echocardiography Report [id number]Name: JOSE LUIS FARLEY.ID: [id number] .Date: 04/10/2020 Refer.MD: STARR BARAHONA MD Exam Time: 8:14:00 AM Study Type:Routine Echo Height: 69in Weight: 224.53lb BSA: 2.17 m2 Age: 10 1960,59Y Sex: MALE BP: 109/57 HR: 87 bpm Sonogrphr: CATHERINE Gomes Pat. Stat.:Inpatient Room: [facility] Study Status:Final Echo Event ID:[id number] Order ID: [id number] Reason for Study:Suspected acute aortic pathology i ncluding but notlimited to dissection/transsectionHistory / Clinical:Hypertension Procedures: 2D Echo, Colorflow Doppler, Portable, 3D Echo, Strain,Stat, Intravenous Lumason Contrast, Intravenous Saline ContrastRace: C SUMMARY: Normal bi-ventricular size and ejection fraction. No LV clot (Lumasonecho contrast was used).The aorta was not well visualized. FINDINGS:--- LV: Concentric left ventricular remodeling. LV EF is normal. Overall wall motion is normal. Estimated EF is 55-59%.RV: RV size is normal. RV systolic function is normal.LA: LA size is normal.RA: RA volume is normal. A catheter or pacemaker wire is seen.AO: Aortic root diameter is normal.MUSA: No pericardial effusion.Cntrst:No intracardiac shunt detected.IAS: Interatrial septum is thickened consistent with lipomatous hypertrophy. This is a normal variant commonly seen.AV: No structural AV abnormalitiesnoted.MV: No structural MV abnormalities noted.PV: No structural PV abnormalities noted.TV: No structural TV abnormalities noted.Quan: Diastolic dysfunction Grade I (Mild): Impaired relaxation with normal LV filling pressures.Other: Insufficient TR jet to estimate PA systolic pressure. MEASUREMENTS: 2DParasternal Long [place] Ao An 3.3 cm LVPWd 0.9 cm Ao Rtd 3.9 cm Index 1.8 cm/m2 LA Ds 3.2 cm IVSd 0.9 cm RWT 0.5 LVIDd 3.5 cm Index 1.6 cm/m2 LV Mass 89.7 g (122-174) LVIDs 2.1cm LVM Index 41.3 g/m2 LV%fs 39.3 % LVOT 2.9 cm LV EF Biplane LVEDV 133.3 ml (65-193) Index 61.4 ml/m2 LV EF 56.3 % (63-77) LVESV 58.3 ml Index 26.9 ml/m2 LV SV 75 ml Left Ventricle LV CO 6.5 l/min LV CI 3 l/m/m2LA Sng Plane LA Area 18.5 cm2 (8.8-23.4) LA Vol 49.2 ml Index 22.7 ml/m2 LA LngAx 5.9 cm RA Sng Plane RA Vol 50.8 ml Index 23.4 ml/m2 RA LngAx 5.5 cm RA Area 18.5 cm2 (8.3-19.5)LVOT LVOT Area 6.7 cm2 DOPPLERMV E/A Ratio MV pkE 75.5 cm/s (60-130) MV E/A 0.8 MV pkA 95.8 cm/s e lateral Ant Francisco 9.5 cm/s e septal Ant Francisco 10.8 cm/s RV S prime RV S Francisco 10.6 cm/s Signed 04/10/2020 01:58 Annia Godinez MethodistIonized calcium, ktlwdvem0058-94-09 12:29:40 Test Item Value Reference Range Interpretation Comments Ionized calcium, arterial (test 1.12 mmol/L 1.11-1.32 code = 11860-1) Fadi MethodistPrepare [id number] 11:44:00 Test Item Value Reference Range Interpretation Comments Product name (test code Red Cells AS1 Leukored = 25) Irrad Unit number (test code [id number] = [id number]) Product code (test code A6279T26 = 3092) Dispense status (test Returned to not code = 24) transfused Blood expiration date (test code = 302) Blood type code (test 600 code = 308) Blood type (test code = A NEGATIVE 1314) Compatibility (test Compatible code = 6400) Aponte MiriamistUrine drugs of abuse [id number] 10:20:36 Test Item Value Reference Interpretation Comments Range Amphetamine screen, Positive A urine (test code = 3349-8) Barbiturate screen, Negative urine (test code = 3377-9) Benzodiazepine Positive A screen, urine (test code = 3390-2) Cocaine screen, Negative urine (test code = 3397-7) Methadone Negative metabolite (EDDP), urine (test code = 47115-5) Opiates screen, Negative urine (test code = 3879-4) Oxycodone screen, Negative urine (test code = 37110-1) Phencyclidine Negative screen, urine (test code = 3936-2) Tricyclic screen, Negative urine (test code = 66490-4) Cannabinoid screen, Positive A Drug scr een minimum urine (test code = concentra tion of 3427-2) detectabilityAm phetamines 1000 ng/mLBarbiturat es 200 ng/mLBe nzodiazepines 300 ng/mLCocaine 300 ng/mLMethadone 300 ng/mLOp iates 300 ng/mLOxycodone 300 ng/mLPh encyclidine 25 ng/mLCannabinoi ds 50 ng/mLTr icyclics 1000 ng/mLResults are from screen ing tests and should only be used for medical evaluat ion. Drug testing for leg al purposes requires defini tive (or confirmatory) t esting methods, which are available upon request. C ontact the laboratory if d efinitive testing is requ ired. Lab Interpretation Abnormal (test code = 79996-6) [facility] Chest External [id number] 08:05:18This exam was not acquired at a [facility] facility and has not been interpreted by a [facility] Provider. The exam was imported into our imaging system.[facility] Vascular External [id number] 08:04:40This exam was not acquired at a [facility] facility and has not been interpreted by a [facility] Provider. The exam was imported into our imaging system.[facility] MethodistArterial blood gas, [id number] 04:59:01 Test Item Value Reference Range Interpretation Comments pH, arterial (test code 7.40 7.35-7.45 = 2744-1) pCO2, arterial (test 46 See_Comment H [Autom ated message] code = 2019-8) The system ich generated this result transmitted ref erence range: 35 - 45 mmHg. The reference r frantz was not used to interpret this result as normal/abnor mal. pO2, arterial (test code 271 See_Comment H [A utomated message] = 2703-7) The system [facility] h generated this result transmitted ref erence range: 80 - 90 mmHg. The reference r frantz was not used to interpret this result as normal/abnor mal. Temperature, Celsius 36.1 Degrees C (test code = 8310-5) O2 saturation, arterial 100 % 95-100 (test code = 2708-6) pH, arterial corrected 7.41 (test code = 18667-7) pCO2, arterial corrected 44 mmHg (test code = 66872-7) pO2, arterial corrected 267 mmHg (test code = 07476-1) Base excess, arterial 3 See_Comment H [Auto mated message] (test code = 1925-7) The [facility] tem which generated this result transmitted ref erence range: -2 - 2 m Eq/L. The reference r frantz was not used to interpret this result as normal/abnor mal. Lab Interpretation (test Abnormal code = 25915-9) [facility]Glucose level, [id number] 04:59:01 Test Item Value Reference Range Interpretation Comments Glucose, syringe (test code = 133 mg/dL 65-99 H 2345-7) Lab Interpretation (test code = Abnormal 91809-3) [facility] MethodistHemoglobin, [id number] 04:59:01 Test Item Value Reference Range Interpretation Comments Hemoglobin, syringe (test code = 9.5 g/dL 14.0-18.0 L 718-7) Lab Interpretation (test code = Abnormal 09550-2) [facility] MethodistPotassium, [id number] 04:59:01 Test Item Value Reference Range Interpretation Comments Potassium, syringe (test 3.3 See_Comment L [A utomated message] code = 2007) The system [facility] h generated this result transmitted ref erence range: 3.5 - 5. 0 mEq/L. The refe rence range was not u sed to interpret this result as normal/abnor mal. Lab Interpretation (test Abnormal code = 94178-2) [facility] MethodistSodium level, [id number] 04:59:01 Test Item Value Reference Range Interpretation Comments Sodium, syringe (test 134 See_Comment L [Auto mated message] code = 2947-0) The system [facility] generated this result transmitted ref erence range: 135 - 14 8 mEq/L. The refe rence range was not u sed to interpret this result as normal/abnor mal. Lab Interpretation (test Abnormal code = 03420-2) [facility] [id number] 03:44:56Marivel Herndon REGISTER IN CHANCERY 04/10/2020 3:45 AMCentral line Patient Location: OR Performed by: anesthe siologistAnesthesiologist: Esteban Pickard MDAuthorized by: Esteban Pickard MD Preprocedure:patient identified, IV checked, site and side verified, risks and benefits discussed, procedure verified, surgical consent complete, patient position confirmed, monitors and equipment checked, pre-op evaluation complete and timeout performed prior to procedure MSBT: antiseptic used during central venous catheter insertion, all elements of maximal sterile barrier technique followed, hand hygiene performed prior to central venous catheter insertion, cap/gown used by other personnel during central venous catheter insertion, solutions labeled and all ports not used during insertion clamped Indications: Indications: Vascular accessAnesthesia: Anesthesia: GeneralProcedure details: Patient position: Trendelenburg Catheter Type: Double lumen Catheter Size: 8 Fr Catheter Site: internal jugular vein Catheter site laterality: Right Pre-procedure: Landmarks identified Ultrasoundguidance used: Yes Ultrasound image saved: Yes Number of attempts: 1 Successful placement: Yes Guidewire removal: Guidewire removal is confirmed Guidewire removal witnessed by: Marivel Herndon CRNAPost- procedure: Post-procedure: line sutured, sterile dressing applied per protocol and ports flushed with saline Post-procedure: Blood cleaned with CHG and sterile caps on all hubs Assessment: Blood return through all ports and free fluid flow Patient tolerance: Patient tolerated the procedure well with no immediate complicationsLander MiriamistArterial [id number] 03:44:29 Marivel Herndon CRNA 04/10/2020 3:45 AMArterial line Patient Location: OR Performed by: SHAHNAZ/BASILnesthesiologist: Esteban Pickard MDResident/SHAHNAZ/AA: Marivel Herndon CRNAAuthorized by: Esteban Pickard MD Pre-procedure: patient identified, IV checked, site and side verified, risks and benefits discussed, procedure verified, surgical consent complete, patient position confirmed, monitors and equipment checked, pre-op evaluation complete and timeout performed prior to procedure MSBT: antiseptic used, all elements of maximal sterile barrier technique followed, hand hygiene performed, cap/gown used by other personnel and solutions labeled Indications: Indications: hemodynamic monitoring Anesthesia: Anesthesia: GeneralProcedure Details: Arterial Line placement: Placed post induction Line placement site: RadialLine placement side: Right Arterial line gauge: 20 GNumber of attempts: 2 Ultrasound guidance used: Yes Post-procedure: Post-procedure: Sterile dressing applied Post procedure circulation, sensation, movement: Unchanged Patient tolerance: Patient tolerated the procedure well with no immediate complicationsLafayette Regional Health Centerjamal [id number] 03:43:36KishoredianeMarivel CRNA 04/10/2020 3:45 [address] Location: OR Performed by: anesthesiologistAnest hesiologist: Esteban Pickard, Zackary/SHAHNAZ/AA: Marivel Herndon CRNAAuthorized by: Esteban Pickard MD Urgency: ElectiveDifficult Airway: No Preoxygenated with 100% O2: Yes C-spine Precautions Maintained Throughout: Yes Mask Ventilation: Easy maskFinal Airway Type: Endotracheal airwayFinal Endotracheal Airway: ETTCuffed: Yes Technique Used: Direct laryngoscopyDevices/Methods Used in Placement: Intubating styletInsertion Site: OralBlade Type: MillerLaryngoscope Blade/Videolaryngoscope Blade Size: 2ETT Size (mm): 8.0Cuff at minimum occlusion pressure: Yes Measured from: LipsETT to Lips (cm): 23Placement Verified by: CO2 detection, direct visualization and equal breath sounds Laryngoscopic view: Grade I - full view of glottisRapid Sequence Induction (RSI): No Modified RSI: No Number of Attempts at Approach: 1 atraumaticFadi Zoroastrianism
--- NOTE | 2020-07-20 12:15 | RAD REPORT ---
EXAM DESCRIPTION: CT - Stone Protocol - 07/20/2020 11:47 am CLINICAL HISTORY: FLANK PAIN COMPARISON: Angio Aorta For Dissection dated 04/09/2020 TECHNIQUE: Axial 5 mm thick images were obtained without oral or IV contrast. The tsstp-gl-tutn span s the entirety of the system including uppermost abdomen and lung bases. All CT scans are performed using dose optimization technique as appropriate and may include automated exposure control or mA/KV adjustment according to patient size. FINDINGS: An 8 millimeter pulmonary nodule in the left base has not change from April. No hydronephrosis is present and no obstructing ureteral calculi. No nonobstructing calculi seen. No perinephric stranding. No suspicious renal masses. Isodense masses and pyelonephritis are not exclude d on a stone protocol CT scan. No significant adrenal finding. No urinary bladder suspicious finding. Liver, pancreas and biliary tree show no suspicious findings. Gallstones are seen within a contracted gallbladder. This matches comparison. No pericholecystic fluid or edema seen. Multiple regenerative splenic nodules are clustered in left upper quadrant similar to comparison. No suspicious bowel findings. Moderate stool volume is present throughout the colon. Patient has mode rately prominent diverticulosis without diverticulitis. No acute GI findings seen. No mass or bulky lymphadenopathy. Fat extends into each inguinal canal. No free air, free fluid or in flammatory stranding. No significant bony abnormality. IMPRESSION: No hydronephrosis, obstructing calculus or acute finding identifiable. Isodense masses and pyelonephritis are not excluded on stone protocol technique. As detailed above, no acute findings are seen. No significant change from April comparison.
--- NOTE | 2020-07-20 12:31 | RAD REPORT ---
EXAM DESCRIPTION: CT - C Spine Wo Con - 07/20/2020 11:47 am CLINICAL HISTORY: Neck pain, stiffness, decreased range of motion COMPARISON: None. TECHNIQUE: Axial 2 mm thick images of the cervical spine were obtained with sagittal and coronal rec onstruction images generated and reviewed. All CT scans are performed using dose optimization technique as appropriate and may include automated exposure control or mA/KV adjustment according to patient size. FINDINGS: Cervical body height and alignment are normal. No disk space narrowing. No fracture or acu te bony abnormality. Prominent facet joint degenerative change present on the left at C4-5 less promi nent facet degenerative changes elsewhere. No paraspinal mass or hematoma. Central canal detail is inherently limited on CT imaging. IMPRESSION: No fracture or acute cervical spine finding. Facet joint degenerative change present as detailed. Concerns for disc herniation, central canal abnormality or occult bone process can be addressed with MR imaging.
[2020-07-20 12:47] LABS: Urine Blood Negative (Negative); Urine Glucose Negative (Negative); Urine Protein Negative (Negative); Urine Specific Gravity 1.015 (1.005-1.030)
--- NOTE | 2020-07-20 13:50 | EDPHYS ---
Physician Documentation [facility] Name: Jesus Noriega Age: 59 yrs Sex: Male : 1960 Arrival Date: 07/20/2020 Time: 10:51 Bed DIS1 Private MD: Kelvin Mayorga ED Physician Carlitos Hannon HPI: 07/20 13:38 This 59 yrs old Male presents to ER via Ambulatory with complaints of Flank rn Pain - left, neck pain. 13:38 The patient or guardian complains of decreased range of motion, pain. The symptoms are rn located at the C3, C4 and C5. Onset: The symptoms/episode began/occurred 1 week(s) ago. Associated signs and symptoms: Pertinent negatives: fever, headache, bladder incontinence, bowel incontinence, nausea, weakness. Modifying factors: The symptoms are alleviated by nothing. the symptoms are aggravated by movement, pressure. Severity of symptoms: At their worst the symptoms were moderate, in the emergency department the symptoms are unchanged. The patient has experienced similar episodes in the past. The patient has not recently seen a physician. Reports here for 2 reasons, neck pain that began 1 week ago, assoc with tingling and pain that moves to right shoulder, already on gabapentin and steroids. No acute injury. No fever. Also reports left groin pain for a few days, no vomiting/fever/diarrhea/blood in stool. No abd trauma. . Historical: - Allergies: 11:20 No Known Allergies; jl7 - Home Meds: 11:20 Eliquis 5 mg Oral tab 2 tabs 2 times per day [Active]; ropinirole 5 mg Oral tab nightly jl7 [Active]; prednisone 10 mg Oral tab once daily [Active]; Daliresp 500 mcg Oral tab 1 tab once daily [Active]; - PMHx: 11:20 COPD; Hypertension; High Cholesterol; jl7 - PSHx: 11:20 Thrombectomy - Left FA; spleenectomy; amputation of the left finger; left leg sx; jl7 - Immunization history:: Adult Immunizations up to date. - Social history:: Smoking status: Patient denies any tobacco usage or history of. - Family history:: not pertinent. - Hospitalizations: : No recent hospitalization is reported. ROS: 13:38 Constitutional: Negative for fever, chills, and weight loss, Eyes: Negative for injury, rn pain, redness, and discharge, Neck: + neck pain Cardiovascular: Negative for chest pain, palpitations, and edema, Respiratory: Negative for shortness of breath, cough, wheezing, and pleuritic chest pain, Abdomen/GI: + left groin pain, neg for nausea/vomiting/diarrhea Back: Negative for injury and pain, : Negative for injury, bleeding, discharge, and swelling, MS/Extremity: Negative for injury and deformity, Skin: Negative for injury, rash, and discoloration, Neuro: Negative for headache, weakness, and seizure. Exam: 13:38 Constitutional: This is a well developed, well nourished patient who is awake, alert, rn and in no acute distress. Head/Face: Normocephalic, atraumatic. Eyes: Pupils equal round and reactive to light, extra-ocular motions intact. Neck: Trachea midline, no swelling, no crepitus, no bony tenderness Cardiovascular: Regular rate and rhythm. No pulse deficits. Respiratory: No increased work of breathing, no retractions or nasal flaring. Abdomen/GI: soft, non-tender Skin: Warm, dry MS/ Extremity: Pulses equal, no cyanosis. Neuro: Awake and alert, GCS 15, oriented to person, place, time, and situation Vital Signs: 11:15 BP 98 / 61; Pulse 79; Resp 17 S; Temp 98.5(O); Pulse Ox 95% on R/A; Weight 102.06 kg; jl7 Height 5 ft. 9 in. (175.26 cm); Pain 9/10; 13:59 BP 104 / 60; Pulse 76; Resp 18; Temp 98.3(TE); Pulse Ox 96% ; Weight 102.6 kg; Height 5 ld1 ft. 10 in. (177.80 cm); Pain 7/10; 13:59 Body Mass Index 32.46 (102.60 kg, 177.80 cm) ld1 MDM: 13:23 Patient medically screened. rn 13:38 Differential diagnosis: arthritis, Cervical Disc Herniation Cervical Facet Syndrome rn Cervical Raiculopathy cervical strain, torticollis, inguinal hernia, kidney stone, UTI. Data reviewed: vital signs, nurses notes, radiologic studies, CT scan, and as a result, I will discharge patient. Counseling: I had a detailed discussion with the patient and/or guardian regarding: the historical points, exam findings, and any diagnostic results supporting the discharge/admit diagnosis, radiology results, the need for outpatient follow up, to return to the emergency department if symptoms worsen or persist or if there are any questions or concerns that arise at home. 13:49 Special discussion: I discussed with the patient/guardian in detail that at this point rn there is no indication for admission to the hospital. It is understood, however, that if the symptoms persist or worsen the patient needs to return immediately for re-evaluation. Based on the history and exam findings, there is no indication for further emergent testing or inpatient evaluation. I discussed with the patient/guardian the need to see the general surgeon for further evaluation of the symptoms. I discussed with the patient/guardian the need to see the neurologist for further evaluation of the symptoms. 07/20 12:47 Order name: Urine Dipstick-Ancillary; Complete Time: 13:21 EDNY 07/20 11:30 Order name: CT Stone Protocol jl7 07/20 12:16 Order name: CT; Complete Time: 13:21 EDNY 07/20 12:31 Order name: CT; Complete Time: 13:21 EDNY Administered Medications: No medications were administered Disposition: 07/20/20 13:49 Discharged to Home. Impression: Radiculopathy, cervical region, Bilateral inguinal hernia, without obstruction or gangrene - Fat Containing. - Condition is Stable. - Discharge Instructions: Cervical Radiculopathy, Inguinal Hernia, Adult. - Medication Reconciliation Form, Thank You Letter, Antibiotic Education, Prescription Opioid Use form. - Follow up: Private Physician; When: As needed; Reason: Recheck today's complaints, Re-evaluation by your physician. - Problem is an ongoing problem. - Symptoms have improved. Signatures: Dispatcher [employer] EDMS Carlitos Hannon MD MD rn Leal, Jahala, RN RN jl7 Bev Mcgill RN RN ld1 Corrections: (The following items were deleted from the chart) 14:02 13:49 07/20/2020 13:49 Discharged to Home. Impression: Radiculopathy, cervical region; ld1 Bilateral inguinal hernia, without obstruction or gangrene - Fat Containing. Condition is Stable. Forms are Medication Reconciliation Form, Thank You Letter, Antibiotic Education, Prescription Opioid Use. Follow up: Private Physician; When: As needed; Reason: Recheck today's complaints, Re-evaluation by your physician. Problem is an ongoing problem. Symptoms have improved. rn
--- NOTE | 2020-07-20 13:50 | ER ---
Nurse's Notes [facility] Name: Jesus Noriega Age: 59 yrs Sex: Male : 1960 Arrival Date: 07/20/2020 Time: 10:51 Bed DIS1 Private MD: Kelvin Mayorga Diagnosis: Radiculopathy, cervical region;Bilateral inguinal hernia, without obstruction or gangrene-Fat Containing Presentation: 07/20 11:15 Chief complaint: Patient states: Neck pain x 1 week, sore and stiff with turning head. jl7 Left flank pain x 2 days. Reports decreased urine output x 1 day. Coronavirus screen: Client denies travel out of the [place] in the last 14 days. At this time, the client does not indicate any symptoms associated with coronavirus-19. Ebola Screen: No symptoms or risks identified at this time. Initial Sepsis Screen: Does the patient meet any 2 criteria? No. Patient's initial sepsis screen is negative. Does the patient have a suspected source of infection? No. Patient's initial sepsis screen is negative. Risk Assessment: Do you want to hurt yourself or someone else? Patient reports no desire to harm self or others. Onset of symptoms was July 18, 2020. Care prior to arrival: None. 11:15 Method Of Arrival: Ambulatory jl7 11:15 Acuity: ISRRAEL 3 jl7 Triage Assessment: 11:20 General: Appears in no apparent distress. uncomfortable, Behavior is calm, cooperative, jl7 appropriate for age. Pain: Complains of pain in neck and left flank Pain currently is 9 out of 10 on a pain scale. Historical: - Allergies: 11:20 No Known Allergies; jl7 - Home Meds: 11:20 Eliquis 5 mg Oral tab 2 tabs 2 times per day [Active]; ropinirole 5 mg Oral tab nightly jl7 [Active]; prednisone 10 mg Oral tab once daily [Active]; Daliresp 500 mcg Oral tab 1 tab once daily [Active]; - PMHx: 11:20 COPD; Hypertension; High Cholesterol; jl7 - PSHx: 11:20 Thrombectomy - Left FA; spleenectomy; amputation of the left finger; left leg sx; jl7 - Immunization history:: Adult Immunizations up to date. - Social history:: Smoking status: Patient denies any tobacco usage or history of. - Family history:: not pertinent. - Hospitalizations: : No recent hospitalization is reported. Screenin:59 Abuse screen: Denies threats or abuse. Denies injuries from another. Nutritional ld1 screening: No deficits noted. Tuberculosis screening: No symptoms or risk factors identified. Fall Risk None identified. Assessment: 13:44 General: Appears in no apparent distress. comfortable, Behavior is calm, cooperative, ld1 appropriate for age. 13:44 Pain: Complains of pain in abdomen and left posterior aspect of neck Pain currently is ld1 7 out of 10 on a pain scale. Quality of pain is described as stabbing, throbbing, Pain began 1 day ago. Is continuous. Neuro: Level of Consciousness is awake, alert, obeys commands, Oriented to person, place, time, situation, Appropriate for age. Cardiovascular: Capillary refill < 3 seconds Patient's skin is warm and dry. Respiratory: Airway is patent Respiratory effort is even, unlabored, Respiratory pattern is regular, symmetrical. GI: Abdomen is round non-distended. : No signs and/or symptoms were reported regarding the genitourinary system. EENT: No signs and/or symptoms were reported regarding the EENT system. Derm: No signs and/or symptoms reported regarding the dermatologic system. Musculoskeletal: No signs and/or symptoms reported regarding the musculoskeletal system. Vital Signs: 11:15 BP 98 / 61; Pulse 79; Resp 17 S; Temp 98.5(O); Pulse Ox 95% on R/A; Weight 102.06 kg; jl7 Height 5 ft. 9 in. (175.26 cm); Pain 9/10; 13:59 BP 104 / 60; Pulse 76; Resp 18; Temp 98.3(TE); Pulse Ox 96% ; Weight 102.6 kg; Height 5 ld1 ft. 10 in. (177.80 cm); Pain 7/10; 13:59 Body Mass Index 32.46 (102.60 kg, 177.80 cm) ld1 ED Course: 10:51 Patient arrived in ED. am2 10:51 Kelvin Mayorga MD is Private Physician. am2 11:18 Triage completed. jl7 11:20 Arm band placed on right wrist. Patient notified of wait time. jl7 13:20 CT Stone Protocol Sent. sv 13:23 Carlitos Hannon MD is Attending Physician. rn 13:44 Wendy Mclain, RN is Primary Nurse. vg1 13:59 Patient has correct armband on for positive identification. Call light in reach. Pulse ld1 ox on. NIBP on. Warm blanket given. Pillow given. 13:59 No provider procedures requiring assistance completed. Patient did not have IV access ld1 during this emergency room visit. Administered Medications: No medications were administered Outcome: 13:49 Discharge ordered by MD. rn 14:02 Discharged to home ambulatory. ld1 14:02 Condition: stable 14:02 Discharge instructions given to patient, Instructed on discharge instructions, follow up and referral plans. Demonstrated understanding of instructions, follow-up care. 14:02 Patient left the ED. ld1 Signatures: Terese Guevara RN Carlitos Jo MD MD rn Leal, Jahala, RN RN jl7 Yuki Anand am2 Wendy Mclain RN RN vg1 Bev Mcgill RN RN ld1 Corrections: (The following items were deleted from the chart) 13:56 13:44 Patient has correct armband on for positive identification. Call light in reach. vg1 vg1 13:56 13:44 Pulse ox on. NIBP on. vg1 vg1 13:56 13:44 General: Appears in no apparent distress. comfortable, Behavior is calm, vg1 cooperative, appropriate for age, vg1 13:56 13:44 Pain: Complains of pain in left lower quadrant and left posterior aspect of neck vg1 Pain currently is 7 out of 10 on a pain scale. Quality of pain is described as throbbing, Pain began 1 day ago. Is continuous, vg1 13:56 13:44 Neuro: Level of Consciousness is awake, alert, obeys commands, Oriented to vg1 person, place, time, situation, Appropriate for age vg1 13:56 13:44 Cardiovascular: Capillary refill < 3 seconds Patient's skin is warm and dry. vg1 vg1 13:56 13:44 Respiratory: Airway is patent Respiratory effort is even, unlabored, Respiratory vg1 pattern is regular, symmetrical, vg1 13:56 13:44 GI: Abdomen is round non-distended, Reports lower abdominal pain, vg1 vg1 13:56 13:44 : No signs and/or symptoms were reported regarding the genitourinary system. vg1vg1 : 13:44 EENT: No signs and/or symptoms were reported regarding the EENT system. vg1 vg1 13:44 Derm: No signs and/or symptoms reported regarding the dermatologic system. vg1 vg1 56 13:44 Musculoskeletal: No signs and/or symptoms reported regarding the musculoskeletal vg1 system. vg1 13:44 BP 104 / 60; Pulse 75bpm; Resp 18bpm; Pulse Ox 96% RA; Temp 98.3F Temporal; 102.6 vg1 kg; Height 5 ft. 10 in.; BMI: 32.4; Pain 7/10; vg1 : 13:44 Abuse screen: Denies threats or abuse. Denies injuries from another. vg1 vg1 13:44 Nutritional screening: No deficits noted. vg1 vg1 13:44 Tuberculosis screening: No symptoms or risk factors identified. vg1 vg1 13:44 Fall Risk None identified. vg1 vg1 57 13:44 No provider procedures requiring assistance completed. vg1 vg1 :57 13:44 Patient did not have IV access during this emergency room visit. vg1 vg1
[2020-07-20 14:12] VITALS: BP 104/60; TEMP 98.3; O2SAT 96
== END 2020-07-20 14:02 | disposition home or self-care (01) ==
LOC: ER 10:48
DX: M54.12 Radiculopathy, cervical region (principal); K40.20 Bilateral inguinal hernia, without obstruction or gangrene, not specified as recurrent; I10 Essential (primary) hypertension; J44.9 Chronic obstructive pulmonary disease, unspecified; E78.00 Pure hypercholesterolemia, unspecified; Z79.01 Long term (current) use of anticoagulants
CPT/HCPCS: 72125; 74176; 76377; 81003; 99283

== ENCOUNTER 2020-12-06 21:27 | Emergency (ER) | payer OTHER ==
[2020-12-06] MEDS ORDERED: METHYLPREDNISOLONE 125 MG INJ ONE (23:26)
[2020-12-06] MEDS ORDERED: IPRATROPIUM BROM 0.5MG/2.5ML ONE (23:28)
[2020-12-06 23:36] LABS: Hematocrit 29.8 % (39.6-49.0); MPV 8.2 fL (7.6-11.3); RBC Red Blood Cell Count 5.29 M/uL (4.33-5.43)
[2020-12-06 23:40] LABS: Protime INR 1.09
[2020-12-06 23:50] LABS: ALT/SGPT 20 U/L (12-78); AST/SGOT 12 U/L (15-37); Albumin 3.7 g/dL (3.4-5.0); Alkaline Phosphatase 71 U/L (45-117); BUN Blood Urea Nitrogen 12 mg/dL (7-18); Bicarbonate 30 mmol/L (21-32); Bilirubin Direct < 0.1 mg/dL (0-0.2); Bilirubin Total 0.3 mg/dL (0.2-1.0); CKMB Creatine Kinase MB 2.6 ng/mL (1.0-3.6); Creatine Phosphokinase 87 U/L (39-308); Glucose Level 100 mg/dL (74-106); Lipase 119 U/L (73-393); Magnesium 2.2 mg/dL (1.8-2.4); NT PRO-BNP 143 pg/mL (<125); Potassium 3.6 mmol/L (3.5-5.1); Protein, Total 7.1 g/dL (6.4-8.2); Sodium Level 141 mmol/L (136-145); Troponin (Emerg Dept Use Only) < 0.02 ng/mL (0.0-0.045)
--- NOTE | 2020-12-07 00:39 | EDPHYS ---
Physician Documentation [facility] Name: Jesus Noriega Age: 59 yrs Sex: Male : 1960 Arrival Date: 12/06/2020 Time: 21:43 Bed 13 Private MD: ED Physician Osbaldo Cedeño HPI: 12/06 22:06 This 59 yrs old Male presents to ER via Ambulatory with complaints of pm1 Breathing Difficulty. 22:06 The patient has shortness of breath at rest. Onset: The symptoms/episode began/occurred pm1 Reports onset of shortness of breath for two months that has worsened today. Duration: The symptoms are continuous, and are markedly worse than the original presentation. The patient's shortness of breath is aggravated by exertion, is alleviated by nothing. Associated signs and symptoms: Pertinent positives: productive cough, Pertinent negatives: chest pain, fever, nausea, vomiting. Severity of symptoms: in the emergency department the symptoms are worse Pain is currently a 0 / 10. The patient has experienced similar episodes in the past, multiple times. The patient has not recently seen a physician. Historical: - Allergies: 21:47 No Known Allergies; wg - Home Meds: 21:47 Eliquis Oral [Active]; prednisone Oral [Active]; Daliresp Oral [Active]; Trazodone Oral wg [Active]; gabapentin oral [Active]; - PMHx: 21:47 COPD; High Cholesterol; Hypertension; wg - Immunization history:: Adult Immunizations up to date. - Social history:: Smoking status: Patient reports the use of cigarette tobacco products, denies chronic smoking, but will smoke occasionally. ROS: 22:06 Constitutional: Negative for fever, chills, and weight loss, Cardiovascular: Negative pm1 for chest pain, palpitations, and edema. 22:06 Abdomen/GI: Negative for abdominal pain, nausea, vomiting, diarrhea, and constipation, Back: Negative for injury and pain, MS/Extremity: Negative for injury and deformity, Skin: Negative for injury, rash, and discoloration, Neuro: Negative for headache, weakness, numbness, tingling, and seizure. 22:06 Respiratory: Positive for cough, shortness of breath. 22:06 All other systems are negative. Exam: 22:06 Constitutional: This is a well developed, well nourished patient who is awake, alert, pm1 and in no acute distress. Head/Face: Normocephalic, atraumatic. 22:06 Back: No spinal tenderness. No costovertebral tenderness. Full range of motion. Skin: Warm, dry with normal turgor. Normal color with no rashes, no lesions, and no evidence of cellulitis. MS/ Extremity: Pulses equal, no cyanosis. Neurovascular intact. Full, normal range of motion. 22:06 Cardiovascular: Exam negative for acute changes, Rate: normal, Rhythm: regular, Pulses: no pulse deficits are appreciated, Heart sounds: normal. 22:06 Respiratory: mild respiratory distress is noted, Breath sounds: wheezing: expiratory is heard diffusely. 22:06 Abdomen/GI: Exam negative for acute changes, Inspection: abdomen appears normal, Palpation: abdomen is soft and non-tender, in all quadrants. 22:06 Neuro: Exam negative for acute changes, Orientation: is normal, Mentation: is normal, Motor: is normal, moves all fours. Vital Signs: 21:44 BP 120 / 56; Pulse 75; Resp 20; Temp 98.9; Pulse Ox 98% on R/A; Weight 90.72 kg; Height 5 ft. 9 in. (175.26 cm); Pain 0/10; 12/07 01:05 BP 123 / 60; Pulse 78; Resp 18; Pulse Ox 99% on R/A; lh3 12/06 21:44 Body Mass Index 29.53 (90.72 kg, 175.26 cm) MDM: 12/06 21:46 Patient medically screened. [facility] 12/07 00:37 Data reviewed: vital signs. Data interpreted: Pulse oximetry: on room air is 98 %. pm1 Interpretation: normal. Counseling: I had a detailed discussion with the patient and/or guardian regarding: the historical points, exam findings, and any diagnostic results supporting the discharge/admit diagnosis, lab results, radiology results, the need for outpatient follow up, a development planner, to return to the emergency department if symptoms worsen or persist or if there are any questions or concerns that arise at home. 12/06 21:50 Order name: BMP 12/06 21:50 Order name: Blood Culture Adult (2) 12/06 21:50 Order name: CBC with Diff 12/06 21:50 Order name: CPK; Complete Time: 23:53 wg 12/06 21:50 Order name: Ckmb; Complete Time: 23:53 wg 12/06 21:50 Order name: D-Dimer; Complete Time: 00:06 wg 12/06 21:50 Order name: Hepatic Function; Complete Time: 23:53 wg 12/06 21:50 Order name: Lipase; Complete Time: 23:53 wg 12/06 21:50 Order name: Magnesium; Complete Time: 23:53 wg 12/06 21:50 Order name: NT PRO-BNP; Complete Time: 23:53 wg 12/06 21:50 Order name: PT-INR; Complete Time: 00:06 wg 12/06 21:50 Order name: Ptt, Activated; Complete Time: 00:06 wg 12/06 21:50 Order name: Troponin (emerg Dept Use Only); Complete Time: 23:53 wg 12/06 21:51 Order name: Basic Metabolic Panel; Complete Time: 23:53 EDMS 12/06 21:51 Order name: Blood Culture EDMS 12/06 21:53 Order name: Basic Metabolic Panel pm1 12/06 21:53 Order name: CBC with Diff; Complete Time: 00:55 pm1 12/06 21:53 Order name: LFT's pm1 12/06 21:53 Order name: Magnesium pm1 12/06 23:57 Order name: Manual Differential; Complete Time: 00:55 EDMS 12/07 00:21 Order name: SARS-COV-2 RT PCR; Complete Time: 00:22 EDMS 12/06 21:50 Order name: EKG; Complete Time: 21:51 wg 12/06 21:50 Order name: Cardiac monitoring; Complete Time: 00:21 wg 12/06 21:50 Order name: EKG - Nurse/Tech; Complete Time: 00:21 wg 12/06 21:50 Order name: IV Saline Lock; Complete Time: 22:54 wg 12/06 21:50 Order name: Labs collected and sent; Complete Time: 22:54 wg 12/06 21:50 Order name: O2 Per Protocol; Complete Time: 00:21 wg 12/06 21:50 Order name: O2 Sat Monitoring; Complete Time: 00:21 wg 12/06 21:53 Order name: XRAY Chest (1 view) pm1 12/06 21:53 Order name: EKG; Complete Time: 21:54 pm1 12/06 21:53 Order name: Cardiac monitoring; Complete Time: 00:05 pm1 12/06 21:53 Order name: EKG - Nurse/Tech; Complete Time: 00:05 pm1 12/06 21:53 Order name: IV Saline Lock; Complete Time: 00:05 pm1 12/06 21:53 Order name: Labs collected and sent; Complete Time: 00:05 pm1 12/06 21:53 Order name: O2 Per Protocol; Complete Time: 00:05 pm1 12/06 21:53 Order name: O2 Sat Monitoring; Complete Time: 00:05 pm1 Administered Medications: 12/06 23:17 Drug: SOLU-Medrol (methylPrednisoLONE) 125 mg Route: IVP; Site: right antecubital; [facility] 12/07 00:05 Follow up: Response: No adverse reaction [facility] 12/06 23:17 Drug: Albuterol - atroVENT (ipratropium) (3:1) (2.5 mg - 0.5 mg) 3 ml Route: Nebulizer; [facility] 12/07 00:04 Follow up: Response: No adverse reaction [facility] 00:37 Drug: Rocephin (cefTRIAXone) 1 grams Route: IV; Rate: calculated rate; Site: right 3 antecubital; 01:05 Follow up: IV Status: Completed infusion [facility] Disposition: 06:51 Co-signature as Attending Physician, Osbaldo Cedeño MD I agree with the assessment and jaylin plan of care. Disposition Summary: 12/07/20 00:38 Discharge Ordered Location: Home pm1 Problem: new pm1 Symptoms: have improved pm1 Condition: Stable pm1 Diagnosis - COPD/ Chronic obstructive pulmonary disease with (acute) exacerbation pm1 Followup: pm1 - With: Emergency Department - When: As needed - Reason: Worsening of condition Followup: pm1 - With: Private Physician - When: 2 - 3 days - Reason: Recheck today's complaints, Continuance of care, Re-evaluation by your physician Followup: pm1 - With: Mnig Iniguez MD - When: 2 - 3 days - Reason: Recheck today's complaints, Continuance of care, Re-evaluation by your physician Discharge Instructions: - Discharge Summary Sheet pm1 - Chronic Obstructive Pulmonary Disease Exacerbation pm1 Forms: - Medication Reconciliation Form pm1 - Thank You Letter pm1 - Antibiotic Education pm1 - Prescription Opioid Use pm1 Prescriptions: - Prednisone 20 mg Oral Tablet - take 3 tablets by ORAL route once daily for 5 days; 15 tablet; Refills: 0, pm1 Product Selection Permitted - Zithromax Z-Michael 250 mg Oral Tablet - take 1 tablet by ORAL route as directed for 5 days Day 1 - take two (2) tablets pm1 one time. Day 2, 3, 4 , 5 take one (1) tablet once daily.; 6 tablet; Refills: 0, Product Selection Permitted - Guaifenesin AC 10-100 mg/5 mL Oral Liquid - take 10 milliliters by ORAL route every 4 hours As needed; 240 milliliter; pm1 Refills: 0, Product Selection Permitted Signatures: Dispatcher [employer] EDMS Osbaldo Cedeño MD MD cha Marinas, Patrick, NP [employer] pm1 Mariela Draper RN RN 3 Freddie Morin RN wg Corrections: (The following items were deleted from the chart) 12/06 23:22 21:54 CORONAVIRUS+MR.LAB.BRZ ordered. EDMS EDMS 23:28 21:51 CBC with Automated Diff ordered. EDMS EDMS 23:28 21:54 PROTIME (+INR)+COAG.LAB.BRZ ordered. EDMS EDMS 12/07 01:00 12/06 21:54 Basic Metabolic Panel ordered. EDMS EDMS 12/07 01:00 12/06 21:54 Liver (Hepatic) Function ordered. EDMS EDMS 12/07 01:00 12/06 21:54 Magnesium ordered. EDMS EDMS 12/07 00:00 12/06 21:54 PROBNP+C.LAB.BRZ ordered. EDMS EDMS 12/07 01:00 12/06 21:54 TROPONIN (EMERG DEPT USE ONLY)+C.LAB.BRZ ordered. EDMS EDMS
--- NOTE | 2020-12-07 00:39 | ER ---
Nurse's Notes [facility] Name: Jesus Noriega Age: 59 yrs Sex: Male : 1960 Arrival Date: 12/06/2020 Time: 21:43 Bed 13 Private MD: Diagnosis: COPD/ Chronic obstructive pulmonary disease with (acute) exacerbation Presentation: 12/06 21:44 Chief complaint: Patient states: Pt reports weakness and a productive cough for several wg days. Pt states he has COPD and tonight around 1900 has increased SOB not improved with inhalers. Pt denies fevers, CP, Abd pain, N/V/D. Coronavirus screen: Vaccine status: Patient reports receiving the 2nd dose of the covid vaccine. Date June 17, 2020. Ebola Screen: Patient negative for fever greater than or equal to 101.5 degrees Fahrenheit, and additional compatible Ebola Virus Disease symptoms Patient denies exposure to infectious person. Patient denies travel to an Ebola-affected area in the 21 days before illness onset. Initial Sepsis Screen: Does the patient meet any 2 criteria? No. Patient's initial sepsis screen is negative. Does the patient have a suspected source of infection? No. Patient's initial sepsis screen is negative. Risk Assessment: Do you want to hurt yourself or someone else? Patient reports no desire to harm self or others. Onset of symptoms was December 06, 2020 at 19:00. 21:44 Method Of Arrival: Ambulatory 21:44 Acuity: [place] 3 Triage Assessment: 21:47 General: Appears distressed, uncomfortable, obese, well developed, Behavior is wg cooperative, appropriate for age, restless. Pain: Denies pain. Respiratory: Reports shortness of breath cough that is productive, Breath sounds are diminished bilaterally. Breath sounds with wheezes bilaterally. Onset: The symptoms/episode began/occurred gradually, the patient has moderate shortness of breath. Historical: - Allergies: 21:47 No Known Allergies; wg - Home Meds: 21:47 Eliquis Oral [Active]; prednisone Oral [Active]; Daliresp Oral [Active]; Trazodone Oral wg [Active]; gabapentin oral [Active]; - PMHx: 21:47 COPD; High Cholesterol; Hypertension; wg - Immunization history:: Adult Immunizations up to date. - Social history:: Smoking status: Patient reports the use of cigarette tobacco products, denies chronic smoking, but will smoke occasionally. Screenin/05 00:05 Abuse screen: Denies threats or abuse. Nutritional screening: No deficits noted. lh3 Tuberculosis screening: No symptoms or risk factors identified. Fall Risk Assessment: 00:05 Cardiovascular: Rhythm is regular. Respiratory: Airway is patent Respiratory effort is lh3 labored. 00:07 Respiratory: Respiratory effort is. lh3 Vital Signs: 12/06 21:44 BP 120 / 56; Pulse 75; Resp 20; Temp 98.9; Pulse Ox 98% on R/A; Weight 90.72 kg; Height wg 5 ft. 9 in. (175.26 cm); Pain 0/10; 12/07 01:05 BP 123 / 60; Pulse 78; Resp 18; Pulse Ox 99% on R/A; lh3 12/06 21:44 Body Mass Index 29.53 (90.72 kg, 175.26 cm) ED Course: 12/06 21:43 Patient arrived in ED. cf2 21:46 Devang Tee NP is PHCP. pm1 21:46 Osbaldo Cedeño MD is Attending Physician. pm1 21:47 Triage completed. wg 21:47 Arm band placed on right wrist. wg 22:07 Mariela Draper, JESS is Primary Nurse. lh3 22:25 XRAY Chest (1 view) In Process Unspecified. EDMS 22:53 Flu Sent. lh3 22:53 Basic Metabolic Panel Sent. lh3 22:53 LFT's Sent. lh3 22:53 Magnesium Sent. lh3 22:53 CBC with Diff Sent. lh3 22:54 BMP Sent. lh3 22:54 Blood Culture Adult (2) Sent. lh3 22:54 CBC with Diff Sent. lh3 22:54 Blood Culture Sent. lh3 22:54 Basic Metabolic Panel Sent. lh3 22:54 CPK Sent. lh3 22:54 Ckmb Sent. lh3 22:54 D-Dimer Sent. lh3 22:54 Hepatic Function Sent. lh3 22:54 Lipase Sent. lh3 22:54 Magnesium Sent. lh3 22:54 NT PRO-BNP Sent. lh3 22:54 PT-INR Sent. lh3 22:54 Ptt, Activated Sent. lh3 22:54 Troponin (emerg Dept Use Only) Sent. lh3 10/05 00:05 Patient has correct armband on for positive identification. Bed in low position. Side lh3 rails up X 1. Side rails up X2. 00:05 No provider procedures requiring assistance completed. Inserted saline lock: 18 gauge lh3 in right antecubital area, using aseptic technique. Blood collected. 00:22 Blood Culture Sent. 3 00:37 Ming Iniguez MD is Referral Physician. pm1 01:05 IV discontinued, bleeding controlled, No redness/swelling at site. Pressure dressing lh3 applied. Administered Medications: 12/06 23:17 Drug: SOLU-Medrol (methylPrednisoLONE) 125 mg Route: IVP; Site: right antecubital; 3 12/07 00:05 Follow up: Response: No adverse reaction 3 12/06 23:17 Drug: Albuterol - atroVENT (ipratropium) (3:1) (2.5 mg - 0.5 mg) 3 ml Route: Nebulizer; 3 12/07 00:04 Follow up: Response: No adverse reaction 3 00:37 Drug: Rocephin (cefTRIAXone) 1 grams Route: IV; Rate: calculated rate; Site: right lh3 antecubital; 01:05 Follow up: IV Status: Completed infusion 3 Outcome: 00:38 Discharge ordered by . pm1 01:05 Discharged to home ambulatory. 3 01:05 Condition: good 01:05 Discharge instructions given to patient, Instructed on discharge instructions, medication usage, Demonstrated understanding of instructions, medications, Prescriptions given X 3. 01:06 Patient left the ED. [facility] [place] Signatures: Dispatcher [employer] EDMS Devang Tee NP [employer] MANAGER pm1 [place] cf2 Mariela Draper RN RN 3 Freddie Morin RN wg Corrections: (The following items were deleted from the chart) 12/06 23:22 22:53 CORONAVIRUS+MR.LAB.BRZ drawn and sent. 3 EDMS 23: 22:53 PROTIME (+INR)+COAG.LAB.BRZ drawn and sent. [facility] [place] EDMS 23:28 22:54 CBC with Automated Diff drawn and sent. [facility] [place] EDMS 12/07 01:00 12/06 22:53 Liver (Hepatic) Function drawn and sent. [facility] [place] EDNJ 12/07 01:00 12/06 22:53 Magnesium drawn and sent. [facility] [place] EDMS 12/07 01:00 12/06 22:53 Basic Metabolic Panel drawn and sent. [facility] [place] EDNJ 12/07 01:00 12/06 22:53 PROBNP+C.LAB.BRZ drawn and sent. [facility] [place] EDNJ 12/07 01:00 12/06 22:53 TROPONIN (EMERG DEPT USE ONLY)+C.LAB.BRZ drawn and sent. [address]
[2020-12-07 00:53] LABS: Anisocytosis 2+; Blood Morphology Comment NOTED (NOT SEEN); Hypochromasia 3+; Platelet Estimate ADEQ; Polychromasia 1+
[2020-12-07] MEDS ORDERED: CEFTRIAXONE 1000 MG/VIAL ONE (00:58)
[2020-12-07 01:12] VITALS: TEMP 98.9
[2020-12-07 01:13] VITALS: BP 123/60; O2SAT 99
--- NOTE | 2020-12-07 07:35 | RAD REPORT ---
EXAM DESCRIPTION: RAD - Chest Single View - 12/06/2020 10:25 pm CLINICAL HISTORY: COPD;SOB;Cough COMPARISON: Chest Single View dated 04/09/2020; Chest Single View dated 09/27/2019; Chest Pa And Lat (2 Views) dated 01/12/2019; Chest Single View dated 12/18/2018 FINDINGS: Lines: None. Lungs: There are a few scattered ill-defined opacities in the right mid lung and left lung base. Pleural: No significant pleural effusions or pneumothorax. Cardiac: The heart size is within normal limits. Bones: No acute fractures. Other: IMPRESSION: Scattered mild airspace opacities could reflect mild multifocal pneumonia.
--- NOTE | 2020-12-07 18:08 | EKG ---
Test Date: 2020-12-06 Test Time: 23:40:51 Manager Agricultural: MARLENI MEASUREMENT RESULTS: Intervals: Rate: 64 MD: 148 QRSD: 132 QT: 476 QTc: 491 [place]: P: 51 MD: 148 QRS: -17 T: 40 INTERPRETIVE STATEMENTS: Normal sinus rhythm Right bundle branch block Abnormal ECG Compared to ECG 04/09/2020 17:05:17 Atrial premature complex(es) no longer present Aberrant conduction of supraventricular beat(s) no longer present Left anterior fascicular block no longer present Bifascicular block no longer present Electronically Signed On 12-07-20 18:05:44 CDT by Keshawn Nguyen
== END 2020-12-07 01:06 | disposition home or self-care (01) ==
LOC: ER 21:27
DX: J44.1 Chronic obstructive pulmonary disease with (acute) exacerbation (principal); Z20.822 Contact with and (suspected) exposure to COVID-19; I10 Essential (primary) hypertension; E78.00 Pure hypercholesterolemia, unspecified; Z79.01 Long term (current) use of anticoagulants
CPT/HCPCS: 96365; 93005; 87040 ×2; 85025; 80048; 36415; 83735; 82550; 85610; 85379; 80076; 85730; 84484; 82553; 83690; 83880; 71045; 96375; 99284; U0003; J2930

== ENCOUNTER 2021-04-24 14:52 | Inpatient (IN) | payer OTHER ==
--- OUTSIDE RECORDS SUMMARY | 2021-04-24 14:56 | XMS REPORT | Continuity of Care Document ---
:1960 Author Organization [facility] t Address [address] [place] [address] Care Team Providers Name Role Phone Barbra MCLAIN Attending Clinician Unavailable Doctor Unassigned, Name Attending Clinician Unavailable JAN Attending Clinician Unavailable JUN Attending Clinician Unavailable Barbra Mclain DDS Attending Clinician MD JUN O. Attending Clinician Unavailable NANCI Attending Clinician Unavailable NANCI Attending Clinician Unavailable Barbra MCLAIN Admitting Clinician Unavailable JUN Admitting Clinician Unavailable MD JUN O. Admitting Clinician Unavailable Payers Payer Name Policy Type Policy Number Effective Date Expiration Date [facility] [id number] 2018 00:00:00 DARS DISABILITY [id number] 2017 DETERMINATION SVCS 00:00:00 Problems Condition Condition Condition Status Onset Resolution Last Treating Co mments Source Name Details Category Date Date Treatment Clinician Date Caries Caries Disease Active 2019-03 Univers 2-14 ity of 00:00: [place] 00 Medical Branch Foreign Foreign Disease Active 2019-03 Univers body in body in 2-14 ity of mouth, mouth, 00:00: [place] initial initial 00 Medical encounter encounter Bran ch Allergies, Adverse Reactions, Alerts Allergy Allergy Status Severity Reaction(s) Onset Inactive Treating Comm ents Source Name Type Date Date Clinician NO KNOWN Drug Active Univers ALLERGIE Class ity of S [facility] Social History Social Habit Start Date Stop Date Quantity Comments Source Exposure to Not sure [facility] SARS-CoV-2 (event) Medica l Branch Tobacco use and 2020-02-16 2020-02-16 Never used [facility] [place] exposure 00:00:00 00:00:00 Medical Branch Sex [birth year] [facility] [place] 00:00:00 00:00:00 Medical Branch Smoking Status Start Date Stop Date Source Former smoker 2020-02-16 00:00:00 2020-02-[facility] [place] [facility] Medications Ordered Filled Start Stop Current Ordering Indication Dosage Frequency Signature Comments Components Source Medication Medication Date Date Medication? Clinician (SIG) Name Name rOPINIRole 2019-03 Yes Univers 5 mg tablet 2-12 ity of 00:00: [place] [facility] rOPINIRole 2020- Yes Univers 5 mg tablet 2-12 ity of 00:00: [place] [facility] rOPINIRole 2020- Yes Univers 5 mg tablet 2-12 ity of 00:00: [place] [facility] rOPINIRole 2020- Yes Univers 5 mg tablet 2-12 ity of 00:00: [place] [facility] rOPINIRole 2020- Yes Univers 5 mg tablet 2-12 ity of 00:00: [place] [facility] rOPINIRole 2020- Yes Univers 5 mg tablet 2-12 ity of 00:00: [place] [facility] rOPINIRole 2020- Yes Univers 5 mg tablet 2-12 ity of 00:00: [place] [facility] rOPINIRole 2020- Yes Univers 5 mg tablet 2-12 ity of 00:00: [place] [facility] rOPINIRole 2020- Yes Univers 5 mg tablet 2-12 ity of 00:00: [place] [facility] rOPINIRole 2020- Yes Univers 5 mg tablet 2-12 ity of 00:00: [place] [facility] rOPINIRole 2020- Yes Univers 5 mg tablet 2-12 ity of 00:00: [place] [facility] rOPINIRole 2020- Yes Univers 5 mg tablet 2-12 ity of 00:00: [place] [facility] rOPINIRole 2020- Yes Univers 5 mg tablet 2-12 ity of 00:00: [place] [address] Medical Branch TRELEGY 2020- Yes Univers ELLIPTA 2-11 ity of 100-62.5-25 00:00: [facility] DsDv Medical Branch TRELEGY 2020- Yes Univers ELLIPTA 2-11 ity of 100-62.5-25 00:00: [place] mcg DsDv Medical Branch TRELEGY 2020- Yes Univers ELLIPTA 2-11 ity of 100-62.5-25 00:00: [place] mcg DsDv Medical Branch TRELEGY 2019- Yes Univers ELLIPTA 2-11 ity of 100-62.5-25 00:00: [place] mcg DsDv Medical Branch TRELEGY 2019-03 Yes Univers ELLIPTA 2-11 ity of 100-62.5-25 00:00: [place] mcg DsDv Medical Branch TRELEGY 2019- Yes Univers ELLIPTA 2-11 ity of 100-62.5-25 00:00: [place] mcg DsDv Medical Branch TRELEGY 2019- Yes Univers ELLIPTA 2-11 ity of 100-62.5-25 00:00: [place] mcg DsDv Medical Branch TRELEGY 2019-03 Yes Univers ELLIPTA 2-11 ity of 100-62.5-25 00:00: [place] mcg DsDv Medical Branch TRELEGY 2019-03 Yes Univers ELLIPTA 2-11 ity of 100-62.5-25 00:00: [place] mcg DsDv Medical Branch TRELEGY 2019-03 Yes Univers ELLIPTA 2-11 ity of 100-62.5-25 00:00: [place] mcg DsDv Medical Branch TRELEGY 2019-03 Yes Univers ELLIPTA 2-11 ity of 100-62.5-25 00:00: [place] mcg DsDv Medical Branch TRELEGY 2019-03 Yes Univers ELLIPTA 2-11 ity of 100-62.5-25 00:00: [place] mcg DsDv Medical Branch TRELEGY 2019-03 Yes Univers ELLIPTA 2-11 ity of 100-62.5-25 00:00: [place] mcg DsDv Medical Branch pantoprazol 2019- Yes TAKE 1 Univ ers e 40 mg EC 0-29 TABLET BY ity of tablet 00:00: MOUTH [place] 00 EVERY DAY Medical BEFORE Branch BREAKFAST DO NOT CRUSH, CHEW OR SPLIT. pantoprazol 2019-03 Yes TAKE 1 Univ ers e 40 mg EC 0-29 TABLET BY ity of tablet 00:00: MOUTH [place] 00 EVERY DAY Medical BEFORE Branch BREAKFAST DO NOT CRUSH, CHEW OR SPLIT. pantoprazol 2019-03 Yes TAKE 1 Univ ers e 40 mg EC 0-29 TABLET BY ity of tablet 00:00: MOUTH [place] 00 EVERY DAY Medical BEFORE Branch BREAKFAST DO NOT CRUSH, CHEW OR SPLIT. pantoprazol 2019-03 Yes TAKE 1 Univ ers e 40 mg EC 0-29 TABLET BY ity of tablet 00:00: MOUTH [place] 00 EVERY DAY Medical BEFORE Branch BREAKFAST DO NOT CRUSH, CHEW OR SPLIT. pantoprazol 2019- Yes TAKE 1 Univ ers e 40 mg EC 0-29 TABLET BY ity of tablet 00:00: MOUTH [place] 00 EVERY DAY Medical BEFORE Branch BREAKFAST DO NOT CRUSH, CHEW OR SPLIT. pantoprazol 2019- Yes TAKE 1 Univ ers e 40 mg EC 0-29 TABLET BY ity of tablet 00:00: MOUTH [place] 00 EVERY DAY Medical BEFORE Branch BREAKFAST DO NOT CRUSH, CHEW OR SPLIT. pantoprazol 2019- Yes TAKE 1 Univ ers e 40 mg EC 0-29 TABLET BY ity of tablet 00:00: MOUTH [place] 00 EVERY DAY Medical BEFORE Branch BREAKFAST DO NOT CRUSH, CHEW OR SPLIT. pantoprazol 2019- Yes TAKE 1 Univ ers e 40 mg EC 0-29 TABLET BY ity of tablet 00:00: MOUTH [place] 00 EVERY DAY Medical BEFORE Branch BREAKFAST DO NOT CRUSH, CHEW OR SPLIT. pantoprazol 2019- Yes TAKE 1 Univ ers e 40 mg EC 0-29 TABLET BY ity of tablet 00:00: MOUTH [place] 00 EVERY DAY Medical BEFORE Branch BREAKFAST DO NOT CRUSH, CHEW OR SPLIT. pantoprazol 2019- Yes TAKE 1 Univ ers e 40 mg EC 0-29 TABLET BY ity of tablet 00:00: MOUTH [place] 00 EVERY DAY Medical BEFORE Branch BREAKFAST DO NOT CRUSH, CHEW OR SPLIT. pantoprazol 2019- Yes TAKE 1 Univ ers e 40 mg EC 0-29 TABLET BY ity of tablet 00:00: MOUTH [place] 00 EVERY DAY Medical BEFORE Branch BREAKFAST DO NOT CRUSH, CHEW OR SPLIT. pantoprazol 2019- Yes TAKE 1 Univ ers e 40 mg EC 0-29 TABLET BY ity of tablet 00:00: MOUTH [place] 00 EVERY DAY Medical BEFORE Branch BREAKFAST DO NOT CRUSH, CHEW OR SPLIT. pantoprazol 2019- Yes TAKE 1 Univ ers e 40 mg EC 0-29 TABLET BY ity of tablet 00:00: MOUTH [place] 00 EVERY DAY Medical BEFORE Branch BREAKFAST DO NOT CRUSH, CHEW OR SPLIT. ipratropium 2019- Yes Univer s -albuteroL 0-28 ity of 0.5 mg-3 00:00: [place] mg(2.5 mg 00 Medical base)/3 mL Branch nebulizer solution ipratropium 2019-03 Yes Univer s -albuteroL 0-28 ity of 0.5 mg-3 00:00: [place] mg(2.5 mg 00 Medical base)/3 mL Branch nebulizer solution ipratropium 2019-03 Yes Univer s -albuteroL 0-28 ity of 0.5 mg-3 00:00: [place] mg(2.5 mg 00 Medical base)/3 mL Branch nebulizer solution ipratropium 2019-03 Yes Univer s -albuteroL 0-28 ity of 0.5 mg-3 00:00: [place] mg(2.5 mg 00 Medical base)/3 mL Branch nebulizer solution ipratropium 2019-03 Yes Univer s -albuteroL 0-28 ity of 0.5 mg-3 00:00: [place] mg(2.5 mg 00 Medical base)/3 mL Branch nebulizer solution ipratropium 2019-03 Yes Univer s -albuteroL 0-28 ity of 0.5 mg-3 00:00: [place] mg(2.5 mg 00 Medical base)/3 mL Branch nebulizer solution ipratropium 2019-03 Yes Univer s -albuteroL 0-28 ity of 0.5 mg-3 00:00: [place] mg(2.5 mg 00 Medical base)/3 mL Branch nebulizer solution ipratropium 2019-03 Yes Univer s -albuteroL 0-28 ity of 0.5 mg-3 00:00: [place] mg(2.5 mg 00 Medical base)/3 mL Branch nebulizer solution ipratropium 2019-03 Yes Univer s -albuteroL 0-28 ity of 0.5 mg-3 00:00: [place] mg(2.5 mg 00 Medical base)/3 mL Branch nebulizer solution ipratropium 2019-03 Yes Univer s -albuteroL 0-28 ity of 0.5 mg-3 00:00: [place] mg(2.5 mg 00 Medical base)/3 mL Branch nebulizer solution ipratropium 2019-03 Yes Univer s -albuteroL 0-28 ity of 0.5 mg-3 00:00: [place] mg(2.5 mg 00 Medical base)/3 mL Branch nebulizer solution ipratropium 2020-1 Yes Univer s -albuteroL 0-28 ity of 0.5 mg-3 00:00: [place] mg(2.5 mg 00 Medical base)/3 mL Branch nebulizer solution ipratropium 2019-1 Yes Univer s -albuteroL 0-28 ity of 0.5 mg-3 00:00: [place] mg(2.5 mg 00 Medical base)/3 mL Branch nebulizer solution DALIRESP 2019-0 Yes Univers 500 mcg 9-22 ity of tablet 00:00: [place] [facility] Branch DALIRESP 2020-0 Yes Univers 500 mcg 9-22 ity of tablet 00:00: [address] DALIRESP 2020-0 Yes Univers 500 mcg 9-22 ity of tablet 00:00: [place] [facility] DALIRESP 2020-0 Yes Univers 500 mcg 9-22 ity of tablet 00:00: [address] DALIRESP 2020-0 Yes Univers 500 mcg 9-22 ity of tablet 00:00: [address] DALIRESP 2020-0 Yes Univers 500 mcg 9-22 ity of tablet 00:00: [address] DALIRESP 2020-0 Yes Univers 500 mcg 9-22 ity of tablet 00:00: [address] DALIRESP 2020-0 Yes Univers 500 mcg 9-22 ity of tablet 00:00: [address] DALIRESP 2020-0 Yes Univers 500 mcg 9-22 ity of tablet 00:00: [address] DALIRESP 2020-0 Yes Univers 500 mcg 9-22 ity of tablet 00:00: [address] DALIRESP 2020-0 Yes Univers 500 mcg 9-22 ity of tablet 00:00: [address] DALIRESP 2020-0 Yes Univers 500 mcg 9-22 ity of tablet 00:00: [address] DALIRESP 2020-0 Yes Univers 500 mcg 9-22 ity of tablet 00:00: [address] predniSONE 2018- Yes 10mg Take 10 mg U nivers 10 mg 0-24 by mouth. ity of tablet 00:00: [address] predniSONE 2018- Yes 10mg Take 10 mg U nivers 10 mg 0-24 by mouth. ity of tablet 00:00: [address] predniSONE 2018- Yes 10mg Take 10 mg U nivers 10 mg 0-24 by mouth. ity of tablet 00:00: [place] [facility] predniSONE 2019-1 Yes 10mg Take 10 mg U nivers 10 mg 0-24 by mouth. ity of tablet 00:00: Medical Branch predniSONE 2019-1 Yes 10mg Take 10 mg U nivers 10 mg 0-24 by mouth. ity of tablet 00:00: [place] [facility] predniSONE 2019-1 Yes 10mg Take 10 mg U nivers 10 mg 0-24 by mouth. ity of tablet 00:00: Medical Branch predniSONE 2019-1 Yes 10mg Take 10 mg U nivers 10 mg 0-24 by mouth. ity of tablet 00:00: [place] [facility] predniSONE 2019-1 Yes 10mg Take 10 mg U nivers 10 mg 0-24 by mouth. ity of tablet 00:00: [place] [facility] predniSONE 2019-1 Yes 10mg Take 10 mg U nivers 10 mg 0-24 by mouth. ity of tablet 00:00: [place] [facility] predniSONE 2019-1 Yes 10mg Take 10 mg U nivers 10 mg 0-24 by mouth. ity of tablet 00:00: Medical Branch predniSONE 2019-1 Yes 10mg Take 10 mg U nivers 10 mg 0-24 by mouth. ity of tablet 00:00: [place] [facility] predniSONE 2019-1 Yes 10mg Take 10 mg U nivers 10 mg 0-24 by mouth. ity of tablet 00:00: [place] [facility] predniSONE 2019-1 Yes 10mg Take 10 mg U nivers 10 mg 0-24 by mouth. ity of tablet 00:00: [place] [facility] acetaminoph 2018-0 Yes TAKE 2 Univ ers en-codeine 6-27 TABLETS BY ity of 300-30 mg 00:00: MOUTH [place] tablet 00 EVERY SIX Medical HOURS Branch NEEDED FOR PAIN ibuprofen Yes TAKE 1 Univer s 800 mg 6-27 TABLET BY ity of tablet 00:00: MOUTH [place] 00 EVERY 8 Medical HOURS Branch NEEDED FOR PAIN WITH FOOD acetaminoph 2018-0 Yes TAKE 2 Univ ers en-codeine 6-27 TABLETS BY ity of 300-30 mg 00:00: MOUTH [place] tablet 00 EVERY SIX Medical HOURS Branch NEEDED FOR PAIN ibuprofen 2018- Yes TAKE 1 Univer s 800 mg 6-27 TABLET BY ity of tablet 00:00: MOUTH [place] 00 EVERY 8 Medical HOURS Branch NEEDED FOR PAIN WITH FOOD acetaminoph Yes TAKE 2 Univ ers en-codeine 6-27 TABLETS BY ity of 300-30 mg 00:00: MOUTH [place] tablet 00 EVERY SIX Medical HOURS Branch NEEDED FOR PAIN ibuprofen Yes TAKE 1 Univer s 800 mg 6-27 TABLET BY ity of tablet 00:00: MOUTH [place] 00 EVERY 8 Medical HOURS Branch NEEDED FOR PAIN WITH FOOD acetaminoph Yes TAKE 2 Univ ers en-codeine 6-27 TABLETS BY ity of 300-30 mg 00:00: MOUTH [place] tablet 00 EVERY SIX Medical HOURS Branch NEEDED FOR PAIN ibuprofen Yes TAKE 1 Univer s 800 mg 6-27 TABLET BY ity of tablet 00:00: MOUTH [place] 00 EVERY 8 Medical HOURS Branch NEEDED FOR PAIN WITH FOOD acetaminoph Yes TAKE 2 Univ ers en-codeine 6-27 TABLETS BY ity of 300-30 mg 00:00: MOUTH [place] tablet 00 EVERY SIX Medical HOURS Branch NEEDED FOR PAIN ibuprofen Yes TAKE 1 Univer s 800 mg 6-27 TABLET BY ity of tablet 00:00: MOUTH [place] 00 EVERY 8 Medical HOURS Branch NEEDED FOR PAIN WITH FOOD acetaminoph Yes TAKE 2 Univ ers en-codeine 6-27 TABLETS BY ity of 300-30 mg 00:00: MOUTH [place] tablet 00 EVERY SIX Medical HOURS Branch NEEDED FOR PAIN ibuprofen Yes TAKE 1 Univer s 800 mg 6-27 TABLET BY ity of tablet 00:00: MOUTH [place] 00 EVERY 8 Medical HOURS Branch NEEDED FOR PAIN WITH FOOD acetaminoph Yes TAKE 2 Univ ers en-codeine 6-27 TABLETS BY ity of 300-30 mg 00:00: MOUTH [place] tablet 00 EVERY SIX Medical HOURS Branch NEEDED FOR PAIN ibuprofen Yes TAKE 1 Univer s 800 mg 6-27 TABLET BY ity of tablet 00:00: MOUTH [place] 00 EVERY 8 Medical HOURS Branch NEEDED FOR PAIN WITH FOOD acetaminoph Yes TAKE 2 Univ ers en-codeine 6-27 TABLETS BY ity of 300-30 mg 00:00: MOUTH [place] tablet 00 EVERY SIX Medical HOURS Branch NEEDED FOR PAIN ibuprofen Yes TAKE 1 Univer s 800 mg 6-27 TABLET BY ity of tablet 00:00: MOUTH [place] 00 EVERY 8 Medical HOURS Branch NEEDED FOR PAIN WITH FOOD acetaminoph 2018- Yes TAKE 2 Univ ers en-codeine 6-27 TABLETS BY ity of 300-30 mg 00:00: MOUTH [place] tablet 00 EVERY SIX Medical HOURS Branch NEEDED FOR PAIN ibuprofen Yes TAKE 1 Univer s 800 mg 6-27 TABLET BY ity of tablet 00:00: MOUTH [place] 00 EVERY 8 Medical HOURS Branch NEEDED FOR PAIN WITH FOOD acetaminoph Yes TAKE 2 Univ ers en-codeine 6-27 TABLETS BY ity of 300-30 mg 00:00: MOUTH [place] tablet 00 EVERY SIX Medical HOURS Branch NEEDED FOR PAIN ibuprofen Yes TAKE 1 Univer s 800 mg 6-27 TABLET BY ity of tablet 00:00: MOUTH [place] 00 EVERY 8 Medical HOURS Branch NEEDED FOR PAIN WITH FOOD acetaminoph Yes TAKE 2 Univ ers en-codeine 6-27 TABLETS BY ity of 300-30 mg 00:00: MOUTH [place] tablet 00 EVERY SIX Medical HOURS Branch NEEDED FOR PAIN acetaminoph Yes TAKE 2 Univ ers en-codeine 6-27 TABLETS BY ity of 300-30 mg 00:00: MOUTH [place] tablet 00 EVERY SIX Medical HOURS Branch NEEDED FOR PAIN ibuprofen Yes TAKE 1 Univer s 800 mg 6-27 TABLET BY ity of tablet 00:00: MOUTH [place] 00 EVERY 8 Medical HOURS Branch NEEDED FOR PAIN WITH FOOD ibuprofen Yes TAKE 1 Univer s 800 mg 6-27 TABLET BY ity of tablet 00:00: MOUTH [place] 00 EVERY 8 Medical HOURS Branch NEEDED FOR PAIN WITH FOOD acetaminoph Yes TAKE 2 Univ ers en-codeine 6-27 TABLETS BY ity of 300-30 mg 00:00: MOUTH [place] tablet 00 EVERY SIX Medical HOURS Branch NEEDED FOR PAIN ibuprofen Yes TAKE 1 Univer s 800 mg 6-27 TABLET BY ity of tablet 00:00: MOUTH [place] 00 EVERY 8 Medical HOURS Branch NEEDED FOR PAIN WITH FOOD acetaminoph Yes TAKE 2 Univ ers en-codeine 6-27 TABLETS BY ity of 300-30 mg 00:00: MOUTH [place] tablet 00 EVERY SIX Medical HOURS Branch NEEDED FOR PAIN ibuprofen Yes TAKE 1 Univer s 800 mg 6-27 TABLET BY ity of tablet 00:00: MOUTH [place] 00 EVERY 8 Medical HOURS Branch NEEDED FOR PAIN WITH FOOD methylPREDN 2016-03 Yes Take by Un dinora ISolone 2-18 mouth ity of (MEDROL, 00:00: SEE-INSTRU Shiv as ERIKA,) 4 mg 00 CTIONS. Medica l tablets follow Branch package directions albuterol 2016-03 Yes 2.5mg Inhale 3 Uni vers 2.5 mg /3 2-18 mL every 4 ity of mL (0.083 00:00: (four) [place] %) 00 hours. May Medical nebulizer also Branch solution nebulize one extra every 6 hours. methylPREDN 2016-03 Yes Take by Un dinora ISolone 2-18 mouth ity of (MEDROL, 00:00: SEE-INSTRU Shiv as ERIKA,) 4 mg 00 CTIONS. Medica l tablets follow Branch package directions albuterol 2016-03 Yes 2.5mg Inhale 3 Uni vers 2.5 mg /3 2-18 mL every 4 ity of mL (0.083 00:00: (four) [place] %) 00 hours. May Medical nebulizer also Branch solution nebulize one extra every 6 hours. methylPREDN 2016-03 Yes Take by Un dinora ISolone 2-18 mouth ity of (MEDROL, 00:00: SEE-INSTRU Shiv as ERIKA,) 4 mg 00 CTIONS. Medica l tablets follow Branch package directions albuterol 2016-03 Yes 2.5mg Inhale 3 Uni vers 2.5 mg /3 2-18 mL every 4 ity of mL (0.083 00:00: (four) [place] %) 00 hours. May Medical nebulizer also Branch solution nebulize one extra every 6 hours. methylPREDN 2016-03 Yes Take by Un dinora ISolone 2-18 mouth ity of (MEDROL, 00:00: SEE-INSTRU Shiv as ERIKA,) 4 mg 00 CTIONS. Medica l tablets follow Branch package directions albuterol 2016-03 Yes 2.5mg Inhale 3 Uni vers 2.5 mg /3 2-18 mL every 4 ity of mL (0.083 00:00: (four) [place] %) 00 hours. May Medical nebulizer also Branch solution nebulize one extra every 6 hours. methylPREDN 2016-03 Yes Take by Un dinora ISolone 2-18 mouth ity of (MEDROL, 00:00: SEE-INSTRU Shiv as ERIKA,) 4 mg 00 CTIONS. Medica l tablets follow Branch package directions albuterol 2016-03 Yes 2.5mg Inhale 3 Uni vers 2.5 mg /3 2-18 mL every 4 ity of mL (0.083 00:00: (four) [place] %) 00 hours. May Medical nebulizer also Branch solution nebulize one extra every 6 hours. methylPREDN 2016-03 Yes Take by Un dinora ISolone 2-18 mouth ity of (MEDROL, 00:00: SEE-INSTRU Shiv as ERIKA,) 4 mg 00 CTIONS. Medica l tablets follow Branch package directions albuterol 2016-03 Yes 2.5mg Inhale 3 Uni vers 2.5 mg /3 2-18 mL every 4 ity of mL (0.083 00:00: (four) [place] %) 00 hours. May Medical nebulizer also Branch solution nebulize one extra every 6 hours. methylPREDN 2016-03 Yes Take by Un dinora ISolone 2-18 mouth ity of (MEDROL, 00:00: SEE-INSTRU Shiv as ERIKA,) 4 mg 00 CTIONS. Medica l tablets follow Branch package directions albuterol 2016-03 Yes 2.5mg Inhale 3 Uni vers 2.5 mg /3 2-18 mL every 4 ity of mL (0.083 00:00: (four) [place] %) 00 hours. May Medical nebulizer also Branch solution nebulize one extra every 6 hours. methylPREDN 2016-03 Yes Take by Un dinora ISolone 2-18 mouth ity of (MEDROL, 00:00: SEE-INSTRU Shiv as ERIKA,) 4 mg 00 CTIONS. Medica l tablets follow Branch package directions albuterol 2016-03 Yes 2.5mg Inhale 3 Uni vers 2.5 mg /3 2-18 mL every 4 ity of mL (0.083 00:00: (four) [place] %) 00 hours. May Medical nebulizer also Branch solution nebulize one extra every 6 hours. methylPREDN 2016-03 Yes Take by Un dinora ISolone 2-18 mouth ity of (MEDROL, 00:00: SEE-INSTRU Shiv as ERIKA,) 4 mg 00 CTIONS. Medica l tablets follow Branch package directions albuterol 2016-03 Yes 2.5mg Inhale 3 Uni vers 2.5 mg /3 2-18 mL every 4 ity of mL (0.083 00:00: (four) [place] %) 00 hours. May Medical nebulizer also Branch solution nebulize one extra every 6 hours. methylPREDN 2016-03 Yes Take by Un dinora ISolone 2-18 mouth ity of (MEDROL, 00:00: SEE-INSTRU Shiv as ERIKA,) 4 mg 00 CTIONS. Medica l tablets follow Branch package directions methylPREDN 2016-03 Yes Take by Un dinora ISolone 2-18 mouth ity of (MEDROL, 00:00: SEE-INSTRU Shiv as ERIKA,) 4 mg 00 CTIONS. Medica l tablets follow Branch package directions albuterol 2016-03 Yes 2.5mg Inhale 3 Uni vers 2.5 mg /3 2-18 mL every 4 ity of mL (0.083 00:00: (four) [place] %) 00 hours. May Medical nebulizer also Branch solution nebulize one extra every 6 hours. albuterol 2016-03 Yes 2.5mg Inhale 3 Uni vers 2.5 mg /3 2-18 mL every 4 ity of mL (0.083 00:00: (four) [place] %) 00 hours. May Medical nebulizer also Branch solution nebulize one extra every 6 hours. methylPREDN 2016-03 Yes Take by Un dinora ISolone 2-18 mouth ity of (MEDROL, 00:00: SEE-INSTRU Shiv as ERIKA,) 4 mg 00 CTIONS. Medica l tablets follow Branch package directions albuterol 2016-03 Yes 2.5mg Inhale 3 Uni vers 2.5 mg /3 2-18 mL every 4 ity of mL (0.083 00:00: (four) [place] %) 00 hours. May Medical nebulizer also Branch solution nebulize one extra every 6 hours. methylPREDN 2016-03 Yes Take by Un dinora ISolone 2-18 mouth ity of (MEDROL, 00:00: SEE-INSTRU Shiv as ERIKA,) 4 mg 00 CTIONS. Medica l tablets follow Branch package directions albuterol 2016-03 Yes 2.5mg Inhale 3 Uni vers 2.5 mg /3 2-18 mL every 4 ity of mL (0.083 00:00: (four) [place] %) 00 hours. May Medical nebulizer also Branch solution nebulize one extra every 6 hours. methylPREDN 2016-03 Yes Take by Un dinora ISolone 2-18 mouth ity of (MEDROL, 00:00: SEE-INSTRU Shiv as ERIKA,) 4 mg 00 CTIONS. Medica l tablets follow Branch package directions albuterol 2016-03 Yes 2.5mg Inhale 3 Uni vers 2.5 mg /3 2-18 mL every 4 ity of mL (0.083 00:00: (four) [place] %) 00 hours. May Medical nebulizer also Branch solution nebulize one extra every 6 hours. Vital Signs Vital Name Observation Time Observation Value Comments Source Systolic blood 2020-02-16 19:36:00 143 mm[Hg] Univer sit of [facility] Diastolic blood 2020-02-16 19:36:00 91 mm[facility]Hg[facility] Heart rate 2020-02-16 19:36:00 91 /min Universi [facility] Body temperature 2020-02-16 19:36:00 36.33 [facility] height 2020-02-16 19:36:00 175.3 cm Universi ty [facility] Body weight 2020-02-16 19:36:00 107.956 kg [facility] BMI 2020-02-16 19:36:00 35.15 kg/m2 [facility] Systolic blood 2020-02-16 19:36:00 143 mm[Hg] Univer sity of [facility] Diastolic blood 2020-02-16 19:36:00 91 [facility]Hg[facility] 2020-02-16 19:36:00 91 /min Universi ty [facility] Body temperature 2020-02-16 19:36:[address] [facility] Body height 2020-02-16 19:36:00 175.3 cm Universi [facility] Body weight 2020-02-16 19:36:00 107.956 kg Universi [facility] BMI 2020-02-16 19:36:00 35.15 kg/m2 [facility] Procedures Procedure Date / Time Performing Clinician Source Performed EXTERNAL PROVIDER RECORDS 2020-07-02 05:01:00 Doctor Unassigned, [facility] Name [facility] INSURANCE CORRESPONDENCE 2020-04-10 06:01:00 Doctor Unassigned, [facility] EXTERNAL PROVIDER RECORDS 2020-04-07 06:01:00 Doctor Unassigned, [facility] Name [facility] INSURANCE CORRESPONDENCE 2020-02-26 06:01:00 Doctor Unassigned, [facility] EXTERNAL PROVIDER RECORDS 2020-02-10 06:01:00 Doctor Unassigned, [facility] Encounters Start End Encounter Admission Attending Care Care Encounter Source Date/Time Date/Time Type Type Clinicians Facility Department ID 2021-01-01 Outpatient CHEMO [facility] [id number] [facility] 21:41:17 PRINCE moeller [facility] 2020-07-02 2020-07-02 Orders Doctor AARON [id number] 00:00:00 00:00:00 Only Unassigned, MARCIE [id number] [facility] [id number] [facility] 2020-07-02 2020-07-02 Orders Doctor WALKER [id number] [facility] 00:00:00 00:00:00 Only Unassigned, MARCIE [id number] [facility] [id number] Shiv as [id number] [address] 2020-06-14 2020-06-14 Outpatient JAN, [facility] [id number] [place] 00:00:00 00:00:00 TARUN [address] 2020-05-17 2020-05-17 Outpatient JAN, [facility] [id number] [place] 00:00:00 00:00:00 TARUN [address] 2020-04-26 2020-04-30 [id number] [place] 00:00:00 00:00:00 STARR [address] 2020-04-09 2020-04-16 [id number] [place] 00:00:00 00:00:00 STARR [address] 2020-04-14 2020-04-14 [facility] [id number] [facility] 00:00:00 00:00:00 Prince DE LA CRUZ [id number] [facility] [id number] [place] [phone] [address] 2020-04-14 2020-04-14 [facility] [id number] 00:00:00 00:00:00 Prince [place] [id number] [place] [id number] [facility] 2020-04-10 2020-04-10 Orders Doctor AARON [id number] Univers 00:00:00 00:00:00 Only Unassigned, MARCIE [id number] ity of [facility] 4.2.7.2.686 Shiv as [phone] [address] 2020-04-10 2020-04-10 Orders Doctor WALKER 1.2.840.114 [id number] 00:00:00 00:00:00 Only Unassigned, MARCIE 350.1.13.10 [facility] 4.2.7.2.686 [id number] [id number] 2020-04-07 2020-04-07 [facility] [id number] Univers 00:00:00 00:00:00 Management Prince DE [place] [id number] [facility] [id number] [phone] [address] 2020-04-07 2020-04-07 Orders Doctor WALKER [id number] [id number] Univers 00:00:00 00:00:00 Only Unassigned, MARCIE 350.1.13.10 ity of [facility] 4.2.7.2.686 Shiv as [phone] [address] 2020-03-18 2020-03-18 [facility] 1.2.840.114 [id number] Univers 00:00:00 00:00:00 Management Prince DE [place] CRU[place] [id number] it[place] [phone] [address] 2020-02-26 2020-02-26 Orders Doctor AARON [id number] [id number] Univers 00:00:00 00:00:00 Only Unassigned, MARCIE 350.1.13.10 ity of [facility] 4.2.7.2.686 Shiv as [phone] [address] 2020-02-18 2020-02-18 Telephone [facility] [id number] Univers 00:00:00 00:00:00 Prince DE [place] 350.1.13.10 ity [place]2.[place] [phone] [address] 2020-02-16 2020-02-16 Office [facility] 1.2.840.114 [id number] Univers 13:13:52 16:56:34 Visit Prince DE [place] CRUZ 350.1.13.[address] [facility] 4[place].2.[place] [phone] [address] 2020-02-16 2020-02-16 Office [facility] 1.2.840.114 [id number] 13:13:52 16:56:34 Visit Prince [place] 350.1.13.10 [place] 4.2.7.2.686 [id number] [facility] 2020-02-16 2020-02-16 Outpatient R CHEMO [facility] [id number] Univers 13:30:00 13:30:00 PRINCE [id number] sunni [facility] 2020-02-16 2020-02-16 Outpatient R CHEMO [facility] [id number] Univers 13:30:00 13:30:00 PRINCE moeller [facility] 2020-02-10 2020-02-10 Orders Doctor WALKER 1.2.840.114 [id number] Univers 00:00:00 00:00:00 Only Unassigned, MARCIE 350.1.13.10 ity of [facility] 4.2.7.2.686 Shiv as [phone] [address] 2019-05-02 2019-05-02 Outpatient R KWABENA CHRISTINE [facility] 10 [id number] [facility] 12:40:00 12:40:00 KWABENA CHRISTINE i [facility] Results Test Description Test Time Test Comments Results Result Comments Source SARS-CoV-2 (COVID-19) RNA [Presence] in Respiratory sp ecimen by 2020-04-10 05:12:28 LAZARO with probe detection Test Item Value Reference Range Interpretation Comme nts SARS-CoV-2 (COVID-19) RNA [Presence] in Respiratory Not detected No t-Detected specimen by LAZARO with probe detection (test code = 99094-1)
[2021-04-24] MEDS ORDERED: MORPHINE 4 MG/ML SYR ONE ×2 (15:51→16:39)
[2021-04-24] MEDS ORDERED: ONDANSETRON 4 MG/2 ML VIAL ONE (15:52)
[2021-04-24 16:07] LABS: Hematocrit 37.3 % (39.6-49.0); MPV 8.7 fL (7.6-11.3); RBC Red Blood Cell Count 6.28 M/uL (4.33-5.43)
[2021-04-24 16:15] LABS: BUN Blood Urea Nitrogen 12 mg/dL (7-18); Bicarbonate 27 mmol/L (21-32); Glucose Level 115 mg/dL (74-106); Sodium Level 133 mmol/L (136-145)
[2021-04-24 16:29] LABS: ALT/SGPT 18 U/L (12-78); AST/SGOT 21 U/L (15-37); Albumin 3.4 g/dL (3.4-5.0); Alkaline Phosphatase 74 U/L (45-117); Bilirubin Direct 0.2 mg/dL (0-0.2); Bilirubin Total 0.7 mg/dL (0.2-1.0); Lipase 42 U/L (73-393); Protein, Total 7.3 g/dL (6.4-8.2)
[2021-04-24] MEDS ORDERED: HYDROMORPHONE HCL 0.5 MG/0.5 ML INJ ONE (17:42)
[2021-04-24] MEDS ORDERED: PIPERACIL/TAZO 3.375 GM VIAL IV ONE (17:47)
[2021-04-24] MEDS ORDERED: NA CHLORIDE 0.9% 100 ML IV ONE (17:48)
--- NOTE | 2021-04-24 17:57 | RAD REPORT ---
EXAM DESCRIPTION: CT - Abdomen Pelvis W Contrast - 04/24/2021 5:32 pm CLINICAL HISTORY: Abdominal pain COMPARISON: July 2020 and 2015 TECHNIQUE: Computed axial tomography of the abdomen pelvis was obtained. 100 cc Isovue-300 was admin istered intravenously. Oral contrast was not requested which limits evaluation of bowel. All CT scans are performed using dose optimization technique as appropriate and may include automated exposure control or mA/KV adjustment according to patient size. FINDINGS: 8 millimeter left lower lobe nodule unchanged. Cholelithiasis. Gallbladder wall is thickened. Stranding within the adjacent fat. The liver, pancreas, adrenal and kidneys appear unremarkable. Splenectomy. Multiple splenic nodules are present measuring up to 4.5 centimeters. This is compatible with splenosis. There is no evidence of diverticulitis. Normal appendix. Small inguinal hernias IMPRESSION: Cholelithiasis. Thickened gallbladder wall probably indicating acute cholecystitis 8 millimeter left lower lobe nodule unchanged from 2016 is benign
[2021-04-24 18:15] LABS: Poikilocytosis 2+
[2021-04-24 18:16] LABS: Anisocytosis 2+; Blood Morphology Comment NOTED (NOT SEEN); Platelet Estimate INCR
--- NOTE | 2021-04-24 18:27 | EDPHYS ---
Physician Documentation [facility] Name: Jesus Noriega Age: 60 yrs Sex: Male : 1960 Arrival Date: 04/24/2021 Time: 14:53 Bed 18 Private MD: ED Physician Carlitos Hannon HPI: 04/24 16:08 This 60 yrs old Male presents to ER via Ambulatory with complaints of Abdominal Pain. jr8 16:08 This is a 60-year-old female that presented to the emergency room with sudden onset of jr8 diffuse abdominal pain and vomiting for the past 24 hours. Stated that he is also had 1 bout of diarrhea but denies any fever. Has never had similar symptoms in the past. Describes the pain is moderate in intensity and is a stabbing-like sensation.. Historical: - Allergies: 14:58 No Known Allergies; ww - Home Meds: 14:58 Daliresp Oral [Active]; Eliquis Oral [Active]; gabapentin Oral [Active]; Trazodone Oral ww [Active]; ropinirole 5 mg Oral tab nightly [Active]; Prednisone Oral [Active]; Iron CR Oral [Active]; Protonix Oral [Active]; - PMHx: 14:58 COPD; High Cholesterol; Hypertension; ww - PSHx: 14:58 left forearm; ww - Immunization history:: Adult Immunizations up to date. - Social history:: Smoking status: Patient reports the use of cigarette tobacco products, Patient/guardian denies using tobacco, Patient uses alcohol, occasionally. ROS: 16:08 Eyes: Negative for injury, pain, redness, and discharge, ENT: Negative for injury, jr8 pain, and discharge, Neck: Negative for injury, pain, and swelling, Cardiovascular: Negative for chest pain, palpitations, and edema, Respiratory: Negative for shortness of breath, cough, wheezing, and pleuritic chest pain, Back: Negative for injury and pain, MS/Extremity: Negative for injury and deformity, Skin: Negative for injury, rash, and discoloration, Neuro: Negative for headache, weakness, numbness, tingling, and seizure. 16:08 Abdomen/GI: Positive for abdominal pain, nausea, vomiting, and diarrhea, Negative for hematemesis, black/tarry stool, rectal pain, rectal bleeding. Exam: 16:08 Constitutional: This is a well developed, well nourished patient who is awake, alert, jr8 and in no acute distress. Cardiovascular: Regular rate and rhythm with a normal S1 and S2. No gallops, murmurs, or rubs. Normal PMI, no JVD. No pulse deficits. Respiratory: Lungs have equal breath sounds bilaterally, clear to auscultation and percussion. No rales, rhonchi or wheezes noted. No increased work of breathing, no retractions or nasal flaring. Back: No spinal tenderness. No costovertebral tenderness. Full range of motion. Skin: Warm, dry with normal turgor. Normal color with no rashes, no lesions, and no evidence of cellulitis. MS/ Extremity: Pulses equal, no cyanosis. Neurovascular intact. Full, normal range of motion. Neuro: Awake and alert, GCS 15, oriented to person, place, time, and situation. Cranial nerves II-XII grossly intact. Motor strength 5/5 in all extremities. Sensory grossly intact. 16:08 Abdomen/GI: Inspection: obese Bowel sounds: active, all quadrants, Palpation: soft, in all quadrants, moderate abdominal tenderness, in the right upper quadrant, left upper quadrant and right lower quadrant, mass, is not appreciated, rebound tenderness, is not appreciated, voluntary guarding, is not appreciated, involuntary guarding, is not appreciated, no appreciated organomegaly, Indicators: McBurney's point is not tender, Garza's sign is negative, Rovsing's sign is negative, Liver: tenderness, is not appreciated. Vital Signs: 14:56 BP 136 / 86; Pulse 84; Resp 18; Temp 98.4; Pulse Ox 97% on R/A; Weight 97.52 kg; Height ww 5 ft. 9 in. (175.26 cm); Pain 7/10; 15:09 BP 128 / 83; Pulse 90; Resp 18; Temp 99.9; Pulse Ox 93% on R/A; ke1 16:00 BP 110 / 67; Pulse 88; Resp 18; Pulse Ox 93% on R/A; ke1 16:00 BP 119 / 73; Pulse 87; Resp 19; Temp 98.8; Pulse Ox 96% ; ke1 19:43 BP 113 / 69 LA Supine (auto/reg); Pulse 101 MON; Resp 18 S; Temp 98.5(O); Pulse Ox 99% tk1 on R/A; Pain 8/10; 20:30 Pain 5/10; tk1 04/25 04:35 BP 013 / 0; tk1 04/24 14:56 Body Mass Index 31.75 (97.52 kg, 175.26 cm) ww [place] Coma Score: 04/24 19:43 Eye Response: spontaneous(4). Verbal Response: oriented(5). Motor Response: obeys tk1 commands(6). Total: 15. MDM: 15:11 Patient medically screened. jr8 18:23 Data reviewed: vital signs, nurses notes, lab test result(s), EKG, radiologic studies, jr8 CT scan, ultrasound. Data interpreted: Pulse oximetry: on room air is 96 %. Interpretation: normal. Counseling: I had a detailed discussion with the patient and/or guardian regarding: the historical points, exam findings, and any diagnostic results supporting the discharge/admit diagnosis, lab results, radiology results, the need for further work-up and treatment in the hospital. 18:28 ED course: Spoke with Dr. Deleon. Will take him in the AM. jr04/24 15:34 Order name: Basic Metabolic Panel; Complete Time: 16:37 jr8 04/24 15:34 Order name: CBC with Diff; Complete Time: 18:21 jr8 04/24 15:34 Order name: Hepatic Function; Complete Time: 16:37 jr8 04/24 15:34 Order name: Lipase; Complete Time: 16:37 jr8 04/24 16:20 Order name: Manual Differential; Complete Time: 18:21 EDMS 04/24 18:22 Order name: PT-INR; Complete Time: 19:15 jr8 04/24 15:34 Order name: CT Abd/Pelvis - IV Contrast Only; Complete Time: 18:16 jr8 04/24 18:22 Order name: Ptt, Activated; Complete Time: 19:15 jr8 04/24 18:28 Order name: COVID-19 SARS RT PCR (Document "Date of Onset" if Symptomatic); Complete Time: 20:51 04/24 23:13 Order name: Urinalysis; Complete Time: 23:22 EDMS 04/25 05:34 Order name: CBC with Automated Diff; Complete Time: 19:18 EDMS 04/25 05:56 Order name: Comprehensive Metabolic Panel; Complete Time: 19:18 EDMS 04/25 05:56 Order name: Magnesium; Complete Time: 19:18 EDIL 04/25 09:13 Order name: Manual Differential; Complete Time: 19:18 [facility] 04/24 15:34 Order name: IV Saline Lock; Complete Time: 16:03 8 04/24 15:34 Order name: Labs collected and sent; Complete Time: 16:03 8 04/24 17:40 Order name: US Abdomen Limited; Complete Time: 19:15 8 04/24 18:24 Order name: EKG - Nurse/Tech; Complete Time: 19:36 jr8 04/24 18:24 Order name: EKG; Complete Time: 18:[address] [facility] Administered Medications: 16:00 Drug: morphine 4 mg Route: IVP; Site: right forearm; ke1 16:15 Follow up: Response: Pain is decreased ke1 16:00 Drug: Zofran (Ondansetron) 4 mg Route: IVP; Site: right forearm; ke1 16:15 Follow up: Response: No adverse reaction ke1 16:41 CANCELLED (errorr): morphine 4 mg Sub-Q once; RASS on ADMIN: Combtv4, Very Agttd3, ke1 Agttd2, Rstlss1, AlertClm0, Drwsy-1, Lt Sdtn-2, Mod Sdtn-3, Dp Sdtn-4, UnArsble-5 16:42 Drug: morphine 4 mg Route: IVP; Site: right forearm; ke1 17:00 Follow up: Response: Pain is decreased ke1 17:42 Drug: Dilaudid (HYDROmorphone) 0.5 mg Route: IVP; Site: right forearm; ke1 18:00 Follow up: Response: Pain is decreased ke1 17:52 Drug: Zosyn (piperacillin-tazobactam) 3.375 grams Route: IVPB; Infused Over: 60 mins; ke1 Site: right forearm; 18:52 Follow up: IV Status: Completed infusion ke1 19:39 Drug: Dilaudid (HYDROmorphone) 1 mg Route: IVP; Rate: 0.5 mg/min; Infused Over: 2 mins; tk1 Site: right wrist; 20:30 Follow up: Pain 5/10 Adult; Response: Pain is decreased tk1 04/25 00:50 Drug: Albuterol 2.5 mg Route: Inhalation; tk1 04:35 Follow up: BP 013 / 0; Response: Wheezing diminished tk1 Disposition Summary: 04/24/21 18:27 Hospitalization Ordered Hospitalization Status: Inpatient Admission jr8 Provider: Emelina Hernández Condition: Stable jr8 Problem: new jr8 Symptoms: have improved jr8 Bed/Room Type: Standard [facility] 20:35[facility] Room Assignment: ERHOLD-(04/24/21 20:35) cg Diagnosis - Acute cholecystitis jr8 Forms: - Medication Reconciliation Form jr8 - SBAR form jr8 Addendum: 04/27/2021 23:15 Co-signature as Attending Physician, Carlitos Hannon MD I agree with the assessment and r n plan of care. Attestation: The patient's history, exam findings, diagnostics, and a summary of any interventions or procedures was reviewed in detail with Neo MEMBRENO. Signatures: Dispatcher [employer] EDMS Carlitos Hannon MD MD rn Roszak, Josh, PA PA jr8 Steve Dahl, HUNTER SKIN DIVER-C HUNTER SKIN DIVER-Cla1 Natalie Mclain RN RN Rebekah Newby RN RN ww Kirby, Tammie tk1 Leonel Islas RN RN ke1 Corrections: (The following items were deleted from the chart) 04/24 16:41 16:34 morphine 4 mg Sub-Q once; RASS on ADMIN: Combtv4, Very Agttd3, Agttd2, Rstlss1, ke1 AlertClm0, Drwsy-1, Lt Sdtn-2, Mod Sdtn-3, Dp Sdtn-4, UnArsble-5 ordered. ke1 20:35 18:27 Telemetry/MedSurg (Inpatient) jr8 cg 20:35 18:27 jr8 cg
--- NOTE | 2021-04-24 18:27 | ER ---
Nurse's Notes [facility] Name: Jesus Noriega Age: 60 yrs Sex: Male : 1960 Arrival Date: 04/24/2021 Time: 14:53 Bed 18 Private MD: Diagnosis: Acute cholecystitis Presentation: 04/24 14:56 Chief complaint: Patient states: Upper abdominal pain that started 2 days ago and has ww progressively gotten worse. Nausea and vomiting that started yesterday. Coronavirus screen: Vaccine status: Patient reports receiving the 2nd dose of the covid vaccine. Client denies travel out of the [place] in the last 14 days. Ebola Screen: Patient denies travel to an Ebola-affected area in the 21 days before illness onset. Initial Sepsis Screen: Does the patient meet any 2 criteria? No. Patient's initial sepsis screen is negative. Does the patient have a suspected source of infection? No. Patient's initial sepsis screen is negative. Risk Assessment: Do you want to hurt yourself or someone else? Patient reports no desire to harm self or others. Onset of symptoms was April 22, 2021. 14:56 Method Of Arrival: Ambulatory ww 14:56 Acuity: [place] 3 ww Triage Assessment: 14:58 General: Appears uncomfortable, Behavior is calm, cooperative. Pain: Complains of pain ww in epigastric area and right upper quadrant. Neuro: Level of Consciousness is awake, alert, obeys commands, Oriented to person, place, time, situation, Moves all extremities. Speech is normal. Respiratory: Airway is patent Respiratory effort is even, unlabored, Respiratory pattern is regular, symmetrical. GI: Reports upper abdominal pain, nausea, vomiting. Derm: Skin is healthy with good turgor. Historical: - Allergies: 14:58 No Known Allergies; ww - Home Meds: 14:58 Daliresp Oral [Active]; Eliquis Oral [Active]; gabapentin Oral [Active]; Trazodone Oral ww [Active]; ropinirole 5 mg Oral tab nightly [Active]; Prednisone Oral [Active]; Iron CR Oral [Active]; Protonix Oral [Active]; - PMHx: 14:58 COPD; High Cholesterol; Hypertension; ww - PSHx: 14:58 left forearm; ww - Immunization history:: Adult Immunizations up to date. - Social history:: Smoking status: Patient reports the use of cigarette tobacco products, Patient/guardian denies using tobacco, Patient uses alcohol, occasionally. Screenin:09 Abuse screen: Denies threats or abuse. Nutritional screening: No deficits noted. ke1 15:09 Tuberculosis screening: No symptoms or risk factors identified. Fall Risk No fall in ke1 past 12 months (0 pts). No secondary diagnosis (0 pts). IV access (20 points). Ambulatory Aid- None/Bed Rest/Nurse Assist (0 pts). Gait- Normal/Bed Rest/Wheelchair (0 pts) Mental Status- Oriented to own ability (0 pts). Total Tafoya Fall Scale indicates No Risk (0-24 pts). Assessment: 15:09 General: Appears uncomfortable, Behavior is calm, cooperative. Pain: Complains of pain ke1 in upper abdomen Pain currently is 10 out of 10 on a pain scale. Neuro: Level of Consciousness is awake, alert, Oriented to person, place, time, situation, Cardiovascular: Capillary refill < 3 seconds Patient's skin is warm and dry. Respiratory: Airway is patent Respiratory effort is unlabored, Respiratory pattern is regular, Breath sounds are clear bilaterally. GI: Bowel sounds present X 4 quads. Abd is soft Abdomen is tender to palpation in right upper quadrant and left upper quadrant. : Last void was April 24, 2021. Musculoskeletal: No deficits noted. 16:00 Reassessment: No changes from previously documented assessment. ke1 16:15 Reassessment: Patient states feeling better. ke1 16:20 Pain: Pain level that patient reports is acceptable is 4 out of 10 on a pain scale. ke1 16:40 Pain: Complains of pain in left upper quadrant and right upper quadrant Pain currently ke1 is 6 out of 10 on a pain scale. 17:00 Reassessment: Patient states feeling better. Pain: Pain currently is 4 out of 10 on a ke1 pain scale. 17:35 Pain: Complains of pain in left upper quadrant and right upper quadrant Pain currently ke1 is 7 out of 10 on a pain scale. 18:00 Pain: Pain currently is 3 out of 10 on a pain scale. Pain: Pain level that patient ke1 reports is acceptable is 3 out of 10 on a pain scale. 19:40 General: Appears comfortable, emaciated, well nourished, Behavior is calm, cooperative. tk1 Pain: Complains of pain in diaphragm Pain does not radiate. Pain currently is 08 out of 10 on a pain scale. Quality of pain is described as sharp, Pain began 2-3 days ago. Is intermittent. Neuro: Level of Consciousness is awake, alert, Oriented to person, place, time, situation, Appropriate for age Senior Research Engineer are equal bilaterally Moves all extremities. Full function Gait is steady, Speech is normal, Facial symmetry appears normal. Cardiovascular: Capillary refill < 3 seconds is brisk in bilateral fingers Clubbing of nail beds is absent Patient's skin is warm and dry. Respiratory: Airway is patent Respiratory effort is even, unlabored, Respiratory pattern is regular, symmetrical, Breath sounds are clear bilaterally. GI: Bowel sounds present X 4 quads. Abd is soft Abdomen is tender to palpation. : No deficits noted. No signs and/or symptoms were reported regarding the genitourinary system. EENT: No deficits noted. No signs and/or symptoms were reported regarding the EENT system. Derm: No deficits noted. No signs and/or symptoms reported regarding the dermatologic system. Musculoskeletal: No deficits noted. Vital Signs: 14:56 BP 136 / 86; Pulse 84; Resp 18; Temp 98.4; Pulse Ox 97% on R/A; Weight 97.52 kg; Height ww 5 ft. 9 in. (175.26 cm); Pain 7/10; 15:09 BP 128 / 83; Pulse 90; Resp 18; Temp 99.9; Pulse Ox 93% on R/A; ke1 16:00 BP 110 / 67; Pulse 88; Resp 18; Pulse Ox 93% on R/A; ke1 16:00 BP 119 / 73; Pulse 87; Resp 19; Temp 98.8; Pulse Ox 96% ; ke1 19:43 BP 113 / 69 LA Supine (auto/reg); Pulse 101 MON; Resp 18 S; Temp 98.5(O); Pulse Ox 99% tk1 on R/A; Pain 8/10; 20:30 Pain 5/10; tk1 04/25 04:35 BP 013 / 0; tk1 04/24 14:56 Body Mass Index 31.75 (97.52 kg, 175.26 cm) ww [place] Coma Score: 04/24 19:43 Eye Response: spontaneous(4). Verbal Response: oriented(5). Motor Response: obeys tk1 commands(6). Total: 15. ED Course: 14:53 Patient arrived in ED. as 14:58 Triage completed. ww 14:58 Arm band placed on left wrist. ww 15:04 Leonel Islas, RN is Primary Nurse. ke1 15:11 Neo Daugherty PA is PHCP. jr8 15:11 Carlitos Hannon MD is Attending Physician. jr8 15:45 Inserted saline lock: 20 gauge in right forearm, using aseptic technique. ke1 16:17 Notified Nurse Practitioner and/or Physician Mixer Operator Raw Salt of a critical lab result(s), WBC ke1 23 to Neo. 17:07 Patient has correct armband on for positive identification. Placed in gown. Bed in low ke1 position. Call light in reach. Side rails up X 1. 17:32 CT Abd/Pelvis - IV Contrast Only In Process Unspecified. EDMS 18:24 Emelina Hernández MD is Hospitalizing Provider. jr8 18:44 US Abdomen Limited In Process Unspecified. EDMS 19:32 COVID-19 SARS RT PCR (Document "Date of Onset" if Symptomatic) Sent. tk1 19:36 EKG done, by ED staff, reviewed by Neo MEMBRENO. lt3 19:43 Patient has correct armband on for positive identification. Bed in low position. Call tk1 light in reach. Side rails up X 1. Pulse ox on. NIBP on. 19:43 No provider procedures requiring assistance completed. IV is patent, with fluids tk1 infusing freely, with good blood return. 19:43 Patient maintains SpO2 saturation greater than 95% on room air. tk1 Administered Medications: 16:00 Drug: morphine 4 mg Route: IVP; Site: right forearm; ke1 16:15 Follow up: Response: Pain is decreased ke1 16:00 Drug: Zofran (Ondansetron) 4 mg Route: IVP; Site: right forearm; ke1 16:15 Follow up: Response: No adverse reaction ke1 16:41 CANCELLED (errorr): morphine 4 mg Sub-Q once; RASS on ADMIN: Combtv4, Very Agttd3, ke1 Agttd2, Rstlss1, AlertClm0, Drwsy-1, Lt Sdtn-2, Mod Sdtn-3, Dp Sdtn-4, UnArsble-5 16:42 Drug: morphine 4 mg Route: IVP; Site: right forearm; ke1 17:00 Follow up: Response: Pain is decreased ke1 17:42 Drug: Dilaudid (HYDROmorphone) 0.5 mg Route: IVP; Site: right forearm; ke1 18:00 Follow up: Response: Pain is decreased ke1 17:52 Drug: Zosyn (piperacillin-tazobactam) 3.375 grams Route: IVPB; Infused Over: 60 mins; ke1 Site: right forearm; 18:52 Follow up: IV Status: Completed infusion ke1 19:39 Drug: Dilaudid (HYDROmorphone) 1 mg Route: IVP; Rate: 0.5 mg/min; Infused Over: 2 mins; tk1 Site: right wrist; 20:30 Follow up: Pain 5/10 Adult; Response: Pain is decreased tk1 04/25 00:50 Drug: Albuterol 2.5 mg Route: Inhalation; tk1 04:35 Follow up: BP 013 / 0; Response: Wheezing diminished tk1 Outcome: 04/24 18:27 Decision to Hospitalize by Provider. jr8 04/25 15:09 Patient left the ED. ll1 Signatures: Dispatcher [employer] Annika Monte Josh, PA PA jr8 Ginger Wheeler RN RN ll1 Nancy Ibrahim 3 Rebekah Newby RN RN ww Kirby, Tammie tk1 Leonel Islas RN RN ke1 Corrections: (The following items were deleted from the chart) 04/24 17:07 17:05 Abuse screen: Denies threats or abuse. ke1 ke1 17:07 17:05 Nutritional screening: No deficits noted. ke1 ke1 17:13 16:20 Reassessment: Patient states feeling better. ke1 ke1
[2021-04-24 19:12] LABS: Protime INR 1.51
--- NOTE | 2021-04-24 19:14 | RAD REPORT ---
EXAM DESCRIPTION: US - Abdomen Exam Limited - 04/24/2021 6:44 pm CLINICAL HISTORY: Abdominal pain. COMPARISON: CT April 24, 2021 FINDINGS: 2.2 centimeter gallstone within the neck of the gallbladder. Moderate gallbladder wall thi ckening. Gallbladder wall is also edematous. Comet tail artifact within the gallbladder wall may toan junior adenomyomatosis Borderline dilatation common bile duct IMPRESSION: Cholelithiasis. Thickened gallbladder wall likely acute cholecystitis
--- NOTE | 2021-04-24 19:25 | P.HP ---
Certification for Inpatient Patient admitted to: Inpatient With expected LOS: >2 Midnights Patient will require the following post-hospital care: None Practitioner: I am a practitioner with admitting privileges, knowledge of patient current condition, hospital course, and medical plan of care. Services: Services provided to patient in accordance with Admission requirements found in Title 42 Section 412.3 of the Code of Federal Regulations Patient History Date of Service: 04/24/21 Reason for admission: Acute cholecystitis History of Present Illness: 60-year-old male with history of hypertension, hyperlipidemia, COPD, DVT on Eliquis presents the emergency [place] for 2 days of right upper quadrant pain. Patient also reports nausea and vomiting. Patient was evaluated here in the emergency department labs were significant for white blood cell count 23 hemoglobin 10.3 medical 37.3 sodium 133 Covid test pending abdominal ultrasound demonstrates 2.2 cm gallstone within the neck of the gallbladder moderate gallbladder wall thickening gallbladder edematous, to artifact within the gallbladder may indicate adenomyomatosis borderline dilatation of the gallbladder duct. CT abdomen pelvis with IV contrast demonstrates cholelithiasis thickened gallbladder wall probably indicating acute cholecystitis 8 mm left lower lobe nodule unchanged from 2016 is benign. Case was discussed with general surgery by ED provider will admit for further evaluation and management plan for surgery in the morning. Allergies No Known Allergies Allergy (Verified 11/29/11 08:23) - Past Medical/Surgical History -: Hypertension -: Hyperlipidemia -: COPD -: DVT on chronic anticoagulation -: Thrombectomy left arm -: Ex lap, as a child -: Multiple distal tip finger amputations Psychosocial/ Personal History: Patient lives at home with his family - Family History Mother -: Heart disease - Social History Smoking Status: Former smoker Alcohol use: Yes CD- Drugs: No Caffeine use: Yes Place of Residence: Home Review of Systems 10-point ROS is otherwise unremarkable Gastrointestinal: Nausea, Vomiting, Abdominal Pain Physical Examination - Physical Exam General: Alert, In no apparent distress, Oriented x3 HEENT: Atraumatic, PERRLA, Mucous membr. moist/pink, EOMI, Sclerae nonicteric Neck: Supple, 2+ carotid pulse no bruit, No LAD, Without JVD or thyroid abnormality Respiratory: Clear to auscultation bilaterally, Normal air movement Cardiovascular: Regular rate/rhythm, Normal S1 S2 Gastrointestinal: Normal bowel sounds, No guarding, Tenderness (Moderate epigastric/right upper quadrant abdominal tenderness) Musculoskeletal: No tenderness Integumentary: No rashes Neurological: Normal speech, Normal strength at 5/5 x4 extr, Normal tone, Normal affect Lymphatics: No axilla or inguinal lymphadenopathy - Studies Laboratory Data (last 24 hrs) 04/24/21 18:47: PT 17.4 H, INR 1.51, APTT 30.5 04/24/21 15:45: WBC 23.00 H*, Hgb 10.3 L, Hct 37.3 L, Plt Count 417 H 04/24/21 15:45: Sodium 133 L, Potassium 4.0, BUN 12, Creatinine 0.76, Glucose 115 H, Total Bilirubin 0.7, AST 21, ALT 18, Alkaline Phosphatase 74, Lipase 42 L Assessment and Plan - Plan Assessment: Leukocytosis, acute cholecystitis History of DVT on chronic anticoagulation therapy with Eliquis Hypertension Hyperlipidemia COPD Alcohol abuse Plan: Leukocytosis, acute cholecystitis: N.p.o., IVF, as needed pain medications and antiemetics. General surgery on board patient took his Eliquis this morning. Plan for surgery tomorrow morning. History of DVT on chronic anticoagulation therapy with Eliquis: Hold Eliquis. Restart when approved by surgery. Hypertension: Patient not taking any medications at home stopped them on his own, will evaluate blood pressure during hospital stay determine need for antihypertensives Hyperlipidemia: Patient not taking any medications at home stopped them on his own will obtain lipid panel start medications as appropriate COPD: As needed inhalers/nebulizer Alcohol abuse: Patient reports he drinks about a sixpack a day has not had any drink in the past 2 days has never had alcohol withdrawals will monitor for signs and symptoms of alcohol jaundice provide Ativan as needed. DVT PPX:SCD-hold eliquis Code status:Full Discharge Plan: Home Plan to discharge in: 48 Hours - Advance Directives Does patient have a Living Will: No Does patient have a Durable POA for Healthcare: No - Code Status/Comfort Care Code Status Assessed: Yes (Full) Time Spent Managing Pts Care (In Minutes): 55
[2021-04-24] MEDS ORDERED: HYDROMORPHONE HCL 1 MG/ML INJ ONE ×2 (19:39→23:37)
[2021-04-24] MEDS: D5 0.45 NS 1,000 ML IV SCH (20:35)
[2021-04-24] MEDS ORDERED: ONDANSETRON 4 MG/2 ML VIAL IV PRN (20:35)
[2021-04-24 20:55] VITALS: BMI 31.6
[2021-04-24] MEDS ORDERED: D5 0.45 NS 1,000 ML IV ONE (21:52)
[2021-04-24 23:02] LABS: Urine Appearance CLEAR (Clear); Urine Bilirubin NEGATIVE (Negative); Urine Blood NEGATIVE (Negative); Urine Color YELLOW (Yellow); Urine Glucose NEGATIVE (Negative); Urine Protein NEGATIVE (Negative); Urine Specific Gravity >=1.030 (1.005-1.030); Urine pH 5.5 (5.0-7.0)
[2021-04-24 23:13] LABS: Urine Microscopic Reflex NO UMIC
[2021-04-24] MEDS: HYDROMORPHONE HCL 1 MG/ML INJ IV PRN (23:32)
[2021-04-25] MEDS ORDERED: ALBUTEROL 2.5 MG/3 ML NEB SOL NEB PRN (00:35)
[2021-04-25] MEDS ORDERED: ALBUTEROL 2.5 MG/3 ML NEB SOL ONE (00:49)
[2021-04-25] MEDS: PIPER TAZO 3.375 GM in NA CHLORIDE 0.9% 100 ML IV SCH ×3 (01:00→17:20)
[2021-04-25] MEDS ORDERED: NA CHLORIDE 0.9% 100 ML IV ONE ×2 (01:44→10:08)
[2021-04-25] MEDS ORDERED: PIPERACIL/TAZO 3.375 GM VIAL IV ONE ×2 (01:44→10:07)
[2021-04-25] MEDS ORDERED: HYDROMORPHONE HCL 1 MG/ML INJ ONE ×3 (04:29→11:51)
[2021-04-25] MEDS: HYDROMORPHONE HCL 1 MG/ML INJ IV PRN ×3 (04:31→11:48)
[2021-04-25 05:28] LABS: Hematocrit 35.5 % (39.6-49.0); MPV 8.7 fL (7.6-11.3); RBC Red Blood Cell Count 5.95 M/uL (4.33-5.43)
[2021-04-25 05:56] LABS: Bilirubin Total 1.1 mg/dL (0.2-1.0); Magnesium 2.2 mg/dL (1.8-2.4); Potassium 3.5 mmol/L (3.5-5.1); Protein, Total 6.9 g/dL (6.4-8.2)
[2021-04-25] MEDS: D5 0.45 NS 1,000 ML IV SCH ×2 (06:35→17:20)
[2021-04-25] MEDS ORDERED: D5 0.45 NS 1,000 ML IV ONE (07:20)
[2021-04-25 09:12] LABS: Anisocytosis 3+; Blood Morphology Comment NOTED (NOT SEEN); Platelet Estimate ADEQ; Platelets, Giant PRESENT
[2021-04-25 09:13] LABS: Hypochromasia 3+; Poikilocytosis SLIGHT; Polychromasia 1+
[2021-04-25] MEDS ORDERED: FENTANYL CITR 250 MCG/5 ML ONE (12:23)
[2021-04-25] MEDS ORDERED: MIDAZOLAM HCL 2 MG/2 ML INJ ONE (12:23)
[2021-04-25] MEDS ORDERED: LIDOCAINE 2% MPF 5 ML VIAL ONE (12:23)
[2021-04-25] MEDS ORDERED: dexAMETHasone 10 MG/ML VIAL ONE (12:23)
[2021-04-25] MEDS ORDERED: propofoL 200 MG/20 ML VIAL IV ONE (12:23)
[2021-04-25] MEDS ORDERED: ROCURONIUM 50 MG/5 ML VIAL IV ONE (12:23)
[2021-04-25] MEDS ORDERED: ONDANSETRON 4 MG/2 ML VIAL ONE ×2 (12:24→15:47)
[2021-04-25] MEDS ORDERED: Ringers Lactate 1,000 ML IV ONE ×2 (13:16→14:33)
--- NOTE | 2021-04-25 13:37 | P.HP ---
Date of Service: 04/25/21 PC: This 60-year-old male presents to the emergency room with a 3-day history of severe right upper quadrant abdominal pain for diagnosis and treatment. HPC: Patient has a fatty food, noted that he has severe right upper quadrant abdominal pain. Pain has persisted for the last 48 hours.: Michele and came to the emergency room. Describes it as severe unrelenting pressure in the right upper abdomen. PSHx: Surgery on his left forearm PMHx: Hyperlipidemia, hypertension, COPD, chronic DVT Social Hx: Smokes a pack of cigarettes a day, no known allergies Sys R: Chronic cough. Reasonable exercise tolerance. Has otherwise felt good but on questioning noticed that he has lost about 20 pounds over the last few months. O/E: Awake alert vital signs are stable obviously uncomfortable HEENT: Nonicteric Chest: Chest movement equal bilaterally Abd: Tender in the right upper quadrant [place]: Intact Data: Has documented gallstones with a stone most likely impacted in the neck of the gallbladder Impression: Acute on chronic cholecystitis with cholelithiasis, biliary colic Plan: I will taken the operating room for laparoscopic possible open cholecystectomy. We will also do a cholangiogram. The risks of this procedure have been discussed. The possibility of bleeding, infection, injury to bile ducts blood vessels and intestines has been described. The possible need for an open and/or further surgeries and procedures was discussed. He understands and wants to proceed.
[2021-04-25] MEDS ORDERED: KETOROLAC 30 MG/ML INJ ONE (14:55)
[2021-04-25] MEDS ORDERED: MORPHINE 4 MG/ML SYR ONE (15:37)
[2021-04-25] MEDS: HYDROMORPHONE HCL 1 MG/ML INJ ONE ×6 (15:41→16:26)
--- NOTE | 2021-04-25 16:05 | P.OP ---
Preoperative diagnosis: Acute on chronic cholecystitis with cholelithiasis, biliary colic Postoperative diagnosis: The same Primary procedure: Laparoscopic cholecystectomy Secondary procedure: Cholangiogram Other procedure(s): Tap block Anesthesia: General Estimated blood loss: Some 20 cc Specimen: Gallbladder and contents Operative Technique: The patient was brought to the operating room and placed supine on the table. After the induction of adequate general endotracheal anesthesia, the area of the abdomen was prepped with a DuraPrep solution, and he was draped in usual aseptic manner. A subumbilical incision was made. This was brought down through the skin and subcutaneous tissue. A pneumoperitoneum was created to approximately 12 mmHg. We were able to visualize the right upper quadrant. The first thing of note was the amount of omentum that was up above the liver itself. A 5 mm trocar was placed in the upper midline. A grasper was used to probe this area and it was found to be a marked amount of adhesions of the serosa to the anterior surface of the liver. There was an obviously an inflammatory process just under the liver edge where the gallbladder was. Two 5 mm trochars were now placed on the right lateral side of the abdomen. With the patient in marked reverse Trendelenburg and rolled to the left we will visualize the right lower quadrant. These thick dense adhesions were taken off the inferior edge of the right lobe of the liver. We finally were able to expose the gallbladder itself. There was a tremendous inflammatory response around the gallbladder. This had not quite yet formed hard peel but was very edematous. This was dissected off the liver and the inferior surface of the gallbladder. We were now able to completely detach it from the liver and the gallbladder itself. We saw thick swollen edematous gallbladder with obvious stone stuck by Tanner's pouch. We aspirated the contents of the gallbladder. A grasper was now placed on Tanner's pouch. With gentle dissection we were able to dissect and expose the cystic duct and artery. A clip was placed between the gallbladder and the cystic duct. An opening was made into the cystic duct through which we passed our cholangiocatheter. The cholangiocatheter showed good flow of contrast into the duodenum. Our initial film shows the balloon in the common bile duct. This was withdrawn to pressure injecting demonstrate the upper radicles as well as a clear extrahepatic biliary tree. Once we had completed our cholangiogram the balloon was deflated the catheter passed easily into the duodenum. The catheter was now removed. Clips were placed on the distal portion of the cystic duct. The cystic artery was also clipped in the usual manner. Both of these structures were then divided. Dissection was then begun to take the gallbladder out of the gallbladder fossa. A tedious dissection allowed us to do so. Adequate hemostasis having been ensured once the gallbladder was detached and was placed into an Endo Catch and brought out through the umbilical trochars site. Attention was turned back towards the right upper quadrant. The area was irrigated with a copious amount of a saline solution. The umbilical trocar site was approximated with the Endo Close and an absorbable suture. At the end of the procedure he was in a stable condition was sent to the recovery room. Needle sponge instrument count were correct. No drains were placed. Complications: None Transferred to: Recovery Room Condition: Good
--- NOTE | 2021-04-25 17:29 | RAD REPORT ---
EXAM DESCRIPTION: RADCholangiogram Oper-Xray Or04/25/2021 3:33 pm CLINICAL HISTORY: Abdominal pain FINDINGS: The examination was performed by Dr. Deleon. The cystic duct was cannulated and contrast administered. Contrast flowed into the duodenum. The biliary tree is normal caliber Fluoroscopy time 0.2 minutes. Four fluoroscopic spot images obtained
[2021-04-25] MEDS: HYDROCODONE/APAP 7.5/325 MG TAB PO PRN (18:42)
[2021-04-25] MEDS ORDERED: PNEUMOCOCCAL VACCINE 0.5 ML IMVAC ONE (19:00)
[2021-04-25] MEDS ORDERED: INFLUENZA VACCINE (for 6+ mo) 0.5 ML DOSE IMVAC ONE (19:00)
[2021-04-25] MEDS: MORPHINE 4 MG/ML SYR IV PRN (21:37)
--- NOTE | 2021-04-25 23:10 | P.PN ---
Subjective Date of Service: 04/25/21 PATIENT CLINICALLY DOING WELL. PATIENT DENIES ANY NEW COMPLAINTS. CLINICAL SYMPTOMS CONTINUED TO IMPROVE. Review of Systems 10-point ROS is otherwise unremarkable Physical Examination - Vital Signs Temperature: 97 F Blood Pressure: 109/61 Pulse: 76 Respirations: 18 Pulse Ox (%): 92 - Physical Exam General: Alert, In no apparent distress, Oriented x3 HEENT: Atraumatic, PERRLA, EOMI Neck: Supple, JVD not distended Respiratory: Clear to auscultation bilaterally, Normal air movement Cardiovascular: Regular rate/rhythm, Normal S1 S2 Gastrointestinal: Hypoactive, Non-distended, No rebound, No guarding, Tenderness Musculoskeletal: No clubbing, No swelling, No tenderness Neurological: Normal strength at 5/5 x4 extr, Sensation intact, Cranial nerves 3-12 intact, Normal reflexes 2+ - Studies Medications List Reviewed: Yes Assessment & Plan - Problems (Diagnosis) (1) Acute cholecystitis Current Visit: Yes Status: Acute - Plan 1. Continue with IV hydration 2. Continue with IV antibiotics 3. Continue with pain control 4. NPO; start diet in a.m. 5. Appreciate General surgery consultation 6. Monitor labs 7. GI and DVT prophylaxis Discharge Plan: Home Plan to discharge in: Greater than 2 days - Advance Directives Does patient have a Living Will: No Does patient have a Durable POA for Healthcare: No - Code Status/Comfort Care Code Status Assessed: Yes Code Status: Full Code Critical Care: No Time Spent Managing PTS Care (In Minutes): 45
[2021-04-25] MEDS ORDERED: MELATONIN 5 MG TABLET PO PRN (23:58)
[2021-04-26] MEDS: HYDROCODONE/APAP 7.5/325 MG TAB PO PRN ×2 (00:18→13:44)
[2021-04-26] MEDS: PIPER TAZO 3.375 GM in NA CHLORIDE 0.9% 100 ML IV SCH ×2 (00:19→09:00)
[2021-04-26] MEDS: D5 0.45 NS 1,000 ML IV SCH (02:35)
[2021-04-26 07:15] LABS: Absolute Lymphocytes (CBC) 1.3 K/uL (0.7-4.9); Hematocrit 31.3 % (39.6-49.0); Lymphocytes % 8.2 % (15.3-44.8); MPV 8.5 fL (7.6-11.3); RBC Red Blood Cell Count 5.29 M/uL (4.33-5.43)
[2021-04-26 07:38] LABS: Albumin 2.8 g/dL (3.4-5.0); Bilirubin Total 0.7 mg/dL (0.2-1.0); Magnesium 2.4 mg/dL (1.8-2.4); Potassium 3.9 mmol/L (3.5-5.1); Protein, Total 6.9 g/dL (6.4-8.2)
[2021-04-26] MEDS: MORPHINE 4 MG/ML SYR IV PRN (09:01)
[2021-04-26 13:44] VITALS: O2SAT 92
--- NOTE | 2021-04-26 14:12 | P.PN ---
Date of Service: 04/26/21 S: Patient has some right-sided soreness. Mostly muscle in nature. Remains afebrile. Much better than when he first came in. O: Incisions are clean, patient looks well today, pain is controlled on oral medication A: Surgically stable PE: I will discharge this patient today. I would much rather him be at home. He is a COPD year. He will be more inclined to get up walk around, use his incentive spirometry, and I explained this to the patient. He is agreeable. He will be discharged today, he will have pain medicine and antibiotics ordered for him. He will follow up with me next week in my office. Should he have any questions or problems, he knows to return to the emergency room or contact me.
[2021-04-26 17:01] VITALS: BP 109/65; TEMP 98
== END 2021-04-26 16:50 | disposition home or self-care (01) | DRG 419 ==
LOC: ER 14:52 → ERHOLD 19:13 → 2ND 04-25 15:55
PROVIDERS: ADMIT Hospitalist; ATTEND Hospitalist
PROC: BF121ZZ Fluoroscopy of Gallbladder using Low Osmolar Contrast (ICD-10-PCS; 2021-04-25)
PROC: 0FT44ZZ Resection of Gallbladder, Percutaneous Endoscopic Approach (ICD-10-PCS; principal; 2021-04-25 13:00)
DX: K80.66 Calculus of gallbladder and bile duct with acute and chronic cholecystitis without obstruction (principal); E78.5 Hyperlipidemia, unspecified; I10 Essential (primary) hypertension; J44.9 Chronic obstructive pulmonary disease, unspecified; D72.829 Elevated white blood cell count, unspecified; F10.10 Alcohol abuse, uncomplicated; F17.210 Nicotine dependence, cigarettes, uncomplicated; Z79.01 Long term (current) use of anticoagulants; Z79.52 Long term (current) use of systemic steroids; Z91.14 Patient's other noncompliance with medication regimen; Z79.899 Other long term (current) drug therapy; Z86.718 Personal history of other venous thrombosis and embolism; Z20.822 Contact with and (suspected) exposure to COVID-19
CPT/HCPCS: 36415; 74177; 74300; 76705; 80048; 80053; 80076; 81003; 83690; 83735; 84145; 85025; 85610; 85730; 88304; 93005; 94010; 94640; 99285; J1100; J1170; J2250; J2405; J2543; J2704; J3010; J7120; J7799; Q9967; U0003

== ENCOUNTER 2021-09-16 11:13 | Emergency (ER) | payer OTHER ==
[2021-09-16 12:35] LABS: Protime INR 1.1
[2021-09-16 12:36] LABS: Hematocrit 44.2 % (39.6-49.0)
[2021-09-16 12:39] LABS: RBC Red Blood Cell Count 5.97 M/uL (4.33-5.43)
[2021-09-16 12:51] LABS: Albumin 3.4 g/dL (3.4-5.0); Bilirubin Direct 0.1 mg/dL (0-0.2); Bilirubin Total 0.5 mg/dL (0.2-1.0); Magnesium 2.2 mg/dL (1.8-2.4); Potassium 4.1 mmol/L (3.5-5.1); Protein, Total 6.8 g/dL (6.4-8.2); Troponin High Sensitivity 11.1 pg/mL (<58.9)
--- NOTE | 2021-09-16 12:51 | RAD REPORT ---
EXAM DESCRIPTION: Ghassan Single View09/16/2021 12:34 pm CLINICAL HISTORY: Chest pain COMPARISON: March 2021 FINDINGS: Mild prominence of the interstitial lung pattern unchanged from the prior exam. Presumabl y this is chronic. The lungs appear clear of acute infiltrate. The heart is normal size IMPRESSION: No acute abnormalities displayed
[2021-09-16] MEDS ORDERED: NA CHLORIDE 0.9% 500 ML ONE (12:56)
[2021-09-16] MEDS ORDERED: MORPHINE 4 MG/ML SYR ONE ×2 (12:56→15:23)
[2021-09-16] MEDS ORDERED: ONDANSETRON 4 MG/2 ML VIAL ONE (12:56)
--- NOTE | 2021-09-16 13:04 | RAD REPORT ---
EXAM DESCRIPTION: USExtrem Venous W Compress Bil09/16/2021 12:57 pm CLINICAL HISTORY: Leg pain COMPARISON: none FINDINGS: The common femoral, superficial femoral, popliteal and posterior tibial veins bilaterally are compressible and demonstrate augmentation. Doppler demonstrates good flow. Grayscale, color and spectral analysis performed on all vessels IMPRESSION: No evidence of deep venous thrombosis involving either lower extremity.
[2021-09-16 13:13] LABS: Anisocytosis 1+; Blood Morphology Comment NOTED (NOT SEEN); Platelet Estimate ADEQ
[2021-09-16 13:14] LABS: Hypochromasia 1+; Target Cells 1+
--- NOTE | 2021-09-16 14:28 | RAD REPORT ---
EXAM DESCRIPTION: US - Lower Extremity Artery Uni Ltd - 09/16/2021 2:17 pm CLINICAL HISTORY: Leg pain COMPARISON: None FINDINGS: The left common femoral, superficial femoral , popliteal and left dorsalis pedis arteries demonstrate triphasic waveforms The left posterior tibial artery demonstrates biphasic waveform No occlusions/high-grade stenosis seen Grayscale, color and spectral analysis performed on all vessels IMPRESSION: Minimal distal lower extremity arterial disease
--- NOTE | 2021-09-16 14:31 | EDPHYS ---
Physician Documentation [facility] Name: Jesus Noriega Age: 60 yrs Sex: Male : 1960 Arrival Date: 09/16/2021 Time: 11:14 Bed 10 Private MD: ANGELINA Physician Osbaldo Cedeño HPI: 09/16 12:10 This 60 yrs old Male presents to ER via Ambulatory with complaints of Feet jaylin Swelling, Leg Swelling, Foot Pain. 12:10 The patient presents with pain, that is acute. jaylin 12:10 The patient presents with decreased range of motion, pain, that is acute. The jaylin complaints affect the lateral aspect of left calf, posterior aspect of left knee, left calf, medial aspect of left knee and medial aspect of left calf. Context: The problem was sustained at an unknown site, resulted from an unknown cause. Onset: The symptoms/episode began/occurred 2 day(s) ago. Modifying factors: The symptoms are alleviated by nothing. the symptoms are aggravated by movement, weight bearing. Associated signs and symptoms: The patient has no apparent associated signs or symptoms. The complaints affect the left foot, left foot. Historical: - Allergies: 11:51 No Known Allergies; iw - Home Meds: 11:51 gabapentin 400 mg oral tab daily [Active]; Daliresp Oral once daily [Active]; Protonix iw Oral once daily [Active]; Eliquis Oral 2 times per day [Active]; Prednisone Oral [Active]; Trazodone Oral once daily [Active]; Trelegy Ellipta 100-62.5-25 mcg inhalation dsdv 1 puff once daily [Active]; - PMHx: 11:51 COPD; High Cholesterol; Hypertension; DVT; iw - Family history:: not pertinent. ROS: 12:10 Constitutional: Negative for fever, chills, and weight loss, Eyes: Negative for injury, jaylin pain, redness, and discharge, ENT: Negative for injury, pain, and discharge, Neck: Negative for injury, pain, and swelling, Cardiovascular: Negative for chest pain, palpitations, and edema, Respiratory: Negative for shortness of breath, cough, wheezing, and pleuritic chest pain, Abdomen/GI: Negative for abdominal pain, nausea, vomiting, diarrhea, and constipation, Back: Negative for injury and pain, : Negative for injury, bleeding, discharge, and swelling, Skin: Negative for injury, rash, and discoloration, Neuro: Negative for headache, weakness, numbness, tingling, and seizure, Psych: Negative for depression, anxiety, suicide ideation, homicidal ideation, and hallucinations, Allergy/Immunology: Negative for hives, rash, and allergies, Endocrine: Negative for neck swelling, polydipsia, polyuria, polyphagia, and marked weight changes, Hematologic/Lymphatic: Negative for swollen nodes, abnormal bleeding, and unusual bruising. 12:10 MS/extremity: Positive for decreased range of motion, pain, swelling, tenderness, of the left leg. Exam: 12:10 Constitutional: This is a well developed, well nourished patient who is awake, alert, jaylin and in no acute distress. Head/Face: Normocephalic, atraumatic. Eyes: Pupils equal round and reactive to light, extra-ocular motions intact. Lids and lashes normal. Conjunctiva and sclera are non-icteric and not injected. Cornea within normal limits. Periorbital areas with no swelling, redness, or edema. ENT: Nares patent. No nasal discharge, no septal abnormalities noted. Tympanic membranes are normal and external auditory canals are clear. Oropharynx with no redness, swelling, or masses, exudates, or evidence of obstruction, uvula midline. Mucous membranes moist. Neck: Trachea midline, no thyromegaly or masses palpated, and no cervical lymphadenopathy. Supple, full range of motion without nuchal rigidity, or vertebral point tenderness. No Meningismus. Chest/axilla: Normal chest wall appearance and motion. Nontender with no deformity. No lesions are appreciated. Cardiovascular: Regular rate and rhythm with a normal S1 and S2. No gallops, murmurs, or rubs. Normal PMI, no JVD. No pulse deficits. Respiratory: Lungs have equal breath sounds bilaterally, clear to auscultation and percussion. No rales, rhonchi or wheezes noted. No increased work of breathing, no retractions or nasal flaring. Abdomen/GI: Soft, non-tender, with normal bowel sounds. No distension or tympany. No guarding or rebound. No evidence of tenderness throughout. Back: No spinal tenderness. No costovertebral tenderness. Full range of motion. Male : Normal genitalia with no discharge or lesions. Skin: Warm, dry with normal turgor. Normal color with no rashes, no lesions, and no evidence of cellulitis. Neuro: Awake and alert, GCS 15, oriented to person, place, time, and situation. Cranial nerves II-XII grossly intact. Motor strength 5/5 in all extremities. Sensory grossly intact. Cerebellar exam normal. Normal gait. Psych: Awake, alert, with orientation to person, place and time. Behavior, mood, and affect are within normal limits. 12:10 Musculoskeletal/extremity: ROM: limited passive range of motion, Pulses: noted to be 4+ in the bilateral radial, brachial, femoral, popliteal, posterior tibial and and dorsalis pedis arteries., Sensation intact. Compartment Syndrome exam of affected extremity: is normal. DVT Exam: no appreciated bluish discoloration, no erythema, no increased warmth, pain, swelling, tenderness, positive Homans' sign noted on exam. 12:22 ECG was reviewed by the Attending Physician. jaylin Vital Signs: 11:50 BP 119 / 89; Pulse 84; Resp 16; Temp 97.5; Pulse Ox 94% on R/A; iw MDM: 11:59 Patient medically screened. jaylin 12:14 Differential diagnosis: tendonitis, arthritis, gout, cellulitis. Data reviewed: vital jaylin signs, nurses notes, lab test result(s), EKG, radiologic studies, doppler, plain films. Data interpreted: rn managed care: rate is 84 beats/min, rhythm is atrial flutter. Test interpretation: by ED physician or midlevel provider: ECG, plain radiologic studies. Counseling: I had a detailed discussion with the patient and/or guardian regarding: the historical points, exam findings, and any diagnostic results supporting the discharge/admit diagnosis, lab results, radiology results. 09/16 12:10 Order name: Basic Metabolic Panel; [facility] 12:10 Order name: CBC with Diff; [facility] 09/[facility] 12:10 Order name: LFT's; Complete [facility]: [facility] 09/16 12:10 Order name: Magnesium; Complete Time: [facility] 09/16 12:10 Order name: NT PRO-BNP; Complete Time: [facility] 09/16 12:10 Order name: PT-INR; Complete Time: [facility] 09/16 12:10 Order name: Troponin HS; Complete Time: 13:21 jaylin 09/16 12:10 Order name: XRAY Chest (1 view); Complete Time: 13:21 jaylin 09/16 12:10 Order name: US Extremity Venous W Compression [place]; Complete Time: 13:21 jaylin 09/16 13:14 Order name: Manual Differential; Complete Time: 13:21 EDMS 09/16 13:25 Order name: US LE Artery Uni Ltd; Complete Time: 14:29 jaylin 09/16 13:25 Order name: CK jaylin 09/16 13:25 Order name: Ckmb 09/16 12:10 Order name: EKG; Complete Time: 12:10 jaylin 09/16 12:10 Order name: Cardiac monitoring; Complete Time: 12:18 jaylin 09/16 12:10 Order name: EKG - Nurse/Tech; Complete Time: 12:18 jaylin 09/16 12:10 Order name: IV Saline Lock; Complete Time: 12:09/16 12:10 Order name: Labs collected and sent; Complete Time: 12:09/16 12:10 Order name: O2 Per Protocol; Complete Time: 12:18 jaylin 09/16 12:10 Order name: O2 Sat Monitoring; Complete Time: 12:18 jaylin EC:22 Rate is 74 beats/min. Rhythm is regular. QRS [place] is Normal. [place] interval is normal. QRS jaylin interval is normal. QT interval is normal. No Q waves. T waves are Normal. No ST changes noted. Clinical impression: NSR w/ Non-specific ST/T Changes and No evidence of ischemia. Interpreted by me. Reviewed by me. Administered Medications: 13:10 Drug: morphine 4 mg Route: IVP; Infused Over: 4 mins; Site: right antecubital; iw 13:15 Follow up: Response: No adverse reaction iw 13:10 Drug: Zofran (Ondansetron) 4 mg Route: IVP; Site: right antecubital; iw 13:20 Follow up: Response: No adverse reaction iw 13:32 Drug: NS 0.9% 500 ml Route: IV; Rate: bolus; Site: right antecubital; iw 14:15 Follow up: IV Status: Completed infusion iw Disposition Summary: 09/16/21 14:30 Discharge Ordered Location: Home jaylin Problem: new jaylin Symptoms: have improved jaylin Condition: Stable jaylin Diagnosis - Pain in left lower leg jaylin - Pain in left leg jaylin Followup: jaylin - With: Private Physician - When: 2 - 3 days - Reason: Recheck today's complaints, Continuance of care, Re-evaluation by your physician Followup: jaylin - With: Keshawn Nguyen MD - When: 2 - 3 days - Reason: Recheck today's complaints, Re-evaluation by your physician Discharge Instructions: - Discharge Summary Sheet jaylin - Musculoskeletal Pain jaylin - Pain Without a Known Cause jaylin Forms: - Medication Reconciliation Form jaylin - Thank You Letter jaylin - Antibiotic Education jaylin - Prescription Opioid Use jaylin Prescriptions: - gabapentin 300 mg Oral tablet extended release 24 hr - take 1 tablet by ORAL route every 12 hours; 60 tablet; Refills: 0, Product jaylin Selection Permitted - Tylenol-Codeine #3 300 mg-30 mg Oral - take 2 tablet by ORAL route every 6 hours; 20 tablet; Refills: 0, Product jaylin Selection Permitted - Zofran 4 mg Oral Tablet - take 1 tablet by ORAL route every 12 hours As needed; 20 tablet; Refills: 0, jaylin Product Selection Permitted Signatures: Dispatcher [employer] Osbaldo Milan MD MD cha Williams, Irene, RN RN iw
--- NOTE | 2021-09-16 14:31 | ER ---
Nurse's Notes [facility] [place] Name: Jesus Noriega Age: 60 yrs Sex: Male : 1960 Arrival Date: 09/16/2021 Time: 11:14 Bed 10 Private MD: Diagnosis: Pain in left lower leg;Pain in left leg Presentation: 09/16 11:50 Chief complaint: Patient states: swelling and pain to left foot X 2 days ago , has pain iw to ankle area ad it's red. Coronavirus screen: At this time, the client does not indicate any symptoms associated with coronavirus-19. Ebola Screen: Patient negative for fever greater than or equal to 101.5 degrees Fahrenheit, and additional compatible Ebola Virus Disease symptoms Patient denies exposure to infectious person. Patient denies travel to an Ebola-affected area in the 21 days before illness onset. No symptoms or risks identified at this time. Initial Sepsis Screen: Does the patient meet any 2 criteria? No. Patient's initial sepsis screen is negative. Does the patient have a suspected source of infection? No. Patient's initial sepsis screen is negative. Risk Assessment: Do you want to hurt yourself or someone else? Patient reports no desire to harm self or others. Onset of symptoms was September 14, 2021. 11:50 Method Of Arrival: Ambulatory iw 11:50 Acuity: [place] 3 iw Triage Assessment: 12:00 General: Appears in no apparent distress. Behavior is calm, cooperative. iw Historical: - Allergies: 11:51 No Known Allergies; iw - Home Meds: 11:51 gabapentin 400 mg oral tab daily [Active]; Daliresp Oral once daily [Active]; Protonix iw Oral once daily [Active]; Eliquis Oral 2 times per day [Active]; Prednisone Oral [Active]; Trazodone Oral once daily [Active]; Trelegy Ellipta 100-62.5-25 mcg inhalation dsdv 1 puff once daily [Active]; - PMHx: 11:51 COPD; High Cholesterol; Hypertension; DVT; iw - Family history:: not pertinent. Screenin:00 Abuse screen: Denies threats or abuse. Denies injuries from another. Nutritional iw screening: No deficits noted. Tuberculosis screening: No symptoms or risk factors identified. Fall Risk None identified. Assessment: 12:00 General: Appears in no apparent distress. Behavior is calm, cooperative. Pain: iw Complains of pain in left leg and left foot. Neuro: Level of Consciousness is awake, alert, obeys commands, Oriented to person, place, time, Moves all extremities. Cardiovascular: Patient's skin is warm and dry. Respiratory: Respiratory effort is even, unlabored, Respiratory pattern is regular. Derm: Skin is intact, is healthy with good turgor. Musculoskeletal: Range of motion: intact in all extremities, Reports pain in left foot and medial aspect of left calf and medial aspect of left knee. Vital Signs: 11:50 BP 119 / 89; Pulse 84; Resp 16; Temp 97.5; Pulse Ox 94% on R/A; iw ED Course: 11:14 Patient arrived in ED. mr 11:51 Triage completed. iw 11:52 Arm band placed on. iw 11:53 Kenzie Alford, RN is Primary Nurse. iw 11:59 Osbaldo Cedeño MD is Attending Physician. jaylin 12:18 EKG done, by ED staff, reviewed by Osbaldo Cedeño MD. mb7 12:21 Inserted saline lock: 20 gauge in right antecubital area, using aseptic technique. zm Blood collected. 12:21 Basic Metabolic Panel Sent. zm 12:21 CBC with Diff Sent. zm 12:21 LFT's Sent. zm 12:22 Magnesium Sent. zm 12:22 NT PRO-BNP Sent. zm 12:22 PT-INR Sent. zm 12:22 Troponin HS Sent. zm 12:36 XRAY Chest (1 view) In Process Unspecified. EDMS 12:59 US Extremity Venous W Compression [place] In Process Unspecified. EDMS 14:18 US LE Artery Uni Ltd In Process Unspecified. EDMS 14:30 Keshawn Nguyen MD is Referral Physician. jaylin 15:23 No provider procedures requiring assistance completed. IV discontinued, intact, iw bleeding controlled, No redness/swelling at site. Pressure dressing applied. Administered Medications: 13:10 Drug: morphine 4 mg Route: IVP; Infused Over: 4 mins; Site: right antecubital; iw 13:15 Follow up: Response: No adverse reaction iw 13:10 Drug: Zofran (Ondansetron) 4 mg Route: IVP; Site: right antecubital; iw 13:20 Follow up: Response: No adverse reaction iw 13:32 Drug: NS 0.9% 500 ml Route: IV; Rate: bolus; Site: right antecubital; iw 14:15 Follow up: IV Status: Completed infusion iw Medication: 12:00 VIS not applicable for this client. iw Outcome: 14:30 Discharge ordered by . jaylin 15:24 Discharged to home ambulatory, with family. iw 15:24 Condition: good 15:24 Discharge instructions given to patient, family, Instructed on discharge instructions, follow up and referral plans. medication usage, Demonstrated understanding of instructions, follow-up care, medications, Prescriptions given X 2. 15:25 Patient left the ED. zm Signatures: Dispatcher [employer] EDOsbaldo Syed MD MD cha Rivera, Mary mr Williams, Irene, RN RN iw Breneman, Mary mb7 Martinez, Zaina zm
[2021-09-16] MEDS ORDERED: GABAPENTIN 300 MG CAP ONE (15:23)
[2021-09-16 15:50] VITALS: BP 119/89; TEMP 97.5; O2SAT 94
--- NOTE | 2021-09-18 14:43 | EKG ---
Test Date: 2021-09-16 Test Time: 12:18:45 Mobile Lab Technician: MB MEASUREMENT RESULTS: Intervals: Rate: 74 WA: 152 QRSD: 130 QT: 454 QTc: 503 [place]: P: 78 WA: 152 QRS: -70 T: 55 INTERPRETIVE STATEMENTS: Normal sinus rhythm Left axis deviation Right bundle branch block Abnormal ECG Compared to ECG 04/24/2021 19:34:48 Myocardial infarct finding no longer present Electronically Signed On 09-18-21 14:41:18 CDT by Keshawn Nguyen
== END 2021-09-16 15:25 | disposition home or self-care (01) ==
LOC: ER 11:13
DX: M79.662 Pain in left lower leg (principal); M79.605 Pain in left leg; I10 Essential (primary) hypertension; J44.9 Chronic obstructive pulmonary disease, unspecified; E78.00 Pure hypercholesterolemia, unspecified; Z86.718 Personal history of other venous thrombosis and embolism; Z79.01 Long term (current) use of anticoagulants
CPT/HCPCS: 96361; 93005; 85025; 80048; 36415; 83735; 82550; 85610; 80076; 84484; 82553; 83880; 71045; 93926; 93970; 96375; 96374; 99284; J7040; J2405

== ENCOUNTER 2022-03-23 11:47 | Emergency (ER) | payer OTHER ==
--- OUTSIDE RECORDS SUMMARY | 2022-03-23 11:52 | XMS REPORT | Continuity of Care Document ---
:1960 Author Organization [facility] t Address [address] [place] [address] Care Team Providers Name Role Phone Nick VILLALOBOS, [facility] Primary Care Physician [phone] PRINCE MCLAIN Attending Clinician Unavailable Harriett VILLALOBOS [facility] Attending Clinician Nirmala Barreto MA Attending Clinician Unavailable Doctor Unassigned, [place] Attending Clinician Unavailable STARR BARAHONA Attending Clinician Unavailable Prince Mclain DDS Attending Clinician MD STARR BARAHONA Attending Clinician Unavailable Jaycob Lawrence Attending Clinician KWABENA CHRISTINE Attending Clinician Unavailable KWABENA CHRISTINE Attending Clinician Unavailable PRINCE MCLAIN Admitting Clinician Unavailable STARR BARAHONA Admitting Clinician Unavailable MD STARR BARAHONA Admitting Clinician Unavailable Payers Payer Name Policy Type Policy Number Effective Date Expiration Date S alex [facility] [place] STAR PLUS [id number] 2018 00:00:00 DARS DISABILITY [id number] 2017 DETERMINATION SVCS 00:00:00 Problems Condition Condition Condition Status Onset Resolution Last Treating Co mments Source Name Details Category Date Date Treatment Clinician Date Wound Wound Disease Active Methodi dehiscence dehiscence 04-26 00:00: Hospita 00 l 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 00:00: Ho spita 00 l Essential Essential Disease Active Met hodi hypertensi hypertensi 2 st on on 00:00: Hospita 00 l Gastroesop Gastroesop Disease Active M ethodi hageal hageal 04-10 st reflux reflux 00:00: Hospita disease disease 00 l without without esophagiti esophagiti s s Ischemia Ischemia Disease Active Metho di of left of left 04-10 upper upper 00:00: Hospita extremity extremity 00 l s/p s/p Disease Active Methodi Thomboembo Thomboembo 04-10 lectomy of lectomy of 00:00: Ho spita L L 00 l subclavian subclavian , , axillary, axillary, brachial, brachial, radial and radial and ulnar ulnar arteries arteries Postoperat Postoperat Disease Active M ethodi ab anemia ab anemia 04-10 00:00: Hospita 00 l Substance Substance Disease Active Met hodi abuse abuse 04-10 (amphetami (amphetami 00:00: Ho spita ne and ne and 00 l cannabinoi cannabinoi d) d) Caries Caries Disease Active 2019-03 Univers 2-14 ity of 00:00: [place] [address] Medical Branch Foreign Foreign Disease Active 2019-03 Univers body in body in 2-14 ity of mouth, mouth, 00:00: [place] initial initial 00 Medical encounter encounter [place] [id number] [place] [address] 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 [facility] [id number] [place], [place] [address] joint, Spirit knee, left - [facility] [id number] Rash and Problem Comm on nonspecifi Spirit c skin - [facility] eruption [facility] Ataxia Ataxia Problem Active 2020-04-02 Elliott bernardo (finding) (finding) 22:53:10 l Active [place] Problem 04/02/2020 [facility] 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 Abraham n (disorder) (disorder) Active Problem 04/02/2020 [facility] Chronic Chronic Problem Active 2020-04-02 M emoria obstructiv obstructiv 22:53:10 l e lung e lung [place] disease disease (disorder) (disorder) Active Problem 04/02/2020 [facility] Morbid Morbid Problem Active 2020-04-02 Elliott bernardo obesity obesity 22:53:10 l (disorder) (disorder) He rmann Active Problem 04/02/2020 [facility] Paresthesi Paresthes Problem Active 2020-04-02 Memoria a ia 22:53:10 l (finding) (finding) Herm lee ann Active Problem 04/02/2020 [facility] Allergies, Adverse Reactions, Alerts Allergy Allergy Status Severity Reaction(s) Onset Inactive Treating Comm ents Source Name Type Date Date Clinician NO KNOWN Drug Active Univers ALLERGIE Class ity of S [facility] Social History Social Habit Start Date Stop Date Quantity Comments Source History of Common Spirit - Tobacco Use [facility] Exposure to Not sure University of SARS-CoV-2 [place] [facility] (event) Branch History SD[facility] spital Alcohol Std Drinks History [facility] spital Alcohol Binge Alcohol intake 2021-06-08 2021-06-08 [facility] 00:00:00 00:00:00 non-drinker (finding) History SDMT 2020-06-09 2020-06-09 1 [facility] spital Alcohol Frequency 00:00:00 00:00:00 Tobacco use and 2020-02-16 2020-02-16 Never used Universit y of exposure 00:00:00 00:00:00 [facility] Social History 2020-01-15 2020-01-15 [facility] 17:26:11 17:26:11 Sex Ass[birth year] [facility] 00:00:00 00:00:00 Smoking Status Start Date Stop Date Source Former Smoker 2021-12-02 00:00:00 2021-12-02 00:00:00 Common S pirit - [facility] Medications Ordered Filled Start Stop Current Ordering Indication Dosage Frequency Signature Comments Components Source Medication Medication Date Date Medication? Clinician (SIG) Name Name IPRATROPIUM 2021-03 No BROMIDE/ALB 0-24 UTEROL 00:00: SULFA TE 00 0.5-2.5 (3) MG/3ML SOLN PROAIR HFA 2021-03 No 108 (90 0-21 Base) 00:00: MCG/ACT 00 AERS Mobic 7.5 Mobic 7.5 2021- No 1{table QD Mobic 7.5 MG MG 9-29 10-29 t} MG 00:00: 00:00 00 :00 Mobic 7.5 Mobic 7.5 0 2021- No 1{table QD Mobic 7.5 MG MG 9-29 10-29 t} MG 00:00: 00:00 00 :00 fluticasone Yes 1{puff} QD Inhale 1 Methodi /umeclidin/ 4-[address] vilanter 08:45: daily. Hospita (TRELEGY 50 l ELLIPTA INHL) predniSONE Yes 10mg QD Take 10 mg M ethodi (DELTASONE) 4-[address] 10 mg 08:45: daily. Hospita tablet 50 l pantoprazol Yes 40mg QD Take 40 mg Methodi e 4-[address] (PROTONIX) 08:45: daily. Hospi ta 40 MG EC 50 l tablet roflumilast Yes 500ug QD Take 500 M ethodi (DALIRESP) 4-[address] 500 mcg 08:45: mouth Hospita tablet 50 daily. l rOPINIRole Yes 5mg QD Take 5 mg Me thodi (REQUIP) 5 4-[address] MG tablet 08:45: nightly. Hosp ken 50 l traZODone Yes 50mg QD Take 50 mg Me thodi (DESYREL) 4-[address] 50 MG 08:45: nightly. Hospita tablet 50 l lisinopriL 0 Yes 10mg QD Take 10 mg M ethodi (PRINIVIL) 4-[address] 10 mg 08:45: daily. Hospita tablet 50 l ipratropium 0 Yes 3mL Q.[id number] Take 3 mL Methodi -albuteroL 4-[id number] (DUO-NEB) 08:45: 3D nebulizati Ho spita 0.5-2.5 50 on 3 l mg/3 mL (three) nebulizer times a day. celecoxib 0 Yes 200mg QD Take 200 Met hodi (CeleBREX) 4-[address] 200 MG 08:45: mouth Hospita capsule 50 daily. l albuterol 0 Yes 1{puff} Q6H Inhale 1 M ethodi (PROAIR 4-[address] HFA) 90 08:45: 6 (six) Hospita mcg/actuati 50 hours as l on inhaler needed for wheezing or shortness of breath. gabapentin 0 Yes 400mg Q.[id number] Take 400 Methodi (NEURONTIN) 4-06 [id number] mg by s t 400 mg 08:45: 3D mouth 3 Hospita capsule 50 (three) l times a day. fluticasone 0 Yes 1{puff} QD Inhale 1 Methodi /umeclidin/ 4-[address] vilanter 08:45: daily. Hospita (TRELEGY 50 l ELLIPTA INHL) predniSONE 0 Yes 10mg QD Take 10 mg M ethodi (DELTASONE) 4-[address] 10 mg 08:45: daily. Hospita tablet 50 l pantoprazol 0 Yes 40mg QD Take 40 mg Methodi e 4-[address] (PROTONIX) 08:45: daily. Hospi ta 40 MG EC 50 l tablet roflumilast 0 Yes 500ug QD Take 500 M ethodi (DALIRESP) 4-[address] 500 mcg 08:45: mouth Hospita tablet 50 daily. l rOPINIRole 0 Yes 5mg QD Take 5 mg Me thodi (REQUIP) 5 4-[address] MG tablet 08:45: nightly. Hosp ken 50 l traZODone 0 Yes 50mg QD Take 50 mg Me thodi (DESYREL) 4-[address] 50 MG 08:45: nightly. Hospita tablet 50 l lisinopriL 0 Yes 10mg QD Take 10 mg M ethodi (PRINIVIL) 4-[address] 10 mg 08:45: daily. Hospita tablet 50 l ipratropium 0 Yes 3mL Q.[id number] Take 3 mL Methodi -albuteroL 4-[id number] (DUO-NEB) 08:45: 3D nebulizati Ho spita 0.5-2.5 50 on 3 l mg/3 mL (three) nebulizer times a day. celecoxib 2021-0 Yes 200mg QD Take 200 Met hodi (CeleBREX) 4-[address] 200 MG 08:45: mouth Hospita capsule 50 daily. l albuterol 2021-0 Yes 1{puff} Q6H Inhale 1 M ethodi (PROAIR 4-[address] HFA) 90 08:45: 6 (six) Hospita mcg/actuati 50 hours as l on inhaler needed for wheezing or shortness of breath. gabapentin 2021-0 Yes 400mg Q.[id number] Take 400 Methodi (NEURONTIN) 4-06 [id number] mg by s t 400 mg 08:45: 3D mouth 3 Hospita capsule 50 (three) l times a day. fluticasone 2021-0 Yes 1{puff} QD Inhale 1 Methodi /umeclidin/ 4-[address] vilanter 08:45: daily. Hospita (TRELEGY 50 l ELLIPTA INHL) predniSONE 0 Yes 10mg QD Take 10 mg M ethodi (DELTASONE) 4-[address] 10 mg 08:45: daily. Hospita tablet 50 l pantoprazol 0 Yes 40mg QD Take 40 mg Methodi e 4-[address] (PROTONIX) 08:45: daily. Hospi ta 40 MG EC 50 l tablet roflumilast 2021-0 Yes 500ug QD Take 500 M ethodi (DALIRESP) 4-[address] 500 mcg 08:45: mouth Hospita tablet 50 daily. l rOPINIRole 0 Yes 5mg QD Take 5 mg Me thodi (REQUIP) 5 4-[address] MG tablet 08:45: nightly. Hosp ken 50 l traZODone 2021-0 Yes 50mg QD Take 50 mg Me thodi (DESYREL) 4-[address] 50 MG 08:45: nightly. Hospita tablet 50 l lisinopriL 2021-0 Yes 10mg QD Take 10 mg M ethodi (PRINIVIL) 4-[address] 10 mg 08:45: daily. Hospita tablet 50 l ipratropium 2021-0 Yes 3mL Q.[id number] Take 3 mL Methodi -albuteroL 4-[id number] (DUO-NEB) 08:45: 3D nebulizati Ho spita 0.5-2.5 50 on 3 l mg/3 mL (three) nebulizer times a day. celecoxib 2021-0 Yes 200mg QD Take 200 Met hodi (CeleBREX) 4-[address] 200 MG 08:45: mouth Hospita capsule 50 daily. l albuterol 2021-0 Yes 1{puff} Q6H Inhale 1 M ethodi (PROAIR 4-[address] HFA) 90 08:45: 6 (six) Hospita mcg/actuati 50 hours as l on inhaler needed for wheezing or shortness of breath. gabapentin 0 Yes 400mg Q.[id number] Take 400 Methodi (NEURONTIN) 4-06 [id number] mg by s t 400 mg 08:45: 3D mouth 3 Hospita capsule 50 (three) l times a day. fluticasone 2021-0 Yes 1{puff} QD Inhale 1 Methodi /umeclidin/ 4-[address] vilanter 08:45: daily. Hospita (TRELEGY 50 l ELLIPTA INHL) predniSONE 0 Yes 10mg QD Take 10 mg M ethodi (DELTASONE) 4-[address] 10 mg 08:45: daily. Hospita tablet 50 l pantoprazol 0 Yes 40mg QD Take 40 mg Methodi e 4-[address] (PROTONIX) 08:45: daily. Hospi ta 40 MG EC 50 l tablet roflumilast 0 Yes 500ug QD Take 500 M ethodi (DALIRESP) 4-[address] 500 mcg 08:45: mouth Hospita tablet 50 daily. l rOPINIRole 0 Yes 5mg QD Take 5 mg Me thodi (REQUIP) 5 4-[address] MG tablet 08:45: nightly. Hosp ken 50 l traZODone 2021-0 Yes 50mg QD Take 50 mg Me thodi (DESYREL) 4-[address] 50 MG 08:45: nightly. Hospita tablet 50 l lisinopriL Yes 10mg QD Take 10 mg M ethodi (PRINIVIL) 4-[address] 10 mg 08:45: daily. Hospita tablet 50 l ipratropium Yes 3mL Q.[id number] Take 3 mL Methodi -albuteroL 06-[id number] (DUO-NEB) 08:45: 3D nebulizati Ho spita 0.5-2.5 50 on 3 l mg/3 mL (three) nebulizer times a day. celecoxib Yes 200mg QD Take 200 Met hodi (CeleBREX) 4-[address] 200 MG 08:45: mouth Hospita capsule 50 daily. l albuterol Yes 1{puff} Q6H Inhale 1 M ethodi (PROAIR 4-[address] HFA) 90 08:45: 6 (six) Hospita mcg/actuati 50 hours as l on inhaler needed for wheezing or shortness of breath. gabapentin Yes 400mg Q.[id number] Take 400 Methodi (NEURONTIN) 06 [id number] mg by s t 400 mg 08:45: 3D mouth 3 Hospita capsule 50 (three) l times a day. Futuro 2020- Yes 1 ea, Memoria Adjustable 2-18 MISC, l Reversible 21:48: ONCE, Abraham n Splint 00 carpal Wrist Brace tunnel splint, # 1 ea, 0 Refill(s), other Futuro 2020- Yes 1 ea, Memoria Adjustable 2-18 MISC, l Reversible 21:48: ONCE, Abraham n Splint 00 carpal Wrist Brace tunnel splint, # 1 ea, 0 Refill(s), other Futuro 2020- Yes 1 ea, Memoria Adjustable 2-18 MISC, l Reversible 21:48: ONCE, Abraham n Splint 00 carpal Wrist Brace tunnel splint, # 1 ea, 0 Refill(s), other Futuro 2020- Yes 1 ea, Memoria Adjustable 2-18 MISC, l Reversible 21:48: ONCE, Abraham n Splint 00 carpal Wrist Brace tunnel splint, # 1 ea, 0 Refill(s), other lisinopril 2019- Yes 10 mg = 1 Me moria 10 mg oral 2-16 tab, PO, l tablet 19:29: Daily, 0 [place] 00 Refill(s) lisinopril 2019- Yes 10 mg = 1 Me moria 10 mg oral 2-16 tab, PO, l tablet 19:29: Daily, 0 [place] 00 Refill(s) lisinopril 2019- Yes 10 mg = 1 Me moria 10 mg oral 2-16 tab, PO, l tablet 19:29: Daily, 0 [place] 00 Refill(s) lisinopril 2019- Yes 10 mg = 1 Me moria 10 mg oral 2-16 tab, PO, l tablet 19:29: Daily, 0 Refill(s) rOPINIRole 2019- Yes Univers 5 mg tablet 2-12 ity of 00:00: [place] [facility] Branch rOPINIRole 2020- Yes Univers 5 mg tablet 2-12 ity of 00:00: [place] [facility] rOPINIRole 2020- Yes Univers 5 mg tablet 2-12 ity of 00:00: [place] [facility] rOPINIRole 2020- Yes Univers 5 mg tablet 2-12 ity of 00:00: [place] [facility] rOPINIRole 2020- Yes Univers 5 mg tablet 2-12 ity of 00:00: [place] [facility] rOPINIRole 2020- Yes Univers 5 mg tablet 2-12 ity of 00:00: [place] [facility] rOPINIRole 2020- Yes Univers 5 mg tablet 2-12 ity of 00:00: [place] [facility] rOPINIRole 2020- Yes Univers 5 mg tablet 2-12 ity of 00:00: [place] [facility] rOPINIRole 2020- Yes Univers 5 mg tablet 2-12 ity of 00:00: [place] [facility] rOPINIRole 2020- Yes Univers 5 mg tablet 2-12 ity of 00:00: [place] [facility] rOPINIRole 2020- Yes Univers 5 mg tablet 2-12 ity of 00:00: [place] [facility] rOPINIRole 2020- Yes Univers 5 mg tablet 2-12 ity of 00:00: [address] rOPINIRole 2020- Yes Univers 5 mg tablet 2-12 ity of 00:00: [address] TRELEGY 2019- Yes Univers ELLIPTA 2-11 ity of 100-62.5-25 00:00: [place] mcg DsD[facility] Medical Branch TRELEGY 2020- Yes [...] ity of 100-62.5-25 00:00: [place] mcg DsDv 00 Medical Branch predniSONE 2019- Yes 10 mg = 1 Me moria 10 mg oral 1-12 tab, PO, l tablet 17:01: Daily, 0 [place] 00 Refill(s) pantoprazol 2019-03 Yes 40 mg = 1 M emoria e 40 MG 1-12 tab, PO, l Enteric 17:01: Daily, 0 Abraham n Coated 00 Refill(s) Tablet [Protonix] ropinirole 2019-03 Yes PO, Daily, M emoria 1-12 0 l 17:01: Refill(s) predniSONE 2019-03 Yes 10 mg = 1 Me moria 10 mg oral 1-12 tab, PO, l tablet 17:01: Daily, 0 [place] 00 Refill(s) pantoprazol 2019-03 Yes 40 mg = 1 M emoria e 40 MG 1-12 tab, PO, l Enteric 17:01: Daily, 0 Abraham n Coated Refill(s) Tablet [Protonix] ropinirole 2019-03 Yes PO, Daily, M emoria 1-12 0 l 17:01: Refill(s) predniSONE 2019-03 Yes 10 mg = 1 Me moria 10 mg oral 1-12 tab, PO, l tablet 17:01: Daily, 0 [place] 00 Refill(s) pantoprazol 2019-03 Yes 40 mg = 1 M emoria e 40 MG 1-12 tab, PO, l Enteric 17:01: Daily, 0 Abraham n Coated Refill(s) Tablet [Protonix] ropinirole 2019-03 Yes PO, Daily, M emoria 1-12 0 l 17:01: Refill(s) predniSONE 2019-03 Yes 10 mg = 1 Me moria 10 mg oral 1-12 tab, PO, l tablet 17:01: Daily, 0 [place] 00 Refill(s) pantoprazol 2019-03 Yes 40 mg = 1 M emoria e 40 MG 1-12 tab, PO, l Enteric 17:01: Daily, 0 Abraham n Coated Refill(s) Tablet [Protonix] ropinirole 2019-03 Yes PO, Daily, M emoria 1-12 0 l 17:01: Refill(s) pantoprazol 2019-03 Yes TAKE 1 Univ ers [...] Medical base)/3 mL Branch nebulizer solution ipratropium 2019- Yes Univer s -albuteroL 0-28 ity of 0.5 mg-3 00:00: [place] mg(2.5 mg 00 Medical base)/3 mL Branch nebulizer solution ipratropium 2019- Yes Univer s -albuteroL 0-28 ity of 0.5 mg-3 00:00: [place] mg(2.5 mg 00 Medical base)/3 mL Branch nebulizer solution DALIRESP 0 Yes Univers 500 mcg 9-22 ity of tablet 00:00: [place] [facility] DALIRESP 2020-0 Yes Univers 500 mcg 9-22 ity of tablet 00:00: [place] [facility] DALIRESP 2020-0 Yes Univers 500 mcg 9-22 ity of tablet 00:00: [place] [facility] DALIRESP 2020-0 Yes Univers 500 mcg 9-22 ity of tablet 00:00: [place] [facility] DALIRESP 2020-0 Yes Univers 500 mcg 9-22 ity of tablet 00:00: [place] [facility] DALIRESP 2020-0 Yes Univers 500 mcg 9-22 ity of tablet 00:00: [place] [facility] DALIRESP 2020-0 Yes Univers 500 mcg 9-22 ity of tablet 00:00: [place] [facility] DALIRESP 2020-0 Yes Univers 500 mcg 9-22 ity of tablet 00:00: [place] [facility] DALIRESP 2020-0 Yes Univers 500 mcg 9-22 ity of tablet 00:00: [place] [facility] DALIRESP 2020-0 Yes Univers 500 mcg 9-22 ity of tablet 00:00: [place] [facility] DALIRESP 2020-0 Yes Univers 500 mcg 9-22 ity of tablet 00:00: [place] [facility] DALIRESP 2020-0 Yes Univers 500 mcg 9-22 ity of tablet 00:00: [place] [facility] DALIRESP 2020-0 Yes Univers 500 mcg 9-22 ity of tablet 00:00: [address] predniSONE 2018- Yes 10mg Take 10 mg U nivers 10 mg 0-24 by mouth. ity of tablet 00:00: [place] [facility] predniSONE 2019-1 Yes 10mg Take 10 mg U nivers 10 mg 0-24 by mouth. ity of tablet 00:00: [place] [facility] predniSONE 2019-1 Yes 10mg Take 10 mg U nivers 10 mg 0-24 by mouth. ity of tablet 00:00: [place] [facility] Branch predniSONE 2019-1 Yes 10mg Take 10 mg U nivers 10 mg 0-24 by mouth. ity of tablet 00:00: [place] [facility] Branch predniSONE 2019-1 Yes 10mg Take 10 mg U nivers 10 mg 0-24 by mouth. ity of tablet 00:00: [place] [facility] Branch predniSONE 2019-1 Yes 10mg Take 10 mg U nivers 10 mg 0-24 by mouth. ity of tablet 00:00: [place] [facility] predniSONE 2019-1 Yes 10mg Take 10 mg U nivers 10 mg 0-24 by mouth. ity of tablet 00:00: [address] predniSONE 2019-1 Yes 10mg Take 10 mg U nivers 10 mg 0-24 by mouth. ity of tablet 00:00: [place] [facility] Branch predniSONE 2019-1 Yes 10mg Take 10 mg U nivers 10 mg 0-24 by mouth. ity of tablet 00:00: [place] [facility] predniSONE 2019-1 Yes 10mg Take 10 mg U nivers 10 mg 0-24 by mouth. ity of tablet 00:00: [address] predniSONE 2019-1 Yes 10mg Take 10 mg U nivers 10 mg 0-24 by mouth. ity of tablet 00:00: [address] Branch predniSONE 2019-1 Yes 10mg Take 10 mg U nivers 10 mg 0-24 by mouth. ity of tablet 00:00: [address] predniSONE 2019-1 Yes 10mg Take 10 mg U nivers 10 mg 0-24 by mouth. ity of tablet 00:00: [address] Branch hydrOXYzine hydrOXYzine 2018-0 No TID hydrOXYzin HCl 25 MG HCl 25 MG 8-08 e HCl 25 00:00: 00 hydrOXYzine hydrOXYzine 2018-0 No TID hydrOXYzin HCl 25 MG HCl 25 MG 8-08 e HCl 25 00:00: acetaminoph 2017-0 Yes TAKE 2 Univ ers en-codeine 6-27 [...] Branch NEEDED FOR PAIN WITH FOOD acetaminoph 2017- Yes TAKE 2 Univ ers en-codeine 6-27 [...] WITH FOOD methylPREDN 2016-03 Yes Take by Uni vers ISolone 2-18 mouth ity of (MEDROL, 00:00: [...] 6 hours. methylPREDN 2016-03 Yes Take by Uni vers ISolone 2-18 mouth ity of (MEDROL, 00:00: [...] 6 hours. methylPREDN 2016-03 Yes Take by Uni vers ISolone 2-18 mouth ity of (MEDROL, 00:00: [...] 6 hours. methylPREDN 2016-03 Yes Take by Uni vers ISolone 2-18 mouth ity of (MEDROL, 00:00: [...] 6 hours. methylPREDN 2016-03 Yes Take by Uni vers ISolone 2-18 mouth ity of (MEDROL, 00:00: [...] 6 hours. methylPREDN 2016-03 Yes Take by Uni vers ISolone 2-18 mouth ity of (MEDROL, 00:00: [...] 6 hours. methylPREDN 2016-03 Yes Take by Uni vers ISolone 2-18 mouth ity of (MEDROL, 00:00: [...] 6 hours. methylPREDN 2016-03 Yes Take by Uni vers ISolone 2-18 mouth ity of (MEDROL, 00:00: SEE-INSTRU Shiv as ERIKA,) 4 mg 00 CTIONS. Medica l tablets follow Branch package directions albuterol 2016-03 Yes 2.5mg Inhale 3 Uni vers 2.5 mg /3 2-18 mL every 4 ity of mL (0.083 00:00: (four) [place] %) 00 hours. May Medical nebulizer also Branch solution nebulize one extra every 6 hours. methylPREDN 2016- Yes Take by Uni vers ISolone 2-18 mouth ity of (MEDROL, 00:00: [...] 6 hours. methylPREDN 2016-03 Yes Take by Uni vers ISolone 2-18 mouth ity of (MEDROL, 00:00: SEE-INSTRU Shiv as ERIKA,) 4 mg 00 CTIONS. Medica l tablets follow Branch package directions methylPREDN 2016- Yes Take by Uni vers ISolone 2-18 mouth ity of (MEDROL, 00:00: [...] nebulize one extra every 6 hours. methylPREDN 2016- Yes Take by Uni vers ISolone 2-18 mouth ity of (MEDROL, 00:00: [...] 6 hours. methylPREDN 2016-03 Yes Take by Uni vers ISolone 2-18 mouth ity of (MEDROL, 00:00: [...] 6 hours. methylPREDN 2016-03 Yes Take by Uni vers ISolone 2-18 mouth ity of (MEDROL, 00:00: SEE-INSTRU Shiv as ERIKA,) 4 mg 00 CTIONS. Medica l tablets follow Branch package directions albuterol 2016-03 Yes 2.5mg Inhale 3 Uni vers 2.5 mg /3 2-18 mL every 4 ity of mL (0.083 00:00: (four) [place] %) 00 hours. May Medical nebulizer also Branch solution nebulize one extra every 6 hours. traZODone traZODone No traZODone HCl HCl HCl Albuterol Albuterol No Albuterol Sulfate Sulfate Sulfate ProAir HFA ProAir HFA No ProAir HFA Eliquis Eliquis No Eliquis Trulicity Trulicity No Trulicity predniSONE predniSONE No predniSONE Protonix Protonix No Protonix Trelegy Trelegy No Trelegy Ellipta Ellipta Ellipta rOPINIRole rOPINIRole No rOPINIRole HCl HCl HCl Gabapentin Gabapentin No Gabapentin traZODone traZODone No traZODone HCl HCl HCl Albuterol Albuterol No Albuterol Sulfate Sulfate Sulfate ProAir HFA ProAir HFA No ProAir HFA Eliquis Eliquis No Eliquis Trulicity Trulicity No Trulicity predniSONE predniSONE No predniSONE Protonix Protonix No Protonix Trelegy Trelegy No Trelegy Ellipta Ellipta Ellipta rOPINIRole rOPINIRole No rOPINIRole HCl HCl HCl Gabapentin Gabapentin No Gabapentin Immunizations Ordered Immunization Filled Immunization Date Status Commen ts Source Name Name Pneumococcal conjugate 2021-12-27 Completed P 00:00:00 SHINGRIX VACCINE 2021-12-27 Completed 00:00:00 Influenza, injectable, 2021-12-27 Completed Madin Celia Canine 00:00:00 Kidney, preservative-free, quadrivalent SHINGRIX VACCINE 2021-06-25 Completed 00:00:00 Tdap 2021-06-25 Completed 00:00:00 Vital Signs Vital Name Observation Time Observation Value Comments Source height 2021-12-01 14:00:00 69 [in_i] [facility] weight 2021-12-01 14:00:00 230 [lb_av] [facility] temperature 2021-12-01 14:00:00 98.1 [degF] [facility] bmi 2021-12-01 14:00:00 33.96 kg/m2 [facility] blood pressure 2021-12-01 14:00:00 118 mm[Hg] [facility] - systolic [facility] blood pressure 2021-12-01 14:00:00 62 mm[Hg] [facility] - diastolic [facility] Systolic blood 2020-02-16 19:36:00 143 mm[Hg] [facility] Diastolic blood 2020-02-16 19:36:00 91 mm[Hg] Unive rs[facility] Heart rate 2020-02-16 19:36:00 91 /[facility] Body temperature 2020-02-16 19:36:00 36.33 [facility] height 2020-02-16 19:36:00 175[facility]3 [facility] Body weight 2020-02-16 19:36:00 [facility]956 [facility] 2020-02-16 19:36:00 35.15 kg/m2 [facility] Systolic blood 2020-02-16 19:36:00 143 mm[Hg] [facility] Diastolic blood 2020-02-16 19:36:00 91 mm[Hg] [facility]ive [facility] Heart rate 2020-02-16 19:36:00 91 /min [facility] Body temperature 2020-02-16 19:36:00 36.33 Vandana [facility] [place] Body height 2020-02-16 19:36:00 175.3 cm [facility] Body [facility] 2020-02-16 19:36:00 107[facility]956 [facility] BMI 2020-02-16 19:36:00 35.15 [facility]/m2 [facility] BP Systolic 2021-12-27 16:41:00 144 mm[Hg] BP Diastolic 2021-12-27 16:41:00 81 mm[Hg] Weight Measured 2021-12-27 16:41:00 219.20 pounds Height Measured 2021-12-27 16:41:00 67.80 inches Body Temperature 2021-12-27 16:41:00 98.20 degrees Heart Rate 2021-12-27 16:41:00 62.00 /min Respiratory Rate 2021-12-27 16:41:00 18.00 /min BP Systolic 2021-06-25 10:14:00 123 mm[Hg] BP Diastolic 2021-06-25 10:14:00 63 mm[Hg] Weight Measured 2021-06-25 10:14:00 214.20 pounds Height Measured 2021-06-25 10:14:00 67.80 inches Body Temperature 2021-06-25 10:14:00 98.00 degrees Heart Rate 2021-06-25 10:14:00 70.00 /min Respiratory Rate 2021-06-25 10:14:00 21.00 /min Systolic (mm Hg) 2020-02-18 19:20:00 Elliott rial [place] Diastolic (mm Hg) 2020-02-18 19:20:00 Mem o[facility] [place] Heart Rate 2020-02-18 19:20:00 [facility] Respitory Rate 2020-02-18 19:20:00 Bob al [place] Height 2020-02-18 19:20:00 170.18 cm [facility] 2020-02-18 19:20:00 [facility] BMI Calculated 2020-02-18 19:20:00 Memori al [place] Systolic (mm Hg) 2020-01-15 16:50:00 Elliott rial [place] Diastolic (mm Hg) 2020-01-15 16:50:00 Mem orial [place] Heart Rate 2020-01-15 16:50:00 [facility] [place] Respitory Rate 2020-01-15 16:50:00 Bob ashly Arciniegaann Height 2020-01-15 16:50:00 170.18 cm [facility] [place] Weight 2020-01-15 16:50:00 [facility] [place] BMI Calculated 2020-01-15 16:50:00 Bob Stewart Procedures Procedure Date / Time Performing Clinician Source Performed EXTERNAL PROVIDER RECORDS 2020-07-02 05:01:00 Doctor Unassigned, [facility] [place] [facility] INSURANCE CORRESPONDENCE 2020-04-10 06:01:00 Doctor Unassigned, [facility] Name Medical Branch EXTERNAL PROVIDER RECORDS 2020-04-07 06:01:00 Doctor Unassigned, [facility] Name [facility] INSURANCE CORRESPONDENCE 2020-02-26 06:01:00 Doctor Unassigned, [facility] Name [facility] EXTERNAL PROVIDER RECORDS 2020-02-10 06:01:00 Doctor Unassigned, [facility] Plan of Care Planned Activity Planned Date Details Comments Source Future Scheduled 2022-03-07 COVID-19 VACCINE (#1) [facility] Test 10:17:47 [code = COVID-19 VACCINE (#1)] Future Scheduled 2022-03-07 Pneumococcal Vaccine: [facility] Test 10:17:47 Pediatrics (0 to 5 Years) and At-Risk Patients (6 to 64 Years) (1 - PCV) [code = Pneumococcal Vaccine: Pediatrics (0 to 5 Years) and At-Risk Patients (6 to 64 Years) (1 - PCV)] Future Scheduled 2022-03-[address] [facility] Test 10:17:47 (procedure) [code = 205350048] Future Scheduled 2022-03-[address] [facility] Test 10:17:47 [code = COLONOSCOPY SCREENING] Future Scheduled 2022-03-07 SHINGLES VACCINES (1 [facility] Test 10:17:47 of 2) [code = SHINGLES VACCINES (1 of 2)] Future Scheduled 2022-03-07 INFLUENZA VACCINE [facility] Test 10:17:47 [code = INFLUENZA VACCINE] Future Scheduled 2022-03-07 COVID-19 VACCINE (#1) [facility] Test 10:17:47 [code = COVID-19 VACCINE (#1)] Future Scheduled 2022-03-07 Pneumococcal Vaccine: [facility] Test 10:17:47 Pediatrics (0 to 5 Years) and At-Risk Patients (6 to 64 Years) (1 - PCV) [code = Pneumococcal Vaccine: Pediatrics (0 to 5 Years) and At-Risk Patients (6 to 64 Years) (1 - PCV)] Future Scheduled 2022-03-07 Hepatitis C screening [facility] Test 10:17:47 (procedure) [code = 399942848] Future Scheduled 2022-03-07 COLONOSCOPY SCREENING [facility] Test 10:17:47 [code = COLONOSCOPY SCREENING] Future Scheduled 2022-03-07 SHINGLES VACCINES (1 Met [facility] Test 10:17:47 of 2) [code = SHINGLES VACCINES (1 of 2)] Future Scheduled 2022-03-07 INFLUENZA VACCINE [facility] Test 10:17:47 [code = INFLUENZA VACCINE] Future Scheduled 2022-03-07 COVID-19 VACCINE (#1) [facility] Test 10:17:47 [code = COVID-19 VACCINE (#1)] Future Scheduled 2022-03-07 Pneumococcal Vaccine: [facility] Test 10:17:47 Pediatrics (0 to 5 Years) and At-Risk Patients (6 to 64 Years) (1 - PCV) [code = Pneumococcal Vaccine: Pediatrics (0 to 5 Years) and At-Risk Patients (6 to 64 Years) (1 - PCV)] Future Scheduled 2022-03-[address] [facility] Test 10:17:47 (procedure) [code = 752920553] Future Scheduled 2022-03-[address] [facility] Test 10:17:47 [code = COLONOSCOPY SCREENING] Future Scheduled 2022-03-07 SHINGLES VACCINES (1 [facility] Test 10:17:47 of 2) [code = SHINGLES VACCINES (1 of 2)] Future Scheduled 2022-03-07 INFLUENZA VACCINE [facility] Test 10:17:47 [code = INFLUENZA VACCINE] Future Scheduled 2021-11-04 HEPATITIS B VACCINES [facility] Test 20:13:24 (1 of 3 - 3-dose series) [code = HEPATITIS B VACCINES (1 of 3 - 3-dose series)] Future Scheduled 2021-11-04 COVID-19 VACCINE (#1) [facility] Test 20:13:24 [code = COVID-19 VACCINE (#1)] Future Scheduled 2021-11-04 Pneumococcal Vaccine: [facility] Test 20:13:24 Pediatrics (0 to 5 Years) and At-Risk Patients (6 to 64 Years) (1 - PCV) [code = Pneumococcal Vaccine: Pediatrics (0 to 5 Years) and At-Risk Patients (6 to 64 Years) (1 - PCV)] Future Scheduled 2021-11-04 Hepatitis C screening [facility] Test 20:13:24 (procedure) [code = 577829309] Future Scheduled 2021-11-04 COLONOSCOPY SCREENING [facility] Test 20:13:24 [code = COLONOSCOPY SCREENING] Future Scheduled 2021-11-04 SHINGLES VACCINES (1 [facility] Test 20:13:24 of 2) [code = SHINGLES VACCINES (1 of 2)] Future Scheduled 2021-11-04 INFLUENZA VACCINE [facility] Test 20:13:24 [code = INFLUENZA VACCINE] Goal Plan of Care Note [code = 64949-1] Goal Plan of Care Note [code = 75996-5] Goal Plan of Care Note [code = 50378-7] Goal Plan of Care Note [code = 91033-9] Goal Plan of Care Note [code = 59066-2] Goal Plan of Care Note [code = 98165-3] Goal Plan of Care Note [code = 50296-4] Goal Plan of Care Note [code = 58546-6] Goal Plan of Care Note [code = 84818-1] Encounters Start End Encounter Admission Attending Care Care Encounter Source Date/Time Date/Time Type Type Clinicians Facility Department ID 2021-12-12 Outpatient [facility] [id number] Common 14:56:02 [facility] 2021-12-06 Outpatient [facility] [id number] Common 11:36:02 [facility] 2021-12-01 [facility] [id number] Common 13:52:01 [facility] 2021-01-01 Outpatient KATE MCLAIN SHELDON [id number] Univers 21:41:17 PRINCE [facility] 2022-03-07 2022-03-07 Outpatient SFA SFA [id number] Marvel 10:54:39 10:54:39 0103 F Starr 2021-12-27 2021-12-27 Outpatient SFA SFA [id number] Marvel 16:23:03 16:23:03 1025 F Starr 2021-12-27 2021-12-27 Outpatient [id number] 00:00:00 00:00:00 Visit [id number] 2021-12-01 2021-12-01 OFFICE STLMLC STLMLC [id number] mmon 00:00:00 00:00:00 VISIT [facility] PT LEVEL 3 - [facility] 2021-06-13 2021-06-13 Telemedici Harriett, 1.2.840.1 [id number] Methodi 07:00:00 07:18:[address] 3.430.2.7 Hospit a .3.712905 l .8 2021-06-13 2021-06-13 Telemedici Harriett, 1.2.840.1 [id number] Methodi 07:00:00 07:18:[address] 3.430.2.7 Hospit a .3.689070 l .8 2021-06-08 2021-06-08 Abstract Barreto, 1.2.840.1 [id number] Methodi 00:00:00 00:00:[address] 3.430.2.7 Hospit a .3.813670 l .8 2021-06-08 2021-06-08 Abstract Barreot, 1.2.840.1 [id number] Methodi 00:00:00 00:00:[address] 3.430.2.7 Hospit a .3.814302 l .8 2020-07-02 2020-07-02 Orders Doctor WALKER 1.2.840.114 [id number] 00:00:00 00:00:00 Only Unassigned[facility]10 [facility] 4[facility]2.7.2.686 [id number] 009 2020-07-02 2020-07-02 Orders Doctor WALKER 1.2.840.114 [id number] [facility] 00:00:00 00:00:00 Only Unassigned, MARCIE 350.1.13.10 ity of [facility] 4.2.7.2.686 Shiv as [id number] [facility] 009 Branch 2020-06-14 2020-06-[address] [facility] [id number] [place] 00:00:00 00:00:00 TARUN [address] 2020-05-17 2020-05-17 Outpatient [facility] [id number] [place] 00:00:00 00:00:00 TARUN [address] 2020-04-26 2020-04-30 [id number] [place] 00:00:00 00:00:00 STARR [address] 2020-04-09 2020-04-16 [facility] [id number] [place] 00:00:00 00:00:00 STARR [address] 2020-04-14 2020-04-14 Telephone KATE Mclain 1.2.573.065 [id number] 00:00:00 00:00:00 [place] 350.1.13.10 [facility] 4.2.7.2.686 [id number] 199 2020-04-14 2020-04-14 Telephone KATE Mclain 1.2.688.847 [id number] [facility] 00:00:00 00:00:00 Prince [place] 350.1.13.10 ity [facility] [place].2.[place] [id number] [facility] 199 Branch 2020-04-10 2020-04-10 Orders Doctor WALKER 1.2.840.114 [id number] 00:00:00 00:00:00 Only Unassigned, MARCIE 350.1.13.10 [place] [facility] 4.2.7.2.686 [id number] 009 2020-04-10 2020-04-10 Orders Doctor AARON 1.2.840.114 [id number] Univers 00:00:00 00:00:00 Only Unassigned, MARCIE 350.1.13.10 ity of [place] [facility] 4.2.7.2.686 Shiv as [id number] [address] 2020-04-07 2020-04-07 [facility] 1.2.840.114 [id number] Univers 00:00:00 00:00:00 Management [place] 350.1.13.10 ity of [facility] [place]2.[place] [id number] [address] 2020-04-07 2020-04-07 Orders Doctor AARON 1.2.840.114 [id number] [facility] 00:00:00 00:00:00 Only Unassigned, MARCIE 350.1.13.10 ity of [place] [facility] 4.2.7.2.686 Shiv as [id number] [address] 2020-03-31 2020-03-31 Ambulatory nullFlavo MNA [id number] Memoria 19:15:00 19:15:00 Pre-Reg r Neurology 02 l [facility] 2020-03-31 2020-03-31 Ambulatory nullFlavo MNA [id number] Memoria 19:15:00 19:15:00 Pre-Reg r Neurology 02 l [place] 2020-03-31 2020-03-31 Outpatient MHIE MHIE [id number] Memoria 13:15:00 13:15:00 02 justine [place] 2020-03-31 2020-03-31 Outpatient GLENDA LawrenceSCHKEMAL 833 [id number] 13:15:00 13:15:00 Jaycob Cat Andre 2020-03-18 2020-03-18 [facility] 1.2.840.114 [id number] Univers 00:00:00 00:00:00 Management [place] 350.1.13.10 ity [place]2.[place] [id number] [facility] [address] [place] 2020-02-26 2020-02-26 Orders Doctor AARON 1.2.840.114 [id number] Univers 00:00:00 00:00:00 Only Unassigned, MARCIE 350.1.13.10 ity of [place] [facility] 4.2.7.2.686 Shiv as [id number] [address] 2020-02-18 2020-02-19 Outpatient nullFlavo MNA [id number] [id number] Memoria 19:00:00 05:59:59 r Neurology 01 l [place] 2020-02-18 2020-02-19 Outpatient nullFlavo MNA [id number] Memoria 19:00:00 05:59:59 r Neurology 01 l Fiorella [place] 2020-02-18 2020-02-18 Outpatient Melinda MISCHER MHMISCHER [id number] [id number] 13:00:00 23:59:59 Jaycob 01 Andre 2020-02-18 2020-02-18 Outpatient MHIE MHIE [id number] Memoria 13:00:00 13:00:00 01 justine [place] 2020-02-18 2020-02-18 Telephone Chemo WVMALA 1.2.659.367 [id number] Univers 00:00:00 00:00:00 [place] 350.1.13.10 ity of [facility] 4[place]7.2.[place] [id number] [address] 2020-02-16 2020-02-16 Office [facility] 1.2.840.114 [id number] 13:13:52 16:56:34 Visit [place] [address] 4.2.7.2.686 [id number] [facility] 2020-02-16 2020-02-16 Office [facility] 1.2.840.114 [id number] Univers 13:13:52 16:56:34 Visit Prince [place] 350.1.13.10 ity of [facility] 4[place]7.2.[place] [id number] [address] 2020-02-16 2020-02-16 Outpatient R CHEMO [facility] [id number] Univers 13:30:00 13:30:00 PRINCE trixiejaimie [facility] 2020-02-10 2020-02-10 Orders Doctor AARON 1.2.840.114 [id number] Univers 00:00:00 00:00:00 Only Unassigned, MARCIE 350.1.13.10 ity of [place] [facility] 4.2.7.2.686 Shiv as [phone] [address] 2020-01-15 2020-01-16 Outpatient nullFlavo MNA [id number] Memoria 17:30:00 05:59:59 r Neurology 00 l Fiore[place] 2020-01-15 2020-01-16 Outpatient nullFlavo MNA [id number] Memoria 17:30:00 05:59:59 r Neurology 00 l [place] 2020-01-15 2020-01-15 Outpatient Melinda MISCHKEMAL MISCHER [id number] 11:30:00 23:59:59 Jaycob 00 [facility] 2020-01-15 2020-01-15 Outpatient MHIE MHIE [id number] Memoria 11:30:00 11:30:00 00 l [place] 2019-05-02 2019-05-02 Outpatient KWABENA PATRICK [facility] 10 [id number] Univers 12:40:00 12:40:00 KWABENA CHRISTINE i ty [facility] Results Test Description Test Time Test Comments Results Result Comments Source PSA, TOTAL 2021-06-27 02:28:44 Test Item Value Reference Range Interpretation Comme nts PSA, TOTAL (test code 0.62 NG/ML See_Comment NOTE: Methodology is Melly Mia = 2606) Electrochemilum inescence Immunoassay traceable to O reference standard 96/760. [Automa carloz message] The system which generated this result transmitted reference range : <=4.00. The reference range was not u sed to interpret this result as michael l/abnormal. TSH, THIRD [id number] 02:28:44 Test Item Value Reference Range Interpretation Comments TSH, THIRD 0.480 UIU/ML 0.400-4.100 UNLESS OTHERWI SE GENERATION (test INDICATED, ALL TESTING code = 2821) PERFORMED [facility], [address] [place] [address] [facility] DIRECTOR: RUTH LIRA M.D. CLIA NUMBER [id number] 03 [facility] ACCREDITATION N O. [id number] LIPID [id number] 00:14:20 Test Item Value Reference Range Interpretation Comments CHOLESTEROL (test 177 MG/DL <200 code = 2210) TRIGLYCERIDES (test 55 MG/DL <150 code = 2232) HDL CHOLESTEROL (test 85 MG/DL >39 code = 2220) CALC LDL CHOL (test 78 MG/DL <100 NOTE: C ALCULATED LDL code = 2237) IS BASED ON MELISSA-RUSSO METHOD WHICHINCLUDES ADJUSTABLE TRIGLYCERIDE:VL DL CHOLESTEROL RAT IO.THIS FACTOR VARIES B Y MEASURED TRIGLY CERIDE AND NON-HDLCHOL ESTEROL CONCENTRATIONS WITH INCREASED CALCU LATED LDL SEENIN HIGH ER TRIGLYCERIDE OR LOWER NON-HDL SPECIME NS. FOR MOREINFORMATION , SEE CLIENT ANNOUNCE MENT AT [email or web address] [email or web address] LDL/HDL 0.92 RATIO <3.55 (test code = 2238) COMPREHENSIVE METABOLIC [id number] 00:14:20 Test Item Value Reference Range Interpretation Comments GLUCOSE (test code = 117 MG/DL 70-99 H 2216) BUN (test code = 16 MG/DL -20 2207) CREATININE (test 0.87 MG/DL 0.80-1.40 code = 2214) eGFR (2020 CKD-EPI) 99 ML/MIN/1.73 >60 (test code = 91499) CALC BUN/CREAT (test 18 RATIO 6-28 code = 2235) SODIUM (test code = 140 MEQ/L 234-095 7763) POTASSIUM (test code 4.9 MEQ/L 3.5-5.4 = 222) CHLORIDE (test code 97 MEQ/L 95-107 = 221) CARBON DIOXIDE (test 24 MEQ/L 19-31 code = 2206) CALCIUM (test code = 9.8 MG/DL 8.5-10.5 2208) PROTEIN, TOTAL (test 7.2 G/DL 6.1-8.3 code = 2229) ALBUMIN (test code = 4.6 G/DL 3.5-5.2 2200) CALC GLOBULIN (test 2.6 G/DL 1.9-3.7 code = 2240) CALC A/G RATIO (test 1.8 RATIO 1.0-2.6 code = 2234) BILIRUBIN, TOTAL 0.4 MG/DL See_Comment [Automated message] (test code = 2207) The syste m which generated this result transmit carloz reference range : <=1.2. The refe rence range was not u sed to interpret th is result as normal/abnormal . ALKALINE PHOSPHATASE 69 U/L 40-123 (test code = 2203) AST (test code = 24 U/L 950 2217) ALT (test code = 21 U/L 550 2218) PSA, [id number] 00:00:00 Test Item Value Reference Range Interpretation Comments PSA, TOTAL (test code = 2606) 0.62 NG/ML PSA, [id number] 00:00:00 Test Item Value Reference Range Interpretation Comments PSA, TOTAL (test code = 2606) 0.62 NG/ML PSA, [id number] 00:00:00 Test Item Value Reference Range Interpretation Comments PSA, TOTAL (test code = 2606) 0.62 NG/ML [id number] 00:00:00 Test Item Value Reference Range Interpretation Comments TSH, THIRD GENERATION (test code 0.480 UIU/ML = 2821) [id number] 00:00:00 Test Item Value Reference Range Interpretation Comments TSH, THIRD GENERATION (test code 0.480 UIU/ML = 2821) [id number] 00:00:00 Test Item Value Reference Range Interpretation Comments TSH, THIRD GENERATION (test code 0.480 UIU/ML = 2821) LIPID [id number] 00:00:00 Test Item Value Reference Range Interpretation Comments CHOLESTEROL (test code = 2210) 177 MG/DL TRIGLYCERIDES (test code = 2232) 55 MG/DL HDL CHOLESTEROL (test code = 2220) 85 MG/DL CALC LDL CHOL (test code = 2237) 78 MG/DL RISK RATIO LDL/HDL (test code = 0.92 RATIO 2238) LIPID [id number] 00:00:00 Test Item Value Reference Range Interpretation Comments CHOLESTEROL (test code = 2210) 177 MG/DL TRIGLYCERIDES (test code = 2232) 55 MG/DL HDL CHOLESTEROL (test code = 2220) 85 MG/DL CALC LDL CHOL (test code = 2237) 78 MG/DL RISK RATIO LDL/HDL (test code = 0.92 RATIO 2238) COMPREHENSIVE METABOLIC [id number] 00:00:00 Test Item Value Reference Range Interpretation Comments GLUCOSE (test code = 2217) 117 MG/DL BUN (test code = 2208) 16 MG/DL CREATININE (test code = 2214) 0.87 MG/DL eGFR (2020 CKD-EPI) (test code 99 ML/MIN/1.73 = 45034) CALC BUN/CREAT (test code = 18 RATIO 2235) SODIUM (test code = 2231) 140 MEQ/L POTASSIUM (test code = 2228) 4.9 MEQ/L CHLORIDE (test code = 2215) 97 MEQ/L CARBON DIOXIDE (test code = 24 MEQ/L 2205) CALCIUM (test code = 2209) 9.8 MG/DL PROTEIN, TOTAL (test code = 7.2 G/DL 2228) ALBUMIN (test code = 2201) 4.6 G/DL CALC GLOBULIN (test code = 2.6 G/DL 2239) CALC A/G RATIO (test code = 1.8 RATIO 4) BILIRUBIN, TOTAL (test code = 0.4 MG/DL 2206) ALKALINE PHOSPHATASE (test 69 U/L code = 2204) AST (test code = 2218) 24 U/L ALT (test code = 2219) 21 U/L COMPREHENSIVE METABOLIC [id number] 00:00:00 Test Item Value Reference Range Interpretation Comments GLUCOSE (test code = 2217) 117 MG/DL BUN (test code = 2208) 16 MG/DL CREATININE (test code = 2214) 0.87 MG/DL eGFR (2020 CKD-EPI) (test code 99 ML/MIN/1.73 = 03171) CALC BUN/CREAT (test code = 18 RATIO 2235) SODIUM (test code = 2231) 140 MEQ/L POTASSIUM (test code = 2228) 4.9 MEQ/L CHLORIDE (test code = 2215) 97 MEQ/L CARBON DIOXIDE (test code = 24 MEQ/L 2205) CALCIUM (test code = 2209) 9.8 MG/DL PROTEIN, TOTAL (test code = 7.2 G/DL 2228) ALBUMIN (test code = 2201) 4.6 G/DL CALC GLOBULIN (test code = 2.6 G/DL 0) CALC A/G RATIO (test code = 1.8 RATIO 2233) BILIRUBIN, TOTAL (test code = 0.4 MG/DL 2206) ALKALINE PHOSPHATASE (test 69 U/L code = 2204) AST (test code = 2218) 24 U/L ALT (test code = 2219) 21 U/L CBC W/AUTO DIFF WITH [id number] 06:12:24 Test Item Value Reference Range Interpretation Comments WBC (test code = 1001) 11.1 K/UL 3.5-11.0 H RBC (test code = 1002) 6.57 M/UL 4.50-6.10 H HEMOGLOBIN (test code 13.6 G/DL 13.5-17.0 = 1003) HEMATOCRIT (test code 48.1 % 40.0-51.0 = 1004) MCV (test code = 1005) 73.2 fL 80.0-99.0 L MCH (test code = 1006) 20.7 PG 25.0-33.0 L MCHC (test code = 28.3 G/DL 31.0-36.0 L 1007) RDW (test code = 1038) 25.3 % 11.5-15.0 H NEUTROPHILS (test code 69.3 % = 1008) LYMPHOCYTES (test code 17.1 % = 1010) MONOCYTES (test code = 8.5 % 1011) EOSINOPHILS (test code 3.4 % = 1012) BASOPHILS (test code = 1.7 % 1013) PLATELET COUNT (test 405 K/UL 130-400 H code = 1015) ABSOLUTE NEUTROPHILS 8.61 K/UL 1.50-7.50 H (test code = 1066) ABSOLUTE LYMPHOCYTES 1.31 K/UL 1.00-4.00 (test code = 1067) ABSOLUTE MONOCYTES 0.90 K/UL 0.20-1.00 (test code = 1068) ABSOLUTE EOSINOPHILS 0.14 K/UL 0.00-0.50 (test code = 1040) ABSOLUTE BASOPHILS 0.06 K/UL 0.00-0.20 (test code = 1069) ABS IMMATURE 0.06 K/UL 0.00-0.10 GRANULOCYTES (test code = 1020) ABS NUCLEATED RBCS 0.00 K/UL 0.00-0.11 (test code = 97098) COMMENTS (test code = (NOTE) MELL Asaf ANISOCYTOSIS 1016) MARKED HYPOCHRO MASIA MODERATE MICROC YTOSIS SEE ADDITIONAL COMMENTS BELOW: PLATELET ESTIMA TE APPEARS NORMAL. MODERATE ENLARG ED PLATELETS HEMOGLOBIN [id number] 06:12:11 Test Item Value Reference Range Interpretation Comments HEMOGLOBIN A1c (test code = 96134) 5.6 % 4.2-5.6 CBC W/AUTO [id number] 00:00:00 Test Item Value Reference Range Interpretation Comments WBC (test code = 1001) 11.1 K/UL RBC (test code = 1002) 6.57 M/UL HEMOGLOBIN (test code = 1003) 13.6 G/DL HEMATOCRIT (test code = 1004) 48.1 % MCV (test code = 1005) 73.2 fL MCH (test code = 1006) 20.7 PG MCHC (test code = 1007) 28.3 G/DL RDW (test code = 1038) 25.3 % NEUTROPHILS (test code = 1008) 69.3 % LYMPHOCYTES (test code = 1010) 17.1 % MONOCYTES (test code = 1011) 8.5 % EOSINOPHILS (test code = 1012) 3.4 % BASOPHILS (test code = 1013) 1.7 % PLATELET COUNT (test code = 1015) 405 K/UL ABSOLUTE NEUTROPHILS (test code = 8.61 K/UL 1066) ABSOLUTE LYMPHOCYTES (test code = 1.31 K/UL 1067) ABSOLUTE MONOCYTES (test code = 0.90 K/UL 1068) ABSOLUTE EOSINOPHILS (test code = 0.14 K/UL 1040) ABSOLUTE BASOPHILS (test code = 0.06 K/UL 1069) ABS IMMATURE GRANULOCYTES (test 0.06 K/UL code = 1020) ABS NUCLEATED RBCS (test code = 0.00 K/UL 65110) COMMENTS (test code = 1016) (NOTE) CBC W/AUTO [id number] 00:00:00 Test Item Value Reference Range Interpretation Comments WBC (test code = 1001) 11.1 K/UL RBC (test code = 1002) 6.57 M/UL HEMOGLOBIN (test code = 1003) 13.6 G/DL HEMATOCRIT (test code = 1004) 48.1 % MCV (test code = 1005) 73.2 fL MCH (test code = 1006) 20.7 PG MCHC (test code = 1007) 28.3 G/DL RDW (test code = 1038) 25.3 % NEUTROPHILS (test code = 1008) 69.3 % LYMPHOCYTES (test code = 1010) 17.1 % MONOCYTES (test code = 1011) 8.5 % EOSINOPHILS (test code = 1012) 3.4 % BASOPHILS (test code = 1013) 1.7 % PLATELET COUNT (test code = 1015) 405 K/UL ABSOLUTE NEUTROPHILS (test code = 8.61 K/UL 1066) ABSOLUTE LYMPHOCYTES (test code = 1.31 K/UL 1067) ABSOLUTE MONOCYTES (test code = 0.90 K/UL 1068) ABSOLUTE EOSINOPHILS (test code = 0.14 K/UL 1040) ABSOLUTE BASOPHILS (test code = 0.06 K/UL 1069) ABS IMMATURE GRANULOCYTES (test 0.06 K/UL code = 1020) ABS NUCLEATED RBCS (test code = 0.00 K/UL 32375) COMMENTS (test code = 1016) (NOTE) CBC W/AUTO [id number] 00:00:00 Test Item Value Reference Range Interpretation Comments WBC (test code = 1001) 11.1 K/UL RBC (test code = 1002) 6.57 M/UL HEMOGLOBIN (test code = 1003) 13.6 G/DL HEMATOCRIT (test code = 1004) 48.1 % MCV (test code = 1005) 73.2 fL MCH (test code = 1006) 20.7 PG MCHC (test code = 1007) 28.3 G/DL RDW (test code = 1038) 25.3 % NEUTROPHILS (test code = 1008) 69.3 % LYMPHOCYTES (test code = 1010) 17.1 % MONOCYTES (test code = 1011) 8.5 % EOSINOPHILS (test code = 1012) 3.4 % BASOPHILS (test code = 1013) 1.7 % PLATELET COUNT (test code = 1015) 405 K/UL ABSOLUTE NEUTROPHILS (test code = 8.61 K/UL 1066) ABSOLUTE LYMPHOCYTES (test code = 1.31 K/UL 1067) ABSOLUTE MONOCYTES (test code = 0.90 K/UL 1068) ABSOLUTE EOSINOPHILS (test code = 0.14 K/UL 1040) ABSOLUTE BASOPHILS (test code = 0.06 K/UL 1069) ABS IMMATURE GRANULOCYTES (test 0.06 K/UL code = 1020) ABS NUCLEATED RBCS (test code = 0.00 K/UL 49911) COMMENTS (test code = 1016) (NOTE) HEMOGLOBIN [id number] 00:00:00 Test Item Value Reference Range Interpretation Comments HEMOGLOBIN A1c (test code = 42107) 5.6 % HEMOGLOBIN [id number] 00:00:00 Test Item Value Reference Range Interpretation Comments HEMOGLOBIN A1c (test code = 15077) 5.6 % HEMOGLOBIN [id number] 00:00:00 Test Item Value Reference Range Interpretation Comments HEMOGLOBIN A1c (test code = 09291) 5.6 % SARS-CoV-2 (COVID-19) RNA [Presence] in Respiratory specimen by LAZARO with probe [id number] 05:12:28 Test Item Value Reference Range Interpretation Comments SARS-CoV-2 (COVID-19) RNA Not detected Not-Detected [Presence] in Respiratory specimen by LAZARO with probe detection (test code = 34171-9) MARTHA MCGOVERN
[2022-03-23 12:21] LABS: Urine Blood Negative (Negative); Urine Glucose Negative (Negative); Urine Protein Negative (Negative)
[2022-03-23] MEDS ORDERED: MORPHINE 4 MG/ML SYR ONE ×2 (12:32→14:01)
[2022-03-23] MEDS ORDERED: FAMOTIDINE 20 MG/2 ML VIAL IV ONE (12:32)
[2022-03-23] MEDS ORDERED: NA CHLORIDE 0.9% 1,000 ML ONE (12:32)
[2022-03-23] MEDS ORDERED: ONDANSETRON 4 MG/2 ML VIAL ONE (12:32)
[2022-03-23 12:35] LABS: Hematocrit 42.4 % (39.6-49.0); MCV 68.4 fL (80-100); MPV 7.8 fL (7.6-11.3)
[2022-03-23 12:53] LABS: Albumin 3.5 g/dL (3.4-5.0); Bilirubin Total 0.4 mg/dL (0.2-1.0); Potassium 4.2 mmol/L (3.5-5.1); Protein, Total 7.4 g/dL (6.4-8.2)
[2022-03-23 13:12] LABS: Platelet Estimate INCR; Platelets, Giant FEW
[2022-03-23 13:13] LABS: Anisocytosis 1+; Blood Morphology Comment NOTED (NOT SEEN); Macrocytosis 2+
--- NOTE | 2022-03-23 13:30 | RAD REPORT ---
EXAM DESCRIPTION: CTAbdomen Pelvis W Contrast - 03/23/2022 1:24 pm CLINICAL HISTORY: Abdominal pain. abdominal pain COMPARISON: Abdomen Pelvis W Contrast dated 04/24/2021 TECHNIQUE: Biphasic CT imaging of the abdomen and pelvis was performed with 100 ml non-ionic IV cont rast. All CT scans are performed using dose optimization technique as appropriate and may include automated exposure control or mA/KV adjustment according to patient size. FINDINGS: The lung bases are clear.Cholecystectomy clips. The liver, spleen, pancreas, adrenal glands and kidneys are within normal limits. No bowel obstruction, free air, free fluid or abscess. Prominent diverticulosis coli involves the sig moid colon. There is mild peridiverticular inflammation seen involving 8 cm length of sigmoid colon l eft lower quadrant compatible with acute diverticulitis. No peridiverticular abscess evident. The rain endix is normal. No evidence of significant lymphadenopathy. No suspicious bony findings. IMPRESSION: Moderate sigmoid acute diverticulitis without abscess.
--- NOTE | 2022-03-23 13:46 | ER ---
Nurse's Notes [facility] Name: Jesus Noriega Age: 61 yrs Sex: Male : 1960 Arrival Date: 03/23/2022 Time: 11:54 Bed 3 Private MD: Diagnosis: Diverticulitis of large intestine without perforation or abscess without bleeding Presentation: 03/23 11:57 Chief complaint: Patient states: mid abdominal pain X2-3 days, denies n/v/d. iw Coronavirus screen: At this time, the client does not indicate any symptoms associated with coronavirus-19. Ebola Screen: Patient negative for fever greater than or equal to 101.5 degrees Fahrenheit, and additional compatible Ebola Virus Disease symptoms Patient denies exposure to infectious person. Patient denies travel to an Ebola-affected area in the 21 days before illness onset. Initial Sepsis Screen: Does the patient meet any 2 criteria? No. Patient's initial sepsis screen is negative. Does the patient have a suspected source of infection? No. Patient's initial sepsis screen is negative. Risk Assessment: Do you want to hurt yourself or someone else? Patient reports no desire to harm self or others. Onset of symptoms was March 19, 2022. 11:57 Method Of Arrival: Ambulatory iw 11:57 Acuity: [place] 3 iw Historical: - Allergies: 11:58 No Known Allergies; iw - Home Meds: 11:58 Daliresp Oral once daily [Active]; Eliquis Oral 2 times per day [Active]; gabapentin iw 400 mg Oral tab daily [Active]; Prednisone Oral [Active]; Trelegy Ellipta 100-62.5-25 mcg inhalation dsdv 1 puff once daily [Active]; Protonix Oral once daily [Active]; ropinirole 5 mg Oral tab nightly [Active]; Trazodone Oral once daily [Active]; - PMHx: 11:58 COPD; Hypertension; High Cholesterol; DVT; iw - PSHx: 11:58 left forearm; iw - Immunization history:: Adult Immunizations unknown. - Social history:: Smoking status: unknown. Screenin:27 [facility] ED Fall Risk Assessment (Adult) History of falling in the last 3 months, ph including since admission No falls in past 3 months (0 pts) Confusion or Disorientation No (0 pts) Intoxicated or Sedated No (0 pts) Impaired Gait No (0 pts) Mobility Assist Device Used No (0 pt) Altered Elimination No (0 pt) Score/Fall Risk Level 0 - 2 = Low Risk Oriented to surroundings, Maintained a safe environment. Abuse screen: Denies threats or abuse. Denies injuries from another. Nutritional screening: No deficits noted. Tuberculosis screening: No symptoms or risk factors identified. Assessment: 12:52 General: Appears in no apparent distress. Behavior is calm, cooperative, appropriate ph for age, Denies fever, feeling ill. Pain: Complains of pain in right lower quadrant and left lower quadrant. Neuro: Level of Consciousness is awake, alert, obeys commands, Oriented to person, place, time, situation. Cardiovascular: Capillary refill < 3 seconds in bilateral fingers Patient's skin is warm and dry. Respiratory: Airway is patent Respiratory effort is even, unlabored. GI: Abdomen is non-distended, Reports lower abdominal pain, constipation. Derm: Skin is intact, is healthy with good turgor, Skin is pink, warm \T\ dry. Musculoskeletal: Circulation, motion, and sensation intact. Range of motion: intact in all extremities. Vital Signs: 11:58 BP 136 / 81; Pulse 79; Resp 16; Temp 98.3; Pulse Ox 95% on R/A; Weight 99.34 kg; Height iw 5 ft. 5 in. (165.10 cm); Pain 8/10; 14:09 BP 127 / 89; Pulse 77; Resp 18; Temp 98.1; Pulse Ox 96% on R/A; ph 11:58 Body Mass Index 36.44 (99.34 kg, 165.10 cm) iw ED Course: 11:54 Patient arrived in ED. mr 11:57 Joann Packer PA-C is PHCP. sb4 11:57 Antoni Adams MD is Attending Physician. sb4 11:58 Triage completed. iw 11:58 Arm band placed on. iw 12:25 Missed attempt(s): 20 gauge in right forearm. Bleeding controlled, band aid applied, ss catheter tip intact. 12:26 Ginger Wheeler, RN is Primary Nurse. ll1 12:26 Shereen Oliveros, RN is Primary Nurse. ph 12:27 Patient has correct armband on for positive identification. Placed in gown. Bed in low ph position. Call light in reach. Side rails up X 1. Pulse ox on. NIBP on. Door closed. Noise minimized. 12:30 Inserted saline lock: 22 gauge in right forearm, using aseptic technique. Blood ss collected. 13:26 CT Abd/Pelvis - IV Contrast Only In Process Unspecified. EDMS 13:45 Jose Cherry MD is Referral Physician. sb4 14:09 No provider procedures requiring assistance completed. IV discontinued, intact, ph bleeding controlled, No redness/swelling at site. Pressure dressing applied. Administered Medications: 12:40 Drug: NS 0.9% 1000 ml Route: IV; Rate: 1 bolus; Site: right forearm; ph 14:08 Follow up: Response: No adverse reaction; IV Status: Completed infusion; IV Intake: ph 1000ml 12:40 Drug: Pepcid (famotidine) 20 mg Route: IVP; Site: right forearm; ph 14:08 Follow up: Response: No adverse reaction ph 12:42 Drug: Zofran (Ondansetron) 4 mg Route: IVP; Site: right forearm; ph 14:08 Follow up: Response: No adverse reaction ph 12:44 Drug: morphine 4 mg Route: IVP; Infused Over: 4 mins; Site: right forearm; ph 13:00 Follow up: Response: No adverse reaction; Pain is decreased; RASS: Alert and Calm (0) ph 13:55 Drug: morphine 4 mg Route: IVP; Infused Over: 4 mins; Site: right forearm; ph 14:08 Follow up: Response: No adverse reaction; Pain is decreased; RASS: Alert and Calm (0) ph Medication: 12:27 VIS not applicable for this client. ph Intake: 14:08 IV: 1000ml; Total: 1000ml. ph Outcome: 13:45 Discharge ordered by . sb4 14:09 Discharged to home ambulatory, with significant other. ph 14:09 Condition: good 14:09 Discharge instructions given to patient, significant other, Instructed on discharge instructions, follow up and referral plans. medication usage, Demonstrated understanding of instructions, follow-up care, medications, Prescriptions given X 2. 14:09 Patient left the ED. ph Signatures: Dispatcher [facility] Lisa Coronado Irene, RN RN Jada Moses RN RN Shereen Oliveros RN RN Ginger Hirsch RN RN ll1 Joann Packer, RYAN PALuis sb4 Corrections: (The following items were deleted from the chart) 11:59 11:58 Home Meds: Iron CR Oral; iw iw
--- NOTE | 2022-03-23 13:46 | EDPHYS ---
Physician Documentation [facility] Name: Jesus Noriega Age: 61 yrs Sex: Male : 1960 Arrival Date: 03/23/2022 Time: 11:54 Bed 3 Private MD: ED Physician Antoni Adams HPI: 03/23 12:16 This 61 yrs old Male presents to ER via Ambulatory with complaints of Abdominal Pain. sb4 12:16 The patient presents with abdominal pain in the lower abdomen, abdominal distention sb4 that is diffuse. Onset: The symptoms/episode began/occurred 3 day(s) ago. The symptoms do not radiate. Associated signs and symptoms: Pertinent positives: constipation, Pertinent negatives: nausea, vomiting, and diarrhea, blood in stools, diarrhea. Modifying factors: The symptoms are alleviated by nothing, the symptoms are aggravated by nothing. Severity of pain: in the emergency department the pain is a 8 / 10. The patient has not experienced similar symptoms in the past. Patient reports generalized lower abdominal pain x 3 days. He denies nausea, vomiting, diarrhea. States that he feels his abdomen is distended. Denies urinary symptoms or known prostate problems. He states he has had irregular bowel habits since having his gallbladder removed about 1 year ago so he has not noticed anything abnormal over the past few days. . Historical: - Allergies: 11:58 No Known Allergies; iw - Home Meds: 11:58 Daliresp Oral once daily [Active]; Eliquis Oral 2 times per day [Active]; gabapentin iw 400 mg Oral tab daily [Active]; Prednisone Oral [Active]; Trelegy Ellipta 100-62.5-25 mcg inhalation dsdv 1 puff once daily [Active]; Protonix Oral once daily [Active]; ropinirole 5 mg Oral tab nightly [Active]; Trazodone Oral once daily [Active]; - PMHx: 11:58 COPD; Hypertension; High Cholesterol; DVT; iw - PSHx: 11:58 left forearm; iw - Immunization history:: Adult Immunizations unknown. - Social history:: Smoking status: unknown. ROS: 12:16 Constitutional: Negative for fever, chills, and weight loss, Eyes: Negative for injury, sb4 pain, redness, and discharge, ENT: Negative for injury, pain, and discharge, Cardiovascular: Negative for chest pain, palpitations, and edema, Respiratory: Negative for shortness of breath, cough, wheezing, and pleuritic chest pain, MS/Extremity: Negative for injury and deformity, Skin: Negative for injury, rash, and discoloration. 12:16 Abdomen/GI: Positive for abdominal pain, abdominal distension, Negative for nausea, vomiting, and diarrhea. Exam: 12:16 Constitutional: This is a well developed, well nourished patient who is awake, alert, sb4 and in no acute distress. Head/Face: Normocephalic, atraumatic. ENT: Mucous membranes moist. Cardiovascular: Regular rate and rhythm with a normal S1 and S2. Respiratory: Lungs have equal breath sounds bilaterally, clear to auscultation and percussion. No rales, rhonchi or wheezes noted. No increased work of breathing, no retractions or nasal flaring. Skin: Warm, dry with normal turgor. Normal color with no rashes, no lesions, and no evidence of cellulitis. MS/ Extremity: Pulses equal, no cyanosis. Neurovascular intact. Full, normal range of motion. 12:16 Abdomen/GI: Inspection: distension, that is moderate, Bowel sounds: diminished, in all quadrants, Palpation: mild abdominal tenderness, in the suprapubic area, right lower quadrant and left lower quadrant. Vital Signs: 11:58 BP 136 / 81; Pulse 79; Resp 16; Temp 98.3; Pulse Ox 95% on R/A; Weight 99.34 kg; Height iw 5 ft. 5 in. (165.10 cm); Pain 8/10; 14:09 BP 127 / 89; Pulse 77; Resp 18; Temp 98.1; Pulse Ox 96% on R/A; ph 11:58 Body Mass Index 36.44 (99.34 kg, 165.10 cm) iw MDM: 12:14 Patient medically screened. sb4 14:18 Differential diagnosis: bowel obstruction, diverticulitis, Mesenteric ischemia or sb4 infarction, non-specific abd pain, pancreatitis, Prostatitis, Pyelonephritis, urinary tract infection. Data reviewed: vital signs, nurses notes, lab test result(s), radiologic studies, CT scan, I have discussed the patient's presentation/case with the attending Emergency Department Physician; and as a result, I will discharge patient. Consideration of Admission/Observation Escalation of care including admission/observation considered. Historians other than the Patient: Spouse/Significant Other: Significant Other. Care significantly affected by the following chronic conditions: Chronic Obstructive Pulmonary Disease. Medication response: morphine partially relieved the patient's pain. Response to treatment: the patient's symptoms have mildly improved after treatment, and as a result, I will discharge patient. 03/23 12:15 Order name: CBC with Diff; Complete Time: 13:20 sb4 03/23 12:15 Order name: CMP; Complete Time: 12:57 sb4 03/23 12:15 Order name: Lipase; Complete Time: 12:57 sb4 03/23 12:15 Order name: CT Abd/Pelvis - IV Contrast Only; Complete Time: 13:40 sb4 03/23 12:21 Order name: Urine Dipstick-Ancillary; Complete Time: 12:51 EDMS 03/23 12:46 Order name: Manual Differential; Complete Time: 13:20 EDMS 03/23 12:15 Order name: IV Saline Lock; Complete Time: 12:20 sb4 03/23 12:15 Order name: Labs collected and sent; Complete Time: 12:20 sb4 03/23 12:15 Order name: Urine Dipstick-Ancillary (obtain specimen); Complete Time: 12:15 sb4 Administered Medications: 12:40 Drug: NS 0.9% 1000 ml Route: IV; Rate: 1 bolus; Site: right forearm; ph 14:08 Follow up: Response: No adverse reaction; IV Status: Completed infusion; IV Intake: ph 1000ml 12:40 Drug: Pepcid (famotidine) 20 mg Route: IVP; Site: right forearm; ph 14:08 Follow up: Response: No adverse reaction ph 12:42 Drug: Zofran (Ondansetron) 4 mg Route: IVP; Site: right forearm; ph 14:08 Follow up: Response: No adverse reaction ph 12:44 Drug: morphine 4 mg Route: IVP; Infused Over: 4 mins; Site: right forearm; ph 13:00 Follow up: Response: No adverse reaction; Pain is decreased; RASS: Alert and Calm (0) ph 13:55 Drug: morphine 4 mg Route: IVP; Infused Over: 4 mins; Site: right forearm; ph 14:08 Follow up: Response: No adverse reaction; Pain is decreased; RASS: Alert and Calm (0) ph Disposition: 16:40 Co-signature as Attending Physician, Antoni Adams MD I agree with the assessment and kdr plan of care. Disposition Summary: 03/23/22 13:45 Discharge Ordered Location: Home sb4 Condition: Stable sb4 Diagnosis - Diverticulitis of large intestine without perforation or abscess without bleeding sb4 Followup: sb4 - With: Jose Cherry MD - When: 1 week - Reason: Further diagnostic work-up, Recheck today's complaints, Continuance of care, Re-evaluation by your physician Discharge Instructions: - Discharge Summary Sheet sb4 - Diverticulitis, [id number] sb4 Forms: - Medication Reconciliation Form sb4 - Thank You Letter sb4 - Antibiotic Education sb4 - Prescription Opioid Use sb4 Prescriptions: - Flagyl 500 mg Oral Tablet - take 1 tablet by ORAL route every 8 hours for 10 days; 30 tablet; Refills: 0, sb4 Product Selection Permitted - Cipro 500 mg Oral Tablet - take 1 tablet by ORAL route every 12 hours for 7 days; 14 tablet; Refills: 0, sb4 Product Selection Permitted Signatures: Dispatcher [employer] EDOR Antoni Adams MD MD kdr Kenzie Alford RN RN iw Shereen Oliveros RN RN ph Joann Packer PA-C PA-C sb4 Corrections: (The following items were deleted from the chart) 11:59 11:58 Home Meds: Iron CR Oral; iw iw
[2022-03-23 14:51] VITALS: BP 127/89; TEMP 98.1; O2SAT 96
== END 2022-03-23 14:09 | disposition home or self-care (01) ==
LOC: ER 11:47
DX: K57.32 Diverticulitis of large intestine without perforation or abscess without bleeding (principal); J44.9 Chronic obstructive pulmonary disease, unspecified; I10 Essential (primary) hypertension; E78.00 Pure hypercholesterolemia, unspecified; Z86.718 Personal history of other venous thrombosis and embolism
CPT/HCPCS: 85025; 36415; 81003; 83690; 80053; 74177; Q9967; J7030; J2405

== ENCOUNTER 2022-05-01 19:37 | Inpatient (IN) | payer OTHER ==
--- OUTSIDE RECORDS SUMMARY | 2022-05-01 19:43 | XMS REPORT | Continuity of Care Document ---
:1960 Author Organization [facility] t Address [address]. [address] [place] [address] Care Team Providers Name Role Phone Nick VILLALOBOS, [facility] Primary Care Physician [phone] PRINCE MCLAIN Attending Clinician Unavailable Tarun Lorenzana MD Attending Clinician Nirmala Barreto MA Attending Clinician Unavailable Doctor Unassigned, [place] Attending Clinician Unavailable STARR BARAHONA Attending Clinician Unavailable Prince Mclain DDS Attending Clinician MD STARR BARAHONA Attending Clinician Unavailable Jaycob Lawrence Attending Clinician KWABENA CHRISTINE Attending Clinician Unavailable KWABENA CHRISTINE Attending Clinician Unavailable PRINCE MCLAIN Admitting Clinician Unavailable STARR BARAHONA Admitting Clinician Unavailable MD STARR BARAHONA Admitting Clinician Unavailable Payers Payer Name Policy Type Policy Number Effective Date Expiration Date S alex [facility] STAR PLUS [id number] 2018 00:00:00 DARS DISABILITY [id number] 2017 DETERMINATION [...] Gastroesop Disease Active M ethodi hageal hageal 2 st reflux reflux 00:00: Hospita disease disease [...] M ethodi ab anemia ab anemia 04-10 st 00:00: Hospita 00 l Substance Substance Disease Active Met hodi abuse abuse 04-10 (amphetami (amphetami 00:00: Ho spita ne and ne and 00 l cannabinoi cannabinoi d) d) Caries Caries Disease Active 2019-03 Univers 2-14 ity of 00:00: [place] 00 Medical Branch Foreign Foreign Disease Active 2019-03 Univers body in body in 2-14 ity of mouth, mouth, 00:00: [place] initial initial 00 Medical encounter encounter Bran ch Ataxia Ataxia Problem Active 2020-04-02 Elliott bernardo (finding) (finding) 22:53:10 l Active [place] Problem 04/02/2020 [facility] 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 Abraham n (disorder) (disorder) Active Problem 04/02/2020 [facility] Chronic Chronic Problem Active 2020-04-02 Me moria obstructiv obstructiv 22:53:10 l e lung e lung [place] disease disease (disorder) (disorder) Active Problem 04/02/2020 [facility] Morbid Morbid Problem Active 2020-04-02 Elliott bernardo obesity obesity 22:53:10 l (disorder) (disorder) He rmann Active Problem 04/02/2020 [facility] Paresthesi Problem Active 2020-04-02 M melia a Paresthesi 22:53:10 l (finding) a Rodriguez (finding) Active Problem 04/02/2020 [facility] [id number] Primary Problem Comm on 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 [facility] [id number] [place], [place] [address] joint, Spirit knee, left - [facility] [id number] Rash and Problem Comm on nonspecifi Spirit c skin - [facility] eruption [facility] Allergies, Adverse Reactions, Alerts Allergy Allergy Status Severity Reaction(s) Onset Inactive Treating Comm ents Source Name Type Date Date Clinician NO KNOWN Drug Active Univers ALLERGIE Class ity of S [facility] No Known No Known Active Memori a Medicati Medicati l on on Rodriguez Allergie Allergie s s Social History Social Habit Start Date Stop Date Quantity Comments Source History of [facility] - Tobacco Use [facility] Exposure to Not sure University of SARS-CoV-2 [facility] (event) Branch History SDNY Sikhism Ho spital Alcohol Std Drinks History [facility] Sikhism Ho spital Alcohol Binge Alcohol intake 2021-06-08 2021-06-08 Lifetime [facility] 00:00:00 00:00:00 non-drinker (finding) History [facility] 2020-06-09 2020-06-09 1 Sikhism Ho spital Alcohol Frequency 00:00:00 00:00:00 Tobacco use and 2020-02-16 2020-02-16 Never used Universit y of exposure 00:00:00 00:00:00 [facility] Social History 2020-01-15 2020-01-15 [facility] 17:26:11 17:26:11 Sex Ass[birth year] At [birth year] [facility] 00:00:00 00:00:00 Smoking Status Start Date Stop Date Source Former Smoker 2021-12-02 00:00:00 2021-12-02 00:00:00 Common S pirit - [facility] Medications Ordered Filled Start Stop Current Ordering [...] 00:00 00 :00 Mobic 7.5 Mobic 7.5 2021- No 1{table QD Mobic 7.5 MG MG 9-29 10-29 t} MG 00:00: 00:00 00 :00 fluticasone 0 Yes 1{puff} QD Inhale 1 [...] tablet 50 l ipratropium 0 Yes 3mL Q.[id number] Take 3 mL Methodi -albuteroL 4-[id number] (DUO-NEB) 08:45: 3D nebulizati Ho [...] shortness of breath. gabapentin 0 Yes 400mg Q.[id number] Take 400 [facility] (NEURONTIN) 4-06 [id number] mg by s t 400 mg 08:45: [...] 08:45: daily. Hospita tablet 50 l ipratropium 2022-0 Yes 3mL Q.[id number] Take 3 mL [facility] -albuteroL 4-[id number] (DUO-NEB) 08:45: 3D nebulizati Ho [...] shortness of breath. gabapentin 0 Yes 400mg Q.[id number] Take 400 Method[facility] (NEURONTIN) 4-06 [id number] mg by s t 400 mg 08:45: [...] 08:45: nightly. Hospita tablet 50 l lisinopriL 2022-0 Yes 10mg QD Take 10 mg M ethodi (PRINIVIL) 4-[address] 10 mg 08:45: daily. Hospita tablet 50 l ipratropium 2021-0 Yes 3mL Q.[id number] Take 3 mL Method[facility] -albuteroL 4-[id number] (DUO-NEB) 08:45: 3D nebulizati Ho [...] shortness of breath. gabapentin 0 Yes 400mg Q.[id number] Take 400 Methodi (NEURONTIN) 4-06 [id number] mg by s t 400 mg 08:45: [...] mouth Hospita tablet 50 daily. l rOPINIRole 2021-0 Yes 5mg QD Take 5 mg Me [...] tablet 50 l ipratropium 0 Yes 3mL Q.[id number] Take 3 mL Methodi -albuteroL 4-[id number] (DUO-NEB) 08:45: 3D nebulizati Ho [...] or shortness of breath. gabapentin Yes 400mg Q.[id number] Take 400 [facility] (NEURONTIN) 4-06 [id number] mg by s t 400 mg 08:45: [...] Hospita tablet 50 l ipratropium Yes 3mL Q.[id number] Take 3 mL Methodi -albuteroL -[id number] (DUO-NEB) 08:45: 3D nebulizati Ho [...] or shortness of breath. gabapentin Yes 400mg Q.[id number] Take 400 Method[facility] (NEURONTIN) 4-06 [id number] mg by s t 400 mg 08:45: 3D mouth 3 Hospita capsule 50 (three) l times a day. Futuro 2019-03 Yes 1 ea, Memoria Adjustable [...] 19:29: Daily, 0 [place] 00 Refill(s) lisinopril 2020- Yes 10 mg = 1 Me moria 10 mg oral 2-16 tab, PO, l tablet 19:29: Daily, 0 [place] 00 Refill(s) lisinopril 2019- Yes 10 mg = 1 Me moria 10 mg oral 2-16 tab, PO, l tablet 19:29: Daily, 0 [place] Refill(s) lisinopril 2019- Yes 10 mg = 1 Me moria 10 mg oral 2-16 tab, PO, l tablet 19:29: Daily, 0 [place] Refill(s) lisinopril 2019- Yes 10 mg = 1 Me moria 10 mg oral 2-16 tab, PO, l tablet 19:29: Daily, 0 [place] 00 Refill(s) rOPINIRole 2020- Yes Univers 5 mg tablet 2-12 ity of 00:00: [address] rOPINIRole 2020- Yes Univers 5 mg tablet 2-12 ity of 00:: [facility] rOPINIRole 2020- Yes Univers 5 mg tablet 2-12 ity of 00:00: [facility] rOPINIRole 2020- Yes Univers 5 mg tablet 2-12 ity of 00:00: [address] rOPINIRole 2020- Yes Univers 5 mg tablet 2-12 ity of 00:00: [address] rOPINIRole 2020- Yes Univers 5 mg tablet 2-12 ity of 00:00: [address] rOPINIRole 2020- Yes Univers 5 mg tablet 2-12 ity of 00:00: [place] 00 Medical Branch rOPINIRole 2020- Yes Univers 5 mg tablet 2-12 ity of 00:00: Medical Branch rOPINIRole 2020- Yes Univers 5 mg tablet 2-12 ity of 00:00: Medical Branch rOPINIRole 2020- Yes Univers 5 mg tablet 2-12 ity of 00:00: [place] [facility] rOPINIRole 2020- Yes Univers 5 mg tablet 2-12 ity of 00:00: [place] [facility] rOPINIRole 2020- Yes Univers 5 mg tablet 2-12 ity of 00:00: [place] [facility] rOPINIRole 2019- Yes Univers 5 mg tablet 2-12 ity of 00:00: [place] [facility] TRELEGY 2019-03 Yes Univers ELLIPTA [...] 00:00: [place] mcg DsDv Medical Branch TRELEGY 2020-1 Yes Univers ELLIPTA 2-11 ity of 100-62.5-25 00:00: [facility] DsDv [facility] TRELEGY 2019-03 Yes Univers ELLIPTA 2-11 ity of 100-62.5-25 00:00: [facility] DsDv [facility] TRELEGY 2019-03 Yes Univers ELLIPTA 2-11 ity of 100-62.5-25 00:00: [facility] predniSONE 2019-03 Yes 10 mg = 1 Me moria 10 mg oral 1-12 tab, PO, l tablet 17:01: Daily, 0 [place] 00 Refill(s) pantoprazol 2019-03 Yes 40 mg = 1 M emoria e 40 MG 1-12 tab, PO, l Enteric 17:01: Daily, 0 Abraham n Coated 00 Refill(s) Tablet [Protonix] ropinirole 2019-03 Yes PO, Daily, M emoria 1-12 0 l 17:01: Refill(s) [place] 00 predniSONE 2019-03 Yes 10 mg = 1 Me moria 10 mg oral 1-12 tab, PO, l tablet 17:01: Daily, 0 [place] 00 Refill(s) pantoprazol 2019-03 Yes 40 mg = 1 M emoria e 40 MG 1-12 tab, PO, l Enteric 17:01: Daily, 0 Abraham n Coated 00 Refill(s) Tablet [Protonix] ropinirole 2019-03 Yes PO, Daily, M emoria 1-12 0 l 17:01: Refill(s) [place] 00 predniSONE 2019-03 Yes 10 mg = 1 Me moria 10 mg oral 1-12 tab, PO, l tablet 17:01: Daily, 0 [place] 00 Refill(s) pantoprazol 2019-03 Yes 40 mg = 1 M emoria e 40 MG 1-12 tab, PO, l Enteric 17:01: Daily, 0 Abraham n Coated 00 Refill(s) Tablet [Protonix] ropinirole 2019-03 Yes PO, Daily, M emoria 1-12 0 l 17:01: Refill(s) [place] predniSONE 2019-03 Yes 10 mg = 1 Me moria 10 mg oral 1-12 tab, PO, l tablet 17:01: Daily, 0 [place] 00 Refill(s) pantoprazol 2019-03 Yes 40 mg = 1 M emoria e 40 MG 1-12 tab, PO, l Enteric 17:01: Daily, 0 Abraham n Coated 00 Refill(s) Tablet [Protonix] ropinirole 2019-03 Yes PO, Daily, M emoria 1-12 0 l 17:01: Refill(s) [place] predniSONE 2019-03 Yes 10 mg = 1 Mo moria 10 mg oral 1-12 tab, PO, l tablet 17:01: Daily, 0 [place] 00 Refill(s) pantoprazol 2019-03 Yes 40 mg = 1 M emoria e 40 MG 1-12 tab, PO, l Enteric 17:01: Daily, 0 Abraham n Coated 00 Refill(s) Tablet [Protonix] ropinirole 2019-03 Yes PO, Daily, M emoria 1-12 0 l 17:01: Refill(s) [place] 00 pantoprazol 2019-03 Yes TAKE 1 Univ ers [...] DO NOT CRUSH, CHEW OR SPLIT. ipratropium 2019-03 Yes Univer s -albuteroL 0-28 [...] Medical base)/3 mL Branch nebulizer solution DALIRESP Yes Univers 500 mcg 9-22 ity of tablet 00:00: Medical Branch DALIRESP 2019-0 Yes Univers 500 mcg 9-22 ity of tablet 00:00: Medical Branch DALIRESP 2019-0 Yes Univers 500 mcg 9-22 ity of tablet 00:00: Medical Branch DALIRESP 2020-0 Yes Univers 500 mcg 9-22 ity of tablet 00:00: [place] [facility] DALIRESP 2020-0 Yes Univers 500 mcg 9-22 ity of tablet 00:00: [place] [facility] DALIRESP 2020-0 Yes Univers 500 mcg 9-22 ity of tablet 00:00: [place] [facility] DALIRESP 2020-0 Yes Univers 500 mcg 9-22 ity of tablet 00:00: [place] [facility] DALIRESP 2020-0 Yes Univers 500 mcg 9-22 ity of tablet 00:00: [place] [facility] DALIRESP 2020-0 Yes Univers 500 mcg 9-22 ity of tablet 00:00: [place] [facility] DALIRESP 2020-0 Yes Univers 500 mcg 9-22 ity of tablet 00:00: [place] [facility] DALIRESP 2020-0 Yes Univers 500 mcg 9-22 ity of tablet 00:00: [place] [facility] DALIRESP 2020-0 Yes Univers 500 mcg 9-22 ity of tablet 00:00: [place] [facility] DALIRESP 2020-0 Yes Univers 500 mcg 9-22 ity of tablet 00:00: [facility] predniSONE 2019-1 Yes 10mg Take 10 mg U nivers 10 mg 0-24 by mouth. ity of tablet 00:00: [facility] predniSONE 2019-1 Yes 10mg Take 10 mg U nivers 10 mg 0-24 by mouth. ity of tablet 00:00: [facility] predniSONE 2019-1 Yes 10mg Take 10 mg U nivers 10 mg 0-24 by mouth. ity of tablet 00:00: [facility] predniSONE 2019-1 Yes 10mg Take 10 mg U nivers 10 mg 0-24 by mouth. ity of tablet 00:00: [facility] predniSONE 2019-1 Yes 10mg Take 10 mg U nivers 10 mg 0-24 by mouth. ity of tablet 00:00: [facility] predniSONE 2019-1 Yes 10mg Take 10 mg U nivers 10 mg 0-24 by mouth. ity of tablet 00:00: [address] predniSONE 2019-1 Yes 10mg Take 10 mg U nivers 10 mg 0-24 by mouth. ity of tablet 00:00: [address] predniSONE 2019-1 Yes 10mg Take 10 mg U nivers 10 mg 0-24 by mouth. ity of tablet 00:00: [place] [facility] predniSONE 2019-1 Yes 10mg Take 10 mg U nivers 10 mg 0-24 by mouth. ity of tablet 00:00: [place] [facility] predniSONE 2019-1 Yes 10mg Take 10 mg U nivers 10 mg 0-24 by mouth. ity of tablet 00:00: [place] [facility] predniSONE 2019-1 Yes 10mg Take 10 mg U nivers 10 mg 0-24 by mouth. ity of tablet 00:00: [place] [facility] predniSONE 2019-1 Yes 10mg Take 10 mg U nivers 10 mg 0-24 by mouth. ity of tablet 00:00: [place] [facility] predniSONE 2019-1 Yes 10mg Take 10 mg U nivers 10 mg 0-24 by mouth. ity of tablet 00:00: [place] [facility] hydrOXYzine hydrOXYzine 2019-0 No TID hydrOXYzin HCl 25 MG HCl 25 MG 8-08 e HCl 25 00:00: 00 hydrOXYzine hydrOXYzine 2019-0 No TID hydrOXYzin HCl 25 MG HCl 25 MG 8-08 e HCl 25 00:00: 00 acetaminoph 2018-0 Yes TAKE 2 Univ ers en-codeine 6-27 TABLETS BY ity of 300-30 mg 00:00: MOUTH [place] tablet 00 EVERY SIX Medical HOURS Branch NEEDED FOR PAIN ibuprofen Yes TAKE 1 Univer s 800 mg 6-27 TABLET BY ity of tablet 00:00: MOUTH [place] 00 EVERY 8 Medical HOURS Branch NEEDED FOR PAIN WITH FOOD acetaminoph 2018 Yes TAKE 2 Univ ers en-codeine 6-27 [...] Medical HOURS Branch NEEDED FOR PAIN ibuprofen 2017- Yes TAKE 1 Univer s 800 mg [...] l tablets follow Branch package directions albuterol 2016- Yes 2.5mg Inhale 3 Uni vers 2.5 [...] l tablets follow Branch package directions albuterol 2016- Yes 2.5mg Inhale 3 Uni vers 2.5 [...] package directions methylPREDN 2016-03 Yes Take by Uni vers [...] 2021-12-27 Completed 00:00:00 Influenza, injectable, 2021-12-27 Completed Jose Martin Yang Canine 00:00:00 Kidney, preservative-free, quadrivalent SHINGRIX VACCINE 2021-06-25 Completed 00:00:00 Tdap 2021-06-25 Completed 00:00:00 Vital Signs Vital Name Observation Time Observation Value Comments Source height 2021-12-01 14:00:00 69 [in_i] [facility] weight 2021-12-01 14:00:00 230 [lb_av] [facility] temperature 2021-12-01 14:00:00 98.1 [degF] [facility] bmi 2021-12-01 14:00:00 33.96 kg/m2 [facility] blood pressure 2021-12-01 14:00:00 118 mm[Hg] [facility] - systolic [facility] blood pressure 2021-12-01 14:00:00 62 mm[Hg] [facility] - diastolic [facility] Systolic blood 2020-02-16 19:36:00 143 mm[Hg] Univer sity of pressure [facility] Diastolic blood 2020-02-16 19:36:00 91 mm[Hg] Unive rsity of pressure [facility] Heart rate 2020-02-16 19:36:00 91 /min Universi ty of [facility] Body temperature 2020-02-16 19:36:00 36.33 Vandana Univ ersity of [facility] Body height 2020-02-16 19:36:00 175.3 cm Universi ty of [facility] Body weight 2020-02-16 19:36:00 107.956 kg Universi ty of [facility] BMI 2020-02-16 19:36:00 35.15 kg/m2 Universi ty of [facility] Systolic blood 2020-02-16 19:36:00 143 mm[Hg] Univer sity of pressure [facility] Diastolic blood 2020-02-16 19:36:00 91 mm[Hg] Unive rsity of pressure [facility] Heart rate 2020-02-16 19:36:00 91 /min Universi ty of [facility] Branch Body temperature 2020-02-16 19:36:00 36.33 Vandana Univ ersity of [facility] Body height 2020-02-16 19:36:00 175.3 cm Universi ty of [place] [facility] Body weight 2020-02-16 19:36:00 107.956 kg Universi ty of [place] [facility] BMI 2020-02-16 19:36:00 35.15 kg/m2 Universi ty of [facility] Branch BP Systolic 2021-12-27 16:41:00 144 mm[Hg] BP [...] Diastolic (mm Hg) 2020-02-18 19:20:00 Mem orial [place] Heart Rate 2020-02-18 19:20:00 [facility] [place] Respitory Rate 2020-02-18 19:20:00 Memori al [place] Height 2020-02-18 19:20:00 170.18 cm [facility] [place] Weight 2020-02-18 19:20:00 [facility] [place] BMI Calculated 2020-02-18 19:20:00 Memori al [place] Diastolic (mm Hg) 2020-01-15 16:50:00 Mem orial [place] Heart Rate 2020-01-15 16:50:00 [facility] [place] Respitory Rate 2020-01-15 16:50:00 Memori al [place] Height 2020-01-15 16:50:00 170.18 cm [facility] [place] Weight 2020-01-15 16:50:00 [facility] [place] BMI Calculated 2020-01-15 16:50:00 Memori al [place] Systolic (mm Hg) 2020-01-15 16:50:00 Elliott rial [place] Procedures Procedure Date / Time Performing Clinician Source Performed EXTERNAL PROVIDER RECORDS 2020-07-02 05:01:00 Doctor Unassigned, [facility] [place] [facility] INSURANCE CORRESPONDENCE 2020-04-10 06:01:00 Doctor Unassigned, [facility] [place] [facility] EXTERNAL PROVIDER RECORDS 2020-04-07 06:01:00 Doctor Unassigned, [facility] [place] [facility] INSURANCE CORRESPONDENCE 2020-02-26 06:01:00 Doctor Unassigned, [facility] [place] [facility] EXTERNAL PROVIDER RECORDS 2020-02-10 06:01[facility] Planned Activity Planned Date Details Comments Source Future Scheduled 2022-03-07 COVID-19 VACCINE (#1) [facility] Test 10:17:47 [code = COVID-19 VACCINE (#1)] Future Scheduled 2022-03-07 Pneumococcal Vaccine: [facility] Test 10:17:47 Pediatrics (0 to 5 Years) and At-Risk Patients (6 to 64 Years) (1 - PCV) [code = Pneumococcal Vaccine: Pediatrics (0 to 5 Years) and At-Risk Patients (6 to 64 Years) (1 - PCV)] Future Scheduled 2022-03-07 Hepatitis C screening [facility] Test 10:17:47 (procedure) [code = 989957089] Future Scheduled 2022-03-07 COLONOSCOPY SCREENING [facility] Test 10:17:47 [code = COLONOSCOPY SCREENING] Future Scheduled 2022-03-07 SHINGLES VACCINES (1 Met [facility] Test 10:17:47 of 2) [code = SHINGLES VACCINES (1 of 2)] Future Scheduled 2022-03-07 INFLUENZA VACCINE [facility] Hospital Test 10:17:47 [code = INFLUENZA VACCINE] Future Scheduled 2022-03-07 COVID-19 VACCINE (#1) [facility] Test 10:17:47 [code = COVID-19 VACCINE (#1)] Future Scheduled 2022-03-07 Pneumococcal Vaccine: [facility] Test 10:17:47 Pediatrics (0 to 5 Years) and At-Risk Patients (6 to 64 Years) (1 - PCV) [code = Pneumococcal Vaccine: Pediatrics (0 to 5 Years) and At-Risk Patients (6 to 64 Years) (1 - PCV)] Future Scheduled 2022-03-07 Hepatitis C screening [facility] Test 10:17:47 (procedure) [code = 202858770] Future Scheduled 2022-03-07 COLONOSCOPY SCREENING [facility] Test 10:17:47 [code = COLONOSCOPY SCREENING] Future Scheduled 2022-03-07 SHINGLES VACCINES (1 [facility] Test 10:17:47 of 2) [code = SHINGLES VACCINES (1 of 2)] Future Scheduled 2022-03-07 INFLUENZA VACCINE [facility] Hospital Test 10:17:47 [code = INFLUENZA VACCINE] Future Scheduled 2022-03-07 COVID-19 VACCINE (#1) [facility] Test 10:17:47 [code = COVID-19 VACCINE (#1)] Future Scheduled 2022-03-07 Pneumococcal Vaccine: [facility] Test 10:17:47 Pediatrics (0 to 5 Years) and At-Risk Patients (6 to 64 Years) (1 - PCV) [code = Pneumococcal Vaccine: Pediatrics (0 to 5 Years) and At-Risk Patients (6 to 64 Years) (1 - PCV)] Future Scheduled 2022-03-07 Hepatitis C screening [facility] Test 10:17:47 (procedure) [code = 925103485] Future Scheduled 2022-03-07 COLONOSCOPY SCREENING [facility] Test 10:17:47 [code = COLONOSCOPY SCREENING] Future Scheduled 2022-03-07 SHINGLES VACCINES (1 Met [facility] Test 10:17:47 of 2) [code = SHINGLES VACCINES (1 of 2)] Future Scheduled 2022-03-07 INFLUENZA VACCINE Method [facility] Test 10:17:47 [code = INFLUENZA VACCINE] Future Scheduled 2022-03-07 COVID-19 VACCINE (#1) [facility] Test 10:17:47 [code = COVID-19 VACCINE (#1)] Future Scheduled 2022-03-07 Pneumococcal Vaccine: [facility] Test 10:17:47 Pediatrics (0 to 5 Years) and At-Risk Patients (6 to 64 Years) (1 - PCV) [code = Pneumococcal Vaccine: Pediatrics (0 to 5 Years) and At-Risk Patients (6 to 64 Years) (1 - PCV)] Future Scheduled 2022-03-07 Hepatitis C screening [facility] Test 10:17:47 (procedure) [code = 217120380] Future Scheduled 2022-03-07 COLONOSCOPY SCREENING [facility] Test 10:17:47 [code = COLONOSCOPY SCREENING] Future Scheduled 2022-03-07 SHINGLES VACCINES (1 Met [facility] Test 10:17:47 of 2) [code = SHINGLES VACCINES (1 of 2)] Future Scheduled 2022-03-07 INFLUENZA VACCINE Method [facility] Test 10:17:47 [code = INFLUENZA VACCINE] Future Scheduled 2021-11-04 HEPATITIS B VACCINES Met [facility] Test 20:13:24 (1 of 3 - 3-dose series) [code = HEPATITIS B VACCINES (1 of 3 - 3-dose series)] Future Scheduled 2021-11-04 COVID-19 VACCINE (#1) [facility] Test 20:13:24 [code = COVID-19 VACCINE (#1)] Future Scheduled 2021-11-04 Pneumococcal Vaccine: [facility] Test 20:13:24 Pediatrics (0 to 5 Years) and At-Risk Patients (6 to 64 Years) (1 - PCV) [code = Pneumococcal Vaccine: Pediatrics (0 to 5 Years) and At-Risk Patients (6 to 64 Years) (1 - PCV)] Future Scheduled 2021-11-04 Hepatitis C screening [facility] Test 20:13:24 (procedure) [code = [id number]] Future Scheduled 2021-11-04 COLONOSCOPY SCREENING [facility] Test 20:13:24 [code = COLONOSCOPY SCREENING] Future Scheduled 2021-11-04 SHINGLES VACCINES (1 [facility] Test 20:13:24 of 2) [code = SHINGLES VACCINES (1 of 2)] Future Scheduled 2021-11-04 INFLUENZA VACCINE [facility] Test 20:13:24 [code = INFLUENZA VACCINE] Goal Plan of Care Note [code = 50983-0] Goal Plan of Care Note [code = 02505-0] Goal Plan of Care Note [code = 13084-2] Goal Plan of Care Note [code = 97237-4] Goal Plan of Care Note [code = 88510-7] Goal Plan of Care Note [code = 32100-4] Goal Plan of Care Note [code = 21265-2] Goal Plan of Care Note [code = 59844-2] Goal Plan of Care Note [code = 24970-7] Encounters Start End Encounter Admission Attending Care Care Encounter Source Date/Time Date/Time Type Type Clinicians Facility Department ID 2021-12-[address] [facility] [id number] Common 14:56:02 [id number] [facility] 2021-12-[address] [facility] [id number] Common 11:36:02 [facility] 2021-12-[address] [facility] [id number] Common 13:52:01 Spirit - [facility] 2021-01-01 Outpatient LANCE, [facility] [id number] Univers 21:41:17 PRINCE moeller [facility] 2022-03-07 2022-03-07 Outpatient SFA SFA [id number] Marvel 10:54:39 10:54:39 0103 F Starr 2021-12-27 2021-12-27 Outpatient SFA SFA [id number] Marvel 16:23:03 16:23:03 1025 F Starr 2021-12-27 2021-12-27 Outpatient [id number] 00:00:00 00:00:00 Visit [id number] 2021-12-01 2021-12-01 OFFICE STLMLC STLMLC [id number] Co mmon 00:00:00 00:00:00 VISIT [facility] PT LEVEL 3 - [facility] 2021-06-13 2021-06-13 Telemedici Harriett, 1.2.840.1 [id number] Methodi 07:00:00 07:18:[address] 3.430.2.7 Hospit a .3.896718 l .8 2021-06-13 2021-06-13 Telemedici Harriett, 1.2.840.1 [id number] Methodi 07:00:00 07:18:[address] 3.430.2.7 Hospit a .3.434115 l .8 2021-06-08 2021-06-08 Abstract Barreto, 1.2.840.1 [id number] Methodi 00:00:00 00:00:[address] 3.430.2.7 Hospit a .3.066763 l .8 2021-06-08 2021-06-08 Abstract Barreto, 1.2.840.1 [id number] Methodi 00:00:00 00:00:[address] 3.430.2.7 Hospit a .3.263660 l .8 2020-07-02 2020-07-02 Orders Doctor AARON 1.2.840.114 [id number] 00:00:00 00:00:00 Only Unassigned, MARCIE 350.1.13.10 [place] [facility] 4.2.7.2.686 [id number] 009 2020-07-02 2020-07-02 Orders Doctor AARON 1.2.840.114 [id number] [facility] 00:00:00 00:00:00 Only Unassigned, MARCIE 350.1.13.10 [facility] 4.2.7.2.686 Shiv as [phone] [facility] [address] 2020-06-14 2020-06-14 Outpatient [facility] [id number] [address] 00:00:00 00:00:00 TARUN [address] 2020-05-17 2020-05-17 Outpatient [facility] [id number] [address] 00:00:00 00:00:00 TARUN [address] 2020-04-26 2020-04-30 Inpatient [facility] 060 [id number] 00:00:00 00:00:00 STARR [address] 2020-04-09 2020-04-16 Inpatient [facility] 012 [id number] 00:00:00 00:00:00 STARR [address] 2020-04-14 2020-04-14 Telephone KATE Mclain 1.2.092.477 [id number] 00:00:00 00:00:00 [place] 350.1.13.10 [facility] 4.2.7.2.686 [id number] [facility] 2020-04-14 2020-04-14 Telephone KATE Mclain 1.2.390.414 [id number] [facility] 00:00:00 00:00:00 Prince [place] 350.1.13.10 ity of [facility] [place] [id number] [address] 2020-04-10 2020-04-10 Orders Doctor AARON 1.2.840.114 [id number] 00:00:00 00:00:00 Only Unassigned, MARCIE 350.1.13.10 [place] [facility] 4.2.7.2.686 [id number] 009 2020-04-10 2020-04-10 Orders Doctor AARON 1.2.840.114 [id number] [facility] 00:00:00 00:00:00 Only Unassigned, MARCIE 350.1.13.10 ity of [place] [facility] 4.2.7.2.686 Shiv as [phone] [address] 2020-04-07 2020-04-07 [facility] 1.2.840.114 [id number] [facility] 00:00:00 00:00:00 Management [place] 350.1.13.10 ity of [facility] [place] [id number] [address] 2020-04-07 2020-04-07 Orders Doctor WALKER 1.2.840.114 [id number] [facility] 00:00:00 00:00:00 Only Unassigned, MARCIE 350.1.13.10 ity of [place] [facility] 4.2.7.2.686 Shiv as [phone] [address] 2020-03-31 2020-03-31 Ambulatory nullFlavo MNA [id number] Memoria 19:15:00 19:15:00 [facility] 2020-03-31 Ambulatory nullFlavo MNA [id number] Memoria 19:15:00 19:15:00 Pre-Reg r Neurology 02 l Fiorella [place] 2020-03-31 2020-03-31 Outpatient MHIE NOEL [id number] [place] 13:15:00 13:15:00 02 justine ArciniegaRodriguez 2020-03-31 2020-03-31 Outpatient GLENDA Lawrence 911 [id number] 13:15:00 13:15:00 Jaycob Powell 2020-03-18 2020-03-18 Narinder Mclain [facility] 1.2.840.114 [id number] Univers 00:00:00 00:00:00 Management [place] 350.1.13.10 ity of [facility] [place] [phone] [facility] [address] 2020-02-26 2020-02-26 Orders Doctor AARON 1.2.840.114 [id number] Univers 00:00:00 00:00:00 Only Unassigned, MARCIE 350.1.13.10 ity of [facility] 4.2.7.2.686 Shiv as [phone] [address] 2020-02-18 2020-02-19 Outpatient nullFlavo MNA [id number] Memoria 19:00:00 05:59:59 r Neurology 01 justine Barros [place] 2020-02-18 2020-02-19 Outpatient nullFlavo MNA [id number] Memoria 19:00:00 05:59:59 r Neurology 01 justine Frias 2020-02-18 2020-02-18 Outpatient GRUPO LawrenceMISCHER MHMISCHER [id number] 13:00:00 23:59:59 Jaycob 01 Andre 2020-02-18 2020-02-18 Outpatient MHIE [facility] [id number] 13:00:00 13:00:00 01 justine Frias 2020-02-18 2020-02-18 Telephone [facility] 1.2.547.300 [id number] Univers 00:00:00 00:00:00 [place] 350.1.13.10 ity of [facility] [place] [id number] [address] 2020-02-16 2020-02-16 Office [facility] 1.2.840.114 [id number] 29 13:13:52 16:56:34 Visit Prince [place] 350.1.13.10 [facility] 4.2.7.2.686 [id number] [facility] 2020-02-16 2020-02-16 Office [facility] 1.2.840.114 [id number] Univers 13:13:52 16:56:34 Visit Prince [place] 350.1.13.10 ity of [facility] 4[place].7.2.[place] [id number] [facility] [address] 2020-02-16 2020-02-16 Outpatient R LANCE [facility] [id number] Univers 13:30:00 13:30:00 PRINCE ity [facility] 2020-02-10 2020-02-10 Orders Doctor AARON 1.2.840.114 [id number] Univers 00:00:00 00:00:00 Only Unassigned, MARCIE 350.1.13.10 ity of [place] [facility] 4.2.7.2.686 Shiv as [phone] [facility] [address] 2020-01-15 2020-01-16 Outpatient nullFlavo MNA [id number] Memoria 17:30:00 05:59:59 r Neurology 00 l Fiorella Arciniegaann 2020-01-15 2020-01-16 Outpatient nullFlavo MNA [id number] Memoria 17:30:00 05:59:59 r Neurology 00 l Fiorella Frias 2020-01-15 2020-01-15 Outpatient GLENDA Lawrence MHMISCHER 082 [id number] 11:30:00 23:59:59 Jaycob 00 Andre 2020-01-15 2020-01-15 Outpatient MHIE MHIE [id number] Mem[place] 11:30:00 11:30:00 00 l Rodriguez 2019-05-02 2019-05-02 Outpatient KWABENA PATRICK [facility] 10 [id number] Univers 12:40:00 12:40:00 KWABENA CHRISTINE i ty [facility] Results Test Description Test Time Test [...] this result as michael l/abnormal. TSH, THIRD [id number] 02:28:44 Test Item Value Reference Range Interpretation Comments TSH, THIRD 0.480 UIU/ML 0.400-4.100 UNLESS OTHERWI SE GENERATION (test INDICATED, ALL TESTING code = 2821) PERFORMED [facility], [facility]. [address] [facility] [place] [address] [facility] DIRECTOR: Kori MARIOIA NUMBER [id number] CAP ACCREDITATION N O. [id number] LIPID [id number] 00:14:20 Test Item Value Reference Range Interpretation [...] MOREINFORMATION , SEE CLIENT ANNOUNCE MENT AT [email or web address] RISK RATIO LDL/HDL 0.92 RATIO <3.55 (test code = 2238) COMPREHENSIVE METABOLIC [id number] 00:14:20 Test Item Value Reference Range Interpretation Comments GLUCOSE (test code = 117 MG/DL 70-99 H 2216) BUN (test code = 16 MG/DL 08-22) CREATININE (test 0.87 MG/DL 0.80-1.40 code = 2214) eGFR (2020 CKD-EPI) 99 ML/MIN/1.73 >60 (test code = 61370) CALC BUN/CREAT (test 18 RATIO 6-28 code = 2235) SODIUM (test code = 140 MEQ/L 225-509 2172) POTASSIUM (test code 4.9 MEQ/L 3.5-5.4 = 2227) CHLORIDE (test code 97 MEQ/L 95-107 = [...] PHOSPHATASE 69 U/L 40-123 (test code = 2204) AST (test code = 24 U/L 9-50 2217) ALT (test code = 21 U/L 5-50 2218) LIPID [id number] 00:00:00 Test Item Value Reference Range Interpretation Comments CHOLESTEROL (test code = 2210) 177 MG/DL TRIGLYCERIDES (test code = 2232) 55 MG/DL HDL CHOLESTEROL (test code = 2220) 85 MG/DL CALC LDL CHOL (test code = 2237) 78 MG/DL RISK RATIO LDL/HDL (test code = 0.92 RATIO 2238) LIPID [id number] 00:00:00 Test Item Value Reference Range Interpretation Comments CHOLESTEROL (test code = 2210) 177 MG/DL TRIGLYCERIDES (test code = 2232) 55 MG/DL HDL CHOLESTEROL (test code = 2220) 85 MG/DL CALC LDL CHOL (test code = 2237) 78 MG/DL RISK RATIO LDL/HDL (test code = 0.92 RATIO 2238) COMPREHENSIVE METABOLIC [id number] 00:00:00 Test Item Value Reference Range Interpretation Comments GLUCOSE (test code = 2217) 117 MG/DL BUN (test code = 2208) 16 MG/DL CREATININE (test code = 2214) 0.87 MG/DL eGFR (2020 CKD-EPI) (test code 99 ML/MIN/1.73 = 33382) CALC BUN/CREAT (test code = 18 RATIO [...] CALC GLOBULIN (test code = 2.6 G/DL 2240) CALC A/G RATIO (test code = 1.8 RATIO 2234) BILIRUBIN, TOTAL (test code = 0.4 MG/DL 2206) ALKALINE PHOSPHATASE (test 69 U/L code = 2204) AST (test code = 2218) 24 U/L ALT (test code = 2219) 21 U/L COMPREHENSIVE METABOLIC [id number] 00:00:00 Test Item Value Reference Range Interpretation Comments GLUCOSE (test code = 2217) 117 MG/DL BUN (test code = 2208) 16 MG/DL CREATININE (test code = 2214) 0.87 MG/DL eGFR (2020 CKD-EPI) (test code 99 ML/MIN/1.73 = 54375) CALC BUN/CREAT (test code = 18 RATIO [...] CALC GLOBULIN (test code = 2.6 G/DL 2240) CALC A/G RATIO (test code = 1.8 RATIO 2234) BILIRUBIN, TOTAL (test code = 0.4 MG/DL 2206) ALKALINE PHOSPHATASE (test 69 U/L code = 2204) AST (test code = 2218) 24 U/L ALT (test code = 2219) 21 U/L PSA, [id number] 00:00:00 Test Item Value Reference Range Interpretation Comments PSA, TOTAL (test code = 2606) 0.62 NG/ML PSA, [id number] 00:00:00 Test Item Value Reference Range Interpretation Comments PSA, TOTAL (test code = 2606) 0.62 NG/ML PSA, [id number] 00:00:00 Test Item Value Reference Range Interpretation Comments PSA, TOTAL (test code = 2606) 0.62 NG/ML [id number] 00:00:00 Test Item Value Reference Range Interpretation Comments TSH, THIRD GENERATION (test code 0.480 UIU/ML = 2821) [id number] 00:00:00 Test Item Value Reference Range Interpretation Comments TSH, THIRD GENERATION (test code 0.480 UIU/ML = 2821) [id number] 00:00:00 Test Item Value Reference Range Interpretation Comments TSH, THIRD GENERATION (test code 0.480 UIU/ML = 2821) CBC W/AUTO DIFF WITH [id number] 06:12:24 Test Item Value Reference Range Interpretation [...] RBCS 0.00 K/UL 0.00-0.11 (test code = 58790) COMMENTS (test code = (NOTE) MARKE D ANISOCYTOSIS 1016) MARKED HYPOCHRO MASIA MODERATE MICROC YTOSIS SEE ADDITIONAL COMMENTS BELOW: PLATELET ESTIMA TE APPEARS NORMAL. MODERATE ENLARG ED PLATELETS HEMOGLOBIN [id number] 06:12:11 Test Item Value Reference Range Interpretation Comments HEMOGLOBIN A1c (test code = 28548) 5.6 % 4.2-5.6 HEMOGLOBIN [id number] 00:00:00 Test Item Value Reference Range Interpretation Comments HEMOGLOBIN A1c (test code = 13565) 5.6 % CBC W/AUTO [id number] 00:00:00 Test Item Value Reference Range Interpretation [...] NUCLEATED RBCS (test code = 0.00 K/UL 56398) COMMENTS (test code = 1016) (NOTE) CBC W/AUTO [id number] 00:00:00 Test Item Value Reference Range Interpretation [...] NUCLEATED RBCS (test code = 0.00 K/UL 23506) COMMENTS (test code = 1016) (NOTE) CBC W/AUTO [id number] 00:00:00 Test Item Value Reference Range Interpretation [...] NUCLEATED RBCS (test code = 0.00 K/UL 32907) COMMENTS (test code = 1016) (NOTE) HEMOGLOBIN [id number] 00:00:00 Test Item Value Reference Range Interpretation Comments HEMOGLOBIN A1c (test code = 22028) 5.6 % HEMOGLOBIN [id number] 00:00:00 Test Item Value Reference Range Interpretation Comments HEMOGLOBIN A1c (test code = 76674) 5.6 % SARS-CoV-2 (COVID-19) RNA [Presence] in Respiratory specimen by LAZARO with probe [id number] 05:12:28 Test Item Value Reference Range Interpretation Comments SARS-CoV-2 (COVID-19) RNA Not detected Not-Detected [Presence] in Respiratory specimen by LAZARO with probe detection (test code = 01786-3) MARTHA MCGOVERN
[2022-05-01] MEDS ORDERED: NA CHLORIDE 0.9% 500 ML ONE (20:42)
[2022-05-01 20:44] LABS: Absolute Lymphocytes (CBC) 6.4 K/uL (0.7-4.9); Hematocrit 33.9 % (39.6-49.0); Lymphocytes % 48.1 % (15.3-44.8); MCV 66.3 fL (80-100); MPV 7.6 fL (7.6-11.3); RBC Red Blood Cell Count 5.11 M/uL (4.33-5.43)
[2022-05-01 20:53] LABS: Protime INR 1.12
[2022-05-01 21:06] LABS: ALT/SGPT 23 U/L (16-61); AST/SGOT 14 U/L (15-37); Albumin 3.3 g/dL (3.4-5.0); Alkaline Phosphatase 74 U/L (45-117); BUN Blood Urea Nitrogen 18 mg/dL (7-18); Bicarbonate 27 mmol/L (21-32); Bilirubin Total 0.4 mg/dL (0.2-1.0); Glomerular Filtration Rate 94 ml/min (=/>90); Glucose Level 131 mg/dL (74-106); Lipase 35 U/L (13-75); Magnesium 2.1 mg/dL (1.6-2.4); NT PRO-BNP 43 pg/mL (<125); Potassium 3.9 mmol/L (3.5-5.1); Protein, Total 6.6 g/dL (6.4-8.2); Sodium Level 137 mmol/L (136-145); Troponin High Sensitivity 12.5 pg/mL (<58.9)
[2022-05-01 21:07] LABS: Bilirubin Direct < 0.1 mg/dL (0-0.2)
--- NOTE | 2022-05-01 21:07 | RAD REPORT ---
[facility]57 [facility] CLINICAL HISTORY: Hypertension. Tachycardia. Melena stools COMPARISON: Chest Single View dated 09/16/2021; Chest Single View dated 12/06/2020; Chest Single View dated 04/09/2020; Chest Single View dated 09/27/2019 TECHNIQUE: Portable AP view of the chest. FINDINGS: The lungs are clear. No pneumothorax or effusion. The cardiomediastinal contours are unrem arkable. IMPRESSION: No acute cardiopulmonary process.
[2022-05-01] MEDS ORDERED: LEVALBUTEROL 1.25 MG/3 ML NEB ONE (21:08)
[2022-05-01] MEDS ORDERED: METHYLPREDNISOLONE 125 MG INJ ONE (21:17)
[2022-05-01 21:28] LABS: Anisocytosis 1+; Blood Morphology Comment NOTED (NOT SEEN); Platelet Estimate INCR; Poikilocytosis 2+; White Blood Cell Scan OK (OK)
[2022-05-01 22:08] LABS: C.diff Antigen/Toxin Ag neg : Tox neg (NEG : NEG)
--- NOTE | 2022-05-02 00:19 | ER ---
Nurse's Notes [facility] Norma Name: Jesus Noriega Age: 61 yrs Sex: Male : 1960 Arrival Date: 05/01/2022 Time: 19:43 Bed 19 Private MD: Diagnosis: Infectious gastroenteritis and colitis, unspecified;COPD/ Chronic obstructive pulmonary disease with (acute) exacerbation Presentation: 05/01 19:52 Chief complaint: Patient states: low blood pressure 114/76 and 110 heart rate and I had jh5 a colonoscopy on the and I am still having black runny stools. I am on amoxicillin after the colonoscopy because they took a bunch of polyps out. Coronavirus screen: Vaccine status: Patient reports receiving the 2nd dose of the covid vaccine. Client denies travel out of the [place] in the last 14 days. Ebola Screen: Patient negative for fever greater than or equal to 101.5 degrees Fahrenheit, and additional compatible Ebola Virus Disease symptoms Patient denies exposure to infectious person. Patient denies travel to an Ebola-affected area in the 21 days before illness onset. Initial Sepsis Screen: Does the patient meet any 2 criteria? HR > 90 bpm. Does the patient have a suspected source of infection? No. Patient's initial sepsis screen is negative. Risk Assessment: Do you want to hurt yourself or someone else? Patient reports no desire to harm self or others. 19:52 Method Of Arrival: Ambulatory [facility] 19:52 Acuity: ISRRAEL 3 jh5 Triage Assessment: 19:55 General: Appears uncomfortable, well groomed, well developed, Behavior is calm, jh5 cooperative, appropriate for age. Pain: Denies pain. GI: Reports diarrhea, bloody stool. Historical: - Allergies: 05/02 01:10 No Known Allergies; jb4 - PMHx: 05/01 19:55 COPD; Hypertension; High Cholesterol; DVT; jh5 - PSHx: 19:55 left forearm; 5 - Immunization history:: Adult Immunizations up to date. - Social history:: Smoking status: Patient denies any tobacco usage or history of. Screenin:00 [facility] ED Fall Risk Assessment (Adult) History of falling in the last 3 months, jb4 including since admission No falls in past 3 months (0 pts) Confusion or Disorientation No (0 pts) Score/Fall Risk Level 0 - 2 = Low Risk Oriented to surroundings, Maintained a safe environment. Abuse screen: Denies threats or abuse. Nutritional screening: No deficits noted. Tuberculosis screening: No symptoms or risk factors identified. Assessment: 20:00 General: Appears in no apparent distress. comfortable, Behavior is calm, cooperative, jb4 appropriate for age. Pain: Denies pain. Neuro: Level of Consciousness is awake, alert, obeys commands, Oriented to person, place, time, situation. Cardiovascular: Patient's skin is warm and dry. Respiratory: Airway is patent Respiratory effort is even, labored, Respiratory pattern is regular, symmetrical, Breath sounds are clear in right upper lobe, left upper lobe, right middle lobe and right lower lobe Breath sounds with wheezes in left lower lobe. GI: Reports rectal bleeding. : No signs and/or symptoms were reported regarding the genitourinary system. EENT: No signs and/or symptoms were reported regarding the EENT system. Derm: Skin is intact, Skin is pink, warm \T\ dry. Musculoskeletal: Circulation, motion, and sensation intact. Range of motion: intact in all extremities. 21:18 Reassessment: Patient appears in no apparent distress at this time. Patient and/or jb4 family updated on plan of care and expected duration. Pain level reassessed. Patient is alert, oriented x 3, equal unlabored respirations, skin warm/dry/pink. 22:11 Reassessment: Patient appears in no apparent distress at this time. Patient and/or jb4 family updated on plan of care and expected duration. Pain level reassessed. Patient is alert, oriented x 3, equal unlabored respirations, skin warm/dry/pink. 23:03 Reassessment: Patient appears in no apparent distress at this time. Patient and/or jb4 family updated on plan of care and expected duration. Pain level reassessed. Patient is alert, oriented x 3, equal unlabored respirations, skin warm/dry/pink. 05/02 00:00 Reassessment: Patient appears in no apparent distress at this time. Patient and/or jb4 family updated on plan of care and expected duration. Pain level reassessed. Patient is alert, oriented x 3, equal unlabored respirations, skin warm/dry/pink. 01:00 Reassessment: Patient appears in no apparent distress at this time. Patient and/or jb4 family updated on plan of care and expected duration. Pain level reassessed. Patient is alert, oriented x 3, equal unlabored respirations, skin warm/dry/pink. 02:00 Reassessment: Patient appears in no apparent distress at this time. Patient and/or jb4 family updated on plan of care and expected duration. Pain level reassessed. Patient is alert, oriented x 3, equal unlabored respirations, skin warm/dry/pink. Vital Signs: 05/01 19:52 BP 124 / 77; Pulse 114; Resp 16; Temp 98.4; Pulse Ox 96% on R/A; Weight 97.52 kg; [facility] Height 5 ft. 9 in. (175.26 cm); Pain 0/10; 21:15 BP 128 / 83; Pulse 98; Resp 18; Pulse Ox 98% on Nebulizer Mask; jb4 22:11 BP 117 / 81; Pulse 102; Resp 20; Pulse Ox 95% on R/A; jb4 23:03 BP 113 / 70; Pulse 95; Resp 23; Pulse Ox 94% on R/A; jb4 05/02 00:30 BP 116 / 68; Pulse 87; Resp 18; Pulse Ox 96% on R/A; jb4 01:30 BP 119 / 71; Pulse 85; Resp 16; Pulse Ox 95% on R/A; jb4 05/01 19:52 Body Mass Index 31.75 (97.52 kg, 175.26 cm) [facility] ED Course: 05/01 19:43 Patient arrived in ED. ag3 19:55 Triage completed. [facility] 19:55 Arm band placed on right wrist. [facility] 19:59 Osbaldo Loera PA is PHCP. cp 19:59 Hector Marmolejo MD is Attending Physician. cp 20:00 Patient has correct armband on for positive identification. Bed in low position. Call 4 light in reach. Side rails up X 1. Client placed on continuous cardiac and pulse oximetry monitoring. NIBP monitoring applied. media monitor on. 20:35 Lipase Sent. jb4 20:35 Lactate w/ 2H reflex if indic. Sent. jb4 20:35 ETOH Level Sent. jb4 20:35 Basic Metabolic Panel Sent. jb4 20:35 LFT's Sent. jb4 20:35 Magnesium Sent. jb4 20:35 NT PRO-BNP Sent. jb4 20:35 PT-INR Sent. jb4 20:35 Troponin HS Sent. jb4 20:35 CBC with Diff Sent. jb4 20:44 ETOH Level Sent. jb4 20:59 XRAY Chest (1 view) In Process Unspecified. EDMS 21:11 Gwyn Wiley, RN is Primary Nurse. jb4 22:35 CT Abd/Pelvis - IV Contrast Only In Process Unspecified. EDMD 05/02 00:18 Ramón Ramirez MD is Hospitalizing Provider. cp 02:41 No provider procedures requiring assistance completed. Patient admitted, IV remains in jb4 place. Administered Medications: 05/01 20:48 Drug: NS 0.9% 500 ml Route: IV; Rate: bolus; Site: right forearm; jb4 21:06 Drug: Xopenex (levalbuterol) (3) 1.25 mg Route: Inhalation; jb4 21:16 Drug: SOLU-Medrol (methylPrednisoLONE) 125 mg Route: IVP; Site: right forearm; jb4 05/02 01:09 Drug: fentaNYL (PF) 25 mcg Route: IVP; Site: right forearm; jb4 01:10 Drug: Zosyn (piperacillin-tazobactam) 3.375 grams Route: IVPB; Infused Over: 60 mins; jb4 Site: right forearm; Outcome: 00:18 Decision to Hospitalize by Provider. cp 02:41 Admitted to Tele accompanied by nurse, via wheelchair, room 414, with chart, Report jb4 called to Yanira 02:41 Condition: stable 02:41 Discharge instructions given to patient, Instructed on the need for admit, Demonstrated understanding of instructions. 02:41 Patient left the ED. jb4 Signatures: Dispatcher [employer] EDMD Osbaldo Loera PA PA cp Gwyn Wiley, RN RN jb4 Lilibeth Yan3 Lanny Mukherjee, RN RN jh5 Corrections: (The following items were deleted from the chart) 01:09 01:09 fentaNYL (PF) 25 mcg IVP in right antecubital jb4 jb4
--- NOTE | 2022-05-02 00:19 | EDPHYS ---
Physician Documentation [facility] Name: Jesus Noriega Age: 61 yrs Sex: Male : 1960 Arrival Date: 05/01/2022 Time: 19:43 Bed 19 Private MD: ED Physician Hector Marmolejo HPI: 05/01 20:15 This 61 yrs old Male presents to ER via Ambulatory with complaints of Blood Pressure cp Problem, Bloody Stools. 20:15 The patient presents to the emergency department with bleeding from the rectum/anus, cp that is moderate. Onset: The symptoms/episode began/occurred since having colonoscopy with removal of polyps by DR Cherry on 04-25-2022. 20:15 Associate signs and symptoms: Pertinent positives: abdominal pain in the abdomen cp diffusely, diarrhea, Pertinent negatives: constipation, dysuria, fever, vomiting. 20:15 Patient reports he is currently taking prescribed Amoxicillin since colonoscopy. cp Historical: - Allergies: 05/02 01:10 No Known Allergies; jb4 - PMHx: 05/01 19:55 COPD; Hypertension; High Cholesterol; DVT; jh5 - PSHx: 19:55 left forearm; jh5 - Immunization history:: Adult Immunizations up to date. - Social history:: Smoking status: Patient denies any tobacco usage or history of. ROS: 20:20 Constitutional: Negative for body aches, chills, fever, poor PO intake. cp 20:20 Eyes: Negative for injury, pain, redness, and discharge. cp 20:20 ENT: Negative for drainage from ear(s), ear pain, sore throat, difficulty swallowing, difficulty handling secretions. 20:20 Cardiovascular: Negative for chest pain, edema, palpitations. 20:20 Respiratory: Negative for cough, shortness of breath, wheezing. 20:20 Abdomen/GI: Positive for abdominal pain, rectal bleeding, Negative for vomiting, diarrhea, constipation. 20:20 Neuro: Negative for altered mental status, dizziness, headache, syncope. 20:20 All other systems are negative. Exam: 20:20 Constitutional: The patient appears in no acute distress, alert, awake, cp non-diaphoretic, non-toxic, well developed, well nourished, uncomfortable. 20:20 Head/Face: Normocephalic, atraumatic. cp 20:20 Eyes: Periorbital structures: appear normal, Conjunctiva: normal, no exudate, no injection, Sclera: no appreciated abnormality, Lids and lashes: appear normal, bilaterally. 20:20 ENT: External ear(s): are unremarkable, Nose: is normal, Mouth: Lips: moist, Oral mucosa: moist, Posterior pharynx: is normal, airway is patent, no erythema, no exudate. 20:20 Neck: ROM/movement: is normal, is supple, without pain, no range of motions limitations. 20:20 Chest/axilla: Inspection: normal. 20:20 Cardiovascular: Rate: tachycardic, Rhythm: regular, Edema: ankle edema, that is mild, JVD: is not appreciated. 20:20 Respiratory: the patient does not display signs of respiratory distress, Respirations: normal, no use of accessory muscles, no retractions, labored breathing, is not present, Breath sounds: stridor, is not appreciated, wheezing: that is mild, is heard diffusely. 20:20 Abdomen/GI: Inspection: distension, that is mild, in the abdomen diffusely, Bowel sounds: active, all quadrants, Palpation: soft, in all quadrants, mild abdominal tenderness, in all quadrants, Rectal exam: Stool: guaiac positive, maroon, hemorrhoid(s), are not appreciated. 20:20 Back: pain, is absent, ROM is normal. 20:20 Neuro: Orientation: to person, place \T\ time. Mentation: is normal, Motor: moves all fours, strength is normal, Sensation: is normal. Vital Signs: 19:52 BP 124 / 77; Pulse 114; Resp 16; Temp 98.4; Pulse Ox 96% on R/A; Weight 97.52 kg; jh5 Height 5 ft. 9 in. (175.26 cm); Pain 0/10; 21:15 BP 128 / 83; Pulse 98; Resp 18; Pulse Ox 98% on Nebulizer Mask; jb4 22:11 BP 117 / 81; Pulse 102; Resp 20; Pulse Ox 95% on R/A; jb4 23:03 BP 113 / 70; Pulse 95; Resp 23; Pulse Ox 94% on R/A; jb4 05/02 00:30 BP 116 / 68; Pulse 87; Resp 18; Pulse Ox 96% on R/A; jb4 01:30 BP 119 / 71; Pulse 85; Resp 16; Pulse Ox 95% on R/A; jb4 05/01 19:52 Body Mass Index 31.75 (97.52 kg, 175.26 cm) [facility]: 05/01 20:05 Patient medically screened. 21:00 Differential diagnosis: hemorrhoids, abscess, lower GI bleed, colitis. 05/02 00:10 Data reviewed: vital signs, nurses notes, lab test result(s), EKG, radiologic studies, CT scan, plain films. 00:10 Consideration of Admission/Observation Patient was admitted/placed on observation. Management of patient was discussed with the following: Letter Sorting Machine Operator: DR Cherry who will see patient in morning, requests IV Zosyn, patient to be npo and consume Golytely. Plan is for colonoscopy today. 00:15 I considered the following discharge prescriptions or medication management in the emergency department Medications were administered in the Emergency Department. See MAR. 00:15 Management of patient was discussed with the following: Hospitalist: Cathryn Dahl NP will cp admit patient after discussion. Care significantly affected by the following chronic conditions: Hypertension, Chronic Obstructive Pulmonary Disease. Counseling: I had a detailed discussion with the patient and/or guardian regarding: the historical points, exam findings, and any diagnostic results supporting the discharge/admit diagnosis, lab results, radiology results, the need for further work-up and treatment in the hospital. 05/01 20:17 Order name: Basic Metabolic Panel; Complete Time: 22:00 05/01 22:01 Interpretation: Normal except: GLUC 131. 05/01 20:17 Order name: CBC with Diff; Complete Time: 22:00 05/01 21:02 Interpretation: Normal except: WBC 13.20; HGB 10.3; HCT 33.9; MCV 66.3; MCH 20.2; MCHC cp 30.4; PLT 465; RDW 20.0; LYM% 48.1; BASO% 1.5; LYMA 6.4. 05/01 20:17 Order name: LFT's; Complete Time: 22:00 05/01 22:01 Interpretation: Normal except: AST 14; ALB 3.3; A/G 1.0. 05/01 20:17 Order name: Magnesium; Complete Time: 22:00 05/01 20:17 Order name: NT PRO-BNP; Complete Time: 22:00 cp 05/01 20:17 Order name: PT-INR; Complete Time: 21:01 cp 05/01 22:01 Interpretation: Reviewed. cp 05/01 20:17 Order name: Troponin HS; Complete Time: 22:00 cp 05/01 20:17 Order name: ETOH Level; Complete Time: 21:01 cp 05/01 20:17 Order name: UDS cp 05/01 20:17 Order name: Urine Microscopic Only cp 05/01 20:17 Order name: Lactate w/ 2H reflex if indic.; Complete Time: 21:03 cp 05/01 20:17 Order name: Lipase; Complete Time: 22:00 cp 05/01 21:03 Order name: Ova And Parasites cp 05/01 21:03 Order name: Rotavirus Antigen; Complete Time: 23:02 cp 05/01 20:17 Order name: XRAY Chest (1 view); Complete Time: 22:00 cp 05/01 20:17 Order name: EKG; Complete Time: 20:18 cp 05/01 21:03 Order name: Stool Culture cp 05/01 21:03 Order name: CDIFF; Complete Time: 23:02 cp 05/01 21:04 Order name: CT Abd/Pelvis - IV Contrast Only cp 05/01 21:29 Order name: CBC Smear Scan; Complete Time: 22:00 EDMS 05/02 00:04 Order name: Type And Screen cp 05/02 00:04 Order name: Hemoglobin; Complete Time: 01:33 cp 05/02 01:34 Interpretation: Abnormal: HGB 9.1. cp 05/02 00:04 Order name: Hematocrit; Complete Time: 01:33 cp 05/02 01:34 Interpretation: Abnormal: HCT 30.1. cp 05/02 00:09 Order name: SARS RAPID; Complete Time: 01:33 la1 05/02 00:29 Order name: Blood Culture Adult (2) la1 05/01 20:17 Order name: Cardiac monitoring; Complete Time: 20:44 cp 05/01 20:17 Order name: EKG - Nurse/Tech; Complete Time: 20:44 cp 05/01 20:17 Order name: IV Saline Lock; Complete Time: 20:35 cp 05/01 20:17 Order name: Labs collected and sent; Complete Time: 20:35 cp 05/01 20:17 Order name: O2 Per Protocol; Complete Time: 20:35 cp 05/01 20:17 Order name: O2 Sat Monitoring; Complete Time: 20:35 cp 05/02 00:09 Order name: NPO; Complete Time: 00:16 la1 Administered Medications: 05/01 20:48 Drug: NS 0.9% 500 ml Route: IV; Rate: bolus; Site: right forearm; jb4 21:06 Drug: Xopenex (levalbuterol) (3) 1.25 mg Route: Inhalation; jb4 21:16 Drug: SOLU-Medrol (methylPrednisoLONE) 125 mg Route: IVP; Site: right forearm; jb4 05/02 01:09 Drug: fentaNYL (PF) 25 mcg Route: IVP; Site: right forearm; jb4 01:10 Drug: Zosyn (piperacillin-tazobactam) 3.375 grams Route: IVPB; Infused Over: 60 mins; jb4 Site: right forearm; Disposition Summary: 05/02/22 00:18 Hospitalization Ordered Hospitalization Status: Inpatient Admission cp Provider: Ramón Ramirez cp Location: Telemetry/MedSurg (Inpatient) cp Condition: Stable cp Problem: new cp Symptoms: have improved cp Bed/Room Type: Standard Room Assignment: 414(05/02/22 01:13) mw Diagnosis - Infectious gastroenteritis and colitis, unspecified cp - COPD/ Chronic obstructive pulmonary disease with (acute) exacerbation cp Forms: - Medication Reconciliation Form cp - SBAR form cp Signatures: Dispatcher [employer] EDGladys Santos RN RN mw Steve Dahl FNP-C [employer]ISSARY PRODUCTION SUPERVISOR-Cla1 Osbaldo Loera PA PA cp Bryson, James, RN RN jb4 Lanny Mukherjee RN RN jh5 Corrections: (The following items were deleted from the chart) :13 00:18 cp mw
[2022-05-02] MEDS ORDERED: PIPERACIL/TAZO 3.375 GM VIAL IV ONE (00:25)
[2022-05-02] MEDS ORDERED: NA CHLORIDE 0.9% 100 ML ONE (00:26)
--- NOTE | 2022-05-02 00:45 | P.HP ---
Certification for Inpatient Patient admitted to: Inpatient With expected LOS: >2 Midnights <Steve Dahl - Last Filed: 05/02/22 00:40> Patient History Date of Service: 05/02/22 Reason for admission: GIB History of Present Illness: 61-year-old male with history of DVT on chronic anticoagulation, COPD on chronic steroids, hypertension, hyperlipidemia, ETOH use presents to the ED for blood in stool. He had a colonoscopy performed on 04/25/[address] Vargas with multiple polyps removed. He also had EGD at that time and was told he had a "fungal infection of his esophagus". Patient is on prednisone 10 mg daily at home. He was treated for fungal infection, he is continue to take Protonix which she has been on for approximately 5 years. He reports initially his stool was brown after the procedure but after couple days became black/maroon and has been that way the past couple of days. He resumed his Eliquis 2 days ago at home. He was evaluated here in the emergency department his labs were significant for leukocytosis white blood cell count 13.2 hemoglobin 10.[address] was performed which revealed fluid-filled nondistended colon from the transverse colon through the rectosigmoid colon suggestive of diarrhea/colitis. Descending and sigmoid colon diverticulosis without diverticulitis. Multiple varying sized splenule's which in part may be sequela of prior splenic injury unchanged. ED provider consulted with patient's GI doctor who recommended admission, n.p.o. status with IV antibiotics and bowel prep for repeat colonoscopy. - Past Medical/Surgical History Diabetic: No -: COPD -: HTN -: HLD -: DVT on chronic anticoagulation -: Thrombectomy left arm -: Ex lap, as a child -: Multiple distal tip finger amputations Psychosocial/ Personal History: Patient lives at home with his family - Family History Mother -: Heart disease - Social History Smoking Status: Never smoker Alcohol use: Yes CD- Drugs: No Caffeine use: No Place of Residence: Home <Steve Dahl - Last Filed: 05/02/22 00:40> Date of Service: 05/02/22 <Ramón Ramirez - Last Filed: 05/02/22 10:09> Allergies No Known Allergies Allergy (Verified 11/29/11 08:23) Home Medications: Apixaban [Eliquis] 5 mg PO BID 04/24/21 Gabapentin 400 mg PO DAILY 04/24/21 Pantoprazole [Protonix Tab*] 40 mg PO DAILY 04/24/21 Prednisone [Sterapred Ds] 10 mg PO DAILY 04/24/21 Roflumilast [Daliresp] 5 mg PO DAILY 04/24/21 Ropinirole HCl 5 mg PO BEDTIME 04/24/21 Trazodone [Desyrel*] 50 mg PO BEDTIME 04/24/21 Buspirone HCl [Buspar*] 10 mg PO TID 05/02/22 Fluticasone/Umeclidin/Vilanter [Trelegy Ellipta 200-62.5-25] 1 puff IH DAILY 05/02/22 Ipratropium/Albuterol Sulfate [Iprat-Albut 0.5-3(2.5) mg/3 ml] 2 puff IH PRN PRN 05/02/22 Multivit-Min/Iron/Folic Acid/K [Centravites Adults Tablet] 1 tab PO DAILY 05/02/22 Review of Systems 10-point ROS is otherwise unremarkable Gastrointestinal: Nausea, Abdominal Pain, Melena, As per HPI <Steve Dahl Jovan - Last Filed: 05/02/22 00:40> Physical Examination - Physical Exam General: Alert, In no apparent distress, Oriented x3 HEENT: Atraumatic, PERRLA, Mucous membr. moist/pink, EOMI, Sclerae nonicteric Neck: Supple, 2+ carotid pulse no bruit, No LAD, Without JVD or thyroid abnormality Respiratory: Clear to auscultation bilaterally, Normal air movement Cardiovascular: Regular rate/rhythm, Normal S1 S2 Gastrointestinal: Normal bowel sounds, Tenderness (Mild LLQ/suprapubic tenderness) Musculoskeletal: No tenderness Integumentary: No rashes Neurological: Normal speech, Normal strength at 5/5 x4 extr, Normal tone, Normal affect - Studies Laboratory Data (last 24 hrs) 05/01/22 20:31: PT 12.3, INR 1.12 05/01/22 20:31: WBC 13.20 H, Hgb 10.3 L, Hct 33.9 L, Plt Count 465 H 05/01/22 20:31: Sodium 137, Potassium 3.9, BUN 18, Creatinine 0.93, Glucose 131 H, Magnesium 2.1, Total Bilirubin 0.4, AST 14 L, ALT 23, Alkaline Phosphatase 74, Lipase 35 Microbiology Data (last 24 hrs): 05/01/22 21:28 Stool Rotavirus Antigen - Final <Steve Dahl Jovan - Last Filed: 05/02/22 00:40> - Studies Laboratory Data (last 24 hrs) 05/01/22 20:31: PT 12.3, INR 1.12 05/01/22 20:31: WBC 13.20 H, Hgb 10.3 L, Hct 33.9 L, Plt Count 465 H 05/01/22 20:31: Sodium 137, Potassium 3.9, BUN 18, Creatinine 0.93, Glucose 131 H, Magnesium 2.1, Total Bilirubin 0.4, AST 14 L, ALT 23, Alkaline Phosphatase 74, Lipase 35 Microbiology Data (last 24 hrs): 05/01/22 21:28 Stool Rotavirus Antigen - Final <Ramón Ramirez - Last Filed: 05/02/22 10:09> Assessment and Plan - Plan Assessment: Sepsis secondary to colitis Acute blood loss anemia secondary to GI bleed with recent colonoscopy/EGD COPD on chronic steroid DVT on chronic anticoagulation with Eliquis Hypertension Hyperlipidemia Alcohol use disorder Plan: Sepsis secondary to colitis SIRS criteria present including leukocytosis, tachycardia source of infection identified on CT with colitis. Continue IV antibioticsZosyn. No criteria for severe sepsis at this time. Acute blood loss anemia secondary to GI bleed with recent colonoscopy/EGD Every 6 hours H&H, transfuse to maintain hemoglobin greater than 8 given active GI bleed. GI consulted, n.p.o.Svetlana for prep. Anticipate repeat scope today. Colonoscopy/EGD was performed on 04/25/2022 patient reports it revealed multiple polyps which were removed as well as fungal esophagitis which patient reports was treated. COPD on chronic steroid Hold steroids. DVT on chronic anticoagulation with Eliquis Hold Eliquis. Patient had been taking for approximately 2 days now. Hypertension Hold oral antihypertensives given active GI bleed. Restart when appropriate. Hyperlipidemia Continue home medications, Alcohol use disorder patient reports that he drinks approximately 6 pack/day last drink was yesterday he had 2 beers. Denies history of alcohol withdrawals during hospitalization. We will monitor closely. DVT PPX:SCD-hold E;iquis Code status:Full Discharge Plan: Home Plan to discharge in: 48 Hours - Advance Directives Does patient have a Living Will: No Does patient have a Durable POA for Healthcare: No - Code Status/Comfort Care Code Status Assessed: Yes (Full code) Critical Care: No Time Spent Managing Pts Care (In Minutes): 70 <Steve Dahl - Last Filed: 05/02/22 00:40> Physician Review: Patient Assessed, Agree with Above Assessment and Plan <Ramón Ramirez - Last Filed: 05/02/22 10:09>
[2022-05-02 00:56] LABS: Hematocrit 30.1 % (39.6-49.0)
[2022-05-02] MEDS ORDERED: GOLYTELY 4000 ML PO SCH (01:00)
[2022-05-02] MEDS ORDERED: FENTANYL CITR 100 MCG/2 ML ONE (01:07)
[2022-05-02 01:08] LABS: SARS-CoV-2 Antigen Rapid Res Negative (Negative)
[2022-05-02] MEDS ORDERED: SODIUM CHLORIDE 0.9% 10ML INJ IV PRN (02:11)
[2022-05-02] MEDS ORDERED: ONDANSETRON 4 MG/2 ML VIAL IV PRN (02:11)
[2022-05-02] MEDS: MORPHINE 2 MG/ML SYR IV PRN ×4 (02:15→19:54)
[2022-05-02] MEDS ORDERED: MORPHINE 2 MG/ML SYR ONE (02:21)
[2022-05-02] MEDS: Ringers Lactate 1,000 ML IV SCH ×3 (02:56→16:48)
[2022-05-02 03:51] VITALS: BMI 30.9
[2022-05-02 06:08] LABS: Absolute Lymphocytes (CBC) 0.4 K/uL (0.7-4.9); Hematocrit 28.3 % (39.6-49.0); Lymphocytes % 4.3 % (15.3-44.8); MCV 66.8 fL (80-100); MPV 8.1 fL (7.6-11.3); RBC Red Blood Cell Count 4.23 M/uL (4.33-5.43)
[2022-05-02 06:09] LABS: Potassium 4.4 mmol/L (3.5-5.1)
[2022-05-02 07:51] LABS: Platelet Estimate INCR; White Blood Cell Scan OK (OK)
[2022-05-02 07:52] LABS: Anisocytosis 1+; Blood Morphology Comment NOTED (NOT SEEN); Hypochromasia 1+; Platelets, Giant PRESENT; Polychromasia 1+
[2022-05-02] MEDS: PANTOPRAZOLE 40 MG INJ IVP SCH ×2 (09:19→19:55)
[2022-05-02] MEDS: PIPER TAZO 3.375 GM in NA CHLORIDE 0.9% 100 ML IV SCH ×2 (09:20→16:49)
--- NOTE | 2022-05-02 11:20 | RAD REPORT ---
EXAM DESCRIPTION: CT - Abdomen Pelvis W Contrast - 05/02/2022 6:29 am CLINICAL HISTORY: 61 years Male, rectal bleeding TECHNIQUE: Helical CT axial images are obtained from the lung bases to the pubic symphysis with IV c ontrast. No oral contrast was administered. Multiplanar reconstruction. This exam was performed accor ding to our departmental dose-optimization program, which includes automated exposure control, adjust ment of the mA and/or kV according to patient size and/or use of iterative reconstruction technique. COMPARISON: 03/23/2022 FINDINGS: LUNG BASES: No basilar consolidation or effusions. LIVER: Normal in size. Normal attenuation. No focal masses. HEPATOBILIARY: Status post cholecystectomy. No intra- or extrahepatic ductal dilatation. SPLEEN: Multiple varying sized splenules; which in part may be sequela of prior splenic injury; unch anged. PANCREAS: Normal size and contour. No focal mass. ADRENAL GLANDS: Normal size. No adrenal masses. KIDNEYS: Bilateral kidneys are normal in size without obstructing calculi or hydronephrosis. No ne phrolithiasis. No significant cysts are present. No focal solid mass. BOWEL AND MESENTERY: Fluid-filled nondistended colon from the transverse colon through the rectosigm oid colon. No small or large bowel dilatation. Descending and sigmoid colon diverticulosis. Normal appendix. No abnormal mesenteric lymphadenopathy. No free fluid or pneumoperitoneum. RETROPERITONEUM: Normal caliber abdominal aorta without aneurysm. No abnormal retroperitoneal lympha denopathy. PELVIS: Urinary bladder is unremarkable. Normal-sized prostate gland. ABDOMINAL WALL: The abdominal wall is intact. BONES: Old healed right superior and inferior pubic rami fractures. No suspicious osseous lytic or blastic lesions seen. IMPRESSION: 1. Fluid-filled nondistended colon from the transverse colon through the rectosigmoid colon, suggestive of diarrhea/colitis. 2. Descending and sigmoid colon diverticulosis without diverticulitis. 3. Multiple varying sized splenules; which in part may be sequela of prior splenic injury; unchange d. 4. Status post cholecystectomy. Electronically signed by: Ko Marques MD 05/01/2022 11:20 PM GEOLOGIST Due to temporary technical issues with the PACS/Fluency reporting system, reports are being signed by the in house radiologists without review as a courtesy to insure prompt reporting. The interpreting radiologist is fully responsible for the content of the report.
--- NOTE | 2022-05-02 12:50 | EKG ---
Test Date: 2022-05-01 Test Time: 20:42:27 Stonemason: ABDULLAHI MEASUREMENT RESULTS: Intervals: Rate: 104 MI: 144 QRSD: 128 QT: 374 QTc: 491 [place]: P: 64 MI: 144 QRS: -72 T: 37 INTERPRETIVE STATEMENTS: Sinus tachycardia Right bundle branch block Left anterior fascicular block Bifascicular block Cannot rule out Inferior infarct (masked by fascicular block?), age undetermined Abnormal ECG Compared to ECG 09/16/2021 12:18:45 Left anterior fascicular block now present Bifascicular block now present Myocardial infarct finding now present Sinus rhythm no longer present Left-axis deviation no longer present Electronically Signed On 05-02-22 12:49:09 CIGARETTE AND FILTER CHIEF INSPECTOR by Seth Mackay
[2022-05-02] MEDS ORDERED: propofoL 200 MG/20 ML VIAL IV ONE ×2 (13:43→13:44)
[2022-05-02] MEDS ORDERED: LIDOCAINE 1% MPF 5 ML VIAL ONE (13:44)
[2022-05-02] MEDS ORDERED: NA CHLORIDE 0.9% 250 ML IV SCH (23:45)
[2022-05-03] MEDS: PIPER TAZO 3.375 GM in NA CHLORIDE 0.9% 100 ML IV SCH ×3 (00:12→16:08)
[2022-05-03] MEDS: MORPHINE 2 MG/ML SYR IV PRN ×4 (00:12→20:35)
[2022-05-03] MEDS: Ringers Lactate 1,000 ML IV SCH ×3 (00:49→10:50)
[2022-05-03] MEDS ORDERED: ALBUTEROL 2.5 MG/3 ML NEB SOL NEB PRN (03:14)
[2022-05-03 03:22] VITALS: O2SAT 96
[2022-05-03 05:45] LABS: Absolute Lymphocytes (CBC) 6.7 K/uL (0.7-4.9); Hematocrit 23.5 % (39.6-49.0); Lymphocytes % 56.9 % (15.3-44.8); MCV 67.5 fL (80-100); RBC Red Blood Cell Count 3.49 M/uL (4.33-5.43)
[2022-05-03 06:25] LABS: Magnesium 2.1 mg/dL (1.6-2.4); Potassium 3.2 mmol/L (3.5-5.1)
[2022-05-03] MEDS ORDERED: NA CHLORIDE 0.9% 100 ML ONE (08:10)
[2022-05-03] MEDS ORDERED: PIPERACIL/TAZO 3.375 GM VIAL IV ONE (08:13)
[2022-05-03] MEDS: PANTOPRAZOLE 40 MG INJ IVP SCH ×2 (08:22→20:22)
[2022-05-03 12:30] LABS: Anisocytosis 1+; Blood Morphology Comment NOTED (NOT SEEN); Hypochromasia 1+; Platelet Estimate ADEQ; Poikilocytosis 1+
[2022-05-03] MEDS ORDERED: POTASSIUM CL 40 MEQ in NA CHLORIDE 0.9% 500 ML IV SCH (14:00)
--- NOTE | 2022-05-03 17:39 | P.PN ---
Subjective Date of Service: 05/03/22 Chief Complaint: GIB Overnight, he continued to have bright red blood per rectum. He required 1 unit pRBCs this morning. Per Dr. Cherry, his colonoscopy revealed no active bleeding, but he had a colon ulcer that is s/p clipping. Review of Systems 10-point ROS is otherwise unremarkable Gastrointestinal: Hematochezia Physical Examination - Vital Signs Temperature: 98.2 F Blood Pressure: 110/59 Pulse: 86 Respirations: 16 Pulse Ox (%): 95 - Physical Exam General: Alert, In no apparent distress, Oriented x3 HEENT: Atraumatic, EOMI, Sclerae nonicteric Neck: JVD not distended Respiratory: Clear to auscultation bilaterally, Normal air movement Cardiovascular: No edema, Regular rate/rhythm, Normal S1 S2, No gallops, No rubs, No murmurs Gastrointestinal: Normal bowel sounds, Soft and benign, Non-distended, No tenderness, No rebound, No guarding Musculoskeletal: No clubbing Integumentary: No rashes Neurological: Normal speech, Normal affect Assessment And Plan - Plan # Acute Blood Loss Anemia suspect due to Acute Lower Gastrointestinal Bleed - Consulted Gastroenterology and spoke with Dr. Cherry - recommendations appreciated - S/P EGD + colonoscopy with diverticulosis, colon ulcer s/p clipping, and polyps - Repeat colonoscopy in [address] Cherry - Serial H&H - S/P 1 unit pRBCs - Hgb: 10.3 -> 9.1 -> 8.7 -> 7.3 -> 6.6 -> 7.3 -Transfuse for Hgb < 7.0 - 2 large bore IVs - Pantoprazole 40 mg IV BID - IV fluids with Lactated Ringers' at 125 mL/hr - Diet per GI # Sepsis likely secondary to Colitis He mets sepsis criteria based on HR > 90 bpm and WBC > 12,000, and the suspected source is colitis. - CT abdomen/pelvis = "1. Fluid-filled nondistended colon from the transverse colon through the rectosigmoid colon, suggestive of diarrhea/colitis. 2. Descending and sigmoid colon diverticulosis without diverticulitis. 3. Multiple varying sized splenules; which in part may be sequela of prior splenic injury; unchanged. 4. Status post cholecystectomy." - Sepsis order set was initiated - Initial Lactate was 1.1 - Blood cultures drawn - Broad spectrum antibiotics started: Piperacillin-Tazobactam - In regards to fluids: - 30 mL/kg of IV fluids was not administered given SBP > 90, MAP > 65, lactic acid < 4 # Chronic Obstructive Pulmonary Disease on Prednisone - Continue home medications # History of Deep Venous Thrombosis - Hold home apixaban given GI bleed # Alcohol Use Disorder - Reports that he drinks 6-pack of beer/day, with his last drink being on 05/01/2022 - Reports never having issues with alcohol withdrawal - Monitor for alcohol withdrawal syndrome - Started thiamine + folic acid # Hypertension # Hyperlipidemia - Hold home medications for now Ramón Ramirez M.D.
[2022-05-03 19:00] LABS: Hematocrit 23.4 % (39.6-49.0)
[2022-05-03 21:28] LABS: Calcium Oxalate Crystals- Ur Few /HPF (None Seen); Urine Bacteria None Seen /HPF (<20); Urine Mucus Slight /HPF (None Seen); Urine RBC <5 /HPF (None Seen)
[2022-05-04] MEDS: PIPER TAZO 3.375 GM in NA CHLORIDE 0.9% 100 ML IV SCH ×2 (00:49→08:43)
[2022-05-04] MEDS: Ringers Lactate 1,000 ML IV SCH (02:11)
[2022-05-04 04:28] LABS: Potassium 3.7 mmol/L (3.5-5.1)
[2022-05-04 04:29] LABS: Hematocrit 23.2 % (39.6-49.0); MCV 67.7 fL (80-100); MPV 7.6 fL (7.6-11.3); RBC Red Blood Cell Count 3.42 M/uL (4.33-5.43)
[2022-05-04 06:00] LABS: Anisocytosis 1+; Blood Morphology Comment NOTED (NOT SEEN); Platelet Estimate ADEQ
[2022-05-04 06:01] LABS: Hypochromasia 1+
[2022-05-04] MEDS: PANTOPRAZOLE 40 MG INJ IVP SCH (08:43)
[2022-05-04] MEDS ORDERED: PREDNISONE PO SCH (09:00)
[2022-05-04] MEDS ORDERED: [UNRECOGNIZED DRUG - OTHER] PO SCH (09:00)
[2022-05-04] MEDS ORDERED: POTASSIUM CL SA 10 MEQ TAB PO ONE (09:00)
[2022-05-04] MEDS ORDERED: predniSONE 10 MG TAB PO SCH (09:00)
[2022-05-04] MEDS ORDERED: NA CHLORIDE 0.9% 250 ML ONE (11:49)
[2022-05-04 16:00] LABS: Hematocrit 28.4 % (39.6-49.0)
--- NOTE | 2022-05-04 16:23 | P.DS ---
Admission Date: 05/02/22 Discharge Date: 05/04/22 Disposition: ROUTINE DISCHARGE Discharge Condition: GOOD Reason for Admission: GIB Consultations: 1. Gastroenterology 2. Cardiology Procedures: -05/02/2022 - Esophagogastroduodenoscopy - 05/02/2022 - Colonoscopy Hospital Course: DIAGNOSES: # Acute Blood Loss Anemia suspect due to Acute Lower Gastrointestinal Bleed # Sepsis likely secondary to Colitis # Chronic Obstructive Pulmonary Disease on Prednisone # History of Deep Venous Thrombosis # Alcohol Use Disorder # Hypertension # Hyperlipidemia HOSPITAL COURSE: Mr. Jesus Noriega is a 61 year old male with a past medical history significant for chronic obstructive pulmonary disease, history of deep venous thrombosis, alcohol use disorder, hypertension, and hyperlipidemia who was admitted to the [facility] on 05/02/2022 for hematochezia. He was admitted to the Medicine service. Upon further evaluation, he was found to have acute blood loss anemia secondary to an acute lower gastrointestinal bleed. His CT abdomen/pelvis revealed, "1. Fluid-filled nondistended colon from the transverse colon through the rectosigmoid colon, suggestive of diarrhea/colitis. 2. Descending and sigmoid colon diverticulosis without diverticulitis. 3. Multiple varying sized splenules; which in part may be sequela of prior splenic injury; unchanged. 4. Status post cholecystectomy." Due to the concern for infectious colitis, he was started on antibiotics. Gastroenterology was consulted and he was evaluated by Dr. Cherry. He underwent esophagogastroduodenoscopy and colonoscopy, and per Dr. Cherry, it revealed diverticulosis, colon ulcer s/p clipping, and polyps. He did not feel that any of these findings explained his anemia. He recommended monitoring his Hgb levels and discharging with an outpatient follow-up and a repeat colonoscopy in 3 months (July 2022). His hemoglobin has remained stable and he has been cleared for discharge. He states that he spoke with his analyst competitive intelligence, and per his analyst competitive intelligence (Dr. Arzola), he may resume apixaban in 7 days. I discussed the findings on his spleen with him. He states that he is s/p splenectomy and is aware of the abnormal findings on his CT abdomen/pelvis. He agreed to follow this up with his PCP. On 05/04/2022, he was seen on morning rounds and deemed medically stable for discharge. He was discharged with instructions to schedule follow-up appointments with his PCP (Dr. Guerra), with Cardiology (Dr. Arzola), and with Gastroenterology (Dr. Cherry). He was provided a prescription for amoxicillin- clavulanate. He was given the opportunity to ask questions and reported no further questions. Furthermore, all questions were answered to the best of my ability. A copy of this discharge summary will be sent to the above providers to facilitate continuity of care. Today, I personally spent 25 minutes on his case, of which greater than 50% of the time was spent in patient education, counseling, and coordination of care as described above. General: Alert, In no apparent distress, Oriented x3 HEENT: Atraumatic, Sclerae nonicteric Neck: JVD not distended Respiratory: Clear to auscultation bilaterally, Normal air movement Cardiovascular: No edema, Regular rate/rhythm, No murmurs Gastrointestinal: Normal bowel sounds, Soft and benign, Non-distended, No tenderness, No rebound, No guarding Musculoskeletal: No clubbing Integumentary: No rashes Neurological: Normal speech, Normal affect Vital Signs/Physical Exam: Temp Pulse Resp BP Pulse Ox 97.8 F 84 18 105/60 96 05/04/22 12:00 05/04/22 12:00 05/04/22 12:00 05/04/22 12:00 05/04/22 12:00 Laboratory Data at Discharge: WBC 10.20 K/uL (4.3-10.9) 05/04/22 03:57 Hgb 8.8 g/dL (13.6-17.9) L D 05/04/22 15:50 Hct 28.4 % (39.6-49.0) L 05/04/22 15:50 Plt Count 341 K/uL (152-406) 05/04/22 03:57 PT 12.3 SECONDS (9.5-12.5) 05/01/22 20:31 INR 1.12 05/01/22 20:31 Sodium 138 mmol/L (136-145) 05/04/22 03:57 Potassium 3.7 mmol/L (3.5-5.1) D 05/04/22 03:57 BUN 10 mg/dL (7-18) 05/04/22 03:57 Creatinine 0.79 mg/dL (0.70-1.30) 05/04/22 03:57 Glucose 121 mg/dL (74-106) H 05/04/22 03:57 Magnesium 2.0 mg/dL (1.6-2.4) 05/04/22 03:57 Total Bilirubin 0.4 mg/dL (0.2-1.0) 05/01/22 20:31 AST 14 U/L (15-37) L 05/01/22 20:31 ALT 23 U/L (16-61) 05/01/22 20:31 Alkaline Phosphatase 74 U/L (45-117) 05/01/22 20:31 Lipase 35 U/L (13-75) 05/01/22 20:31 Home Medications: Apixaban [Eliquis] 5 mg PO BID 04/24/21 Gabapentin 400 mg PO DAILY 04/24/21 Prednisone [Sterapred Ds] 10 mg PO DAILY 04/24/21 Roflumilast [Daliresp] 5 mg PO DAILY 04/24/21 Ropinirole HCl 5 mg PO BEDTIME 04/24/21 Trazodone [Desyrel*] 50 mg PO BEDTIME 04/24/21 Buspirone HCl [Buspar*] 10 mg PO TID 05/02/22 Fluticasone/Umeclidin/Vilanter [Trelegy Ellipta 200-62.5-25] 1 puff IH DAILY 05/02/22 Ipratropium/Albuterol Sulfate [Iprat-Albut 0.5-3(2.5) mg/3 ml] 2 puff IH PRN PRN 05/02/22 Multivit-Min/Iron/Folic Acid/K [Centravites Adults Tablet] 1 tab PO DAILY 05/02/22 Amox/Clavulanate [Augmentin 875-125 Tab*] 875 mg PO BID 10 Days #20 tab 05/04/22 Pantoprazole [Protonix Tab*] 40 mg PO BID #60 tab 05/04/22 New Medications: Amox/Clavulanate [Augmentin 875-125 Tab*] 875 mg PO BID 10 Days #20 tab Pantoprazole [Protonix Tab*] 40 mg PO BID #60 tab Physician Discharge Instructions: 1. Please call and schedule a follow-up appointment with your PCP (Dr. Guerra) in 3-5 days 2. Please call and schedule a follow-up appointment with Gastroenterology (Dr. Cherry) in 5-7 days - He will schedule you for a repeat colonoscopy in July 2022 3. Please call and schedule a follow-up appointment with Cardiology (Dr. Arzola) in 1-2 weeks - Per Dr. Arzola, resume apixaban in 7 days Diet: AHA Activity: Ad elysia Followup: Ko Guerra MD [Primary Care Provider] - Jose Cherry MD [OUTSIDE PHYSICIAN] - MAURICE ARZOLA [OUTSIDE PHYSICIAN] - Time spent managing pt's care (in minutes): 25
[2022-05-04 16:27] VITALS: BP 126/71; TEMP 97.6
[2022-05-04] MEDS ORDERED: AMOX/K CLAV 875 MG TAB PO SCH (21:00)
== END 2022-05-04 16:35 | disposition home or self-care (01) | DRG 871 ==
LOC: ER 19:37 → ERHOLD 05-02 00:30 → 4TH 05-02 02:11
PROVIDERS: ADMIT Internal Medicine; ATTEND Internal Medicine
PROC: 0DJD8ZZ Inspection of Lower Intestinal Tract, Via Natural or Artificial Opening Endoscopic (ICD-10-PCS; principal; 2022-05-02 13:30)
PROC: 30233N1 Transfusion of Nonautologous Red Blood Cells into Peripheral Vein, Percutaneous Approach (ICD-10-PCS; 2022-05-03)
DX: A41.9 Sepsis, unspecified organism (principal); K57.31 Diverticulosis of large intestine without perforation or abscess with bleeding; A09 Infectious gastroenteritis and colitis, unspecified; K63.3 Ulcer of intestine; D62 Acute posthemorrhagic anemia; J44.9 Chronic obstructive pulmonary disease, unspecified; F10.10 Alcohol abuse, uncomplicated; E78.5 Hyperlipidemia, unspecified; I10 Essential (primary) hypertension; Z79.01 Long term (current) use of anticoagulants; Z79.52 Long term (current) use of systemic steroids; Z86.718 Personal history of other venous thrombosis and embolism; Z20.822 Contact with and (suspected) exposure to COVID-19
CPT/HCPCS: 36415; 36430; 71045; 74177; 80048; 80076; 81015; 83605; 83690; 83735; 83880; 84484; 85014; 85018; 85025; 85610; 86850; 86900; 86901; 87040; 87045; 87046; 87177; 87209; 87324; 87425; 87811; 93005; 96374; 96375; 99285; C9113; G0480; J2001; J2270; J2543; J2704; J2930; J3010; J3480; J7040; J7050; J7120; J7512; J7614; P9016; Q9967

== ENCOUNTER 2022-07-19 17:02 | Emergency (ER) | payer OTHER ==
--- OUTSIDE RECORDS SUMMARY | 2022-07-19 17:08 | XMS REPORT | Continuity of Care Document ---
:1960 Author Organization [facility] t Address [address] [place] [address] Care Team Providers Name Role Phone Nick VILLALOBOS, [facility] Primary Care Physician [phone] PRINCE MCLAIN Attending Clinician Unavailable Jan VILLALOBOS [facility] Attending Clinician Nirmala Barreto MA Attending Clinician Unavailable Doctor Unassigned, [place] Attending Clinician Unavailable STARR BARAHONA Attending Clinician Unavailable Prince Mclain DDS Attending Clinician MD STARR BARAHONA Attending Clinician Unavailable Jaycob Lawrence Attending Clinician KWABENA CHRISTINE Attending Clinician Unavailable KWABENA CHRISTINE Attending Clinician Unavailable PRINCE MCLAIN Admitting Clinician Unavailable STARR BARAHONA Admitting Clinician Unavailable MD STARR BARAHONA Admitting Clinician Unavailable Payers Payer Name Policy Type Policy Number Effective Date Expiration Date S alex [facility] [place] STAR PLUS [id number] 2018 00:00:00 DARS DISABILITY [id number] 2017 DETERMINATION [...] Active 2019-03 Univers 2-14 ity of 00:00: [place] [id number] Medical Branch Foreign Foreign Disease Active 2019-03 Univers body in body in 2-14 ity of mouth, mouth, 00:00: [place] initial initial 00 Medical encounter encounter Bran [id number] [place] [address] 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 [facility] [id number] [place], [place] [address] joint, Spirit knee, left - [facility] [id number] Rash and Problem Comm on nonspecifi Spirit c skin - [facility] eruption [facility] Ataxia Ataxia Problem Active 2020-04-02 Elliott bernardo (finding) (finding) 22:53:10 l Active [place] Problem 04/02/2020 [facility] 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 Abraham n (disorder) (disorder) Active Problem 04/02/2020 [facility] Chronic Chronic Problem Active 2020-04-02 Me moria obstructiv obstructiv 22:53:10 l e lung e lung Rodriguez disease disease (disorder) (disorder) Active Problem 04/02/2020 [...] Active Univers ALLERGIE Class ity of S [facility] No Known No Known Active Memori a Medicati Medicati l on on [place] Allergie Allergie s s Social History Social Habit Start Date Stop Date Quantity Comments Source History of Tobacco Common Spirit - Use [facility] History SDMS Religion Alcohol Std Drinks Hospit al History SDMS Religion Alcohol Binge Hospital Exposure to Not sure University of SARS-CoV-2 (event) [facility] Gender identity Religion Hospital Sexual orientation [facility] History of Social 2022-05-13 2022-05-[address] function 00:00:00 00:00:00 Hospital Alcohol intake 2021-06-08 2021-06-08 Lifetime Religion 00:00:00 00:00:00 non-drinker Hospital (finding) History SDOH 2020-06-09 2020-06-09 1 Religion Alcohol Frequency 00:00:00 00:00:00 Hospita l Tobacco use and 2020-02-16 2020-02-16 Never used Universit y of exposure 00:00:00 00:00:00 [facility] Social History 2020-01-15 2020-01-15 [facility] 17:26:11 17:26:11 Sex Ass[birth year] At [birth year] Religion 00:00:00 00:00:00 Hospital Smoking Status Start Date Stop Date Source Former Smoker 2021-12-02 00:00:00 2021-12-02 00:00:00 Common S pirit - [facility] Medications Ordered Filled Start Stop Current Ordering Indication Dosage Frequency Signature Comments Components Source Medication Medication Date Date Medication? Clinician (SIG) Name Name IPRATROPIUM 2021-03 No BROMIDE/ALB 0-24 UTEROL 00:00: SULFA TE 00 0.5-2.5 (3) MG/3ML SOLN PROAIR HFA 2021-03 No 108 (90 0-21 Base) 00:00: MCG/ACT 00 AERS Mobic 7.5 Mobic 7.5 2021- No 1{table QD Mobic 7.5 MG MG 12-01 t} MG 00:00: 00:00 00 :00 Mobic 7.5 Mobic 7.5 2021- No 1{table QD Mobic 7.5 MG MG 12-01 t} MG 00:00: 00:00 00 :00 fluticasone [...] tablet 50 l ipratropium 0 Yes 3mL Q.87648535 Take 3 mL Methodi -albuteroL 4-[id number] (DUO-NEB) 08:45: 3D nebulizati Ho [...] shortness of breath. gabapentin 0 Yes 400mg Q.06407329 Take 400 Methodi (NEURONTIN) 4-06 [id number] mg by s t 400 mg 08:45: [...] tablet 50 l ipratropium 2021-0 Yes 3mL Q.68912715 Take 3 mL Methodi -albuteroL 4-[id number] (DUO-NEB) 08:45: 3D nebulizati Ho [...] shortness of breath. gabapentin 0 Yes 400mg Q.73012209 Take 400 [facility] (NEURONTIN) 4-06 [id number] mg by s t 400 mg 08:45: [...] tablet 50 l ipratropium 2021-0 Yes 3mL Q.12614505 Take 3 mL Methodi -albuteroL 4-[id number] (DUO-NEB) 08:45: 3D nebulizati Ho [...] or shortness of breath. gabapentin Yes 400mg Q.22958069 Take 400 [facility] (NEURONTIN) 4-06 [id number] mg by s t 400 mg 08:45: [...] tablet 50 l ipratropium 2021-0 Yes 3mL Q.55923318 Take 3 mL Methodi -albuteroL 4-[id number] (DUO-NEB) 08:45: 3D nebulizati Ho [...] shortness of breath. gabapentin 0 Yes 400mg Q.62130007 Take 400 Methodi (NEURONTIN) 4-06 [id number] mg by s t 400 mg 08:45: [...] tablet 50 l ipratropium 2021-0 Yes 3mL Q.22770468 Take 3 mL Methodi -albuteroL -[id number] (DUO-NEB) 08:45: 3D nebulizati Ho [...] shortness of breath. gabapentin 2021-0 Yes 400mg Q.[id number] Take 400 Methodi (NEURONTIN) 4-06 [id number] mg by s t 400 mg 08:45: 3D mouth 3 Hospita capsule 50 (three) l times a day. fluticasone 2021-0 Yes 1{puff} QD Inhale 1 Methodi /umeclidin/ 4-[address] vilanter 08:45: daily. Hospita (TRELEGY 50 l ELLIPTA INHL) predniSONE 2021-0 Yes 10mg QD Take 10 mg M ethodi (DELTASONE) 4-[address] 10 mg 08:45: daily. Hospita tablet 50 l pantoprazol 2021-0 Yes 40mg QD Take 40 mg Methodi [...] QD Take 10 mg M ethodi (PRINIVIL) [address] 10 mg 08:45: daily. Hospita tablet 50 l ipratropium 0 Yes 3mL Q.59842321 Take 3 mL Methodi -albuteroL 4-[id number] (DUO-NEB) 08:45: 3D nebulizati Ho [...] shortness of breath. gabapentin 0 Yes 400mg Q.[id number] Take 400 Methodi (NEURONTIN) 4-06 [id number] mg by s t 400 mg 08:45: 3D mouth 3 Hospita capsule 50 (three) l times a day. Futuro 2019-03 Yes 1 ea, Memoria Adjustable 2-18 MISC, l Reversible 21:48: ONCE, Abraham lara Splint 00 carpal Wrist Brace tunnel splint, # 1 ea, 0 Refill(s), other Futuro 2019-03 Yes 1 ea, Memoria Adjustable [...] # 1 ea, 0 Refill(s), other Futuro 2019-03 Yes 1 ea, Memoria Adjustable [...] tab, PO, l tablet 19:29: Daily, 0 [place] 00 Refill(s) lisinopril 2019- Yes 10 mg [...] 19:29: Daily, 0 [place] 00 Refill(s) rOPINIRole 2019- Yes Univers 5 mg tablet 2-12 ity of 00:00: [place] [facility] rOPINIRole 2020-1 Yes Univers 5 mg tablet 2-12 ity of 00:00: [place] [facility] rOPINIRole 2020-1 Yes Univers 5 mg tablet 2-12 ity of 00:00: [place] [facility] rOPINIRole 2020- Yes Univers 5 mg tablet 2-12 ity of 00:00: [place] [facility] rOPINIRole 2020- Yes Univers 5 mg tablet 2-12 ity of 00:00: [place] [facility] rOPINIRole 2020- Yes Univers 5 mg tablet 2-12 ity of 00:00: [place] [facility] rOPINIRole 2020- Yes Univers 5 mg tablet 2-12 ity of 00:00: [place] [facility] rOPINIRole 2020- Yes Univers 5 mg tablet 2-12 ity of 00:00: [place] [facility] rOPINIRole 2020- Yes Univers 5 mg tablet 2-12 ity of 00:00: [place] [facility] rOPINIRole 2020- Yes Univers 5 mg tablet 2-12 ity of 00:00: [place] [facility] rOPINIRole 2020- Yes Univers 5 mg tablet 2-12 ity of 00:00: [place] [facility] rOPINIRole 2020- Yes Univers 5 mg tablet 2-12 ity of 00:00: [place] [facility] rOPINIRole 2020- Yes Univers 5 mg tablet 2-12 ity of 00:00: [place] [facility] TRELEGY 2020- Yes Univers ELLIPTA [...] 100-62.5-25 00:00: [place] mcg DsDv Medical Branch predniSONE 2019-03 Yes 10 mg = 1 Me moria 10 mg oral 1-12 tab, PO, l tablet 17:01: Daily, 0 [place] Refill(s) pantoprazol 2019-03 Yes 40 mg = 1 M emoria e 40 MG 1-12 tab, PO, l Enteric 17:01: Daily, 0 Abraham n Coated 00 Refill(s) Tablet [Protonix] ropinirole 2019-03 Yes PO, Daily, M emoria 1-12 0 l 17:01: Refill(s) [place] predniSONE 2019-03 Yes 10 mg = 1 [...] tab, PO, l tablet 17:01: Daily, 0 Refill(s) pantoprazol 2019-03 Yes 40 mg = 1 M emoria e 40 MG 1-12 tab, PO, l Enteric 17:01: Daily, 0 Abraham n Coated Refill(s) Tablet [Protonix] ropinirole 2019-03 Yes PO, Daily, M emoria 1-12 0 l 17:01: Refill(s) predniSONE 2019-03 Yes 10 mg = 1 Me moria 10 mg oral 1-12 tab, PO, l tablet 17:01: Daily, 0 Refill(s) pantoprazol 2019-03 Yes 40 mg = 1 M emoria e 40 MG 1-12 tab, PO, l Enteric 17:01: Daily, 0 Abraham n Coated Refill(s) Tablet [Protonix] ropinirole 2019-03 Yes PO, Daily, M emoria 1-12 0 l 17:01: Refill(s) predniSONE 2019-03 Yes 10 mg = 1 Me moria 10 mg oral 1-12 tab, PO, l tablet 17:01: Daily, 0 Refill(s) pantoprazol 2019-03 Yes 40 mg = 1 M emoria e 40 MG 1-12 tab, PO, l Enteric 17:01: Daily, 0 Abraham n Coated Refill(s) Tablet [Protonix] ropinirole 2019-03 Yes PO, Daily, M emoria 1-12 0 l 17:01: Refill(s) predniSONE 2019-03 Yes 10 mg = 1 Me moria 10 mg oral 1-12 tab, PO, l tablet 17:01: Daily, 0 Refill(s) pantoprazol 2019-03 Yes 40 mg = [...] DO NOT CRUSH, CHEW OR SPLIT. pantoprazol 2020- Yes TAKE 1 Univ ers e 40 [...] DO NOT CRUSH, CHEW OR SPLIT. pantoprazol 2020- Yes TAKE 1 Univ ers e 40 [...] Medical base)/3 mL Branch nebulizer solution DALIRESP 2020-0 Yes Univers 500 mcg 9-22 ity of tablet 00:00: [place] [facility] DALIRESP 2020-0 Yes Univers 500 mcg 9-22 ity of tablet 00:00: [address] DALIRESP 2020-0 Yes Univers 500 mcg 9-22 ity of tablet 00:00: [address] DALIRES 2020-0 Yes Univers 500 mcg 9-22 ity of tablet 00:00: [address] DALIRESP 2020-0 Yes Univers 500 mcg 9-22 ity of tablet 00:00: [address] DALIRES 2020-0 Yes Univers 500 mcg 9-22 ity of tablet 00:00: [place] [facility] DALIRESP 2020-0 Yes Univers 500 mcg 9-22 ity of tablet 00:00: [address] DALIRESP 2020-0 Yes Univers 500 mcg 9-22 ity of tablet 00:00: [address] DALIRES 2020-0 Yes Univers 500 mcg 9-22 ity of tablet 00:00: [address] DALIRES 2020-0 Yes Univers 500 mcg 9-22 ity of tablet 00:00: [address] DALIRES 2020-0 Yes Univers 500 mcg 9-22 ity of tablet 00:00: [place] [facility] DALIRESP 2020-0 Yes Univers 500 mcg 9-22 ity of tablet 00:00: [place] [facility] DALIRESP 2020-0 Yes Univers 500 mcg 9-22 ity of tablet 00:00: [address] predniSONE 2019-1 Yes 10mg Take 10 mg U nivers 10 mg 0-24 by mouth. ity of tablet 00:00: [place] [facility] predniSONE 2019-1 Yes 10mg Take 10 mg U nivers 10 mg 0-24 by mouth. ity of tablet 00:00: [place] [facility] predniSONE 2019-1 Yes 10mg Take 10 mg U nivers 10 mg 0-24 by mouth. ity of tablet 00:00: [address] predniSONE 2019-1 Yes 10mg Take 10 mg U nivers 10 mg 0-24 by mouth. ity of tablet 00:00: [address] predniSONE 2019-1 Yes 10mg Take 10 mg U nivers 10 mg 0-24 by mouth. ity of tablet 00:00: [address] predniSONE 2019-1 Yes 10mg Take 10 mg U nivers 10 mg 0-24 by mouth. ity of tablet 00:00: [address] predniSONE 2019-1 Yes 10mg Take 10 mg U nivers 10 mg 0-24 by mouth. ity of tablet 00:00: [place] [facility] predniSONE 2019-1 Yes 10mg Take 10 mg U nivers 10 mg 0-24 by mouth. ity of tablet 00:00: [address] predniSONE 2019-1 Yes 10mg Take 10 mg U nivers 10 mg 0-24 by mouth. ity of tablet 00:00: [place] [facility] predniSONE 2019-1 Yes 10mg Take 10 mg U nivers 10 mg 0-24 by mouth. ity of tablet 00:00: [address] predniSONE 2019-1 Yes 10mg Take 10 mg U nivers 10 mg 0-24 by mouth. ity of tablet 00:00: [address] predniSONE 2019-1 Yes 10mg Take 10 mg U nivers 10 mg 0-24 by mouth. ity of tablet 00:00: [address] predniSONE 2019-1 Yes 10mg Take 10 mg U nivers 10 mg 0-24 by mouth. ity of tablet 00:00: [address] hydrOXYzine hydrOXYzine 2019-0 No TID hydrOXYzin HCl 25 MG HCl 25 MG 8-08 e HCl 25 00:00: hydrOXYzine hydrOXYzine 2018-0 No TID hydrOXYzin HCl 25 MG HCl 25 MG 8-08 e HCl 25 00:00: MG 00 acetaminoph Yes TAKE 2 Univ ers en-codeine [...] Branch NEEDED FOR PAIN WITH FOOD ibuprofen 2018-0 Yes TAKE 1 Univer s 800 mg [...] solution nebulize one extra every 6 hours. Trelegy Trelegy No Trelegy Ellipta Ellipta Ellipta [...] predniSONE No predniSONE Protonix Protonix No Protonix Immunizations Ordered Immunization Filled Immunization Date Status Commen ts Source Name Name Pneumococcal conjugate 2021-12-27 Completed P 00:00:00 SHINGRIX VACCINE 2021-12-27 Completed 00:00:00 Influenza, injectable, 2021-12-27 Completed [place] Canine 00:00:00 Kidney, preservative-free, quadrivalent SHINGRIX VACCINE 2021-06-25 Completed 00:00:00 Tdap 2021-06-25 Completed 00:00:00 Vital Signs Vital Name Observation Time Observation Value Comments Source height 2021-12-01 14:00:00 69 [in_i] [facility] weight 2021-12-01 14:00:00 230 [lb_av] [facility] temperature 2021-12-01 14:00:00 98.1 [degF] [facility] bmi 2021-12-01 14:00:00 33.96 kg/m2 [facility] blood pressure 2021-12-01 14:00:00 118 mm[Hg] [facility] - systolic [facility] blood pressure 2021-12-01 14:00:00 62 mm[Hg] [facility] - diastolic [facility] Systolic blood 2020-02-16 19:36:00 143 mm[Hg] Univer sity of [facility] Diastolic blood 2020-02-16 19:36:00 91 mm[Hg] Unive rsity of [facility] Heart rate 2020-02-16 19:36:00 91 /min [facility] Body temperature 2020-02-16 19:36:00 36.33 [facility] 2020-02-16 19:36:00 175.3 cm [facility] Body weight 2020-02-16 19:36:00 107.956 kg [facility] BMI 2020-02-16 19:36:00 35.15 kg/m2 [facility] Systolic blood 2020-02-16 19:36:00 143 mm[Hg] Univer sity of pressure [facility] Diastolic blood 2020-02-16 19:36:00 91 mm[Hg] Unive rsity of pressure [facility] Heart rate 2020-02-16 19:36:00 91 /min [facility] Body temperature 2020-02-16 19:36:00 36.33 [facility] height 2020-02-16 19:36:00 175.3 cm [facility] Body weight 2020-02-16 19:36:00 107.956 kg [facility] BMI 2020-02-16 19:36:00 35.15 kg/m2 [facility] BP Systolic 2021-12-27 16:41:00 144 mm[Hg] BP [...] Systolic (mm Hg) 2020-02-18 19:20:00 Elliott rial [place] Diastolic (mm Hg) 2020-02-18 19:20:00 Mem orial [place] Heart Rate 2020-02-18 19:20:00 [facility] [place] Respitory Rate 2020-02-18 19:20:00 Memori al [place] Height 2020-02-18 19:20:00 170.18 cm [facility] [place] Weight 2020-02-18 19:20:00 [facility] [place] BMI Calculated 2020-02-18 19:20:00 Memori al [place] Systolic (mm Hg) 2020-01-15 16:50:00 Elliott rial [place] Diastolic (mm Hg) 2020-01-15 16:50:00 Mem orial [place] Heart Rate 2020-01-15 16:50:00 [facility] [place] Respitory Rate 2020-01-15 16:50:00 Memori al [place] Height 2020-01-15 16:50:00 170.18 cm [facility] [place] Weight 2020-01-15 16:50:00 [facility] [place] BMI Calculated 2020-01-15 16:50:00 Memori al [place] Procedures Procedure Date / Time Performing Clinician Source Performed EXTERNAL PROVIDER RECORDS 2020-07-02 05:01:00 Doctor Unassigned, [facility] Name Medical Branch INSURANCE CORRESPONDENCE 2020-04-10 06:01:00 Doctor Unassigned, [facility] Name [facility] EXTERNAL PROVIDER RECORDS 2020-04-07 06:01:00 Doctor Unassigned, [facility] Name [facility] Branch INSURANCE CORRESPONDENCE 2020-02-26 06:01:00 Doctor Unassigned, [facility] Name [facility] EXTERNAL PROVIDER RECORDS 2020-02-10 06:01:00 Doctor Unassigned, [facility] Name [facility] Plan of Care Planned Activity Planned Date Details Comments Source Future Scheduled 2022-06-05 COVID-19 VACCINE (#1) [facility] Test 04:17:27 [code = COVID-19 VACCINE (#1)] Future Scheduled 2022-06-05 Pneumococcal Vaccine: [facility] Test 04:17:27 Pediatrics (0 to 5 Years) and At-Risk Patients (6 to 64 Years) (1 - PCV) [code = Pneumococcal Vaccine: Pediatrics (0 to 5 Years) and At-Risk Patients (6 to 64 Years) (1 - PCV)] Future Scheduled 2022-06-05 Hepatitis C screening [facility] Test 04:17:27 (procedure) [code = 065375829] Future Scheduled 2022-06-05 COLONOSCOPY SCREENING [facility] Test 04:17:27 [code = COLONOSCOPY SCREENING] Future Scheduled 2022-06-05 SHINGLES VACCINES (1 [facility] Test 04:17:27 of 2) [code = SHINGLES VACCINES (1 of 2)] Future Scheduled 2022-06-05 INFLUENZA [facility]ACCINE [facility] 04:17:27 [code = INFLUENZA VACCINE] Future Scheduled 2022-03-07 COVID-19 VACCINE (#1) [facility] Test 10:17:47 [code = COVID-19 VACCINE (#1)] Future Scheduled 2022-03-07 Pneumococcal Vaccine: [facility] Test 10:17:47 Pediatrics (0 to 5 Years) and At-Risk Patients (6 to 64 Years) (1 - PCV) [code = Pneumococcal Vaccine: Pediatrics (0 to 5 Years) and At-Risk Patients (6 to 64 Years) (1 - PCV)] Future Scheduled 2022-03-07 Hepatitis C screening [facility] Test 10:17:47 (procedure) [code = 791327652] Future Scheduled 2022-03-07 COLONOSCOPY SCREENING [facility] Test 10:17:47 [code = COLONOSCOPY SCREENING] Future Scheduled 2022-03-07 SHINGLES VACCINES (1 [facility] Test 10:17:47 of 2) [code = SHINGLES VACCINES (1 of 2)] Future Scheduled 2022-03-07 INFLUENZA VACCINE Method [facility] Test 10:17:47 [code = INFLUENZA VACCINE] Future Scheduled 2022-03-07 COVID-19 VACCINE (#1) [facility] Test 10:17:47 [code = COVID-19 VACCINE (#1)] Future Scheduled 2022-03-07 Pneumococcal Vaccine: [facility] Test 10:17:47 Pediatrics (0 to 5 Years) and At-Risk Patients (6 to 64 Years) (1 - PCV) [code = Pneumococcal Vaccine: Pediatrics (0 to 5 Years) and At-Risk Patients (6 to 64 Years) (1 - PCV)] Future Scheduled 2022-03-07 Hepatitis C screening [facility] Test 10:17:47 (procedure) [code = 265058098] Future Scheduled 2022-03-07 COLONOSCOPY SCREENING [facility] Test 10:17:47 [code = COLONOSCOPY SCREENING] Future Scheduled 2022-03-07 SHINGLES VACCINES (1 Met [facility] Test 10:17:47 of 2) [code = SHINGLES VACCINES (1 of 2)] Future Scheduled 2022-03-07 INFLUENZA VACCINE Method [facility] Test 10:17:47 [code = INFLUENZA VACCINE] Future Scheduled 2022-03-07 COVID-19 VACCINE (#1) [facility] Test 10:17:47 [code = COVID-19 VACCINE (#1)] Future Scheduled 2022-03-07 Pneumococcal Vaccine: [facility] Test 10:17:47 Pediatrics (0 to 5 Years) and At-Risk Patients (6 to 64 Years) (1 - PCV) [code = Pneumococcal Vaccine: Pediatrics (0 to 5 Years) and At-Risk Patients (6 to 64 Years) (1 - PCV)] Future Scheduled 2022-03-07 Hepatitis C screening [facility] Test 10:17:47 (procedure) [code = 815618865] Future Scheduled 2022-03-07 COLONOSCOPY SCREENING [facility] Test 10:17:47 [code = COLONOSCOPY SCREENING] Future Scheduled 2022-03-07 SHINGLES VACCINES (1 Met [facility] Test 10:17:47 of 2) [code = SHINGLES VACCINES (1 of 2)] Future Scheduled 2022-03-07 INFLUENZA VACCINE Method [facility] Test 10:17:47 [code = INFLUENZA VACCINE] Future Scheduled 2022-03-07 COVID-19 VACCINE (#1) [facility] Test 10:17:47 [code = COVID-19 VACCINE (#1)] Future Scheduled 2022-03-07 Pneumococcal Vaccine: [facility] Test 10:17:47 Pediatrics (0 to 5 Years) and At-Risk Patients (6 to 64 Years) (1 - PCV) [code = Pneumococcal Vaccine: Pediatrics (0 to 5 Years) and At-Risk Patients (6 to 64 Years) (1 - PCV)] Future Scheduled 2022-03-07 Hepatitis C screening [facility] Test 10:17:47 (procedure) [code = 630785462] Future Scheduled 2022-03-07 COLONOSCOPY SCREENING [facility] Test 10:17:47 [code = COLONOSCOPY SCREENING] Future Scheduled 2022-03-07 SHINGLES VACCINES (1 Met [facility] Test 10:17:47 of 2) [code = SHINGLES VACCINES (1 of 2)] Future Scheduled 2022-03-07 INFLUENZA VACCINE Method [facility] Test 10:17:47 [code = INFLUENZA VACCINE] Future Scheduled 2021-11-04 HEPATITIS B VACCINES Met [facility] Test 20:13:24 (1 of 3 - 3-dose series) [code = HEPATITIS B VACCINES (1 of 3 - 3-dose series)] Future Scheduled 2021-11-04 COVID-19 VACCINE (#1) [facility] Test 20:13:24 [code = COVID-19 VACCINE (#1)] Future Scheduled 2021-11-04 Pneumococcal Vaccine: [facility] Test 20:13:24 Pediatrics (0 to 5 Years) and At-Risk Patients (6 to 64 Years) (1 - PCV) [code = Pneumococcal Vaccine: Pediatrics (0 to 5 Years) and At-Risk Patients (6 to 64 Years) (1 - PCV)] Future Scheduled 2021-11-04 Hep[facility] C screening [facility] Test 20:13:24 (procedure) [code = 390019730] Future Scheduled 2021-11-04 COLONOSCOPY SCREENING [facility] Test 20:13:24 [code = COLONOSCOPY SCREENING] Future Scheduled 2021-11-04 SHINGLES VACCINES (1 Met [facility] Test 20:13:24 of 2) [code = SHINGLES VACCINES (1 of 2)] Future Scheduled 2021-11-04 INFLUENZA VACCINE Method [facility] Test 20:13:24 [code = INFLUENZA VACCINE] Goal Plan of Care Note [code = 82267-2] Goal Plan of Care Note [code = 94184-8] Goal Plan of Care Note [code = 04861-6] Goal Plan of Care Note [code = 98006-1] Goal Plan of Care Note [code = 42349-0] Goal Plan of Care Note [code = 87773-4] Goal Plan of Care Note [code = 41504-8] Goal Plan of Care Note [code = 93555-2] Goal Plan of Care Note [code = 83053-1] Encounters Start End Encounter Admission Attending Care Care Encounter Source Date/Time Date/Time Type Type Clinicians Facility Department ID 2021-12-12 Outpatient [facility] [id number] Common 14:56:02 [facility] 2021-12-06 Outpatient [facility] [id number] Common 11:36:02 [facility] 2021-12-01 Outpatient [facility] [id number] Common 13:52:01 [facility] 2021-01-01 Outpatient [facility] [id number] Univers 21:41:17 PRINCE moeller [facility] 2022-03-07 2022-03-07 Outpatient SFA SFA [id number] Marvel 10:54:39 10:54:39 0103 F Starr 2021-12-27 2021-12-27 Outpatient SFA SFA [id number] Marvel 16:23:03 16:23:03 1025 F Starr 2021-12-27 2021-12-27 Outpatient [id number] 00:00:00 00:00:00 Visit [id number] 2021-12-01 2021-12-01 OFFICE STLMLC ST[facility]C [id number] mmon 00:00:00 00:00:00 VISIT [facility] PT LEVEL 3 - [facility] 2021-06-13 2021-06-13 Telemedici Jan, 1.2.840.1 [id number] Methodi 07:00:00 07:18:06 eddie Gavin [id number] 3.430.2.7 Hospit a .[id number] l .8 2021-06-08 2021-06-08 Abstract Estevan, 1.2.840.1 [id number] Methodi 00:00:00 00:00:[id number] 3.430.2.7 Hospit a .3.044883 l .8 2020-07-02 2020-07-02 Orders Doctor AARON [id number] 00:00:00 00:00:00 Only Unassigned, MARCIE 350.1.13.10 [place] [facility] [id number] [id number] 2020-07-02 2020-07-02 Orders Doctor AARON [id number] [facility] 00:00:00 00:00:00 Only Unassigned, MARCIE 350.1.13.10 ity of [place] [facility] 4.2.7.2.686 Shiv as [id number] [facility] 009 [place] 2020-06-14 2020-06-14 Outpatient JAN, [facility] [id number] [place] 00:00:00 00:00:00 TARUN 910 Method i 2020-05-17 2020-05-17 Outpatient JAN, [facility] [id number] [place] 00:00:00 00:00:00 TARUN 986 Method i 2020-04-26 2020-04-30 Inpatient JUN, [facility] [id number] [place] 00:00:00 00:00:00 STARR [address] 2020-04-09 2020-04-16 [facility] [id number] 1907 [place] 00:00:00 00:00:00 STARR 987 Method i 2020-04-14 2020-04-14 Telephone [facility] [id number] 00:00:00 00:00:00 [place] 350.1.13.10 [facility] 4.2.7.2.686 [id number] [facility] 2020-04-14 2020-04-14 [facility] [id number] [facility] 00:00:00 00:00:00 Prince [place] 350.1.13.10 it[place] [facility] [place] [id number] [facility] [address] [place] 2020-04-10 2020-04-10 Orders Doctor WALKER 1.2.840.114 [id number] 00:00:00 00:00:00 Only Unassigned, MARCIE 350.1.13.10 [place] [facility] 4.2.7.2.686 [id number] 2020-04-10 2020-04-10 Orders Doctor WALKER 1.2.840.114 [id number] [facility] 00:00:00 00:00:00 Only Unassigned, MARCIE 350.1.13.10 ity of [place] [facility] 4.2.7.2.686 Shiv as [phone] [address] 2020-04-07 2020-04-07 [facility] 1.2.840.114 [id number] [facility] 00:00:00 00:00:00 Management [place] 350.1.13.10 [place] [facility] [place] [phone] [address] 2020-04-07 2020-04-07 Orders Doctor AARON 1.2.840.114 [id number] [facility] 00:00:00 00:00:00 Only Unassigned, MARCIE 350.1.13.10 ity of [place] [facility] 4.2.7.2.686 Shiv as [phone] [address] 2020-03-31 2020-03-31 Ambulatory nullFlavo MNA [id number] Memoria 19:15:00 19:15:00 Pre-Reg r Neurology 02 l Fiorella [place] 2020-03-31 2020-03-31 Ambulatory nullFlavo MNA [id number] [facility] 19:15:00 19:15:00 Pre-Reg r Neurology 02 l Fiorella [place] 2020-03-31 2020-03-31 Outpatient MHIE MHIE [id number] [place] 13:15:00 13:15:00 02 justine [place] 2020-03-31 2020-03-31 [id number] 13:15:00 13:15:[address] [place] [address] 2020-03-18 2020-03-18 [facility] 1.2.840.114 [id number] [facility] 00:00:00 00:00:00 Management [place] 350.1.13.10 ity [place] [facility] [place] [id number] [address] 2020-02-26 2020-02-26 Orders Doctor WALKER 1.2.840.114 [id number] [facility] 00:00:00 00:00:00 Only Unassigned, MARCIE 350.1.13.10 ity of [place] [facility] 4.2.7.2.686 Shiv as [phone] [address] 2020-02-18 2020-02-19 Outpatient nullFlavo MNA [id number] Memoria 19:00:00 05:59:59 r Neurology 01 justine [place] 2020-02-18 2020-02-19 Outpatient nullFlavo MNA [id number] [facility] 19:00:00 05:59:59 r Neurology 01 justine [place] 2020-02-18 2020-02-18 Outpatient Melinda MISCHER MHMISCHER [id number] 13:00:00 23:59:59 Jaycob Malik [place] 2020-02-18 2020-02-18 Outpatient MHIE MHIE [id number] [facility] 13:00:00 13:00:00 01 justine Frias 2020-02-18 2020-02-18 [facility] [id number] [facility] 00:00:00 00:00:00 Prince [place] 350.1.13.10 ity [place] [facility] [place] [id number] [address] 2020-02-16 2020-02-16 [facility] 1.2.840.114 [id number] 13:13:52 16:56:34 Visit [place] 350.1.13.10 [facility] 4.2.7.2.686 [id number] [facility] 2020-02-16 2020-02-16 [facility] 1.2.840.114 [id number] Univers 13:13:52 16:56:34 Visit Prince [place] 350.1.13.10 ity [facility] [place]2.[place] [id number] [address] 2020-02-16 2020-02-16 [facility] [id number] Univers 13:30:00 13:30:00 PRINCE moeller of [facility] 2020-02-10 2020-02-10 Orders Doctor WALKER 1.2.840.114 [id number] Univers 00:00:00 00:00:00 Only Unassigned, MARCIE 350.1.13.10 ity of [place] [facility] 4.2.7.2.686 Shiv as [phone] [address] 2020-01-15 2020-01-16 Outpatient nullFlavo MNA [id number] Memoria 17:30:00 05:59:59 r Neurology 00 l Fiorella [place] 2020-01-15 2020-01-16 Outpatient nullFlavo MNA [id number] Memoria 17:30:00 05:59:59 r Neurology 00 l Fiorella [place] 2020-01-15 2020-01-15 Outpatient GRUPO LawrenceMISCHER MHMISCHER [id number] 11:30:00 23:59:59 Jaycob 00 Andre 2020-01-15 2020-01-15 Outpatient MHIE MHIE [id number] [place] 11:30:00 11:30:00 00 l Rodriguez 2019-05-02 2019-05-02 Outpatient KWABENA PATRICK [facility] 10 [id number] [facility] 12:40:00 12:40:00 KWABENA CHRISTINE i [facility] Results Test Description Test Time Test Comments [...] this result as michael l/abnormal. TSH, THIRD [id number] 02:28:44 Test Item Value Reference Range Interpretation Comments TSH, THIRD 0.480 UIU/ML 0.400-4.100 UNLESS OTHERWI SE GENERATION (test INDICATED, ALL TESTING code = 2821) PERFORMED [facility] [address] [place] [address] LABOR ATORY DIRECTOR: RUTH LIRA M.D. CLIA NUMBER [id number] CAP ACCREDITATION N O. [id number] LIPID [id number] 00:14:20 Test Item Value Reference Range Interpretation [...] MOREINFORMATION , SEE CLIENT ANNOUNCE MENT AT [email or web address] RISK RATIO LDL/HDL 0.92 RATIO <3.55 (test code = 2238) COMPREHENSIVE METABOLIC [id number] 00:14:20 Test Item Value Reference Range Interpretation Comments GLUCOSE (test code = 117 MG/DL 70-99 H 2216) BUN (test code = 16 MG/DL 6-20 2207) CREATININE (test 0.87 MG/DL 0.80-1.40 code = 2214) eGFR (2020 CKD-EPI) 99 ML/MIN/1.73 >60 (test code = 35058) CALC BUN/CREAT (test 18 RATIO 6-28 code = 2235) SODIUM (test code = 140 MEQ/L 462-424 2025) POTASSIUM (test code 4.9 MEQ/L 3.5-5.4 = 2227) CHLORIDE (test code 97 MEQ/L 95-107 = 2215) CARBON DIOXIDE (test 24 MEQ/L 19-31 code [...] 2204) AST (test code = 24 U/L 50 2217) ALT (test code = 21 U/L 50 2218) LIPID [id number] 00:00:00 Test Item Value Reference Range Interpretation Comments CHOLESTEROL (test code = 2210) 177 MG/DL TRIGLYCERIDES (test code = 2232) 55 MG/DL HDL CHOLESTEROL (test code = 2220) 85 MG/DL CALC LDL CHOL (test code = 2237) 78 MG/DL RISK RATIO LDL/HDL (test code = 0.92 RATIO 2238) LIPID [id number] 00:00:00 Test Item Value Reference Range Interpretation Comments CHOLESTEROL (test code = 2210) 177 MG/DL TRIGLYCERIDES (test code = 2232) 55 MG/DL HDL CHOLESTEROL (test code = 2220) 85 MG/DL CALC LDL CHOL (test code = 2237) 78 MG/DL RISK RATIO LDL/HDL (test code = 0.92 RATIO 2238) COMPREHENSIVE METABOLIC [id number] 00:00:00 Test Item Value Reference Range Interpretation Comments GLUCOSE (test code = 2217) 117 MG/DL BUN (test code = 2208) 16 MG/DL CREATININE (test code = 2214) 0.87 MG/DL eGFR (2020 CKD-EPI) (test code 99 ML/MIN/1.73 = 19984) CALC BUN/CREAT (test code = 18 RATIO [...] code = 2219) 21 U/L COMPREHENSIVE METABOLIC [id number] 00:00:00 Test Item Value Reference Range Interpretation Comments GLUCOSE (test code = 2217) 117 MG/DL BUN (test code = 2208) 16 MG/DL CREATININE (test code = 2214) 0.87 MG/DL eGFR (2020 CKD-EPI) (test code 99 ML/MIN/1.73 = 62831) CALC BUN/CREAT (test code = 18 RATIO 2235) SODIUM (test code = 2231) 140 MEQ/L POTASSIUM (test code = 2228) 4.9 MEQ/L CHLORIDE (test code = 2215) 97 MEQ/L CARBON DIOXIDE (test code = 24 MEQ/L 2205) CALCIUM (test code = 2209) 9.8 MG/DL PROTEIN, TOTAL (test code = 7.2 G/DL 2228) ALBUMIN (test code = 220) 4.6 G/DL CALC GLOBULIN (test code = 2.6 G/DL 2239) CALC A/G RATIO (test code = 1.8 RATIO 2233) BILIRUBIN, TOTAL (test code = 0.4 MG/DL 2206) ALKALINE PHOSPHATASE (test 69 U/L code = 2204) AST (test code = 2218) 24 U/L ALT (test code = 2219) 21 U/L PSA, [id number] 00:00:00 Test Item Value Reference Range Interpretation Comments PSA, TOTAL (test code = 2606) 0.62 NG/ML PSA, [id number] 00:00:00 Test Item Value Reference Range Interpretation Comments PSA, TOTAL (test code = 2606) 0.62 NG/ML PSA, [id number] 00:00:00 Test Item Value Reference Range Interpretation Comments PSA, TOTAL (test code = 2606) 0.62 NG/ML [id number] 00:00:00 Test Item Value Reference Range Interpretation Comments TSH, THIRD GENERATION (test code 0.480 UIU/ML = 2821) [id number] 00:00:00 Test Item Value Reference Range Interpretation Comments TSH, THIRD GENERATION (test code 0.480 UIU/ML = 2821) [id number] 00:00:00 Test Item Value Reference Range Interpretation Comments TSH, THIRD GENERATION (test code 0.480 UIU/ML = 2821) CBC W/AUTO DIFF WITH [id number] 06:12:24 Test Item Value Reference Range Interpretation [...] RBCS 0.00 K/UL 0.00-0.11 (test code = 19148) COMMENTS (test code = (NOTE) MARKE D ANISOCYTOSIS 1016) MARKED HYPOCHRO MASIA MODERATE MICROC YTOSIS SEE ADDITIONAL COMMENTS BELOW: PLATELET ESTIMA TE APPEARS NORMAL. MODERATE ENLARG ED PLATELETS HEMOGLOBIN [id number] 06:12:11 Test Item Value Reference Range Interpretation Comments HEMOGLOBIN A1c (test code = 39807) 5.6 % 4.2-5.6 CBC W/AUTO [id number] 00:00:00 Test Item Value Reference Range Interpretation [...] NUCLEATED RBCS (test code = 0.00 K/UL 01102) COMMENTS (test code = 1016) (NOTE) HEMOGLOBIN [id number] 00:00:00 Test Item Value Reference Range Interpretation Comments HEMOGLOBIN A1c (test code = 21579) 5.6 % HEMOGLOBIN [id number] 00:00:00 Test Item Value Reference Range Interpretation Comments HEMOGLOBIN A1c (test code = 66460) 5.6 % HEMOGLOBIN [id number] 00:00:00 Test Item Value Reference Range Interpretation Comments HEMOGLOBIN A1c (test code = 31653) 5.6 % CBC W/AUTO [id number] 00:00:00 Test Item Value Reference Range Interpretation [...] NUCLEATED RBCS (test code = 0.00 K/UL 11512) COMMENTS (test code = 1016) (NOTE) CBC W/AUTO [id number] 00:00:00 Test Item Value Reference Range Interpretation [...] NUCLEATED RBCS (test code = 0.00 K/UL 47679) COMMENTS (test code = 1016) (NOTE) SARS-CoV-2 (COVID-19) RNA [Presence] in Respiratory specimen by LAZARO with probe [id number] 05:12:28 Test Item Value Reference Range Interpretation Comments SARS-CoV-2 (COVID-19) RNA Not detected Not-Detected [Presence] in Respiratory specimen by LAZARO with probe detection (test code = 18288-3) MARTHA MCGOVERN
[2022-07-19] MEDS ORDERED: HYDROCODONE/APAP 7.5/325 MG TAB ONE (17:38)
[2022-07-19] MEDS ORDERED: LIDOCAINE 1% 20 ML MDV ONE (18:09)
--- NOTE | 2022-07-19 19:24 | RAD REPORT ---
EXAM DESCRIPTION: US - UPPER EXTREMITY VENOUS UNILATE - 07/19/2022 6:03 pm CLINICAL HISTORY: Pain COMPARISON: None. TECHNIQUE: Real-time sonographic evaluation of the left upper extremity deep venous system was perfo rmed. FINDINGS: Normal compressibility, flow augmentation, phasic flow and spontaneous flow is identified in the left upper extremity deep venous system. No intraluminal filling defects seen. IMPRESSION: No DVT in the left upper extremity.
--- NOTE | 2022-07-19 19:26 | RAD REPORT ---
EXAM DESCRIPTION: US - Upper Ext Artery Uni Clemente - 07/19/2022 6:03 pm CLINICAL HISTORY: PAIN COMPARISON: Extrem Venous W Compress Clemente dated 09/16/2021 TECHNIQUE: Left upper extremity arterial Doppler examination was performed with waveform tracing. FINDINGS: No resistive waveforms seen in the left CCA. Triphasic waveforms seen along the left subcl ashley through left brachial artery. Monophasic waveforms seen along the left radial and ulnar arterie s, with blunted upstroke and velocity particularly along the ulnar artery. IMPRESSION: Mild to moderate distal left upper extremity peripheral vascular disease.
[2022-07-19 19:56] LABS: Hematocrit 32.4 % (39.6-49.0); MCV 59.1 fL (80-100); RBC Red Blood Cell Count 5.48 M/uL (4.33-5.43)
--- NOTE | 2022-07-19 19:57 | EDPHYS ---
Physician Documentation [facility] Name: Jesus Noriega Age: 61 yrs Sex: Male : 1960 Arrival Date: 07/19/2022 Time: 17:02 Bed 11 Private MD: Ko Guerra ED Physician Osbaldo Cedeño HPI: 07/19 17:30 This 61 yrs old Male presents to ER via Ambulatory with complaints of Arm Pain. cp 17:30 The patient or guardian complains of pain, that is acute, tenderness. The complaints cp affect the left forearm. Context: resulted from unknown cause. Onset: The symptoms/episode began/occurred today. Treatment prior to arrival includes: no previous treatment. 17:30 Associated signs and symptoms: Pertinent negatives: numbness, swelling, chest pain. cp 17:30 Patient is a 61-year-old male who presents to the emergency department with complaints cp of left forearm pain that started this afternoon. Patient reports having colonoscopy procedure earlier today and started noticing the pain shortly after. Patient reports a history of blood clot to the left arm and was taking Eliquis but due to the upcoming procedure stop taking the medication 3 days prior. Patient reports left forearm and hand feels cool to the touch and complains of significant pain. Historical: - Allergies: 17:26 No Known Allergies; nj1 - PMHx: 17:26 COPD; DVT; Hypertension; nj1 - PSHx: 17:26 left forearm; nj1 - Immunization history:: Client reports receiving the 2nd dose of the Covid vaccine. - Social history:: Smoking status: Patient reports use of chewing tobacco. ROS: 17:35 MS/extremity: Positive for pain, paresthesias, tenderness, Negative for injury or acute cp deformity, decreased range of motion. 17:35 Constitutional: Negative for body aches, chills, poor PO intake. cp 17:35 Eyes: Negative for injury, pain, redness, and discharge. cp 17:35 ENT: Negative for drainage from ear(s), ear pain, sore throat, difficulty swallowing, difficulty handling secretions. 17:35 Cardiovascular: Negative for chest pain, palpitations. 17:35 Respiratory: Negative for cough, shortness of breath, wheezing. 17:35 Abdomen/GI: Negative for abdominal pain, nausea, vomiting, and diarrhea. 17:35 Skin: Negative for cellulitis, rash. cp 17:35 Neuro: Negative for altered mental status, dizziness, headache, syncope, weakness. 17:35 All other systems are negative. Exam: 17:40 Constitutional: The patient appears in no acute distress, alert, awake, cp non-diaphoretic, non-toxic, well developed, well nourished, uncomfortable. 17:40 Head/Face: Normocephalic, atraumatic. cp 17:40 Eyes: Periorbital structures: appear normal, Conjunctiva: normal, no exudate, no injection, Sclera: no appreciated abnormality, Lids and lashes: appear normal, bilaterally. 17:40 ENT: External ear(s): are unremarkable, Nose: is normal, Mouth: Lips: moist, Oral mucosa: pink and intact, moist, Posterior pharynx: is normal, airway is patent, no erythema, no exudate. 17:40 Neck: ROM/movement: is normal, is supple, without pain, no range of motions limitations. 17:40 Chest/axilla: Inspection: normal, Palpation: is normal, no crepitus, no tenderness. 17:40 Cardiovascular: Rate: normal, Rhythm: regular, Pulses: weak radial pulse left arm, Edema: is not appreciated, JVD: is not appreciated. 17:40 Respiratory: the patient does not display signs of respiratory distress, Respirations: normal, no use of accessory muscles, no retractions, labored breathing, is not present, Breath sounds: are clear throughout, no decreased breath sounds, no stridor, no wheezing. 17:40 Abdomen/GI: Inspection: abdomen appears normal, Palpation: abdomen is soft and non-tender, in all quadrants. 17:40 Back: pain, is absent, ROM is normal. 17:40 Musculoskeletal/extremity: Extremities: grossly normal except: noted in the left forearm: pain, tenderness. 17:40 Skin: injury, is not appreciated, no rash present. 17:40 Neuro: Orientation: to person, place \T\ time. Mentation: is normal, Motor: moves all fours, strength is normal. 20:05 ECG was reviewed by the Attending Physician. cp Vital Signs: 17:21 BP 131 / 78; Pulse 84; Resp 18; Temp 99.5(TE); Pulse Ox 95% ; Weight 90.72 kg; Height 5 nj1 ft. 9 in. ; Pain 10/10; 18:19 BP 126 / 76; Pulse 74; Resp 18; Pulse Ox 98% on R/A; Pain 9/10; mb9 20:20 BP 126 / 71; Pulse 87; Resp 20; Pulse Ox 96% on R/A; mb9 21:04 BP 126 / 75; Pulse 71; Resp 16; Pulse Ox 96% on R/A; mb9 17:21 Body Mass Index 29.53 (90.72 kg, 175.26 cm) nj1 17:21 Pain Scale: Adult nj1 18:19 Pain Scale: Adult mb9 MDM: 17:32 Patient medically screened. cp 20:10 Data reviewed: vital signs, nurses notes, lab test result(s), EKG, radiologic studies, cp plain films, ultrasound. 20:10 Differential diagnosis: DVT, arterial occlusion, cellulitis. Management of patient was cp discussed with the following: consult DR Arzola who requests transfer to [facility] in [facility] for vascular consult. 07/19 19:33 Order name: Basic Metabolic Panel 07/19 19:33 Order name: CBC with Diff 07/19 19:33 Order name: LFT's 07/19 19:33 Order name: PT-INR; Complete Time: 20:06 07/19 19:33 Order name: Troponin HS 07/19 19:33 Order name: Ptt, Activated; Complete Time: 20:06 07/19 20:08 Order name: SARS-COV-2 RT PCR as6 07/19 20:31 Order name: Manual Differential EDMS 07/19 17:34 Order name: Upper Ext Artery Uni Clemente; Complete Time: 19:28 EDMS 07/19 19:38 Interpretation: Report reviewed. 07/19 17:34 Order name: UPPER EXTREMITY VENOUS UNILATE; Complete Time: 19:28 EDMS 07/19 19:33 Order name: XRAY Chest (1 view) 07/19 19:33 Order name: EKG; Complete Time: 19:35 07/19 19:33 Order name: Cardiac monitoring; Complete Time: 19:49 07/19 19:33 Order name: EKG - Nurse/Tech; Complete Time: 20:10 07/19 19:33 Order name: IV Saline Lock; Complete Time: 19:49 07/19 19:33 Order name: Labs collected and sent; Complete Time: 19:49 cp 07/19 19:33 Order name: O2 Per Protocol; Complete Time: 19:49 cp 07/19 19:33 Order name: O2 Sat Monitoring; Complete Time: 19:49 cp 07/19 19:55 Order name: NPO; Complete Time: 20:03 as6 EC:05 Rate is 67 beats/min. Rhythm is regular. OH interval is normal at 132 msec. QRS cp interval is prolonged at 132 msec. QT interval is normal. T waves are Inverted in lead aVR. Interpreted by me. Reviewed by me. Administered Medications: 17:32 Drug: Hydrocodone-Acetaminophen PO (7.5 mg-325 mg) 1 tabs Route: PO; nj1 21:49 Follow up: Response: No adverse reaction mb9 20:00 Drug: NS 0.9% IV 500 ml Route: IV; Rate: bolus; Site: right antecubital; mb9 21:49 Follow up: Response: No adverse reaction; IV Status: Completed infusion mb9 20:00 Drug: NS 0.9% IV 500 ml Route: IV; Rate: 100 ml/hr; Site: right antecubital; mb9 21:49 Follow up: Response: No adverse reaction; IV Status: Completed infusion mb9 20:03 Drug: Aspirin PO Chewable Tablet 324 mg Route: PO; mb9 21:49 Follow up: Response: No adverse reaction mb9 20:05 Drug: Heparin (DVT/PE- Bolus per protocol) - HEParin IVP 80 units/kg {Co-Signature: as6 mb9 (Miller Winston RN).} Route: IVP; Site: right antecubital; 21:49 Follow up: Response: No adverse reaction mb9 20:10 Drug: Heparin (DVT/PE Drip) - ([place] [address] units, D5W IV 500 ml) 18 units/kg/hr mb9 {Co-Signature: as6 (Miller Winston RN).} Route: IV; Rate: calculated rate; Site: right forearm; 20:10 Drug: HYDROmorphone IVP 1 mg Route: IVP; Site: right antecubital; mb9 21:49 Follow up: Response: No adverse reaction mb9 21:04 Drug: HYDROmorphone IVP 1 mg Route: IVP; Site: right antecubital; mb9 21:49 Follow up: Response: No adverse reaction mb9 Disposition Summary: 07/19/22 19:56 Transfer Ordered Transfer Location: [facility] cp Reason: Higher level of care cp Condition: Stable cp Problem: new cp Symptoms: have improved cp Accepting Physician: Doctor(07/19/22 22:01) mb9 Diagnosis - 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 EDMS EDMS 17:34 17:24 Lower Extremity Artery Uni Ltd+US.RAD.BRZ ordered. EDMS EDMS 22:01 19:56 Doctor cp mb9
--- NOTE | 2022-07-19 19:57 | ER ---
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 nj1 Has had a blood clot in that arm in the past. Stop taking eliquis for 3 days dt colonoscopy. Coronavirus screen: Vaccine status: Patient reports receiving the 2nd dose of the covid vaccine. Ebola Screen: Patient denies travel to an Ebola-affected area in the 21 days before illness onset. Initial Sepsis Screen: Does the patient meet any 2 criteria? No. Patient's initial sepsis screen is negative. Does the patient have a suspected source of infection? No. Patient's initial sepsis screen is negative. Risk Assessment: Do you want to hurt yourself or someone else? Patient reports no desire to harm self or others. Onset of symptoms was July 19, 2022 at 13:45. 17:21 Method Of Arrival: Ambulatory [facility] 17:21 Acuity: ISRRAEL 3 nj1 Triage Assessment: 17:27 General: Behavior is cooperative, appropriate for age. mb9 Historical: - Allergies: 17:26 No Known Allergies; nj1 - PMHx: 17:26 COPD; DVT; Hypertension; nj1 - PSHx: 17:26 left forearm; nj1 - Immunization history:: Client reports receiving the 2nd dose of the Covid vaccine. - Social history:: Smoking status: Patient reports use of chewing tobacco. Screenin:20 [facility] ED Fall Risk Assessment (Adult) History of falling in the last 3 months, mb9 including since admission No falls in past 3 months (0 pts) Confusion or Disorientation No (0 pts) Intoxicated or Sedated No (0 pts) Impaired Gait No (0 pts) Mobility Assist Device Used No (0 pt) Altered Elimination No (0 pt) Score/Fall Risk Level 0 - 2 = Low Risk Oriented to surroundings, Maintained a safe environment, Educated pt \\T\\ family on fall prevention, incl call for assistance when getting out of bed. Abuse screen: Denies threats or abuse. Nutritional screening: No deficits noted. Tuberculosis screening: No symptoms or risk factors identified. Assessment: 18:08 Reassessment: pt brought back to ER room. iw 18:19 General: Appears uncomfortable. Pain: Complains of pain in left arm Pain does not mb9 radiate. Pain currently is 9 out of 10 on a pain scale. Quality of pain is described as aching, throbbing, Pain began suddenly, Is continuous. Neuro: Level of Consciousness is awake, alert, obeys commands, Oriented to person, place, time, situation, Appropriate for age. Cardiovascular: Patient's skin is warm and dry. Respiratory: Airway is patent Respiratory effort is even, unlabored, Respiratory pattern is regular, symmetrical. Derm: Skin is pink, warm \\T\\ dry. Musculoskeletal: Range of motion: intact in all extremities. 19:28 General: "My arm is killing me." provider notified . as6 20:55 Reassessment: pt states "my arm is hurting really bad." PA. Page, notified. New orders mb9 at this time. 20:55 Neuro: Level of Consciousness is awake, alert, obeys commands, Oriented to person, mb9 place, time, situation, Appropriate for age. Cardiovascular: Denies chest pain, Heart tones S1 S2 present Patient's skin is warm and dry. Rhythm is regular. Respiratory: Airway is patent Respiratory effort is even, unlabored, Respiratory pattern is regular, agonal. Derm: Skin is pink, warm \\T\\ dry. 21:56 Reassessment: Report given to transferring nurse JESS Tubbs. mb9 21:56 Reassessment: Report given to [facility]. mb9 Vital Signs: 17:21 BP 131 / 78; Pulse 84; Resp 18; Temp 99.5(TE); Pulse Ox 95% ; Weight 90.72 kg; Height 5 nj1 ft. 9 in. ; Pain 10/10; 18:19 BP 126 / 76; Pulse 74; Resp 18; Pulse Ox 98% on R/A; Pain 9/10; mb9 20:20 BP 126 / 71; Pulse 87; Resp 20; Pulse Ox 96% on R/A; mb9 21:04 BP 126 / 75; Pulse 71; Resp 16; Pulse Ox 96% on R/A; mb9 17:21 Body Mass Index 29.53 (90.72 kg, 175.26 cm) nj1 17:21 Pain Scale: Adult nj1 18:19 Pain Scale: Adult mb9 ED Course: 17:05 Patient arrived in ED. mr 17:05 Ko Guerra MD is Private Physician. mr 17:09 Osbaldo Loera PA is PHCP. cp 17:09 Osbaldo Cedeño MD is Attending Physician. cp 17:15 Initial transfer to [facility], face sheet was sent as requested by transfer [facility] coordinator. 17:25 Triage completed. nj1 17:26 Arm band placed on right wrist. nj1 18:05 Upper Ext Artery Uni [place] In Process Unspecified. EDMS 18:05 UPPER EXTREMITY VENOUS UNILATE In Process Unspecified. EDMS 18:08 Kenzie Alford, RN is Primary Nurse. iw 18:20 Placed in gown. Bed in low position. Call light in reach. Side rails up X 1. Client mb9 placed on continuous cardiac and pulse oximetry monitoring. NIBP monitoring applied. cardiac monitor on. 18:20 No provider procedures requiring assistance completed. mb9 19:45 Inserted saline lock: 20 gauge in right antecubital area, using aseptic technique. mb9 19:45 EKG done, by ED staff, reviewed by Osbaldo MEMBRENO. mb9 19:49 Basic Metabolic Panel Sent. mb9 19:49 CBC with Diff Sent. mb9 19:49 LFT's Sent. mb9 19:49 PT-INR Sent. mb9 19:49 Troponin HS Sent. mb9 19:49 Ptt, Activated Sent. mb9 20:09 SARS-COV-2 RT PCR Sent. mb9 20:10 Inserted saline lock: 18 gauge in right forearm, using aseptic technique. mb9 20:15 XRAY Chest (1 view) In Process Unspecified. EDMS 20:19 coordinator and physician approval. 1 20:22 Primary Nurse role handed off by Kenzie Alford, JESS mb9 20:22 Lisa Mott RN is Primary Nurse. mb9 20:57 Patient transferred, IV remains in place. mb9 21:50 [facility] was contacted for transfer. 1 22:07 patient was transferred by [facility]. [facility] Administered Medications: 17:32 Drug: Hydrocodone-Acetaminophen PO (7.5 mg-325 mg) 1 tabs Route: PO; nj1 21:49 Follow up: Response: No adverse reaction mb9 20:00 Drug: NS 0.9% IV 500 ml Route: IV; Rate: bolus; Site: right antecubital; mb9 21:49 Follow up: Response: No adverse reaction; IV Status: Completed infusion mb9 20:00 Drug: NS 0.9% IV 500 ml Route: IV; Rate: 100 ml/hr; Site: right antecubital; mb9 21:49 Follow up: Response: No adverse reaction; IV Status: Completed infusion mb9 20:03 Drug: Aspirin PO Chewable Tablet 324 mg Route: PO; mb9 21:49 Follow up: Response: No adverse reaction mb9 20:05 Drug: Heparin (DVT/PE- Bolus per protocol) - HEParin IVP 80 units/kg {Co-Signature: as6 luca (Miller Winston RN).} Route: IVP; Site: right antecubital; 21:49 Follow up: Response: No adverse reaction mb9 20:10 Drug: Heparin (DVT/PE Drip) - ([place] [address] units, D5W IV 500 ml) 18 units/kg/hr mb9 {Co-Signature: as6 (Miller Winston RN).} Route: IV; Rate: calculated rate; Site: right forearm; 20:10 Drug: HYDROmorphone IVP 1 mg Route: IVP; Site: right antecubital; mb9 21:49 Follow up: Response: No adverse reaction mb9 21:04 Drug: HYDROmorphone IVP 1 mg Route: IVP; Site: right antecubital; mb9 21:49 Follow up: Response: No adverse reaction mb9 Medication: 18:20 VIS not applicable for this client. mb9 Outcome: 19:56 ER care complete, transfer ordered by . cp 21:46 Transferred by helicopter to [facility], Transfer form completed. mb9 21:46 Condition: stable 21:46 Instructed on the need for transfer. 22:01 Patient left the ED. mb9 Signatures: Dispatcher [employer] Lisa Nguyễn Irene, RN RN iw Page, Corey, PA PA cp Slawson, Ashby, RN RN as6 Lisa Mott RN RN mb9 Chaparrita Oviedo RN RN nj1 Britt Whitaker [facility] Miller Winston RN as6 Corrections: (The following items were deleted from the chart) 17: 17:26 PMHx: High Cholesterol; светлана sotomayor 22: 21:50 EMS life flight was contacted edna bishop
[2022-07-19] MEDS ORDERED: HEPARIN 5000 UNIT/ML 1 ML VIAL ONE (19:58)
[2022-07-19] MEDS ORDERED: NA CHLORIDE 0.9% 1,000 ML ONE (19:59)
[2022-07-19] MEDS ORDERED: HYDROMORPHONE HCL 1 MG/ML INJ ONE ×2 (19:59→21:07)
[2022-07-19] MEDS ORDERED: ASPIRIN 81 MG CHEWABLE TABLET ONE (19:59)
[2022-07-19] MEDS ORDERED: HEPARIN/D5W 25,000 UNIT/500 ML BAG IV ONE (19:59)
[2022-07-19 20:00] LABS: Protime INR 1.03
[2022-07-19 20:13] LABS: ALT/SGPT 24 U/L (16-61); AST/SGOT 16 U/L (15-37); Albumin 3.7 g/dL (3.4-5.0); Alkaline Phosphatase 62 U/L (45-117); BUN Blood Urea Nitrogen 14 mg/dL (7-18); Bicarbonate 27 mEq/L (21-32); Bilirubin Total 0.4 mg/dL (0.2-1.0); Glomerular Filtration Rate 92 ml/min (=/>90); Glucose Level 90 mg/dL (74-106); Potassium 3.9 mEq/L (3.5-5.1); Protein, Total 7.4 g/dL (6.4-8.2); Sodium Level 137 mEq/L (136-145); Troponin High Sensitivity 16.9 pg/mL (<58.9)
[2022-07-19 20:28] LABS: Bilirubin Direct < 0.1 mg/dL (0-0.2); Bilirubin Indirect, Calculated ND mg/dL (0.2-0.8)
[2022-07-19 20:30] LABS: Anisocytosis 2+; Blood Morphology Comment NOTED (NOT SEEN); Platelet Estimate ADEQ
[2022-07-19 20:31] LABS: Hypochromasia 3+
--- NOTE | 2022-07-19 22:24 | RAD REPORT ---
EXAM DESCRIPTION: RADChest Single View07/19/2022 8:13 pm CLINICAL HISTORY: left arm pain COMPARISON: Chest Single View dated 05/01/2022; Chest Single View dated 09/16/2021; Chest Single View dated 12/06/2020; Chest Single View dated 04/09/2020 TECHNIQUE: Portable AP view of the chest. FINDINGS: The lungs show no focal consolidation. Bibasilar and central interstitial prominence new s lorna the prior exam. No pneumothorax or effusion. The cardiomediastinal contours are unremarkable. IMPRESSION: Interstitial prominence, may reflect mild central congestion or edema.
[2022-07-19 22:51] VITALS: TEMP 99.5
[2022-07-19 22:53] VITALS: O2SAT 96
[2022-07-19 22:55] VITALS: BP 126/75
--- NOTE | 2022-07-20 11:22 | EKG ---
Test Date: 2022-07-19 Test Time: 19:58:47 Outpatient Dietitian: MB MEASUREMENT RESULTS: Intervals: Rate: 67 UT: 158 QRSD: 132 QT: 462 QTc: 488 [place]: P: 84 UT: 158 QRS: -24 T: 36 INTERPRETIVE STATEMENTS: Normal sinus rhythm Right bundle branch block Abnormal ECG Compared to ECG 05/01/2022 20:42:27 Sinus tachycardia no longer present Left anterior fascicular block no longer present Bifascicular block no longer present Myocardial infarct finding no longer present Electronically Signed On 07-20-22 11:20:06 CDT by Keshawn Nguyen
== END 2022-07-19 22:01 | disposition short-term general hospital (02) ==
LOC: ER 17:02
DX: I74.2 Embolism and thrombosis of arteries of the upper extremities (principal); F17.220 Nicotine dependence, chewing tobacco, uncomplicated; I10 Essential (primary) hypertension; Z20.822 Contact with and (suspected) exposure to COVID-19; Z86.718 Personal history of other venous thrombosis and embolism
CPT/HCPCS: 85025; 80048; 36415; 85610; 80076; 85730; 84484; 71045; 93971; 93931; U0003; J1644; J2001; J1170 ×2; J7030; 93005

== ENCOUNTER 2024-02-25 11:32 | Emergency (ER) | payer OTHER ==
[2024-02-25 12:34] LABS: Absolute Basophils 0.1 K/uL (0-0.5); Absolute Eosinophils 0.3 K/uL (0-0.5); Absolute Lymphocytes (CBC) 1.4 K/uL (0.7-4.9); Absolute Monocytes 1.6 K/uL (0.1-1.3); Absolute Neutrophil 5.2 K/uL (1.8-8.0); Basophils % 0.8 % (0-1.3); Eosinophils % 3.2 % (0-4.4); Hematocrit 44.8 % (39.6-49.0); Hemoglobin 13.4 g/dL (13.6-17.9); Lymphocytes % 16.6 % (15.3-44.8); MCH 21.8 pg (27.0-35.0); MCHC 29.8 g/dL (32.0-36.0); MCV 73.1 fL (80-100); MPV 8.5 fL (7.6-11.3); Neutrophils % 60.4 % (41.7-73.7); Platelets 462 thou/uL (152-406); RBC Red Blood Cell Count 6.13 M/uL (4.33-5.43)
[2024-02-25 12:37] LABS: PT Prothrombin Time 13.4 SECONDS (9.4-12.5); Protime INR 1.2
[2024-02-25] MEDS ORDERED: HYDROCODONE/CHLORPHEN 5 ML/OSYR ONE (12:40)
[2024-02-25] MEDS ORDERED: METHYLPREDNISOLONE 125 MG INJ ONE (12:40)
[2024-02-25] MEDS ORDERED: LEVALBUTEROL 1.25 MG/3 ML NEB ONE (12:40)
[2024-02-25] MEDS ORDERED: IPRATROPIUM BROM 0.5MG/2.5ML ONE (12:40)
[2024-02-25] MEDS ORDERED: predniSONE 20 MG TAB ONE (12:41)
[2024-02-25] MEDS ORDERED: NA CHLORIDE 0.9% 500 ML ONE (12:41)
[2024-02-25] MEDS ORDERED: levoFLOXacin 750 MG TAB ONE (12:41)
[2024-02-25 12:54] LABS: ALT/SGPT 24 U/L (16-61); AST/SGOT 23 U/L (15-37); Albumin 3.2 g/dL (3.4-5.0); Albumin/Globulin Ratio 0.8 (1.1-1.8); Alkaline Phosphatase 77 U/L (45-117); Anion Gap 8.9 mEq/L (5.0-15.0); BUN Blood Urea Nitrogen 10 mg/dL (7-18); Bicarbonate 26 mEq/L (21-32); Bilirubin Total 0.4 mg/dL (0.2-1.0); Glomerular Filtration Rate 84 ml/min (=/>90); Glucose Level 113 mg/dL (74-106); Lipase 28 U/L (13-75); Magnesium 2.1 mg/dL (1.6-2.4); NT PRO-BNP 30 pg/mL (<125); Potassium 3.9 mEq/L (3.5-5.1); Protein, Total 7.2 g/dL (6.4-8.2); Sodium Level 134 mEq/L (136-145); Troponin High Sensitivity 9.5 pg/mL (<58.9)
[2024-02-25 12:55] LABS: Bilirubin Direct < 0.2 mg/dL (0-0.2); Bilirubin Indirect, Calculated 0.2 mg/dL (0.2-0.8)
[2024-02-25 13:03] LABS: SARS-CoV-2 Antigen CONTROL BLUE LINE VIS/BG OK; SARS-CoV-2 Antigen Rapid Res Negative (Negative)
[2024-02-25 13:08] LABS: Anisocytosis 1+; Blood Morphology Comment NOTED (NOT SEEN); Hypochromasia 2+; Microcytosis 1+; Platelet Estimate ADEQ; White Blood Cell Scan OK (OK)
--- NOTE | 2024-02-25 13:14 | RAD REPORT ---
Procedure: Chest Single View HISTORY: Cough COMPARISON: 2022 FINDINGS: The lungs appear clear of acute infiltrate. No significant pleural effusion noted. The heart is normal size. IMPRESSION: No acute abnormality is displayed.
--- NOTE | 2024-02-25 13:29 | EDPHYS ---
Physician Documentation [facility] Name: Jesus Noriega Age: 63 yrs Sex: Male : 1960 Arrival Date: 02/25/2024 Time: 11:32 Bed 19 Private MD: ED Physician Osbaldo Cedeño HPI: 02/24 12:54 This 63 yrs old Male presents to ER via Ambulatory with complaints of Cough, jaylin Breathing Difficulty. Historical: - Allergies: 12:02 No Known Allergies; bp - PMHx: 12:02 COPD; Diverticulitis; DVT; Hypertension; bp - PSHx: 12:02 left forearm; bp - Immunization history:: Adult Immunizations up to date. - Infectious Disease History:: Denies. - Social history:: Smoking status: Patient denies any tobacco usage or history of. - Family history:: not pertinent. ROS: 12:54 Constitutional: Negative for fever, chills, and weight loss, Eyes: Negative for injury, jaylin pain, redness, and discharge, ENT: Negative for injury, pain, and discharge, Neck: Negative for injury, pain, and swelling, Cardiovascular: Negative for chest pain, palpitations, and edema, Abdomen/GI: Negative for abdominal pain, nausea, vomiting, diarrhea, and constipation, Back: Negative for injury and pain, : Negative for injury, bleeding, discharge, and swelling, MS/Extremity: Negative for injury and deformity, Skin: Negative for injury, rash, and discoloration, Neuro: Negative for headache, weakness, numbness, tingling, and seizure, Psych: Negative for depression, anxiety, suicide ideation, homicidal ideation, and hallucinations, Allergy/Immunology: Negative for hives, rash, and allergies, Endocrine: Negative for neck swelling, polydipsia, polyuria, polyphagia, and marked weight changes, Hematologic/Lymphatic: Negative for swollen nodes, abnormal bleeding, and unusual bruising, 12:54 Respiratory: Positive for cough, shortness of breath, wheezing, expiratory, Exam: 12:54 Constitutional: This is a well developed, well nourished patient who is awake, alert, jaylin and in no acute distress. Head/Face: Normocephalic, atraumatic. Eyes: Pupils equal round and reactive to light, extra-ocular motions intact. Lids and lashes normal. Conjunctiva and sclera are non-icteric and not injected. Cornea within normal limits. Periorbital areas with no swelling, redness, or edema. ENT: Nares patent. No nasal discharge, no septal abnormalities noted. Tympanic membranes are normal and external auditory canals are clear. Oropharynx with no redness, swelling, or masses, exudates, or evidence of obstruction, uvula midline. Mucous membranes moist. Neck: Trachea midline, no thyromegaly or masses palpated, and no cervical lymphadenopathy. Supple, full range of motion without nuchal rigidity, or vertebral point tenderness. No Meningismus. Chest/axilla: Normal chest wall appearance and motion. Nontender with no deformity. No lesions are appreciated. Cardiovascular: Regular rate and rhythm with a normal S1 and S2. No gallops, murmurs, or rubs. Normal PMI, no JVD. No pulse deficits. Abdomen/GI: Soft, non-tender, with normal bowel sounds. No distension or tympany. No guarding or rebound. No evidence of tenderness throughout. Back: No spinal tenderness. No costovertebral tenderness. Full range of motion. Male : Normal genitalia with no discharge or lesions. Skin: Warm, dry with normal turgor. Normal color with no rashes, no lesions, and no evidence of cellulitis. MS/ Extremity: Pulses equal, no cyanosis. Neurovascular intact. Full, normal range of motion., bilateral aka Neuro: Awake and alert, GCS 15, oriented to person, place, time, and situation. Cranial nerves II-XII grossly intact. Motor strength 5/5 in all extremities. Sensory grossly intact. Cerebellar exam normal. Normal gait. Psych: Awake, alert, with orientation to person, place and time. Behavior, mood, and affect are within normal limits. 12:54 ECG was reviewed by the Attending Physician. 12:54 Respiratory: mild respiratory distress is noted, Respirations: labored breathing, that is mild, Breath sounds: bronchial sounds, that are moderate, are scattered, decreased breath sounds, that are mild, are scattered, rhonchi, that are mild, are scattered, stridor, is not appreciated, + upper airway congestion. wheezing: expiratory is scattered, Vital Signs: 12:01 BP 120 / 70; Pulse 81; Resp 16; Temp 98.9; Pulse Ox 94% ; Weight 99.79 kg; Height 5 ft. bp 9 in. ; 13:00 BP 123 / 81; Pulse 81; Resp 16; Pulse Ox 97% ; me1 13:30 BP 130 / 78; Pulse 81; Resp 18; Temp 98.3; Pulse Ox 97% ; me1 12:01 Body Mass Index 32.49 (99.79 kg, 175.26 cm) bp MDM: 11:37 Medical Screening Exam initiated jaylin 12:56 Differential Diagnosis: Obstructed Airway Bronchitis Influenza Upper Respiratory jaylin Infection Sinusitis Pharyngitis Otitis Media Asthma Exacerbation Viral Syndrome Pneumonia Tracheal Injury. Data reviewed: vital signs, nurses notes, lab test result(s), EKG, radiologic studies, plain films. Consideration of Admission/Observation Escalation of care including admission/observation considered. I considered the following discharge prescriptions or medication management in the emergency department Medications were administered in the Emergency Department. See MAR. Independent interpretation of the following test(s) in the Emergency Department X-Ray: My interpretation is cxr. Test considered but Not performed: CT: no ct chest. Historians other than the Patient: Spouse/Significant Other: well informed. Care significantly affected by the following chronic conditions: Hypertension, Chronic Obstructive Pulmonary Disease, Obesity, diverticulitis. 02/24 11:38 Order name: Basic Metabolic Panel; Complete Time: 13:28 [facility] 02/24 11:38 Order name: CBC with Diff; Complete Time: 13:28 [facility] 02/24 11:38 Order name: LFT's; Complete Time: 13:28 [facility] 02/24 11:38 Order name: Magnesium; Complete Time: 13:28 [facility] 02/24 11:38 Order name: NT PRO-BNP; Complete Time: 13:28 [facility] 02/24 11:38 Order name: PT-INR; Complete Time: 13:28 [facility] 02/24 11:38 Order name: Troponin HS; Complete Time: 13:28 [facility] 02/24 11:38 Order name: Lipase; Complete Time: 13:28 [facility] 02/24 11:38 Order name: Blood Culture Adult (2) [facility] 02/24 11:38 Order name: Flu; Complete Time: 13:28 [facility] 02/24 11:38 Order name: SARS RAPID; Complete Time: 13:28 [facility] 02/24 12:03 Order name: RSV; Complete Time: 13:28 [facility] 02/24 13:09 Order name: CBC Smear Scan; Complete Time: 13:28 EDMT 02/24 11:38 Order name: XRAY Chest (1 view); Complete Time: 13:28 [facility] 02/24 11:38 Order name: Cardiac monitoring; Complete Time: 13:44 [facility] 02/24 11:38 Order name: EKG - Nurse/Tech; Complete Time: 13:44 [facility] 02/24 11:38 Order name: IV Saline Lock; Complete Time: 13:44 [facility] 02/24 11:38 Order name: Labs collected and sent; Complete Time: 13:44 [facility] 02/24 11:38 Order name: O2 Per Protocol; Complete Time: 13:44 [facility] 02/24 11:38 Order name: O2 Sat Monitoring; Complete Time: 13:44 [facility] Administered Medications: 12:54 Drug: Ipratropium Inhalation Aerosol 0.5 mg Inhalation once Route: Inhalation; rs5 13:39 Follow up: Response: No adverse reaction; Wheezing diminished me1 12:54 Drug: Tussionex Pennkinetic ER PO Suspension 5 ml PO once Route: PO; rs5 13:40 Follow up: Response: No adverse reaction me1 12:54 Drug: LevOfloxacin PO 750 mg PO once Route: PO; rs5 13:40 Follow up: Response: No adverse reaction me1 12:55 Drug: NS 0.9% IV 500 ml 500 ml IV at 1 bolus once; to be given as a bolus over 30 rs5 minutes Volume: 500 ml; Route: IV; Rate: 1 bolus; Site: right forearm; 13:38 Follow up: IV Status: Completed infusion; IV Intake: 500ml me1 12:55 Drug: MethylPrednisoLONE IVP 125 mg IVP once Route: IVP; Site: right forearm; rs5 13:39 Follow up: Response: No adverse reaction me1 12:55 Drug: predniSONE PO 60 mg PO once Route: PO; rs5 13:39 Follow up: Response: No adverse reaction me1 12:55 Drug: Levalbuterol Inhalation 3.75 mg Inhalation once Route: Inhalation; rs5 13:39 Follow up: Response: No adverse reaction me1 13:39 Follow up: Response: Wheezing diminished me1 Disposition Summary: 02/25/24 13:28 Discharge Ordered Notes: Location: Home jaylin Problem: new jaylin Symptoms: have improved jaylin Condition: Stable jaylin Diagnosis - Acute upper respiratory infection, unspecified jaylin - COPD/ Chronic obstructive pulmonary disease with (acute) exacerbation jaylin - Cough [facility] Followup: jaylin - With: Private Physician - When: 2 - 3 days - Reason: Recheck today's complaints, Continuance of care, Re-evaluation by your physician Followup: jaylin - With: Ming Iniguez MD - When: 2 - 3 days - Reason: Recheck today's complaints, Re-evaluation by your physician Discharge Instructions: - Discharge Summary Sheet jaylin - Chronic Bronchitis, Adult jaylin - Chronic Obstructive Pulmonary Disease jaylin - How to Use a Metered Dose Inhaler jaylin - Upper Respiratory Infection, Adult jaylin - Cool Mist Vaporizer jaylin - Chronic Obstructive Pulmonary Disease, [id number] jaylin - Upper Respiratory Infection, Adult, [id number] jaylin - Cough, Adult, [id number] [facility] - How to Use a Nebulizer, Adult [facility] - Cough, Adult [facility] Forms: - Medication Reconciliation Form [facility] - Antibiotic Education jaylin - Prescription Opioid Use jaylin - Patient Portal Instructions [facility] - Leadership Thank You Letter [facility] Prescriptions: - albuterol sulfate 90 mcg/actuation Inhalation HFA Aerosol Inhaler - inhale 2 inhalation INHALATION route every 4-6 hours prn sob; 2 unit; Refills: jaylin 0, Product Selection Permitted - Tessalon Perles 100 mg Oral Capsule - take 1 capsule ORAL route every 8 hours As needed; 15 capsule; Refills: 0, [facility] Product Selection Permitted - Albuterol Sulfate 2.5 mg /3 mL (0.083 %) Inhalation Solution for Nebulization - inhale 1 unit NEBULIZATION route every 4-6 hours As needed prn; 36 unit; [facility] Refills: 0, Product Selection Permitted - Guaifenesin AC 10-100 mg/5 mL Oral liquid - take 7.5 milliliter ORAL route every 6 hours As needed prn; 160 milliliter; [facility] Refills: 0, Product Selection Permitted - levofloxacin 500 mg Oral tablet - take 1 tablet ORAL route once daily for 7 days; 7 tablet; Refills: 0, Product [facility] Selection Permitted Signatures: Dispatcher [employer] EDMS Osbaldo Cedeño MD MD cha Peltier, Brian, RN RN bp Aguilar Moise RN RN rs5 Avani Summers RN me1 Corrections: (The following items were deleted from the chart) 11:38 11:38 BASIC METABOLIC PANEL+C.LAB.BRZ ordered. EDMT EDMS 11:38 11:38 CBC+H.LAB.BRZ ordered. EDMS EDMS 11:38 11:38 HEPATIC FUNCTION+C.LAB.BRZ ordered. EDMS EDMS 11:38 11:38 MAGNESIUM+C.LAB.BRZ ordered. EDMS EDMS 11:38 11:38 PROBNP+C.LAB.BRZ ordered. EDMS EDMS 11:38 11:38 PROTIME (+INR)+COAG.LAB.BRZ ordered. EDMS EDMS 11:38 11:38 Troponin High Sensitivity+C.LAB.BRZ ordered. EDMS EDMS 11:38 11:38 LIPASE+C.LAB.BRZ ordered. EDMS EDMS 11:38 11:38 BLOOD CULTURE*+BA.LAB.BRZ ordered. EDMS EDMS 11:38 11:38 Influenza Screen (A \T\ B)+BA.LAB.BRZ ordered. EDMS EDMS 11:38 11:38 SARS-COV-2 Antigen Rapid+I.LAB.BRZ ordered. EDMS EDMS 11:38 11:38 Chest Single View+RAD.RAD.BRZ ordered. EDMS EDMS
--- NOTE | 2024-02-25 13:29 | ER ---
Nurse's Notes [facility] Name: Jesus Noriega Age: 63 yrs Sex: Male : 1960 Arrival Date: 02/25/2024 Time: 11:32 Bed 19 Private MD: Diagnosis: Acute upper respiratory infection, unspecified;COPD/ Chronic obstructive pulmonary disease with (acute) exacerbation;Cough Presentation: 02/24 12:01 Chief complaint: Patient states: COUGH AND CONGESTION SINCE FLU SHOT ON SUNDAY. bp Coronavirus screen: At this time, the client does not indicate any symptoms associated with coronavirus-19. Ebola Screen: No symptoms or risks identified at this time. Initial Sepsis Screen: Does the patient meet any 2 criteria? No. Patient's initial sepsis screen is negative. Does the patient have a suspected source of infection? No. Patient's initial sepsis screen is negative. Risk Assessment: Do you want to hurt yourself or someone else? Patient reports no desire to harm self or others. Onset of symptoms is unknown. 12:01 Method Of Arrival: Ambulatory bp 12:01 Acuity: [place] 3 bp Triage Assessment: 13:43 Respiratory: Onset: The symptoms/episode began/occurred. me1 13:43 General: Appears ill. Respiratory: Reports cough that is persistent the patient has me1 moderate shortness of breath. Historical: - Allergies: 12:02 No Known Allergies; bp - PMHx: 12:02 COPD; Diverticulitis; DVT; Hypertension; bp - PSHx: 12:02 left forearm; bp - Immunization history:: Adult Immunizations up to date. - Infectious Disease History:: Denies. - Social history:: Smoking status: Patient denies any tobacco usage or history of. - Family history:: not pertinent. Screenin:40 [place] ED Fall Risk Assessment (Adult) History of falling in the last 3 months, me1 including since admission No falls in past 3 months (0 pts) Confusion or Disorientation No (0 pts) Intoxicated or Sedated No (0 pts) Impaired Gait No (0 pts) Mobility Assist Device Used No (0 pt) Altered Elimination No (0 pt) Score/Fall Risk Level 0 - 2 = Low Risk Oriented to surroundings, Provided non-skid footwear, Hourly rounding (assess needs \T\ fall precautionary measures) done. Abuse screen: Denies threats or abuse. Nutritional screening: No deficits noted. Tuberculosis screening: No symptoms or risk factors identified. Assessment: 12:40 General: Appears ill, well groomed, well developed, well nourished, Behavior is calm, me1 cooperative, appropriate for age, Reports COUGH AND CONGESTION SINCE FLU SHOT ON SUNDAY. Pain: Denies pain. Neuro: Level of Consciousness is awake, alert, obeys commands, Oriented to person, place, time, situation, Appropriate for age. Cardiovascular: Patient's skin is warm and dry. Rhythm is regular. Respiratory: Airway is patent Trachea midline Respiratory effort is even, unlabored, Respiratory pattern is regular, symmetrical, Breath sounds with wheezes bilaterally. GI: No signs and/or symptoms were reported involving the gastrointestinal system. : No signs and/or symptoms were reported regarding the genitourinary system. EENT: No signs and/or symptoms were reported regarding the EENT system. Derm: Skin is intact, is healthy with good turgor, Skin is pink, warm \T\ dry. Musculoskeletal: No signs and/or symptoms reported regarding the musculoskeletal system. Vital Signs: 12:01 BP 120 / 70; Pulse 81; Resp 16; Temp 98.9; Pulse Ox 94% ; Weight 99.79 kg; Height 5 ft. bp 9 in. ; 13:00 BP 123 / 81; Pulse 81; Resp 16; Pulse Ox 97% ; me1 13:30 BP 130 / 78; Pulse 81; Resp 18; Temp 98.3; Pulse Ox 97% ; me1 12:01 Body Mass Index 32.49 (99.79 kg, 175.26 cm) bp ED Course: 11:36 Patient arrived in ED. al6 11:37 Osbaldo Cedeño MD is Attending Physician. jaylin 12:02 Triage completed. bp 12:02 Arm band placed on. bp 12:18 Inserted saline lock: 20 gauge in right forearm, using aseptic technique. Blood ty collected. Flushed with 10 mL NS. 12:18 Initial lab(s) drawn, by ma, sent to lab. First set of blood cultures drawn COVID swab ty sent to lab. Flu and/or RSV swab sent to lab. 12:31 Second set of blood cultures drawn by me. ty 12:36 Avani Summers RN is Primary Nurse. me1 12:40 XRAY Chest (1 view) In Process Unspecified. EDMS 12:40 Patient has correct armband on for positive identification. Bed in low position. Call me1 light in reach. Side rails up X2. Provided Education on: POC. Verbalized understanding.. Client placed on continuous cardiac and pulse oximetry monitoring. NIBP monitoring applied. milk tanker driver on. Pulse ox on. NIBP on. 12:40 No provider procedures requiring assistance completed. me1 13:28 Ming Iniguez MD is Referral Physician. jaylin 13:59 IV discontinued, intact, bleeding controlled, No redness/swelling at site. Pressure me1 dressing applied. Administered Medications: 12:54 Drug: Ipratropium Inhalation Aerosol 0.5 mg Inhalation once Route: Inhalation; rs5 13:39 Follow up: Response: No adverse reaction; Wheezing diminished me1 12:54 Drug: Tussionex Pennkinetic ER PO Suspension 5 ml PO once Route: PO; rs5 13:40 Follow up: Response: No adverse reaction me1 12:54 Drug: LevOfloxacin PO 750 mg PO once Route: PO; rs5 13:40 Follow up: Response: No adverse reaction me1 12:55 Drug: NS 0.9% IV 500 ml 500 ml IV at 1 bolus once; to be given as a bolus over 30 rs5 minutes Volume: 500 ml; Route: IV; Rate: 1 bolus; Site: right forearm; 13:38 Follow up: IV Status: Completed infusion; IV Intake: 500ml me1 12:55 Drug: MethylPrednisoLONE IVP 125 mg IVP once Route: IVP; Site: right forearm; rs5 13:39 Follow up: Response: No adverse reaction me1 12:55 Drug: predniSONE PO 60 mg PO once Route: PO; rs5 13:39 Follow up: Response: No adverse reaction me1 12:55 Drug: Levalbuterol Inhalation 3.75 mg Inhalation once Route: Inhalation; rs5 13:39 Follow up: Response: No adverse reaction me1 13:39 Follow up: Response: Wheezing diminished me1 Medication: 12:40 VIS not applicable for this client. me1 Intake: 13:38 IV: 500ml; Total: 500ml. me1 Outcome: 13:28 Discharge ordered by . jaylin 13:59 Discharged to home ambulatory, with significant other, me1 13:59 Condition: stable 13:59 Instructed on discharge instructions, follow up and referral plans. medication usage, 13:59 Demonstrated understanding of instructions, follow-up care, medications, Prescriptions given X x5 14:00 Patient left the ED. me1 Signatures: Dispatcher [employer] EDOsbaldo Syed MD MD cha Peltier, Brian RN RN bp Aguilar Moise RN RN rs5 Avani Summers RN RN me1 Robin Oleary Alissa al6 Corrections: (The following items were deleted from the chart) 13:38 12:01 Chief complaint: Patient states: COUGH AND CONGESTION SINCE FLU SHOT ON SUNDAY me1 bp
[2024-02-25 14:41] VITALS: O2SAT 97
[2024-02-25 14:42] VITALS: BP 130/78; TEMP 98.3
== END 2024-02-25 14:00 | disposition home or self-care (01) ==
LOC: ER 11:32
DX: J06.9 Acute upper respiratory infection, unspecified (principal); J44.1 Chronic obstructive pulmonary disease with (acute) exacerbation; I10 Essential (primary) hypertension; Z11.52 Encounter for screening for COVID-19
CPT/HCPCS: 96361; 87040 ×2; 85025; 80048; 36415; 83735; 85610; 80076; 84484; 83690; 83880; 87807; 87804 ×2; 71045; 96374; 99285; 87811; J7512; J7614; J7644; J2919; J7040

== ENCOUNTER 2024-12-25 10:08 | Emergency (ER) | payer OTHER ==
[2024-12-25] MEDS ORDERED: FENTANYL CITR 100 MCG/2 ML ONE (10:34)
[2024-12-25] MEDS ORDERED: ONDANSETRON 4 MG/2 ML VIAL ONE (10:34)
[2024-12-25] MEDS ORDERED: FAMOTIDINE 20 MG/2 ML VIAL IV ONE (10:34)
[2024-12-25] MEDS ORDERED: NA CHLORIDE 0.9% 1,000 ML ONE (10:35)
[2024-12-25 11:02] LABS: PT Prothrombin Time 18.2 SECONDS (10-13.0); Protime INR 1.63
[2024-12-25 11:05] LABS: Absolute Lymphocytes (CBC) 2.9 K/uL (0.7-4.9); Hematocrit 40.8 % (39.6-49.0); Hemoglobin 11.8 g/dL (13.6-17.9); MCH 18.4 pg (27.0-35.0); MCHC 28.9 g/dL (32.0-36.0); MCV 63.7 fL (80-100); MPV 8.9 fL (7.6-11.3); Nucleated RBC Absolute Count 0.0 (0-0); Nucleated Red Blood Cells % 0.1 % (0-0); RBC Red Blood Cell Count 6.41 M/uL (4.33-5.43); White Blood Count 9.60 thou/uL (4.3-10.9)
[2024-12-25] MEDS ORDERED: HYDROMORPHONE HCL 1 MG/ML INJ ONE ×2 (11:12→12:22)
[2024-12-25] MEDS ORDERED: METRONIDAZOLE 500mg IVPB 500 MG/100 ML BAG IV ONE (11:12)
[2024-12-25] MEDS ORDERED: CIPROFLOXACIN 400mg IV 400 MG/200 ML BAG IV ONE (11:12)
[2024-12-25 11:14] LABS: ALT/SGPT 30 U/L (16-61); AST/SGOT 19 U/L (15-37); Albumin 3.3 g/dL (3.4-5.0); Albumin/Globulin Ratio 0.8 (1.1-1.8); Alkaline Phosphatase 74 U/L (45-117); Anion Gap 11.1 mEq/L (5.0-15.0); BUN Blood Urea Nitrogen 15 mg/dL (7-18); Globulin 4.2 g/dL (2.3-3.5); Glucose Level 107 mg/dL (74-106); Magnesium 1.7 mg/dL (1.6-2.4); NT PRO-BNP 30 pg/mL (<125); Potassium 4.1 mEq/L (3.5-5.1); Troponin High Sensitivity 11.6 pg/mL (<58.9)
[2024-12-25 11:15] LABS: Bilirubin Indirect, Calculated 0.3 mg/dL (0.2-0.8)
--- NOTE | 2024-12-25 11:17 | RAD REPORT ---
EXAMINATION: ONE VIEW CHEST XR CLINICAL INDICATION: ABDOMINAL DISTENTION TECHNIQUE: Frontal chest projection is submitted. Examination is limited by patient positioning and t echnique. COMPARISON: 02/25/2024 FINDINGS: Mild bilateral pulmonary edema is suspected. The heart is moderately enlarged in size. No displaced f ractures identified. IMPRESSION: Mild CHF versus volume overload pattern is suspected.
--- NOTE | 2024-12-25 12:08 | RAD REPORT ---
EXAMINATION: CT ABDOMEN AND PELVIS WITH CONTRAST CLINICAL INDICATION: ABD PAIN TECHNIQUE: CT abdomen and pelvis was performed, after the administration of IV contrast, [facility]. Axial, sagittal and coronal reconstructions were obtained. One or more of the following dose reduction techniques were used: Automated exposure control, adjustment of the mA and k V according to patient size, and iterative reconstruction. Unless otherwise specified, incidental findings do not require dedicated imaging follow-up. COMPARISON: 11/28/2023 FINDINGS: LOWER CHEST: 9 mm nodule in the left lung base laterally. LIVER: Mild fatty liver is present. No focal lesion or biliary dilatation is seen. Cholecystectomy clips. SPLEEN: Normal size. No focal lesion. PANCREAS: No mass, ductal dilation, or patrizia-pancreatic fluid. ADRENALS: Normal; no mass. KIDNEYS: Normal size and contour. No hydronephrosis. GASTROINTESTINAL TRACT: No evidence of free air, significant intra-abdominal free fluid, bowel obstru ction or abscess. Prominent sigmoid diverticulosis involving the sigmoid colon in the left lower quadrant with a small amount of surrounding pericolonic inflammation in the fat. APPENDIX: Normal appendix. LYMPH NODES: No lymphadenopathy. MUSCULOSKELETAL: Mild multilevel spinal degenerative changes. ADDITIONAL FINDINGS: Small fat-containing umbilical hernia. IMPRESSION: Mild/early findings of left lower quadrant sigmoid acute diverticulitis suspected. No complication ev ident. Suggest follow-up nonemergent colonoscopy if not recently performed.
[2024-12-25 12:20] LABS: Urine Microscopic Reflex YN NO UMIC
[2024-12-25] MEDS ORDERED: NA CHLORIDE 0.9% 50 ML ONE (12:31)
[2024-12-25] MEDS ORDERED: CEFTRIAXONE 2000 MG/VIAL ONE (12:32)
--- NOTE | 2024-12-25 13:02 | EDPHYS ---
Physician Documentation [facility] Name: Jesus Noriega Age: 64 yrs Sex: Male : 1960 Arrival Date: 12/25/2024 Time: 10:08 Bed 18 Private MD: ED Physician Osbaldo Cedeño HPI: 12/25 12:56 This 64 yrs old Male presents to ER via Ambulatory with complaints of jaylin Abdominal Pain. 12:56 The patient presents with abdominal pain in the left upper quadrant, in the left lower jaylin quadrant, abdominal distention in the upper abdomen, in the lower abdomen. Onset: The symptoms/episode began/occurred 3 day(s) ago. The symptoms do not radiate. Associated signs and symptoms: Pertinent positives: nausea. The symptoms are described as constant, crampy. Modifying factors: The symptoms are alleviated by remaining still, the symptoms are aggravated by movement, pressure. Severity of pain: At its worst the pain was moderate in the emergency department the pain is unchanged. The patient has experienced similar episodes in the past, multiple times. Historical: - Allergies: 10:27 No Known Allergies; bp - PMHx: 10:27 COPD; Diverticulitis; DVT; Hypertension; bp - PSHx: 10:27 left forearm; bp - Immunization history:: Adult Immunizations up to date. - Infectious Disease History:: Denies. - Social history:: Smoking status: Patient reports the use of cigarette tobacco products, smokes one-half pack cigarettes per day. ROS: 12:56 Constitutional: Negative for fever, chills, and weight loss, Eyes: Negative for injury, jaylin pain, redness, and discharge, ENT: Negative for injury, pain, and discharge, Neck: Negative for injury, pain, and swelling, Cardiovascular: Negative for chest pain, palpitations, and edema, Respiratory: Negative for shortness of breath, cough, wheezing, and pleuritic chest pain, Back: Negative for injury and pain, : Negative for injury, bleeding, discharge, and swelling, MS/Extremity: Negative for injury and deformity, Skin: Negative for injury, rash, and discoloration, Neuro: Negative for headache, weakness, numbness, tingling, and seizure, Psych: Negative for depression, anxiety, suicide ideation, homicidal ideation, and hallucinations, Allergy/Immunology: Negative for hives, rash, and allergies, Endocrine: Negative for neck swelling, polydipsia, polyuria, polyphagia, and marked weight changes, Hematologic/Lymphatic: Negative for swollen nodes, abnormal bleeding, and unusual bruising, 12:56 Abdomen/GI: Positive for abdominal pain, of the left upper quadrant and left lower quadrant, Exam: 12:56 Constitutional: This is a well developed, well nourished patient who is awake, alert, jaylin and in no acute distress. Head/Face: Normocephalic, atraumatic. Eyes: Pupils equal round and reactive to light, extra-ocular motions intact. Lids and lashes normal. Conjunctiva and sclera are non-icteric and not injected. Cornea within normal limits. Periorbital areas with no swelling, redness, or edema. ENT: Nares patent. No nasal discharge, no septal abnormalities noted. Tympanic membranes are normal and external auditory canals are clear. Oropharynx with no redness, swelling, or masses, exudates, or evidence of obstruction, uvula midline. Mucous membranes moist. Neck: Trachea midline, no thyromegaly or masses palpated, and no cervical lymphadenopathy. Supple, full range of motion without nuchal rigidity, or vertebral point tenderness. No Meningismus. Chest/axilla: Normal chest wall appearance and motion. Nontender with no deformity. No lesions are appreciated. Cardiovascular: Regular rate and rhythm with a normal S1 and S2. No gallops, murmurs, or rubs. Normal PMI, no JVD. No pulse deficits. Respiratory: Lungs have equal breath sounds bilaterally, clear to auscultation and percussion. No rales, rhonchi or wheezes noted. No increased work of breathing, no retractions or nasal flaring. Back: No spinal tenderness. No costovertebral tenderness. Full range of motion. Male : Normal genitalia with no discharge or lesions. Skin: Warm, dry with normal turgor. Normal color with no rashes, no lesions, and no evidence of cellulitis. MS/ Extremity: Pulses equal, no cyanosis. Neurovascular intact. Full, normal range of motion., bilateral aka Neuro: Awake and alert, GCS 15, oriented to person, place, time, and situation. Cranial nerves II-XII grossly intact. Motor strength 5/5 in all extremities. Sensory grossly intact. Cerebellar exam normal. Normal gait. Psych: Awake, alert, with orientation to person, place and time. Behavior, mood, and affect are within normal limits. 12:56 ECG was reviewed by the Attending Physician. Vital Signs: 10:26 BP 124 / 95; Pulse 76; Resp 16; Temp 98; Pulse Ox 95% ; bp 12:15 BP 131 / 70; Pulse 72; Resp 16; Pulse Ox 96% on R/A; dd2 13:25 BP 122 / 79; Pulse 68; Resp 16; Temp 98.2; Pulse Ox 96% on R/A; dd2 [place] Coma Score: 13:02 Eye Response: spontaneous(4). Motor Response: obeys commands(6). Verbal Response: dd2 oriented(5). Total: 15. MDM: 10:15 Medical Screening Exam initiated jaylin 12:58 Differential diagnosis: bowel obstruction, diverticulitis, gastritis, gastroesophageal jaylin reflux disease, GI Bleed, Mesenteric ischemia or infarction, non-specific abd pain, pancreatitis, Peptic Ulcer Disease, Peritonitis, Prostatitis, Pyelonephritis, Ureterolithiasis, urinary tract infection. Data reviewed: vital signs, nurses notes, lab test result(s), EKG, radiologic studies, CT scan, plain films. Consideration of Admission/Observation Patient was admitted/placed on observation. Escalation of care including admission/observation considered. I considered the following discharge prescriptions or medication management in the emergency department Medications were administered in the Emergency Department. See MAR. Independent interpretation of the following test(s) in the Emergency Department EKG: See my EKG interpretation above. Test considered but Not performed: Ultrasound NO ABD USG. Care significantly affected by the following chronic conditions: Hypertension, Chronic Obstructive Pulmonary Disease, Obesity, DVT, TOBACCO ABUSE, DIVERTICULITIS. 12/25 10:17 Order name: Basic Metabolic Panel; Complete Time: 12:20 jaylin 12/25 10:17 Order name: CBC with Diff 12/25 10:17 Order name: LFT's; Complete Time: 12:20 12/25 10:17 Order name: Magnesium; Complete Time: 12:20 12/25 10:17 Order name: NT PRO-BNP; Complete Time: 12:20 12/25 10:17 Order name: PT-INR; Complete Time: 11:08 12/25 10:17 Order name: Troponin HS; Complete Time: 12:20 [facility] 12/25 10:17 Order name: UA Rfx Nelson Cult if indicated; Complete Time: 12:49 [facility] 12/25 11:10 Order name: CBC Smear Scan EDDC 12/25 10:17 Order name: XRAY Chest (1 view); Complete Time: 12:20 [facility] 12/25 10:17 Order name: CT Abd/Pelvis - IV Contrast Only; Complete Time: 12:20 [facility] 12/25 10:17 Order name: Cardiac monitoring; Complete Time: 10:52 [facility] 12/25 10:17 Order name: EKG - Nurse/Tech; Complete Time: 10:52 [facility] 12/25 10:17 Order name: IV Saline Lock; Complete Time: 10:52 [facility] 12/25 10:17 Order name: Labs collected and sent; Complete Time: 10:52 [facility] 12/25 10:17 Order name: O2 Per Protocol; Complete Time: 10:38 [facility] 12/25 10:17 Order name: O2 Sat Monitoring; Complete Time: 10:38 [facility] EC:56 Rate is 70 beats/min. Rhythm is regular. QRS [place] is Normal. LA interval is normal. QRS jaylin interval is normal. QT interval is normal. No Q waves. T waves are Normal. No ST changes noted. Clinical impression: NSR w/ Non-specific ST/T Changes and No evidence of ischemia. Interpreted by me. Reviewed by me. Administered Medications: 10:52 Drug: NS 0.9% IV 1000 ml IV at 1000 ml once; to be given as a bolus over 60 minutes bp Route: IV; Rate: 1000 ml; Site: right forearm; 12:05 Follow up: IV Status: Completed infusion dd2 10:52 Drug: Famotidine IVP 20 mg IVP once; dilute with 10 mL 0.9% NaCl; give over 2 minutes bp Route: IVP; Site: right forearm; 11:21 Follow up: Response: No adverse reaction me1 10:52 Drug: Ondansetron IVP 8 mg IVP once; over 2 minutes Route: IVP; Site: right forearm; bp 11:21 Follow up: Response: No adverse reaction; Nausea is decreased me1 10:52 Drug: fentaNYL (PF) IVP 50 mcg IVP once Route: IVP; Site: right forearm; bp 11:21 Follow up: Response: No adverse reaction; Pain is unchanged, physician notified me1 11:19 Drug: HYDROmorphone IVP 1 mg IVP once Route: IVP; Site: right forearm; me1 11:59 Follow up: Response: No adverse reaction; Pain is decreased me1 11:20 Drug: metroNIDAZOLE IVPB 500 mg 100 ml IVPB at 200 ml/hr once over 30 mins Volume: 100 me1 ml; Route: IVPB; Rate: 200 ml/hr; Infused Over: 30 mins; Site: right forearm; 11:56 Follow up: Response: No adverse reaction; IV Status: Completed infusion me1 11:56 Drug: Ciprofloxacin IVPB 400 mg 200 ml IVPB once over 60 mins Volume: 200 ml; Route: me1 IVPB; Infused Over: 60 mins; Site: right forearm; 12:56 Follow up: IV Status: Completed infusion dd2 12:24 Drug: HYDROmorphone IVP 1 mg IVP once Route: IVP; Site: right forearm; dd2 12:39 Follow up: Response: No adverse reaction dd2 13:00 Drug: Rocephin IV 2 grams IV at per protocol once; Given slow IV push per pharmarcy dd2 instructions Route: IV; Rate: per protocol; Site: right forearm; 13:20 Follow up: IV Status: Completed infusion dd2 Disposition Summary: 12/25/24 13:01 Discharge Ordered Notes: Location: Home jaylin Problem: new jaylin Symptoms: have improved jaylin Condition: Stable jaylin Diagnosis - Abdominal tenderness jaylin - Diverticulitis of large intestine without perforation or abscess without bleeding jaylin Followup: jaylin - With: Private Physician - When: 2 - 3 days - Reason: Recheck today's complaints, Continuance of care, Re-evaluation by your physician Followup: jaylin - With: Jose Cherry MD - When: 2 - 3 days - Reason: Recheck today's complaints, Re-evaluation by your physician Discharge Instructions: - Discharge Summary Sheet jaylin - Abdominal Pain, Adult jaylin - High-Fiber Eating Plan jaylin - Diverticulitis jaylin - Diverticulitis, [id number] jaylin - Abdominal Pain, Adult, [id number] jaylin Forms: - Medication Reconciliation Form jaylin - Antibiotic Education jaylin - Prescription Opioid Use jaylin - Patient Portal Instructions jaylin - Leadership Thank You Letter [facility] Prescriptions: - ondansetron 4 mg Oral Tablet,disintegrating - take 1 tablet ORAL route every 6 hours as needed for nausea and vomiting; 28 jaylin tablet; Refills: 0, Product Selection Permitted - Colace 100 mg Oral Tablet - take 1 tablet ORAL route every 12 hours; 14 tablet; Refills: 0, Product jaylin Selection Permitted - Flagyl 500 mg Oral Tablet - take 1 tablet ORAL route every 6 hours for 10 days; 40 tablet; Refills: 0, [facility] Product Selection Permitted - Cipro 500 mg Oral tablet - take 1 tablet ORAL route every 12 hours for 10 days; 20 tablet; Refills: 0, [facility] Product Selection Permitted - dicyclomine 20 mg Oral tablet - take 1 tablet ORAL route 4 times per day; 28 tablet; Refills: 0, Product jaylin Selection Permitted Signatures: Dispatcher [employer] EDMS Osbaldo Cedeño MD MD cha Peltier, Brian, RN RN Avani Connell RN RN me1 KATHRYN ALMANZA RN RN dd2 Corrections: (The following items were deleted from the chart) 10:17 10:17 BASIC METABOLIC PANEL+C.LAB.BRZ ordered. EDMS EDMS 10:17 10:17 CBC+H.LAB.BRZ ordered. EDMS EDMS 10:17 10:17 HEPATIC FUNCTION+C.LAB.BRZ ordered. EDMS EDMS 10:17 10:17 MAGNESIUM+C.LAB.BRZ ordered. EDMS EDMS 10:17 10:17 PROBNP+C.LAB.BRZ ordered. EDMS EDMS 10:17 10:17 PROTIME (+INR)+COAG.LAB.BRZ ordered. EDMS EDMS 10:17 10:17 Troponin High Sensitivity+C.LAB.BRZ ordered. EDMS EDMS 10:17 10:17 UA Rfx Nelson Cult if indicated+U.LAB.BRZ ordered. EDMS EDMS 10:17 10:17 Chest Single View+RAD.RAD.BRZ ordered. EDMS EDMS 10:17 10:17 Abdomen Pelvis W Con+CT.RAD.BRZ ordered. EDMS EDMS
--- NOTE | 2024-12-25 13:02 | ER ---
[facility] Age: 64 yrs Sex: Male : 1960 Arrival Date: 12/25/2024 Time: 10:08 Bed 18 Private MD: Diagnosis: Abdominal tenderness;Diverticulitis of large intestine without perforation or abscess without bleeding Presentation: 12/25 10:26 Chief complaint: Patient states: LLQ PAIN SINCE 0200. Coronavirus screen: At this time, bp the client does not indicate any symptoms associated with coronavirus-19. Ebola Screen: No symptoms or risks identified at this time. Initial Sepsis Screen: Does the patient meet any 2 criteria? No. Patient's initial sepsis screen is negative. Does the patient have a suspected source of infection? No. Patient's initial sepsis screen is negative. Risk Assessment: Do you want to hurt yourself or someone else? Patient reports no desire to harm self or others. Onset of symptoms was December 25, 2024 at 02:00. 10:26 Method Of Arrival: Ambulatory bp 10:26 Acuity: ISRRA[place] 3 bp Historical: - Allergies: 10:27 No Known Allergies; bp - PMHx: 10:27 COPD; Diverticulitis; DVT; Hypertension; bp - PSHx: 10:27 left forearm; bp - Immunization history:: Adult Immunizations up to date. - Infectious Disease History:: Denies. - Social history:: Smoking status: Patient reports the use of cigarette tobacco products, smokes one-half pack cigarettes per day. Screenin:02 [facility] ED Fall Risk Assessment (Adult) History of falling in the last 3 months, dd2 including since admission No falls in past 3 months (0 pts) Confusion or Disorientation No (0 pts) Intoxicated or Sedated No (0 pts) Impaired Gait No (0 pts) Mobility Assist Device Used No (0 pt) Altered Elimination No (0 pt) Score/Fall Risk Level 0 - 2 = Low Risk Oriented to surroundings, Maintained a safe environment, Educated pt \T\ family on fall prevention, incl call for assistance when getting out of bed, Assessed \T\ reinforced patient's understanding of fall precautions. Abuse screen: Denies threats or abuse. Denies injuries from another. Nutritional screening: dx diverticulitis. Tuberculosis screening: No symptoms or risk factors identified. Assessment: 13:02 General: Appears in no apparent distress. uncomfortable, Behavior is calm, cooperative, dd2 appropriate for age. Pain: Complains of pain in left lower quadrant and left upper quadrant Pain currently is 7 out of 10 on a pain scale. Neuro: No deficits noted. Cardiovascular: No deficits noted. Respiratory: No deficits noted. GI: Abdomen is round non-distended, Bowel sounds present X 4 quads. Abdomen is tender to palpation in left upper quadrant and left lower quadrant Reports lower abdominal pain, cramping. : No deficits noted. No signs and/or symptoms were reported regarding the genitourinary system. EENT: No deficits noted. No signs and/or symptoms were reported regarding the EENT system. Derm: No deficits noted. No signs and/or symptoms reported regarding the dermatologic system. Musculoskeletal: No deficits noted. No signs and/or symptoms reported regarding the musculoskeletal system. Circulation, motion, and sensation intact. Range of motion: intact in all extremities. Vital Signs: 10:26 BP 124 / 95; Pulse 76; Resp 16; Temp 98; Pulse Ox 95% ; bp 12:15 BP 131 / 70; Pulse 72; Resp 16; Pulse Ox 96% on R/A; dd2 13:25 BP 122 / 79; Pulse 68; Resp 16; Temp 98.2; Pulse Ox 96% on R/A; dd2 Wero Coma Score: 13:02 Eye Response: spontaneous(4). Motor Response: obeys commands(6). Verbal Response: dd2 oriented(5). Total: 15. ED Course: 10:11 Patient arrived in ED. mr 10:15 Osbaldo Cedeño MD is Attending Physician. jaylin 10:27 Triage completed. bp 10:52 Initial lab(s) drawn, by or, sent to lab. Inserted saline lock: 20 gauge in right bp forearm, using aseptic technique. Blood collected. Flushed with 10 mL NS. 11:10 Avani Summers RN is Primary Nurse. me1 11:11 XRAY Chest (1 view) In Process Unspecified. EDMS 11:42 CT Abd/Pelvis - IV Contrast Only In Process Unspecified. EDMS 13:00 Jose Cherry MD is Referral Physician. jaylin 13:02 No provider procedures requiring assistance completed. Patient maintains SpO2 dd2 saturation greater than 95% on room air. 13:02 Patient has correct armband on for positive identification. Bed in low position. Call dd2 light in reach. Side rails up X2. Client placed on continuous cardiac and pulse oximetry monitoring. NIBP monitoring applied. Door closed. Noise minimized. Warm blanket given. Pillow given. Verbal reassurance given. 13:30 IV discontinued, intact, bleeding controlled, No redness/swelling at site. Pressure dd2 dressing applied. 13:30 Provided Education on: d/c education. dd2 13:31 Arm band placed on. dd2 Administered Medications: 10:52 Drug: NS 0.9% IV 1000 ml IV at 1000 ml once; to be given as a bolus over 60 minutes bp Route: IV; Rate: 1000 ml; Site: right forearm; 12:05 Follow up: IV Status: Completed infusion dd2 10:52 Drug: Famotidine IVP 20 mg IVP once; dilute with 10 mL 0.9% NaCl; give over 2 minutes bp Route: IVP; Site: right forearm; 11:21 Follow up: Response: No adverse reaction me1 10:52 Drug: Ondansetron IVP 8 mg IVP once; over 2 minutes Route: IVP; Site: right forearm; bp 11:21 Follow up: Response: No adverse reaction; Nausea is decreased me1 10:52 Drug: fentaNYL (PF) IVP 50 mcg IVP once Route: IVP; Site: right forearm; bp 11:21 Follow up: Response: No adverse reaction; Pain is unchanged, physician notified me1 11:19 Drug: HYDROmorphone IVP 1 mg IVP once Route: IVP; Site: right forearm; me1 11:59 Follow up: Response: No adverse reaction; Pain is decreased me1 11:20 Drug: metroNIDAZOLE IVPB 500 mg 100 ml IVPB at 200 ml/hr once over 30 mins Volume: 100 me1 ml; Route: IVPB; Rate: 200 ml/hr; Infused Over: 30 mins; Site: right forearm; 11:56 Follow up: Response: No adverse reaction; IV Status: Completed infusion me1 11:56 Drug: Ciprofloxacin IVPB 400 mg 200 ml IVPB once over 60 mins Volume: 200 ml; Route: me1 IVPB; Infused Over: 60 mins; Site: right forearm; 12:56 Follow up: IV Status: Completed infusion dd2 12:24 Drug: HYDROmorphone IVP 1 mg IVP once Route: IVP; Site: right forearm; dd2 12:39 Follow up: Response: No adverse reaction dd2 13:00 Drug: Rocephin IV 2 grams IV at per protocol once; Given slow IV push per pharmarcy dd2 instructions Route: IV; Rate: per protocol; Site: right forearm; 13:20 Follow up: IV Status: Completed infusion dd2 Medication: 13:02 VIS not applicable for this client. dd2 Outcome: 13:01 Discharge ordered by MD. mosqueda 13:30 Discharged to home ambulatory, dd2 13:30 Condition: improved 13:30 Discharge instructions given to patient, significant other, Instructed on discharge instructions, follow up and referral plans. medication usage, Demonstrated understanding of instructions, follow-up care, medications, Prescriptions given X 5 13:31 Patient left the ED. dd2 Signatures: Dispatcher [employer] EDOsbaldo Syed MD MD cha Rivera, Mary, Reg Reg mr Jesus Rivas, RN RN bp Avani Summers RN RN me1 KATHRYN ALMANZA RN RN dd2
[2024-12-25 14:00] LABS: Anisocytosis 2+; Blood Morphology Comment NOTED (NOT SEEN); Hypochromasia 2+; Microcytosis 2+; Platelets, Giant PRESENT; Polychromasia 1+; Target Cells 1+; White Blood Cell Scan OK (OK)
[2024-12-25 14:01] LABS: Ovalocytes SLIGHT
[2024-12-25 14:07] VITALS: O2SAT 96
[2024-12-25 14:12] VITALS: BP 122/79; TEMP 98.2
== END 2024-12-25 13:31 | disposition home or self-care (01) ==
LOC: ER 10:08
DX: K57.32 Diverticulitis of large intestine without perforation or abscess without bleeding (principal); F17.210 Nicotine dependence, cigarettes, uncomplicated
CPT/HCPCS: 96365; 96367; 93005; 85025; 80048; 36415; 83735; 85610; 80076; 81003; 84484; 83880; 74177; 71045; 96375; 99284; Q9967; J3010; J1171 ×2; J2405; J0696; J0744; J7030